=== PATIENT | male | born 1955 | race Caucasian/White ===

== ENCOUNTER 2016-11-03 17:45 | Emergency (ER) | payer MEDICARE ==
--- NOTE | 2016-11-03 18:01 | ER Document Report ---
ED Medical Screen (RME) - General Stated Complaint: JOINT PAIN Time seen by provider: 17:55 Notes: Patient complains of joint pain mostly confined to the arms and legs for a couple of days. Complains of nausea and headache, denies vomiting or fever. Patient states he had a similar episode to this November 2015, in which he was in acute renal failure. He is followed in [place] for this. He has a history of hypertension, which he states he has been out of his medications for 1 week. I have greeted and performed a rapid initial assessment of this patient. A comprehensive ED assessment and evaluation of the patient, analysis of test results and completion of the medical decision making process will be conducted by additional ED providers. TRAVEL OUTSIDE OF THE [place] IN LAST 30 DAYS: No COUNTRY TRAVELED TO/FROM: [facility] - Related Data Allergies/Adverse Reactions: No Known Allergies Allergy (Verified 11/03/16 17:55) Past Medical History - Past Medical History Cardiac Medical History: Reports: Hx Atrial Fibrillation, Hx Hypercholesterolemia, Hx Hypertension Denies: Hx Congestive Heart Failure, Hx Coronary Artery Disease, Hx Heart Attack, Hx Peripheral Vascular Disease, Hx Heart Murmur Pulmonary Medical History: Reports: Hx COPD, Hx Sleep Apnea - Bi pap at home Denies: Hx Asthma, Hx Bronchitis, Hx Pneumonia, Hx Tuberculosis Neurological Medical History: Denies: Hx Cerebrovascular Accident, Hx Seizures Endocrine Medical History: Denies: Hx Diabetes Mellitus Type 1, Hx Diabetes Mellitus Type 2, Hx Graves' Disease, Hx Hyperthyroidism, Hx Hypothyroidism Renal/ Medical History: Reports: Hx Kidney Stones Malignancy Medical History: Denies Hx Bone Cancer, Denies Hx Brain Cancer, Denies Hx Colorectal Cancer GI Medical History: Reports: Hx Gastroesophageal Reflux Disease. Denies: Hx Cirrhosis, Hx Crohn's Disease, Hx Diverticulitis Musculoskeltal Medical History: Reports Hx Arthritis, Reports Hx Fibromyalgia Skin Medical History: Denies Hx Cellulitis, Denies Hx Eczema, Denies Hx MRSA Psychiatric Medical History: Reports: Hx Bipolar Disorder, Hx Depression Denies: Hx Attention Deficit Hyperactivity Disorder, Hx Borderline Personality Disorder, Hx Obsessive Compulsive Disorder, Hx Personality Disorder , Hx Post Traumatic Stress Disorder, Hx Schizoaffective Disorder Traumatic Medical History: Denies: Hx Gunshot Wound, Hx Liver Laceration, Hx Pneumothorax Past Surgical History: Reports: Hx Cholecystectomy, Hx Orthopedic Surgery. Denies: Hx Pacemaker - Immunizations Hx Diphtheria, Pertussis, Tetanus Vaccination: Yes
[2016-11-03 18:41] LABS: APPEARANCE,URINE SLIGHTLY-CLOUDY; BILIRUBIN,URINE NEGATIVE (NEGATIVE); GLUCOSE, URINE NEGATIVE (NEGATIVE); KETONES,URINE NEGATIVE (NEGATIVE); LEUKOCYTE ESTERASE,URINE NEGATIVE (NEGATIVE); NITRITE,URINE NEGATIVE (NEGATIVE); PROTEIN,URINE 100 mg/dL (NEGATIVE); URINE SPECIFIC GRAVITY 1.009; UROBILINOGEN,URINE NEGATIVE mg/dL (<2.0)
[2016-11-03 19:00] LABS: HEMATOCRIT 34.8 % (37.9-51.0); HEMOGLOBIN 11.6 g/dL (13.5-17.0); MEAN CORPUSCULAR HEMOGLOBIN 26.1 pg (27.0-33.4); MEAN CORPUSCULAR HGB CONC 33.2 g/dL (32.0-36.0); MEAN CORPUSCULAR VOLUME 79 fl (80-97); RED BLOOD COUNT 4.43 10^6/uL (4.35-5.55); RED CELL DISTRIBUTION WIDTH 17.1 % (11.5-14.0); WHITE BLOOD COUNT 14.5 10^3/uL (4.0-10.5)
[2016-11-03 19:11] LABS: ALANINE AMINOTRANSFERASE 16 U/L (21-72); ALBUMIN 3.9 g/dL (3.5-5.0); ALKALINE PHOSPHATASE 103 U/L (38-126); ANION GAP 13 (5-19); ASPARTATE AMINO TRANSFERASE 14 U/L (17-59); BILIRUBIN,TOTAL 0.8 mg/dL (0.2-1.3); BLOOD UREA NITROGEN 19 mg/dL (7-20); CALCIUM 9.2 mg/dL (8.4-10.2); CARBON DIOXIDE 29 mmol/L (22-30); CHLORIDE 98 mmol/L (98-107); CREATININE RESULT 1.35 mg/dL (0.52-1.25); GLUCOSE 91 mg/dL (75-110); POTASSIUM 3.2 mmol/L (3.6-5.0); SODIUM 139.7 mmol/L (137-145); URIC ACID 12.2 mg/dL (3.5-8.5)
[2016-11-03 19:21] LABS: BASOPHILS % (MANUAL) 1 % (0-2); EOSINOPHILS % (MANUAL) 0 % (0-6); LYMPHOCYTES % (MANUAL) 19 % (13-45); TOTAL CELLS COUNTED 100
[2016-11-03 19:22] LABS: ANISOCYTOSIS 1+; HYPOCHROMASIA SLIGHT; MICROCYTOSIS SLIGHT; POLYCHROMASIA SLIGHT
[2016-11-03] MEDS ORDERED: ALLOPURINOL 100 MG TABLET PO ONE (19:34)
[2016-11-03] MEDS ORDERED: POTASSIUM CHLORIDE 10 MEQ TABLET.SA PO ONE (19:34)
[2016-11-03] MEDS ORDERED: HYDROCODONE/ACETAMINOPHEN 5-325 MG 6 TAB/DSPK PO PRN (19:35)
--- NOTE | 2016-11-03 19:42 | ER Document Report ---
ED General Pain - General Chief Complaint: Pain All Over Stated Complaint: JOINT PAIN Notes: Patient says he's here because he has pain in all of his big joints for the past couple of days. He says he can hardly move because the pain. Had very similar symptoms about 9 or 10 months ago when he came to this hospital and was diagnosed as being in kidney failure. He was transferred to [place] where he underwent dialysis as well as some "light" chemotherapy to improve his kidney function. He is still under the care of the kidney doctors at [place], but says he only has 1 more visit scheduled with them. They have had him evaluated for possible kidney transplant. Patient says he's had a bad headache since yesterday and today. No nausea or vomiting or diarrhea. Has not noted any fever. Denies cough or chest congestion. Denies any fever. Patient has gout but is out of medications that he was taking. He says the medicine was [place]??, Which suggested had colchicine and it area patient doesn't have anymore at home. Patient also has had a problem with blood in his urine. He underwent a scope procedure looking at his entire urological system about a month and a half ago and was told that there was nothing abnormal found. TRAVEL OUTSIDE OF THE [place] IN LAST 30 DAYS: No COUNTRY TRAVELED TO/FROM: [facility] - Related Data Allergies/Adverse Reactions: No Known Allergies Allergy (Verified 11/03/16 17:55) Past Medical History - Social History Smoking Status: Current Every Day Smoker Chew tobacco use (# tins/day): No Frequency of alcohol use: None Drug Abuse: None Family History: Reviewed & Not Pertinent Patient has suicidal ideation: No Patient has homicidal ideation: No - Past Medical History Cardiac Medical History: Reports: Hx Atrial Fibrillation, Hx Hypercholesterolemia, Hx Hypertension Pulmonary Medical History: Reports: Hx COPD, Hx Sleep Apnea - Bi pap at home Renal/ Medical History: Reports: Hx Kidney Stones Malignancy Medical History: Denies Hx Bone Cancer, Denies Hx Brain Cancer, Denies Hx Colorectal Cancer GI Medical History: Reports: Hx Gastroesophageal Reflux Disease Musculoskeltal Medical History: Reports Hx Arthritis, Reports Hx Fibromyalgia, Reports Hx Gout Psychiatric Medical History: Reports: Hx Bipolar Disorder, Hx Depression Past Surgical History: Reports: Hx Cholecystectomy, Hx Orthopedic Surgery - Immunizations Hx Diphtheria, Pertussis, Tetanus Vaccination: Yes Hx Pneumococcal Vaccination: 09/30/11 Review of Systems - Review of Systems Notes: REVIEW OF SYSTEMS: CONSTITUTIONAL : Denies fever. EENT: Denies eye, ear, nose or mouth or throat pain or other symptoms. CARDIOVASCULAR: Denies chest pain. RESPIRATORY: Denies cough, chest congestion, or shortness of breath. GASTROINTESTINAL: Denies abdominal pain or nausea, vomiting, or diarrhea. GENITOURINARY: Denies difficulty or painful urinating, urinary frequency, blood in urine. MUSCULOSKELETAL: Denies back or neck pain. Complains of pain in all the big joints of his body. SKIN: Denies rash or skin lesions. NEUROLOGICAL: Denies LOC or altered mental status. Denies headache. Denies sensory loss or motor deficits. PSYCHIATRIC: Denies anxiety or stress. Denies depression. ALL OTHER SYSTEMS REVIEWED AND NEGATIVE. Physical Exam - Vital signs Vitals: Temp Pulse Resp BP Pulse Ox 98.7 F 87 20 126/79 H 96 11/03/16 17:58 11/03/16 17:58 11/03/16 17:58 11/03/16 17:58 11/03/16 17:58 Interpretation: Normal - Notes Notes: PHYSICAL EXAMINATION: GENERAL: Well-appearing, in no acute distress. HEAD: Atraumatic, normocephalic. EYES: Pupils equal round and reactive to light, extraocular movements intact. ENT: oropharynx clear without exudates. Moist mucous membranes. NECK: Normal range of motion, supple. LUNGS: Breath sounds clear and equal bilaterally. HEART: Regular rate and rhythm without murmurs. ABDOMEN: Soft, nontender. No guarding or rebound. No masses. No bruits. BACK: No tenderness throughout entire back. EXTREMITIES: Patient says all of his major, large joints are painful. However, there is no significant swelling, erythema, increased warmth, or even pain with movement of all of his big joints. NEUROLOGICAL: Normal speech, basically normal gait. Normal sensory, motor, and reflex exams. Awake, alert, and oriented x3. Cranial nerves normal. PSYCH: Normal mood, normal affect. SKIN: Warm, dry, no rashes. Course - Re-evaluation Re-evalutation: 11/03/16 20:57 WBC is 14,000, which could be elevated secondary to inflammatory process and his joints. He had a similar white count in January of last year. His chemistry showed his kidney function to be quite good with a normal BUN and a creatinine of only 1.35. Potassium was 3.2 and he was given 40 mEq of KCl here. His uric acids 12.5. Patient is being started on allopurinol twice a day for the next week. Pain medications are being given. Urged patient to follow-up with his primary care doctor, Dr. Moore, this coming week and to call his kidney doctors in [place] Saturday to find that it's safe for him to take the allopurinol that I prescribed. - Vital Signs Vital signs: Temp Pulse Resp BP Pulse Ox 98.8 F 81 18 122/81 93 11/03/16 19:58 11/03/16 19:58 11/03/16 19:58 11/03/16 19:58 11/03/16 19:58 - Laboratory Result Diagrams: 11/03/16 18:41 11/03/16 18:41 Laboratory results interpreted by me: 11/03/16 11/03/16 11/03/16 18:17 18:41 18:41 WBC 14.5 H Hgb 11.6 L Hct 34.8 L MCV 79 L MCH 26.1 L RDW 17.1 H Abs Neuts (Manual) 10.2 H Abs Monocytes (Manual) 1.5 H ESR 81 H Potassium 3.2 L Creatinine 1.35 H Est GFR (Non-Af Amer) 54 L Uric Acid 12.2 H AST 14 L ALT 16 L Urine Protein 100 H Urine Blood LARGE H Discharge - Discharge Clinical Impression: Renal insufficiency, mild, Hypokalemia Gout Qualifiers: Gout site: multiple sites Gout etiology: unspecified cause Chronicity: acute Qualified Code(s): M10.9 - Gout, unspecified Condition: Stable Disposition: HOME, SELF-CARE Additional Instructions: Arthralgia Arthralgia is pain in the joints. We use the word arthralgia to describe joint pain where there's no history of injury, no known joint disease, and the joints are normal to examination. Arthralgia can be a symptom of an acute illness, such as influenza, hepatitis, or serum sickness. Sometimes the joint pain comes before any other symptoms. Arthralgia can also be an early symptom of joint disease, such as rheumatoid arthritis or lupus. If arthralgia is accompanied by an acute illness that explains the joint pain, such as mononucleosis, no further testing needs to be done. When there's no clear reason for the pain, tests may be done to see if there's an inflammatory disease of the joints. The usual treatment is anti-inflammatory medication, such as ibuprofen. Joint aches can be soothed with a heating pad or hot compress. If joints remain painful more than a few days, you'll need testing and followup. Return if a joint becomes swollen, red, or severely painful. Arthritis Your symptoms are due to arthritis. Arthritis is an inflammation of the joints. There are many types -- osteoarthritis (due to "wear and tear"), auto- immmune arthritis (such as rheumatoid, lupus, Lul's, and others), and crystal -induced arthritis (such as gout and pseudogout). The physician's examination, combined with laboratory tests, will determine the cause of your arthritis. All types of arthritis are treated with antiinflammatory medications. Other medication may be required for special types of arthritis, or if your problem does not respond to the antiinflammatory medicine. Local warmth may be helpful. Move the involved joints through the full range of motion daily. Mild exercise is usually still possible for most persons with arthritis (ask your physician). Swimming provides good exercise without damaging the joints. Contact the physician if you are worsening in any way. Gout You have been diagnosed as having gout. Gout is a problem caused by an excess of uric acid, a natural chemical found in the body. The cause of this disease is unknown. Gout arthritis occurs when crystals of uric acid form in the joints. The big toe is the most common joint involved, but any joint can become affected. Persons with gout may also form uric acid kidney stones, resulting in flank pain and blood in the urine. Nodules of uric acid may form under the skin. The first step of treatment is to decrease the inflammation in the joint with antiinflammatory medication. Medication to lower the uric acid level in the blood may then be prescribed. This medication should be taken regularly, as any sudden change in dosage may provoke an attack of gout. Some foods, such as red meat, can provoke an attack in some gout sufferers. Call the doctor if new symptoms arise, or if you do not improve. Allopurinol Allopurinol (Zyloprim) is used to prevent gout and uric acid kidney stones. Allopurinol lowers uric acid in your body. It's most effective if taken daily. It's not useful to treat an attack of gout once it begins! There are usually no side effects from allopurinol. If you have any kidney disease, be sure your doctor knows about it before starting allopurinol ( you may need a lower dose). Stop the allopurinol and call your doctor if you develop severe itching, rash, unexplained blisters, unexplained bruises, jaundice (yellow skin), or swelling. Hypokalemia You have an abnormally decreased level of serum potassium. Hypokalemia may cause weakness, fatigue, or heart rhythm abnormalities. Sometimes there are no symptoms at all. Usually, low serum potassium is due to taking diuretics ( water pills). It can also be due to excessive vomiting or diarrhea. If no obvious cause is evident, further evaluation will be necessary. Treatment is usually oral potassium supplements. Take these exactly as prescribed. You may also want to select foods which are naturally high in potassium -- fruits (such as bananas, cantaloupe, grapes, oranges, prunes, tomatoes), fresh vegetables (potatoes, spinach, beans, peas), orange or tomato juice, tomato pasta sauce, milk, fish (halibut, tuna, salmon, flora) A follow-up blood test is usually performed to assure that the potassium is returning to normal. Call the physician if you suffer severe weakness, muscle twitching or cramping, palpitations (pounding or irregular heartbeat), or any other new or alarming symptoms. Oral Narcotic Medication You have been given a prescription for pain control. This medication is a narcotic. It's best taken with food, as nausea can result if taken on an empty stomach. Don't operate machinery or drive within six hours of taking this medication. Do not combine this medicine with alcohol, or with any medication which can cause sedation (such as cold tablets or sleeping pills) unless you get permission from the physician. Narcotics tend to cause constipation. If possible, drink plenty of fluids and eat a diet high in fiber and fruits. FOLLOW-UP CARE: If you have been referred to a physician for follow-up care, call the physician s office for an appointment as you were instructed or within the next two days. If you experience worsening or a significant change in your symptoms, notify the physician immediately or return to the Emergency Department at any time for re-evaluation. Call your kidney doctors in [place] Saturday to let them know you were here and that we gave you medication (Allopurinol) for gout and medication for pain and to see that they are agreeable with this treatment plan. Prescriptions: Hydrocodone/Acetaminophen [[place] 5-325 mg Tablet] 1 - 2 tab PO Q6HP PRN #15 tablet PRN Reason: Allopurinol [Zyloprim 100 mg Tablet] 100 mg PO BID #12 tablet Referrals: SHANIA MOORE MD [Primary Care Provider] - Follow up as needed
[2016-11-03 19:45] LABS: ERYTHROCYTE SEDIMENTATION RATE 81 mm/hr (0-20)
[2016-11-03] MEDS ORDERED: ALLOPURINOL 100 MG TABLET ONE (19:48)
[2016-11-03 20:03] VITALS: BP 122/81
== END 2016-11-03 20:03 | disposition home or self-care (01) ==
LOC: ER 17:45
DX: M10.9 Gout, unspecified (principal); E87.6 Hypokalemia; N28.9 Disorder of kidney and ureter, unspecified; R51 Headache; R31.9 Hematuria, unspecified; D72.829 Elevated white blood cell count, unspecified; I10 Essential (primary) hypertension; J44.9 Chronic obstructive pulmonary disease, unspecified; F17.200 Nicotine dependence, unspecified, uncomplicated; Z98.890 Other specified postprocedural states
CPT/HCPCS: 99283; 36415; 84550; 85025; 85652; 80053; 81001; A9270 ×3

== ENCOUNTER 2016-11-05 21:30 | Emergency (ER) | payer MEDICARE ==
--- NOTE | 2016-11-05 23:09 | ER Document Report ---
ED Medical Screen (RME) - General Chief Complaint: Swelling Stated Complaint: HANDS PAIN Information source: Patient Notes: Patient complains of gout flareup affecting multiple joints. No fever. Patient was seen here 2 days ago for the same complaint but states symptoms are worse despite medication. hx: Hypertension, gout I have greeted and performed a rapid initial assessment of this patient. A comprehensive ED assessment and evaluation of the patient, analysis of test results and completion of the medical decision making process will be conducted by additional ED providers. TRAVEL OUTSIDE OF THE [place] IN LAST 30 DAYS: No - Related Data Allergies/Adverse Reactions: No Known Allergies Allergy (Verified 11/03/16 17:55) Past Medical History - Past Medical History Cardiac Medical History: Reports: Hx Atrial Fibrillation, Hx Hypercholesterolemia, Hx Hypertension Denies: Hx Congestive Heart Failure, Hx Coronary Artery Disease, Hx Heart Attack, Hx Peripheral Vascular Disease, Hx Heart Murmur Pulmonary Medical History: Reports: Hx COPD, Hx Sleep Apnea - Bi pap at home Denies: Hx Asthma, Hx Bronchitis, Hx Pneumonia, Hx Tuberculosis Neurological Medical History: Denies: Hx Cerebrovascular Accident, Hx Seizures Endocrine Medical History: Denies: Hx Diabetes Mellitus Type 1, Hx Diabetes Mellitus Type 2, Hx Graves' Disease, Hx Hyperthyroidism, Hx Hypothyroidism Renal/ Medical History: Reports: Hx Kidney Stones. Denies: Hx Peritoneal Dialysis Malignancy Medical History: Denies Hx Bone Cancer, Denies Hx Brain Cancer, Denies Hx Colorectal Cancer GI Medical History: Reports: Hx Gastroesophageal Reflux Disease. Denies: Hx Cirrhosis, Hx Crohn's Disease, Hx Diverticulitis Musculoskeltal Medical History: Reports Hx Arthritis, Reports Hx Fibromyalgia, Reports Hx Gout Skin Medical History: Denies Hx Cellulitis, Denies Hx Eczema, Denies Hx MRSA Psychiatric Medical History: Reports: Hx Bipolar Disorder, Hx Depression Denies: Hx Attention Deficit Hyperactivity Disorder, Hx Borderline Personality Disorder, Hx Obsessive Compulsive Disorder, Hx Personality Disorder , Hx Post Traumatic Stress Disorder, Hx Schizoaffective Disorder Traumatic Medical History: Denies: Hx Gunshot Wound, Hx Liver Laceration, Hx Pneumothorax Past Surgical History: Reports: Hx Cholecystectomy, Hx Orthopedic Surgery. Denies: Hx Pacemaker - Immunizations Hx Diphtheria, Pertussis, Tetanus Vaccination: Yes Physical Exam - Vital signs Vitals: Temp Pulse Resp BP Pulse Ox 98.0 F 80 20 134/68 H 98 11/05/16 22:58 11/05/16 22:58 11/05/16 22:58 11/05/16 22:58 11/05/16 22:58 - Extremities General lower extremity: Tender - Bilateral knee, ankle joints Course - Vital Signs Vital signs: Temp Pulse Resp BP Pulse Ox 98.0 F 80 20 134/68 H 98 11/05/16 22:58 11/05/16 22:58 11/05/16 22:58 11/05/16 22:58 11/05/16 22:58
[2016-11-06 02:31] LABS: ABSOLUTE BASOPHILS # (AUTO) 0.1 10^3/uL (0.0-0.2); ABSOLUTE EOSINOPHILS # (AUTO) 0.1 10^3/uL (0.0-0.6); ABSOLUTE NEUT (AUTO) 9.9 10^3/uL (1.7-8.2); BASOPHILS % (AUTO) 0.6 % (0-2); EOSINOPHILS % (AUTO) 0.6 % (0-6); HEMATOCRIT 34.6 % (37.9-51.0); HEMOGLOBIN 11.6 g/dL (13.5-17.0); HGB HCT DIFFERENCE 0.2; LYMPHOCYTES % (AUTO) 8.7 % (13-45); MEAN CORPUSCULAR HEMOGLOBIN 26.4 pg (27.0-33.4); MEAN CORPUSCULAR HGB CONC 33.5 g/dL (32.0-36.0); MEAN CORPUSCULAR VOLUME 79 fl (80-97); MONOCYTES % (AUTO) 8.1 % (3-13); RED CELL DISTRIBUTION WIDTH 16.8 % (11.5-14.0); WHITE BLOOD COUNT 12.1 10^3/uL (4.0-10.5)
[2016-11-06 02:46] LABS: ALANINE AMINOTRANSFERASE 20 U/L (21-72); ALBUMIN 3.4 g/dL (3.5-5.0); ALKALINE PHOSPHATASE 105 U/L (38-126); ANION GAP 14 (5-19); ASPARTATE AMINO TRANSFERASE 21 U/L (17-59); BILIRUBIN,TOTAL 0.7 mg/dL (0.2-1.3); BLOOD UREA NITROGEN 15 mg/dL (7-20); CALCIUM 8.9 mg/dL (8.4-10.2); CARBON DIOXIDE 27 mmol/L (22-30); CHLORIDE 98 mmol/L (98-107); CREATININE RESULT 1.22 mg/dL (0.52-1.25); GLUCOSE 205 mg/dL (75-110); POTASSIUM 3.1 mmol/L (3.6-5.0); SODIUM 139.3 mmol/L (137-145); TOTAL PROTEIN 7.1 g/dL (6.3-8.2); URIC ACID 9.2 mg/dL (3.5-8.5)
[2016-11-06 03:00] LABS: C-REACTIVE PROTEIN 199.8 mg/L (<10.0)
[2016-11-06 03:03] LABS: ERYTHROCYTE SEDIMENTATION RATE 109 mm/hr (0-20)
[2016-11-06 04:41] LABS: APPEARANCE,URINE SLIGHTLY-CLOUDY; BILIRUBIN,URINE NEGATIVE (NEGATIVE); GLUCOSE, URINE NEGATIVE (NEGATIVE); KETONES,URINE NEGATIVE (NEGATIVE); LEUKOCYTE ESTERASE,URINE NEGATIVE (NEGATIVE); NITRITE,URINE NEGATIVE (NEGATIVE); PROTEIN,URINE 100 mg/dL (NEGATIVE); UROBILINOGEN,URINE NEGATIVE mg/dL (<2.0)
[2016-11-06] MEDS ORDERED: OXYCODONE-ACETAMINOPHEN 5-325 MG TABLET PO ONE (05:13)
--- NOTE | 2016-11-06 06:15 | ER Document Report ---
ED General - General Chief Complaint: Feet Swelling Stated Complaint: HANDS PAIN Time seen by provider: 06:10 Mode of Arrival: Medic Information source: Patient Notes: 61-year-old male presents to ED for pain and swelling in most of his joints last 4-5 days. He states he was seen here 11/03/2016. He states the pain was so bad that he couldn't even drive himself he had to call 911. He states he had this similar symptom symptoms but on her 10 months ago he was on a lot of steroids and he was diagnosed with kidney failure was transferred to [place] underwent dialysis and was able to improve his kidney function. Patient denies any fever but states the medication he's been taking has not helped his pain. TRAVEL OUTSIDE OF THE [place] IN LAST 30 DAYS: No - HPI Onset: Other - For 6 days Onset/Duration: Gradual, Worse Quality of pain: Sharp, Stabbing, Throbbing Severity: Severe Pain Level: 5 Associated symptoms: Other - Redness and swelling at all joints. Exacerbated by: Movement, Walking Relieved by: Denies Similar symptoms previously: Yes Recently seen / treated by doctor: Yes - Related Data Allergies/Adverse Reactions: No Known Allergies Allergy (Verified 11/03/16 17:55) Past Medical History - General Information source: Patient - Social History Smoking Status: Current Every Day Smoker Cigarette use (# per day): Yes - 4-5 cigarettes a day trying to quit Chew tobacco use (# tins/day): Yes - less than a minute Frequency of alcohol use: None Drug Abuse: None Occupation: none Lives with: Alone Family History: Reviewed & Not Pertinent Patient has suicidal ideation: No Patient has homicidal ideation: No - Past Medical History Cardiac Medical History: Reports: Hx Atrial Fibrillation, Hx Hypercholesterolemia, Hx Hypertension Pulmonary Medical History: Reports: Hx COPD, Hx Sleep Apnea - Bi pap at home EENT Medical History: Reports: None Neurological Medical History: Reports: None Endocrine Medical History: Reports: None Renal/ Medical History: Reports: Hx Kidney Stones, Other - Kidney failure about 9 or 10 months ago but his kidney function has improved. Malignancy Medical History: Reports None GI Medical History: Reports: Hx Gastroesophageal Reflux Disease Musculoskeltal Medical History: Reports Hx Arthritis, Reports Hx Fibromyalgia, Reports Hx Gout Skin Medical History: Reports None Psychiatric Medical History: Reports: Hx Bipolar Disorder, Hx Depression Traumatic Medical History: Reports: None Infectious Medical History: Reports: None Past Surgical History: Reports: Hx Cholecystectomy, Hx Orthopedic Surgery - Immunizations Immunizations up to date: Yes Hx Diphtheria, Pertussis, Tetanus Vaccination: Yes Hx Pneumococcal Vaccination: 09/30/11 Review of Systems - Review of Systems Constitutional: No symptoms reported EENT: No symptoms reported Cardiovascular: No symptoms reported Respiratory: No symptoms reported Gastrointestinal: No symptoms reported Genitourinary: No symptoms reported Male Genitourinary: No symptoms reported Musculoskeletal: Gout, Joint pain, Joint swelling, Other - Redness to every joint Skin: Change in color Hematologic/Lymphatic: No symptoms reported Neurological/Psychological: No symptoms reported -: Yes All other systems reviewed and negative Physical Exam - Vital signs Vitals: Temp Pulse Resp BP Pulse Ox 98.0 F 80 20 134/68 H 98 11/05/16 22:58 11/05/16 22:58 11/05/16 22:58 11/05/16 22:58 11/05/16 22:58 Interpretation: Normal - General General appearance: Appears well, Alert - HEENT Head: Normocephalic, Atraumatic Eyes: Normal Pupils: PERRL - Respiratory Respiratory status: No respiratory distress Chest status: Nontender Breath sounds: Normal Chest palpation: Normal - Cardiovascular Rhythm: Regular Heart sounds: Normal auscultation Murmur: No - Abdominal Inspection: Normal Distension: No distension Bowel sounds: Normal Tenderness: Nontender Organomegaly: No organomegaly - Back Back: Normal, Nontender - Extremities General upper extremity: Normal temperature General lower extremity: Normal temperature. No: Drake's sign Shoulder: Tender Elbow: Tender, Limited ROM - Due to pain from gout, Other - Erythema Forearm: Tender, Other - Erythema Wrist: Tender, Limited ROM - Due to pain from gout Hand: Tender, Swelling, Other - Erythema Hip: Tender, Pain with ROM - Due to pain from gout, Other - Erythema Knee: Tender, Pain with ROM - Due to pain from gout, Tender joint line Ankle: Tender Foot: Tender - Neurological Neuro grossly intact: Yes Cognition: Normal Orientation: AAOx4 Giles Coma Scale Eye Opening: Spontaneous Giles Coma Scale Verbal: Oriented Rocky Coma Scale Motor: Obeys Commands Rocky Coma Scale Total: 15 Speech: Normal Motor strength normal: LUE, RUE, LLE, RLE Sensory: Normal - Psychological Associated symptoms: Normal affect, Normal mood - Skin Skin Temperature: Warm Skin Moisture: Dry Skin Color: Normal Skin irregularity: Erythema - Most joints Location of irregularity: Extremities Irregularity with: Swelling, Tenderness, Warmth, Inflammation Course - Re-evaluation Re-evalutation: 11/06/16 06:30 Reviewed lab results with patient and written reports given to patient and encouraged to follow up with his primary doctor today or tomorrow as he was instructed. Patient states he missed his appointment on Saturday due to pain because he could not drive himself. Instructed patient to find someone to drive him to the doctor. - Vital Signs Vital signs: Temp Pulse Resp BP Pulse Ox 99.2 F 75 20 118/63 93 11/06/16 06:51 11/06/16 06:51 11/06/16 06:51 11/06/16 06:51 11/06/16 06:51 - Laboratory Result Diagrams: 11/06/16 02:22 11/06/16 02:22 Laboratory results interpreted by me: 11/06/16 11/06/16 11/06/16 02:22 02:22 04:05 WBC 12.1 H Hgb 11.6 L Hct 34.6 L MCV 79 L MCH 26.4 L RDW 16.8 H Seg Neutrophils % 82.0 H Lymphocytes % 8.7 L Absolute Neutrophils 9.9 H ESR 109 H Potassium 3.1 L Glucose 205 H Uric Acid 9.2 H ALT 20 L C-Reactive Protein 199.8 H Albumin 3.4 L Urine Protein 100 H Urine Blood LARGE H Discharge - Discharge Clinical Impression: Gout Qualifiers: Gout site: multiple sites Gout etiology: unspecified cause Chronicity: acute Qualified Code(s): M10.9 - Gout, unspecified Condition: Stable Disposition: HOME, SELF-CARE Additional Instructions: Gout You have been diagnosed as having gout. Gout is a problem caused by an excess of uric acid, a natural chemical found in the body. The cause of this disease is unknown. Gout arthritis occurs when crystals of uric acid form in the joints. The big toe is the most common joint involved, but any joint can become affected. Persons with gout may also form uric acid kidney stones, resulting in flank pain and blood in the urine. Nodules of uric acid may form under the skin. The first step of treatment is to decrease the inflammation in the joint with antiinflammatory medication. Medication to lower the uric acid level in the blood may then be prescribed. This medication should be taken regularly, as any sudden change in dosage may provoke an attack of gout. Some foods, such as red meat, can provoke an attack in some gout sufferers. Call the doctor if new symptoms arise, or if you do not improve. Arthralgia Arthralgia is pain in the joints. We use the word arthralgia to describe joint pain where there's no history of injury, no known joint disease, and the joints are normal to examination. Arthralgia can be a symptom of an acute illness, such as influenza, hepatitis, or serum sickness. Sometimes the joint pain comes before any other symptoms. Arthralgia can also be an early symptom of joint disease, such as rheumatoid arthritis or lupus. If arthralgia is accompanied by an acute illness that explains the joint pain, such as mononucleosis, no further testing needs to be done. When there's no clear reason for the pain, tests may be done to see if there's an inflammatory disease of the joints. The usual treatment is anti-inflammatory medication, such as ibuprofen. Joint aches can be soothed with a heating pad or hot compress. If joints remain painful more than a few days, you'll need testing and followup. Return if a joint becomes swollen, red, or severely painful. STEROID MEDICATION: You have been given a medicine of the cortisone/steroid class. This medication is used to control inflammation or allergy. It is usually only given for a short period of time, until the acute process subsides. There are usually no side effects from short-term use of cortisone-like medications. Some persons feel an increased sense of well-being and are not sleepy at bedtime. Long-term use of cortisone medications is best avoided, unless required for a severe condition. If your condition does not remit, or relapses after the course of corticosteroid medication, you should consult your physician. Oral Narcotic Medication You have been given a prescription for pain control. This medication is a narcotic. It's best taken with food, as nausea can result if taken on an empty stomach. Don't operate machinery or drive within six hours of taking this medication. Do not combine this medicine with alcohol, or with any medication which can cause sedation (such as cold tablets or sleeping pills) unless you get permission from the physician. Narcotics tend to cause constipation. If possible, drink plenty of fluids and eat a diet high in fiber and fruits. FOLLOW-UP CARE: Please call Dr. Moore today schedule a follow-up visit and findings someone to take you to the visit do not cancer genetic counselor the visit due to pain. If you have been referred to a physician for follow-up care, call the physician s office for an appointment as you were instructed or within the next two days. If you experience worsening or a significant change in your symptoms, notify the physician immediately or return to the Emergency Department at any time for re-evaluation. Prescriptions: Prednisone [Deltasone 20 mg Tablet] 3 tab PO DAILY 5 Days Forms: Elevated Blood Pressure, Smoking Cessation Education Referrals: SHANIA MOORE MD [Primary Care Provider] - 11/06/16 (Call Dr. Moore today to schedule an appointment for follow-up for your Gout)
[2016-11-06] MEDS ORDERED: PREDNISONE 20 MG TABLET PO ONE (06:24)
[2016-11-06 06:52] VITALS: BP 118/63
== END 2016-11-06 06:52 | disposition home or self-care (01) ==
LOC: ER 21:30
DX: M10.9 Gout, unspecified (principal); I10 Essential (primary) hypertension; J44.9 Chronic obstructive pulmonary disease, unspecified; F17.210 Nicotine dependence, cigarettes, uncomplicated; Z71.6 Tobacco abuse counseling
CPT/HCPCS: 99283; 36415; 84550; 85025; 85652; 86140; 80053; 81001; A9270 ×2; J7512

== ENCOUNTER 2016-12-20 17:53 | Emergency (ER) | payer MEDICARE ==
[2016-12-20 18:00] VITALS: BP 171/90
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
[2016-12-20] MEDS ORDERED: HYDROCODONE/ACETAMINOPHEN 5-325 MG 6 TAB/DSPK PO PRN (21:28)
== END 2016-12-20 22:08 | disposition home or self-care (01) ==
LOC: ER 17:53
DX: G89.21 Chronic pain due to trauma (principal); M54.89 Other dorsalgia; M89.8X8 Other specified disorders of bone, other site; S22.20XA Unspecified fracture of sternum, initial encounter for closed fracture; S32.009A Unspecified fracture of unspecified lumbar vertebra, initial encounter for closed fracture; V49.9XXA Car occupant (driver) (passenger) injured in unspecified traffic accident, initial encounter; I10 Essential (primary) hypertension; J44.9 Chronic obstructive pulmonary disease, unspecified
CPT/HCPCS: 99283; A9270

== ENCOUNTER 2017-03-13 06:10 | Emergency (ER) | payer MEDICARE ==
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
[2017-03-13 07:26] LABS: ABSOLUTE BASOPHILS # (AUTO) 0.1 10^3/uL (0.0-0.2); ABSOLUTE EOSINOPHILS # (AUTO) 0.3 10^3/uL (0.0-0.6); ABSOLUTE MONOCYTES (AUTO) 1.2 10^3/uL (0.1-1.4); ABSOLUTE NEUT (AUTO) 4.9 10^3/uL (1.7-8.2); BASOPHILS % (AUTO) 0.9 % (0-2); EOSINOPHILS % (AUTO) 3.2 % (0-6); HEMATOCRIT 39.5 % (37.9-51.0); HEMOGLOBIN 13.2 g/dL (13.5-17.0); HGB HCT DIFFERENCE 0.1; LYMPHOCYTES % (AUTO) 23.5 % (13-45); MEAN CORPUSCULAR HEMOGLOBIN 27.9 pg (27.0-33.4); MEAN CORPUSCULAR HGB CONC 33.4 g/dL (32.0-36.0); MEAN CORPUSCULAR VOLUME 84 fl (80-97); RED BLOOD COUNT 4.73 10^6/uL (4.35-5.55); RED CELL DISTRIBUTION WIDTH 17.2 % (11.5-14.0); SEGMENTED NEUTROPHILS % (AUTO) 58.4 % (42-78); WHITE BLOOD COUNT 8.4 10^3/uL (4.0-10.5)
[2017-03-13 07:46] LABS: ALANINE AMINOTRANSFERASE 22 U/L (21-72); ALBUMIN 3.8 g/dL (3.5-5.0); ALKALINE PHOSPHATASE 88 U/L (38-126); ANION GAP 11 (5-19); ASPARTATE AMINO TRANSFERASE 18 U/L (17-59); BILIRUBIN,DIRECT 0.3 mg/dL (0.0-0.4); BILIRUBIN,TOTAL 0.3 mg/dL (0.2-1.3); BLOOD UREA NITROGEN 21 mg/dL (7-20); CARBON DIOXIDE 27 mmol/L (22-30); CHLORIDE 102 mmol/L (98-107); CREATININE RESULT 1.14 mg/dL (0.52-1.25); GLUCOSE 125 mg/dL (75-110); POTASSIUM 3.2 mmol/L (3.6-5.0); TOTAL PROTEIN 6.6 g/dL (6.3-8.2)
[2017-03-13] MEDS ORDERED: TRAMADOL HCL 50 MG TABLET PO ONE (07:49)
[2017-03-13 08:37] VITALS: BP 128/74
== END 2017-03-13 08:36 | disposition home or self-care (01) ==
LOC: ER 06:10
DX: M54.5 Low back pain (principal); M54.9 Dorsalgia, unspecified; Z79.899 Other long term (current) drug therapy
CPT/HCPCS: 99283; 36415; 85025; 80053; A9270

== ENCOUNTER → 2017-04-15 | Outpatient (CLI) | payer MEDICARE ==
[2017-04-15 10:46] LABS: ABSOLUTE BASOPHILS # (AUTO) 0.1 10^3/uL (0.0-0.2); ABSOLUTE EOSINOPHILS # (AUTO) 0.2 10^3/uL (0.0-0.6); ABSOLUTE LYMPHOCYTES (AUTO) 1.6 10^3/uL (0.5-4.7); ABSOLUTE MONOCYTES (AUTO) 0.8 10^3/uL (0.1-1.4); ABSOLUTE NEUT (AUTO) 5.1 10^3/uL (1.7-8.2); BASOPHILS % (AUTO) 0.8 % (0-2); EOSINOPHILS % (AUTO) 2.7 % (0-6); HEMATOCRIT 40.5 % (37.9-51.0); HEMOGLOBIN 13.5 g/dL (13.5-17.0); LYMPHOCYTES % (AUTO) 20.8 % (13-45); MEAN CORPUSCULAR HEMOGLOBIN 28.1 pg (27.0-33.4); MEAN CORPUSCULAR HGB CONC 33.2 g/dL (32.0-36.0); MEAN CORPUSCULAR VOLUME 85 fl (80-97); MONOCYTES % (AUTO) 10.3 % (3-13); RED BLOOD COUNT 4.78 10^6/uL (4.35-5.55); RED CELL DISTRIBUTION WIDTH 14.6 % (11.5-14.0); SEGMENTED NEUTROPHILS % (AUTO) 65.4 % (42-78); WHITE BLOOD COUNT 7.9 10^3/uL (4.0-10.5)
[2017-04-15 12:10] LABS: ALANINE AMINOTRANSFERASE 22 U/L (21-72); ALBUMIN 3.9 g/dL (3.5-5.0); ALKALINE PHOSPHATASE 111 U/L (38-126); ANION GAP 12 (5-19); ASPARTATE AMINO TRANSFERASE 22 U/L (17-59); BILIRUBIN,TOTAL 0.5 mg/dL (0.2-1.3); BLOOD UREA NITROGEN 19 mg/dL (7-20); CALCIUM 9.2 mg/dL (8.4-10.2); CARBON DIOXIDE 27 mmol/L (22-30); CHLORIDE 100 mmol/L (98-107); CREATININE RESULT 1.27 mg/dL (0.52-1.25); GLUCOSE 103 mg/dL (75-110); POTASSIUM 3.8 mmol/L (3.6-5.0); TOTAL PROTEIN 7.1 g/dL (6.3-8.2)
[2017-04-15 12:11] LABS: ANION GAP 13 (5-19); BLOOD UREA NITROGEN 19 mg/dL (7-20); CALCIUM 9.5 mg/dL (8.4-10.2); CARBON DIOXIDE 26 mmol/L (22-30); CHLORIDE 104 mmol/L (98-107); GLUCOSE 107 mg/dL (75-110); PHOSPHORUS 3.9 mg/dL (2.5-4.5); SODIUM 142.6 mmol/L (137-145)
[2017-04-15 12:23] LABS: URINE BARBITURATES SCREEN NEGATIVE; URINE METHADONE SCREEN NEGATIVE; URINE OPIATES LOW NEGATIVE; URINE PHENCYCLIDINE SCREEN NEGATIVE
[2017-04-15 13:10] LABS: BILIRUBIN,DIRECT 0.3 mg/dL (0.0-0.4)
[2017-04-15 19:10] LABS: CHOLESTEROL 120.97 mg/dL (0-200); Direct HDL 34 mg/dL (>40); TRIGLYCERIDES 184 mg/dL (<150)
[2017-04-15 19:21] LABS: DIRECT LDL 60 mg/dL (<100)
[2017-04-15 19:23] LABS: VLDL CHOLESTEROL 36.8 mg/dL (10-31)
== END ==
LOC: OD 09:40
PROVIDERS: ATTEND Physician Assistant
DX: I12.9 Hypertensive chronic kidney disease with stage 1 through stage 4 chronic kidney disease, or unspecified chronic kidney disease (principal); N18.9 Chronic kidney disease, unspecified; E55.9 Vitamin D deficiency, unspecified; N40.0 Benign prostatic hyperplasia without lower urinary tract symptoms; Z79.891 Long term (current) use of opiate analgesic
CPT/HCPCS: 36415; 80053; 80061; 80069; 80307; 82306; 84153; 84443; 85025

== ENCOUNTER 2019-06-05 16:24 | Emergency (ER) | payer MEDICARE ==
--- NOTE | 2019-06-05 17:45 | ER Document Report ---
ED Medical Screen (RME) - General Chief Complaint: Productive Cough Stated Complaint: COUGHING UP BLOOD Time Seen by Provider: 06/05/19 17:43 Primary Care Provider: GUILLERMO MO MD [Primary Care Provider] - Follow up as needed Mode of Arrival: Ambulatory Information source: Patient Notes: 64-year-old male presents to ED for waking up coughing mucus and blood this morning he states he started coughing yesterday he has a history of high blood pressure cholesterol pneumonia kidney failure anxiety arthritis and melanoma. He has had multiple orthopedic surgeries to include his right ankle both knees back fusion right shoulder rotator cuff carpal tunnel and finger reconstruction. He states he smokes a pack a day lives alone and is retired. He is alert orie nted respirations regular and unlabored speaking in full sentences walks with a even steady gait. I have greeted and performed a rapid initial assessment of this patient. A comprehensive ED assessment and evaluation of the patient, analysis of test results and completion of medical decision making process will be conducted by an additional ED providers. TRAVEL OUTSIDE OF THE [place] IN LAST 30 DAYS: No - Related Data Allergies/Adverse Reactions: No Known Allergies Allergy (Verified 06/05/19 16:36) Past Medical History - Social History Frequency of alcohol use: None Drug Abuse: None - Past Medical History Cardiac Medical History: Reports: Hx Atrial Fibrillation, Hx Hypercholesterolemia, Hx Hypertension Denies: Hx Congestive Heart Failure, Hx Coronary Artery Disease, Hx Heart Attack, Hx Peripheral Vascular Disease, Hx Heart Murmur Pulmonary Medical History: Reports: Hx COPD, Hx Sleep Apnea Denies: Hx Asthma, Hx Bronchitis, Hx Pneumonia, Hx Tuberculosis Neurological Medical History: Denies: Hx Cerebrovascular Accident, Hx Seizures Endocrine Medical History: Denies: Hx Diabetes Mellitus Type 1, Hx Diabetes M ellitus Type 2, Hx Graves' Disease, Hx Hyperthyroidism, Hx Hypothyroidism Renal/ Medical History: Reports: Hx Kidney Stones. Denies: Hx Peritoneal Dialysis Malignancy Medical History: Denies Hx Bone Cancer, Denies Hx Brain Cancer, Denies Hx Colorectal Cancer GI Medical History: Reports: Hx Gastroesophageal Reflux Disease. Denies: Hx Cirrhosis, Hx Crohn's Disease, Hx Diverticulitis Musculoskeltal Medical History: Reports Hx Arthritis, Reports Hx Fibromyalgia, Reports Hx Gout, Reports Hx Musculoskeletal Deformity, Reports Hx Musculoskeletal Trauma Skin Medical History: Denies Hx Cellulitis, Denies Hx Eczema, Denies Hx MRSA Psychiatric Medical History: Reports: Hx Bipolar Disorder, Hx Depression Denies: Hx Attention Deficit Hyperactivity Disorder, Hx Borderline Personality Disorder, Hx Obsessive Compulsive Disorder, Hx Personality Disorder, Hx Post Traumatic Stress Disorder, Hx Schizoaffective Disorder Traumatic Medical History: Reports: Hx Fractures, Hx Spine Fracture - L1 and 2. Denies: Hx Gunshot Wound, Hx Liver Laceration, Hx Pneumothorax Past Surgical History: Reports: Hx Cholecystectomy, Hx Orthopedic Surgery. Denies: Hx Pacemaker - Immunizations Immunizations up to date: Yes Hx Diphtheria, Pertussis, Tetanus Vaccination: Yes Physical Exam - Vital signs Vitals: Temp Pulse Resp BP Pulse Ox 98.5 F 62 16 106/63 92 06/05/19 17:11 06/05/19 17:11 06/05/19 17:11 06/05/19 17:11 06/05/19 17:11 Course - Vital Signs Vital signs: Temp Pulse Resp BP Pulse Ox 98.5 F 62 16 106/63 92 06/05/19 17:11 06/05/19 17:11 06/05/19 17:11 06/05/19 17:11 06/05/19 17:11 Doctor's Discharge - Discharge Referrals: GUILLERMO MO MD [Primary Care Provider] - Follow up as needed
[2019-06-05 18:05] LABS: HEMATOCRIT 35.6 % (37.9-51.0); HEMOGLOBIN 12.1 g/dL (13.5-17.0); MEAN CORPUSCULAR HEMOGLOBIN 28.8 pg (27.0-33.4); MEAN CORPUSCULAR HGB CONC 34.1 g/dL (32.0-36.0); MEAN CORPUSCULAR VOLUME 85 fl (80-97); PLATELET COUNT 185 10^3/uL (150-450); RED CELL DISTRIBUTION WIDTH 15.9 % (11.5-14.0); WHITE BLOOD COUNT 10.9 10^3/uL (4.0-10.5)
--- NOTE | 2019-06-05 18:27 | RADIOLOGY REPORT (SQ) ---
EXAM DESCRIPTION: CHEST 2 VIEWS COMPLETED DATE/TIME: 06/05/2019 6:11 pm REASON FOR STUDY: Congestion coughing up mucus and blood COMPARISON: 01/09/2016 EXAM PARAMETERS: NUMBER OF VIEWS: two views TECHNIQUE: Digital Frontal and Lateral radiographic views of the chest acquired. RADIATION DOSE: NA LIMITATIONS: none FINDINGS: LUNGS AND PLEURA: No opacities, masses or pneumothorax. No pleural effusion. MEDIASTINUM AND HILAR STRUCTURES: No masses or contour abnormalities. HEART AND VASCULAR STRUCTURES: Heart normal size. No evidence for failure. BONES: No acute findings. HARDWARE: None in the chest. OTHER: No other significant finding. IMPRESSION: NO ACUTE RADIOGRAPHIC FINDING IN THE CHEST. TECHNICAL DOCUMENTATION: JOB ID: [id number] [employer]- All Rights Reserved Reading location - IP/workstation name: [email or web address]
[2019-06-05 18:29] LABS: ANISOCYTOSIS 1+; BASOPHILS % (MANUAL) 0 % (0-2); EOSINOPHILS % (MANUAL) 3 % (0-6); HYPOCHROMASIA SLIGHT; LYMPHOCYTES % (MANUAL) 18 % (13-45); MONOCYTES % (MANUAL) 9 % (3-13); SEGMENTED NEUTROPHILS % (MAN) 70 % (42-78); TOTAL CELLS COUNTED 100
[2019-06-05 18:30] LABS: PLATELET COMMENT ADEQUATE
[2019-06-05 18:31] LABS: ALBUMIN 3.8 g/dL (3.5-5.0); ALKALINE PHOSPHATASE 108 U/L (38-126); ANION GAP 10 (5-19); ASPARTATE AMINO TRANSFERASE 30 U/L (17-59); BILIRUBIN,DIRECT 0.2 mg/dL (0.0-0.4); BILIRUBIN,TOTAL 0.2 mg/dL (0.2-1.3); BLOOD UREA NITROGEN 48 mg/dL (7-20); CALCIUM 9.2 mg/dL (8.4-10.2); CARBON DIOXIDE 29 mmol/L (22-30); CHLORIDE 97 mmol/L (98-107); GLUCOSE 120 mg/dL (75-110); POTASSIUM 5.1 mmol/L (3.6-5.0); TOTAL PROTEIN 6.6 g/dL (6.3-8.2)
[2019-06-05] MEDS ORDERED: NORMAL SALINE 1000 ML 1,000 ML IV ONE ×2 (20:37→22:38)
--- NOTE | 2019-06-05 20:40 | ER Document Report ---
ED General - General Chief Complaint: Productive Cough Stated Complaint: COUGHING UP BLOOD Time Seen by Provider: 06/05/19 17:43 Primary Care Provider: GUILLERMO MO MD [Primary Care Provider] - 06/08/19 Mode of Arrival: Ambulatory Notes: Patient is a 64-year-old male that comes emergency department for chief complaint of cough, weakness, intermittent lightheadedness, intermittent shortn ess of breath. He states he has had a cough since yesterday, he has been coughing up greenish sputum, today he saw some bloody streaks in the sputum as well and became more concerned. He denies fever/chills. He continues to smoke. He states he was seen by primary care and placed on 2 different inhalers that he is using. He denies specific chest pain, he denies vomiting or diarrhea. Past medical history of hypertension, hyperlipidemia, chronic kidney disease, melanoma. TRAVEL OUTSIDE OF THE [place] IN LAST 30 DAYS: No - Related Data Allergies/Adverse Reactions: No Known Allergies Allergy (Verified 06/05/19 16:36) Past Medical History - General Information source: Patient - Social History Smoking Status: Current Every Day Smoker Smoking Education Provided: Yes - <3 min Frequency of alcohol use: None Drug Abuse: None Family History: Reviewed & Not Pertinent Patient has suicidal ideation: No Patient has homicidal ideation: No - Past Medical History Cardiac Medical History: Reports: Hx Atrial Fibrillation, Hx Hyperchol esterolemia, Hx Hypertension Denies: Hx Congestive Heart Failure, Hx Coronary Artery Disease, Hx Heart Attack, Hx Peripheral Vascular Disease, Hx Heart Murmur Pulmonary Medical History: Reports: Hx COPD, Hx Sleep Apnea Denies: Hx Asthma, Hx Bronchitis, Hx Pneumonia, Hx Tuberculosis Neurological Medical History: Denies: Hx Cerebrovascular Accident, Hx Seizures Endocrine Medical History: Denies: Hx Diabetes Mellitus Type 1, Hx Diabetes Mellitus Type 2, Hx Graves' Disease, Hx Hyperthyroidism, Hx Hypothyroidism Renal/ Medical History: Reports: Hx Kidney Stones. Denies: Hx Peritoneal Dialysis Malignancy Medical History: Denies Hx Bone Cancer, Denies Hx Brain Cancer, Denies Hx Colorectal Cancer GI Medical History: Reports: Hx Gastroesophageal Reflux Disease. Denies: Hx Cirrhosis, Hx Crohn's Disease, Hx Diverticulitis Musculoskeletal Medical History: Reports Hx Arthritis, Reports Hx Fibromyalgia, Reports Hx Gout, Reports Hx Musculoskeletal Deformity, Reports Hx Musculoskeletal Trauma Skin Medical History: Denies Hx Cellulitis, Denies Hx Eczema, Denies Hx MRSA Psychiatric Medical History: Reports: Hx Bipolar Disorder, Hx Depression Denies: Hx Attention Deficit Hyperactivity Disorder, Hx Borderline Personality Disorder, Hx Obsessive Compulsive Disorder, Hx Personality Disorder, Hx Post Traumatic Stress Disorder, Hx Schizoaffective Disorder Traumatic Medical History: Reports: Hx Fractures, Hx Spine Fracture - L1 and 2. Denies: Hx Gunshot Wound, Hx Liver Laceration, Hx Pneumothorax Past Surgical History: Reports: Hx Cholecystectomy, Hx Orthopedic Surgery. Denies: Hx Pacemaker - Immunizations Immunizations up to date: Yes Hx Diphtheria, Pertussis, Tetanus Vaccination: Yes Hx Pneumococcal Vaccination: 09/30/11 Review of Systems - Review of Systems Constitutional: No symptoms reported EENT: No symptoms reported Cardiovascular: No symptoms reported Respiratory: See HPI Gastrointestinal: No symptoms reported Genitourinary: No symptoms reported Male Genitourinary: No symptoms reported Musculoskeletal: No symptoms reported Skin: No symptoms reported Hematologic/Lymphatic: No symptoms reported Neurological/Psychological: No symptoms reported Physical Exam - Vital signs Vitals: Temp Pulse Resp BP Pulse Ox 98.5 F 62 16 106/63 92 06/05/19 17:11 06/05/19 17:11 06/05/19 17:11 06/05/19 17:11 06/05/19 17:11 - Notes Notes: GENERAL: Alert, interacts well. No acute distress. HEAD: Normocephalic, atraumatic. EYES: Pupils equal, round, and reactive to light. Extraocular movements intact. ENT: Oral mucosa moist, tongue midline. Oropharynx unremarkable. Airway patent. NECK: Full range of motion. Supple. Trachea midline. LUNGS: Clear to auscultation bilaterally with only a few scattered coarse breath sounds. No wheezing, rales, rhonchi. No tachypnea or signs of labored breathing. Occasional mild cough. HEART: Regular rate and rhythm. No murmur ABDOMEN: Soft, non-tender. Non-distended. EXTREMITIES: Moves all 4 extremities spontaneously. No edema, normal radial and dorsalis pedis pulses bilaterally. No cyanosis. BACK: no cervical, thoracic, lumbar midline tenderness. No saddle anesthesia, normal distal neurovascular exam. Moves all extremities in full range of motion. NEUROLOGICAL: Alert and oriented x3. Normal speech. Cranial nerves II through XI I grossly intact. PSYCH: Normal affect, normal mood. SKIN: Warm, dry, normal turgor. No rashes or lesions noted. Course - Re-evaluation Re-evalutation: CBC shows borderline leukocytosis, borderline anemia, nonspecific. Chemistry sh ows concerning worse renal functioning from previously with elevated BUN as well. Creatinine is 3.5. I did review previous records and patient does have a very large range of varying renal functions with occasional full failure, however it has recently been better. Patient was given IV fluids, he has been here a while, renal functioning will be repeated. Troponin negative, chest x-ray unremarkable, BNP is not elevated. Patient not complaining of any chest pain or any current symptoms. I do not appreciate any difficulty breathing, patient has a few scattered coarse breath sounds and occas ional tight cough. Patient still smokes. Appears to be bronchitis or very mild COPD exacerbation. I did discuss with patient, I do not have a high suspicion of pulmonary embolism, he has no lower semi-swelling, tachycardia, hypoxia, complains of shortness of breath, recent travel or surgery, or history of pulmonary embolism. Repeat renal functioning is significantly improved. Patient is requesting to leave. He states he already feels much better. He states he will follow-up on Saturday to have his renal function rechecked. He will be provided with prednisone, discussed smoking cessation, discussed return precautions. Patient states understanding and agreement with plan. Stable at time of discharge. - Vital Signs Vital signs: Temp Pulse Resp BP Pulse Ox 97.9 F 58 L 16 145/72 H 96 06/06/19 02:00 06/06/19 02:00 06/06/19 02:00 06/06/19 02:00 06/06/19 02:00 - Laboratory Result Diagrams: 06/05/19 17:47 06/05/19 23:51 Laboratory results interpreted by me: 06/05/19 06/05/19 06/05/19 17:47 17:47 22:39 WBC 10.9 H RBC 4.20 L Hgb 12.1 L Hct 35.6 L RDW 15.9 H Sodium 135.5 L Potassium 5.1 H Chloride 97 L BUN 48 H Creatinine 3.52 H Est GFR ( Amer) 21 L Est GFR (MDRD) Non-Af 18 L Glucose 120 H Urine Ascorbic Acid 40 H 06/05/19 23:51 WBC RBC Hgb Hct RDW Sodium 135.0 L Potassium Chloride BUN 45 H Creatinine 2.84 H Est GFR ( Amer) 27 L Est GFR (MDRD) Non-Af 23 L Glucose 149 H Urine Ascorbic Acid Discharge - Discharge Clinical Impression: Productive cough, Blood in sputum, Acute on chronic renal insufficiency Condition: Stable Disposition: HOME, SELF-CARE Additional Instructions: Your work-up in regards to your lungs is reassuring. This appears to be bron chitis. Stop smoking. Take prednisone as prescribed. Continue your to inhalers. Symptoms should gradually improve with time. Your kidney function is concerning the worse today. This did improve on recheck after treatment, however please have this rechecked very closely on Saturday with your primary care provider for possible referral back to nephrology. Come back if you are worse including fever, difficulty breathing, pain in your chest, no urination for 8 hours or more, or any other concerning or worsening symptoms. Prescriptions: Prednisone [Deltasone 20 mg Tablet] 3 tab PO DAILY 5 Days tablet Forms: Smoking Cessation Education Referrals: GUILLERMO MO MD [Primary Care Provider] - 06/08/19
[2019-06-05] MEDS ORDERED: MORPHINE SULFATE 10 MG/ML INJ IV ONE (20:59)
[2019-06-05 23:25] LABS: APPEARANCE,URINE CLEAR; BILIRUBIN,URINE NEGATIVE (NEGATIVE); COLOR,URINE YELLOW; GLUCOSE, URINE NEGATIVE (NEGATIVE); KETONES,URINE NEGATIVE (NEGATIVE); LEUKOCYTE ESTERASE,URINE NEGATIVE (NEGATIVE); NITRITE,URINE NEGATIVE (NEGATIVE); PROTEIN,URINE NEGATIVE (NEGATIVE); UROBILINOGEN,URINE NEGATIVE mg/dL (<2.0)
[2019-06-06 00:18] LABS: ANION GAP 8 (5-19); BLOOD UREA NITROGEN 45 mg/dL (7-20); CALCIUM 8.4 mg/dL (8.4-10.2); CARBON DIOXIDE 27 mmol/L (22-30); CHLORIDE 100 mmol/L (98-107); GLUCOSE 149 mg/dL (75-110); POTASSIUM 4.9 mmol/L (3.6-5.0)
[2019-06-06] MEDS ORDERED: METHYLPREDNISOLONE INJ 125 MG/2 ML SDV IV ONE (00:38)
[2019-06-06 02:04] VITALS: BP 145/72
== END 2019-06-06 02:12 | disposition home or self-care (01) ==
LOC: ER 16:24
DX: R04.2 Hemoptysis (principal); N18.9 Chronic kidney disease, unspecified; I12.9 Hypertensive chronic kidney disease with stage 1 through stage 4 chronic kidney disease, or unspecified chronic kidney disease; F17.200 Nicotine dependence, unspecified, uncomplicated; I48.91 Unspecified atrial fibrillation; E78.00 Pure hypercholesterolemia, unspecified; Z90.49 Acquired absence of other specified parts of digestive tract; Z87.442 Personal history of urinary calculi
CPT/HCPCS: 99283; 96361; 96374; 96375; 36415; 85025; 80053; 81001; 84484; 83880; 71046; J2930; J2270; J7030

== ENCOUNTER 2019-11-14 21:04 | Emergency (ER) | payer MEDICARE, MEDICAID ==
--- NOTE | 2019-11-14 21:20 | ER Document Report ---
ED Medical Screen (RME) - General Stated Complaint: RIGHT TOE PAIN,LOWER BACK PAIN Primary Care Provider: GUILLERMO MO MD [Primary Care Provider] - Follow up as needed Notes: Patient is a 64-year-old white male with a past medical history of "back surgeries" who presents to the emergency department the chief complaint of wound to the great toe and foot as well as pain in the back. States these are unrelated. Reports he has had wounds like this in the past on the opposite foot. Denies history of diabetes. States he saw foot doctor a long time ago but does not see them anymore. He denies any fever nausea vomiting chills or night sweats. I have treated and performed a rapid initial assessment of this patient. A comprehensive ED assessment and evaluation of the patient, analysis of test results and completion of medical decision making process will be conducted by additional ED providers. PHYSICAL EXAMINATION: GENERAL: Well-appearing, well-nourished and in no acute distress. A&Ox4. Answers questions appropriately. TRAVEL OUTSIDE OF THE [place] IN LAST 30 DAYS: No - Related Data Allergies/Adverse Reactions: No Known Allergies Allergy (Verified 06/05/19 16:36) Past Medical History - Past Medical History Cardiac Medical History: Reports: Hx Atrial Fibrillation, Hx Hypercholesterolemia, Hx Hypertension Denies: Hx Congestive Heart Failure, Hx Coronary Artery Disease, Hx Heart Attack, Hx Peripheral Vascular Disease, Hx Heart Murmur Pulmonary Medical History: Reports: Hx COPD, Hx Sleep Apnea Denies: Hx Asthma, Hx Bronchitis, Hx Pneumonia, Hx Tuberculosis Neurological Medical History: Denies: Hx Cerebrovascular Accident, Hx Seizures Endocrine Medical History: Denies: Hx Diabetes Mellitus Type 1, Hx Diabetes Mellitus Type 2, Hx Graves' Disease, Hx Hyperthyroidism, Hx Hypothyroidism Renal/ Medical History: Reports: Hx Kidney Stones. Denies: Hx Peritoneal Dialysis Malignancy Medical History: Denies Hx Bone Cancer, Denies Hx Brain Cancer, Denies Hx Colorectal Cancer GI Medical History: Reports: Hx Gastroesophageal Reflux Disease. Denies: Hx Cirrhosis, Hx Crohn's Disease, Hx Diverticulitis Musculoskeltal Medical History: Reports Hx Arthritis, Reports Hx Fibromyalgia, Reports Hx Gout, Reports Hx Musculoskeletal Deformity, Reports Hx Musculoskeletal Trauma Skin Medical History: Denies Hx Cellulitis, Denies Hx Eczema, Denies Hx MRSA Psychiatric Medical History: Reports: Hx Bipolar Disorder, Hx Depression Denies: Hx Attention Deficit Hyperactivity Disorder, Hx Borderline Personality Disorder, Hx Obsessive Compulsive Disorder, Hx Personality Disorder, Hx Post Traumatic Stress Disorder, Hx Schizoaffective Disorder Traumatic Medical History: Reports: Hx Fractures, Hx Spine Fracture - L1 and 2. Denies: Hx Gunshot Wound, Hx Liver Laceration, Hx Pneumothorax Past Surgical History: Reports: Hx Cholecystectomy, Hx Orthopedic Surgery. Denies: Hx Pacemaker - Immunizations Immunizations up to date: Yes Hx Diphtheria, Pertussis, Tetanus Vaccination: Yes Doctor's Discharge - Discharge Referrals: GUILLERMO MO MD [Primary Care Provider] - Follow up as needed
[2019-11-14 22:17] LABS: ABSOLUTE BASOPHILS # (AUTO) 0.1 10^3/uL (0.0-0.2); ABSOLUTE EOSINOPHILS # (AUTO) 0.2 10^3/uL (0.0-0.6); ABSOLUTE LYMPHOCYTES (AUTO) 1.8 10^3/uL (0.5-4.7); ABSOLUTE MONOCYTES (AUTO) 1.1 10^3/uL (0.1-1.4); ABSOLUTE NEUT (AUTO) 5.2 10^3/uL (1.7-8.2); BASOPHILS % (AUTO) 1.2 % (0-2); EOSINOPHILS % (AUTO) 2.9 % (0-6); HEMATOCRIT 39.9 % (37.9-51.0); HEMOGLOBIN 13.7 g/dL (13.5-17.0); LYMPHOCYTES % (AUTO) 21.3 % (13-45); MEAN CORPUSCULAR HEMOGLOBIN 29.1 pg (27.0-33.4); MEAN CORPUSCULAR HGB CONC 34.4 g/dL (32.0-36.0); MEAN CORPUSCULAR VOLUME 85 fl (80-97); MONOCYTES % (AUTO) 13.2 % (3-13); PLATELET COUNT 158 10^3/uL (150-450); RED BLOOD COUNT 4.71 10^6/uL (4.35-5.55); SEGMENTED NEUTROPHILS % (AUTO) 61.4 % (42-78); TOTAL CELLS COUNTED % (AUTO) 100 %; WHITE BLOOD COUNT 8.5 10^3/uL (4.0-10.5)
[2019-11-14 22:34] LABS: ALBUMIN 3.7 g/dL (3.5-5.0); ALKALINE PHOSPHATASE 132 U/L (38-126); ANION GAP 7 (5-19); ASPARTATE AMINO TRANSFERASE 20 U/L (17-59); BILIRUBIN,TOTAL 0.4 mg/dL (0.2-1.3); BLOOD UREA NITROGEN 46 mg/dL (7-20); CALCIUM 8.8 mg/dL (8.4-10.2); CARBON DIOXIDE 29 mmol/L (22-30); CHLORIDE 100 mmol/L (98-107); GLUCOSE 97 mg/dL (75-110); POTASSIUM 3.6 mmol/L (3.6-5.0); TOTAL PROTEIN 6.7 g/dL (6.3-8.2)
--- NOTE | 2019-11-14 22:55 | RADIOLOGY REPORT (SQ) ---
Lumbar spine five view on 11/14/2019 at 10:33 PM CLINICAL INDICATION: Low back pain COMPARISON: CT from 12/30/2015 FINDINGS: The patient is status post posterior pedicle screw and anastasia fixation from L4 through S1. 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 Lumbar spine is well aligned. Degenerative disc disease is noted in the lumbar spine. There are no acute fractures. Vascular calcifications are noted. IMPRESSION: Degenerative and postsurgical changes with no acute abnormality.
[2019-11-15] MEDS ORDERED: CLINDAMYCIN HCL 150 MG CAPSULE PO ONE (00:11)
[2019-11-15] MEDS ORDERED: PREDNISONE 20 MG TABLET PO ONE (00:12)
[2019-11-15] MEDS ORDERED: BACITRACIN ZINC OINTMENT 15 GM TP ONE (00:16)
[2019-11-15 01:06] VITALS: BP 107/51
--- NOTE | 2019-11-15 05:50 | ER Document Report ---
Entered by PORTER STEIN SCRIBE 11/14/19 0295 Acting as scribe for:CLEM MATHIS IV, MD ED General - General Chief Complaint: Skin Problem Stated Complaint: RIGHT TOE PAIN,LOWER BACK PAIN Time Seen by Provider: 11/14/19 23:53 Primary Care Provider: GUILLERMO MO MD [Primary Care Provider] - 11/16/19 Mode of Arrival: Ambulatory Information source: Patient Notes: This 64 year old male patient presents to the ED today with complaints of right great toe pain that began x2-3 days ago. Patient states that he also experienced some throat and tongue swelling around the same time and thinks it is connected to some medication he is taking for his fibromyalgia. Patient also reports lower back pain on the left side that began x1 week ago due to stepping off a curb and twisting his back. Patient denies any fever, chills, or history of diabetes. TRAVEL OUTSIDE OF THE [place] IN LAST 30 DAYS: No - Related Data Allergies/Adverse Reactions: No Known Allergies Allergy (Verified 06/05/19 16:36) Past Medical History - General Information source: Patient - Social History Smoking Status: Current Every Day Smoker Cigarette use (# per day): Yes Chew tobacco use (# tins/day): No Smoking Education Provided: No Frequency of alcohol use: None Drug Abuse: None Family History: Reviewed & Not Pertinent Patient has suicidal ideation: No Patient has homicidal ideation: No - Past Medical History Cardiac Medical History: Reports: Hx Atrial Fibrillation, Hx Hypercholesterolemia, Hx Hypertension Pulmonary Medical History: Reports: Hx COPD, Hx Sleep Apnea Renal/ Medical History: Reports: Hx Kidney Stones GI Medical History: Reports: Hx Gastroesophageal Reflux Disease Musculoskeletal Medical History: Reports Hx Arthritis, Reports Hx Fibromyalgia, Reports Hx Gout, Reports Hx Musculoskeletal Deformity, Reports Hx Musculoskelet al Trauma Psychiatric Medical History: Reports: Hx Bipolar Disorder, Hx Depression Traumatic Medical History: Reports: Hx Fractures, Hx Spine Fracture - L1 and 2 Past Surgical History: Reports: Hx Cholecystectomy, Hx Orthopedic Surgery - Immunizations Immunizations up to date: Yes Hx Diphtheria, Pertussis, Tetanus Vaccination: Yes Hx Pneumococcal Vaccination: 09/30/11 Review of Systems - Review of Systems Constitutional: See HPI. denies: Chills, Fever EENT: No symptoms reported Cardiovascular: No symptoms reported Respiratory: No symptoms reported Gastrointestinal: No symptoms reported Genitourinary: No symptoms reported Male Genitourinary: No symptoms reported Musculoskeletal: See HPI, Back pain, Other - Right great toe pain Skin: No symptoms reported Hematologic/Lymphatic: No symptoms reported Neurological/Psychological: No symptoms reported -: Yes All other systems reviewed and negative Physical Exam - Vital signs Vitals: Temp Pulse Resp BP Pulse Ox 97.6 F 56 L 16 105/88 H 96 11/14/19 21:11 11/14/19 21:11 11/14/19 21:11 11/14/19 21:11 11/14/19 21:11 - General General appearance: Alert - HEENT Head: Normocephalic, Atraumatic Eyes: Normal Pupils: PERRL - Respiratory Respiratory status: No respiratory distress Chest status: Nontender Breath sounds: Normal Chest palpation: Normal - Cardiovascular Rhythm: Regular Heart sounds: Normal auscultation Murmur: No - Abdominal Inspection: Normal Distension: No distension Bowel sounds: Normal Tenderness: Nontender - Abdomen soft Organomegaly: No organomegaly - Back Back: Normal, Nontender - Extremities General upper extremity: Normal inspection General lower extremity: Other - Positive straight leg raise at 40 degrees on the LLE and 25 degrees on the RLE. - Neurological Neuro grossly intact: Yes - Psychological Associated symptoms: Normal affect, Normal mood - Skin Skin Temperature: Warm Skin Moisture: Dry Skin Color: Normal Skin irregularity: other - Epithelium is denuded over the dorsal surface of the right great toe at approximately 3 cm in circumference. The underlying tissue is erythematous as well as the the surrounding tissue which appears to be consiste nt with cellulitis. Course - Vital Signs Vital signs: Temp Pulse Resp BP Pulse Ox 97.8 F 58 L 14 107/51 L 95 11/15/19 01:05 11/15/19 01:05 11/15/19 01:05 11/15/19 01:05 11/15/19 01:05 - Laboratory Result Diagrams: 11/14/19 22:06 11/14/19 22:06 Laboratory results interpreted by me: 11/14/19 11/14/19 22:06 22:06 RDW 16.0 H Becker % (Auto) 13.2 H Sodium 135.9 L BUN 46 H Creatinine 1.77 H Est GFR ( Amer) 47 L Est GFR (MDRD) Non-Af 39 L Alkaline Phosphatase 132 H Discharge - Discharge Clinical Impression: Cellulitis Qualifiers: Site of cellulitis: other site Qualified Code(s): L03.818 - Cellulitis of other sites Sciatica Qualifiers: Laterality: left Qualified Code(s): M54.32 - Sciatica, left side Condition: Good Disposition: HOME, SELF-CARE Additional Instructions: Return to the Emergency Department without delay if any worse. HOME CARE INSTRUCTIONS & INFORMATION: Thank you for choosing us for your medica l needs. We hope you're satisfied with the care you received. After you leave, you must properly care for your problem and, at the same time, observe its progress. Any condition can change. Some illnesses can change rapidly over hours or days. If your condition worsens, return to the Emergency Department or see your physician promptly. ABOUT YOUR X-RAYS AND EKG'S: If you had an EKG or X-rays taken, they have been read by the Emergency Physician. The X-rays and EKG's will also be read by a Radiologist or Family Practitioner within 24 hours. If discrepancies are noted, you will be notified by telephone. Please be certain the ED has a correct telephone number & address where you can be reached. Also, realize that some fractures or abnormalities do not show up on initial X-rays. If your symptoms continue, see your physician. ABOUT YOUR LABORATORY TEST: If you had laboratory tests, the results have been reviewed by the Emergency Physician. Some test results (for example cultures) may not be available for several days. You will be contacted if any test result shows you need additional treatment. Please be certain the ED has a correct telephone number and address where you can be reached. ABOUT YOUR MEDICATIONS: You will receive instructions on how to take your medicine on the prescription label you receive. Additional information may be provided by the Pharmacy. If you have questions afterwards, call the ED for clarification or further instructions. Some prescribed medications may cause drowsiness. Do not perform tasks such as driving a car or operating machinery without consulting your Pharmacist. If you feel you need a refill of pain medication, your condition will need re-evaluation. Please do not call for a refill of any medication. ABOUT YOUR SIGNATURE: Signature of this document acknowledges to followin. Understanding that you received emergency treatment and that you may be released before al medical problems are known or treated. Please be certain the ED has a correct phone number & address where you can be reached. 2. Acknowledgement that you will arrange for follow-up care as recommended. 3. Authorization for the Emergency Physician to provide information to your follow-up Physician in order to maximize your care. AT ANY TIME, IF YOUR SYMPTOMS CHANGE SIGNIFICANTLY OR WORSEN OR YOU DEVELOP NEW SYMPTOMS, RETURN TO THE EMERGENCY DEPARTMENT IMMEDIATELY FOR RE-EVALUATION. OUR GOAL IS TO PROVIDE EXCELLENT MEDICAL CARE! WE HOPE THAT WE HAVE MET YOUR EXPECTATIONS DURING YOUR EMERGENCY DEPARTMENT VISIT AND THAT YOU FEEL YOU HAVE RECEIVED EXCELLENT CARE! Cellulitis You have an infection of your skin and underlying soft tissues called cellulitis. This is due to bacteria, which can enter through any break in the skin, or even through an irritated hair follicle. Untreated, cellulitis will usually worsen. Antibiotics are required. Usually, warm packs or warm soaks, and elevation of the infected area are recommended. You should start getting better within 24 to 36 hours. Most infections respond quickly to the right medication. Follow-up care is important, however, to check for abscess (boil) formation, unsuspected foreign body, or resistant infection. If you develop fever, chills, or if the area of infection is becoming ra pidly more swollen or painful, call the doctor at once. Sciatica Your symptoms suggest "sciatica." The pain of sciatica typically radiates down the leg. Numbness in the foot or calf may also occur. Sciatica is caused by irritation of the sciatic nerve or its branches. The irritation can be due to a herniated disk in the spine, swelling and inflammation in the muscles surrounding the sciatic nerve, or direct injury of the nerve itself. Most cases of sciatica will resolve with medical treatment. Bed rest is usually recommended initially. Surgery is only necessary when the condition will not improve with rest and antiinflammatory medication. Muscle relaxers are often given if muscle soreness is present. A CAT scan of the back may be performed if a herniated disk is suspected. Re-examination is necessary if you develop increasing numbness, localized weakness in the foot or ankle, or if the pain does not respond to rest. Prescriptions: Clindamycin HCl [Cleocin 150 mg Capsule] 450 mg PO TID 7 Days #63 capsule Prednisone [Deltasone 20 mg Tablet] 3 tab PO DAILY 4 Days tablet Referrals: GUILLERMO MO MD [Primary Care Provider] - 11/16/19 I personally performed the services described in the documentation, reviewed and edited the documentation which was dictated to the scribe in my presence, and it accurately records my words and actions.
== END 2019-11-15 01:06 | disposition home or self-care (01) ==
LOC: ER 21:04
DX: L03.90 Cellulitis, unspecified (principal); M79.7 Fibromyalgia; Z79.899 Other long term (current) drug therapy; M79.674 Pain in right toe(s); M54.42 Lumbago with sciatica, left side; X50.1XXA Overexertion from prolonged static or awkward postures, initial encounter; F17.210 Nicotine dependence, cigarettes, uncomplicated; I10 Essential (primary) hypertension; J44.9 Chronic obstructive pulmonary disease, unspecified
CPT/HCPCS: 99283; 36415; 85025; 80053; 72110; A9270 ×2; J3490; J7512

== ENCOUNTER 2020-01-15 12:05 | Inpatient (IN) | payer MEDICARE, MEDICAID ==
[2020-01-15] MEDS ORDERED: AZTREONAM INJ 1 GM VIAL IV ONE (12:24)
[2020-01-15] MEDS ORDERED: VANCOMYCIN HCL INJ 1000 MG VIAL IV ONE (12:24)
[2020-01-15 12:53] LABS: VENOUS BLOOD BASE EXCESS -1.2 mmol/L; VENOUS BLOOD HCO3 23.2 mmol/L (20-32); VENOUS BLOOD PCO2 37.7 mmHg (35-63); VENOUS BLOOD PH 7.41 (7.30-7.42)
[2020-01-15 13:00] LABS: HEMATOCRIT 36.5 % (37.9-51.0); HEMOGLOBIN 12.8 g/dL (13.5-17.0); MEAN CORPUSCULAR HEMOGLOBIN 28.9 pg (27.0-33.4); MEAN CORPUSCULAR VOLUME 83 fl (80-97); PLATELET COUNT 288 10^3/uL (150-450); RED BLOOD COUNT 4.42 10^6/uL (4.35-5.55); RED CELL DISTRIBUTION WIDTH 15.8 % (11.5-14.0); WHITE BLOOD COUNT 19.6 10^3/uL (4.0-10.5)
[2020-01-15 13:05] LABS: INTERNATIONAL RATION (INR) 1.23; PROTHROMBIN TIME 15.6 SEC (11.4-15.4)
--- NOTE | 2020-01-15 13:08 | ER Document Report ---
ED General - General Stated Complaint: FALL/FOOT INJURY Time Seen by Provider: 01/15/20 12:16 Primary Care Provider: GUILLERMO MO MD [Primary Care Provider] - Follow up as needed Notes: CHIEF COMPLAINT: Multiple complaints HPI: 64-year-old male brought by EMS for evaluation of multiple complaints. Patient with history of acute renal failure, cellulitis hypertension and fibromyalgia. Patient states a week and a half ago he was walking in [facility] and felt his left ankle "pop" and give out. Patient was able to make it home but states that over the last week and a half he has not been able to weight- bear on the left ankle. Patient states that over the last 5 days he has been crawling around on his floor to get around because he could not weight-bear. Patient denies knee or hip discomfort. Denies chest pain shortness of breath, denies abdominal pain nausea vomiting. ROS: See HPI - all other systems were reviewed and are otherwise negative Constitutional: no fever Eyes: no drainage, no blurred vision ENT: no runny nose, no sore throat Cardiovascular: no chest pain Resp: no SOB, no cough GI: no vomiting, no diarrhea, no abdominal pain : no dysuria Integumentary: + rash Allergy: no hives Musculoskeletal: + extremity pain or swelling Neurological: no numbness/tingling, + weakness MEDICATIONS: I agree with the patient medications as charted by the RN. ALLERGIES: I agree with the allergies as charted by the RN. PAST MEDICAL HISTORY/PAST SURGICAL HISTORY: Reviewed and agree as charted by RN. SOCIAL HISTORY: Reviewed and agree as charted by RN. FAMILY HISTORY: No significant familial comorbid conditions directly related to patient complaint EXAM: Reviewed vital signs as charted by RN. CONSTITUTIONAL: Alert and oriented and responds appropriately to questions. Ill-appearing; well-nourished. Patient is covered in feces. Patient is covered in open wounds on the legs HEAD: Normocephalic; atraumatic EYES: PERRL; Conjunctivae clear, sclerae non-icteric ENT: normal nose; no rhinorrhea; moist mucous membranes; pharynx without lesions noted, no uvula edema or deviation, no tonsillar hypertrophy, phonation normal NECK: Supple without meningismus; non-tender; no cervical lymphadenopathy, no masses CARD: RRR; no murmurs, no clicks, no rubs, no gallops; symmetric distal pulses RESP: Normal chest excursion without splinting or tachypnea; breath sounds clear and equal bilaterally; no wheezes, no rhonchi, no rales, pulse oximetry 98% on room air not hypoxic ABD/GI: Obese, normal bowel sounds; non-distended; soft, non-tender, no rebound, no guarding; no palpable organomegaly or masses. BACK: The back appears normal and is non-tender to palpation, there is no CVA tenderness EXT: The left ankle is very swollen and completely lacks, suspect trimalleolar fracture. Dorsalis pedis and posterior tibial pulses are present in the left foot and ankle. Sensation is intact in the toes with capillary refill less than 3 seconds. There is no tenderness in the proximal fibular region of the left lower extremity no tenderness in the hip on palpation or range of motion SKIN: Normal color for age and race; warm; dry; good turgor; mild lower panniculitis is noted. There is erythema through the groin region. There are multiple open wounds on the bilateral lower extremities. There are scabs over t he knees, a draining wound with some eschar noted over the lateral malleolus of the left ankle. There is erythema and cellulitis to both lower extremities more significant in the left lower extremity extending from the foot up past the knee. There is a small scabbed lesion on the underside of the right gluteal region NEURO: sensory function intact PSYCH: The patient's mood and manner are appropriate. Grooming and personal hygiene are appropriate. MDM: 64-year-old male presenting a week and a half after an injury to the ankle I suspect a trimalleolar fracture. He has multiple wounds to the lower extremities from likely crawling around his house for 5 days. He has cellulitis to both lower extremities, he is covered in feces as he has been unable to lift himself to get on the toilet. Patient lactic acid was 3.1 per EMS. Have placed patient in sepsis protocol given the visible cellulitis, will give fluids, antibiotics, screening labs. Will attempt to get x-ray to evaluate ankle f racture. We will plan to dress and stabilize fracture as soon as possible. He does have good intact pulses at this time. Patient will likely need admission TRAVEL OUTSIDE OF THE [place] IN LAST 30 DAYS: No - Related Data Allergies/Adverse Reactions: No Known Allergies Allergy (Verified 01/15/20 12:18) Past Medical History - Social History Smoking Status: Unknown if Ever Smoked Family History: Reviewed & Not Pertinent - Past Medical History Cardiac Medical History: Reports: Hx Atrial Fibrillation, Hx Hypercholesterolemia, Hx Hypertension Denies: Hx Congestive Heart Failure, Hx Coronary Artery Disease, Hx Heart Attack, Hx Peripheral Vascular Disease, Hx Heart Murmur Pulmonary Medical History: Reports: Hx COPD, Hx Sleep Apnea Denies: Hx Asthma, Hx Bronchitis, Hx Pneumonia, Hx Tuberculosis Neurological Medical History: Denies: Hx Cerebrovascular Accident, Hx Seizures Endocrine Medical History: Denies: Hx Diabetes Mellitus Type 1, Hx Diabetes Mellitus Type 2, Hx Graves' Disease, Hx Hyperthyroidism, Hx Hypothyroidism Renal/ Medical History: Reports: Hx Kidney Stones. Denies: Hx Peritoneal Dialysis Malignancy Medical History: Denies Hx Bone Cancer, Denies Hx Brain Cancer, Denies Hx Colorectal Cancer GI Medical History: Reports: Hx Gastroesophageal Reflux Disease. Denies: Hx Cirrhosis, Hx Crohn's Disease, Hx Diverticulitis Musculoskeletal Medical History: Reports Hx Arthritis, Reports Hx Fibromyalgia, Reports Hx Gout, Reports Hx Musculoskeletal Deformity, Reports Hx Musculoskeletal Trauma Skin Medical History: Denies Hx Cellulitis, Denies Hx Eczema, Denies Hx MRSA Psychiatric Medical History: Reports: Hx Bipolar Disorder, Hx Depression Denies: Hx Attention Deficit Hyperactivity Disorder, Hx Borderline Personality Disorder, Hx Obsessive Compulsive Disorder, Hx Personality Disorder, Hx Post Traumatic Stress Disorder, Hx Schizoaffective Disorder Traumatic Medical History: Reports: Hx Fractures, Hx Spine Fracture - L1 and 2. Denies: Hx Gunshot Wound, Hx Liver Laceration, Hx Pneumothorax Past Surgical History: Reports: Hx Cholecystectomy, Hx Orthopedic Surgery. Denies: Hx Pacemaker - Immunizations Immunizations up to date: Yes Hx Diphtheria, Pertussis, Tetanus Vaccination: Yes Hx Pneumococcal Vaccination: 09/30/11 Physical Exam - Vital signs Vitals: Temp Pulse Resp BP Pulse Ox 98.2 F 81 18 133/61 H 99 01/15/20 12:05 01/15/20 12:05 01/15/20 12:05 01/15/20 12:05 01/15/20 12:05 Course - Re-evaluation Re-evalutation: 01/15/20 13:36 Patient appears to have a trimalleolar fracture. I have a call out to the orthopedist at this time Dr. Durán. We will attempt reduction 01/15/20 13:[address] Durán the orthopedist, he states he can do the repair initially but patient will likely need a second surgery to finalize the distal tibial fracture. I spoke with the patient he would prefer to be admitted here if possible he is aware that he will likely need a second surgery on this ankle. I spoke with Dr. Valdez the hospitalist for admission he will come see the patient 01/15/20 14:31 Attempted reduction and splinting of the left ankle. Patient tolerated well with only IV morphine. Will obtain x-ray to evaluate post reduction 01/15/20 14:54 On review of the post reduction film it does not appear that the fracture dislo cation has significantly moved despite manual manipulation and holding with the splint until it was firm. Patient does have capillary refill less than 3 seconds now with intact dorsal pedal pulse 01/15/20 14:55 01/15/20 15:18 I discussed the post reduction with Dr. Durán the orthopedic he is aware that the ankle is not reduced, capillary refill less than 3 seconds. He states the only way to really fix this is to take patient to surgery to fix it. Does not wishes to attempt further reduction at this time - Vital Signs Vital signs: Temp Pulse Resp BP Pulse Ox 98.2 F 81 15 107/58 L 98 01/15/20 12:05 01/15/20 12:05 01/15/20 14:07 01/15/20 14:07 01/15/20 14:07 - Laboratory Result Diagrams: 01/15/20 12:34 01/15/20 12:34 Laboratory results interpreted by me: 01/15/20 01/15/20 01/15/20 12:34 12:34 12:34 WBC 19.6 H Hgb 12.8 L Hct 36.5 L RDW 15.8 H Seg Neuts % (Manual) 82 H Band Neutrophils % 1 L Lymphocytes % (Manual) 2 L Monocytes % (Manual) 15 H Abs Neuts (Manual) 16.3 H Abs Lymphs (Manual) 0.4 L Abs Monocytes (Manual) 2.9 H PT 15.6 H Sodium 135.6 L Potassium 3.5 L BUN 95 H Creatinine 1.53 H Est GFR ( Amer) 56 L Est GFR (MDRD) Non-Af 46 L Glucose 125 H AST 196 H ALT 75 H Alkaline Phosphatase 208 H Creatine Kinase 2896 H NT-Pro-B Natriuret Pep Albumin 3.4 L Urine Protein Urine Ketones Urine Blood 01/15/20 01/15/20 12:34 13:06 WBC Hgb Hct RDW Seg Neuts % (Manual) Band Neutrophils % Lymphocytes % (Manual) Monocytes % (Manual) Abs Neuts (Manual) Abs Lymphs (Manual) Abs Monocytes (Manual) PT Sodium Potassium BUN Creatinine Est GFR ( Amer) Est GFR (MDRD) Non-Af Glucose AST ALT Alkaline Phosphatase Creatine Kinase NT-Pro-B Natriuret Pep 409 H Albumin Urine Protein 30 H Urine Ketones TRACE H Urine Blood LARGE H Procedures - Immobilization Left Lower Ankle Time completed: 14:39 Pre-Proc Neuro Vasc Exam: Normal Immobilizer type: Sugar tong, Short Leg Posterior Performed by: Provider Post-Proc Neuro Vasc Exam: Normal, Unchanged from pre-exam Alignment checked and good: Yes - Joint Reduction/Fracture Care Left Lower Ankle Time completed: 14:38 Consent obtained: Yes - Verbal Conscious sedation: No Pre-procedure NV exam: Yes Fracture: Closed Manipulation comment: Manual reduction with traction countertraction Post-procedure NV exam: Yes - Intact Post-reduction x-ray: Joint not reduced Reduction attempts: 1 Complications: No Discharge - Discharge Clinical Impression: Cellulitis of leg, left, Acute kidney injury Fracture of ankle, left, closed Qualifiers: Encounter type: initial encounter Qualified Code(s): S82.892A - Other fracture of left lower leg, initial encounter for closed fracture Rhabdomyolysis Qualifiers: Rhabdomyolysis type: traumatic Encounter type: initial encounter Qualified Code(s): T79.6XXA - Traumatic ischemia of muscle, initial encounter Condition: Stable Disposition: ADMITTED INPATIENT Admitting Provider: José Miguel (Hospitalist) Unit Admitted: Medical Floor Referrals: GUILLERMO MO MD [Primary Care Provider] - Follow up as needed
[2020-01-15 13:13] LABS: ALBUMIN 3.4 g/dL (3.5-5.0); ALKALINE PHOSPHATASE 208 U/L (38-126); ANION GAP 13 (5-19); ASPARTATE AMINO TRANSFERASE 196 U/L (17-59); BILIRUBIN,DIRECT 0.3 mg/dL (0.0-0.4); BILIRUBIN,TOTAL 1.1 mg/dL (0.2-1.3); BLOOD UREA NITROGEN 95 mg/dL (7-20); CALCIUM 8.5 mg/dL (8.4-10.2); CARBON DIOXIDE 24 mmol/L (22-30); CHLORIDE 99 mmol/L (98-107); GLUCOSE 125 mg/dL (75-110); POTASSIUM 3.5 mmol/L (3.6-5.0); TOTAL PROTEIN 6.7 g/dL (6.3-8.2)
[2020-01-15 13:26] LABS: CREATINE KINASE 2896 U/L (55-170)
[2020-01-15 13:31] LABS: APPEARANCE,URINE SLIGHTLY-CLOUDY; BILIRUBIN,URINE NEGATIVE (NEGATIVE); COLOR,URINE YELLOW; GLUCOSE, URINE NEGATIVE (NEGATIVE); KETONES,URINE TRACE mg/dL (NEGATIVE); PROTEIN,URINE 30 mg/dL (NEGATIVE); URIC ACID CRYSTALS,URINE RARE /HPF; URINE SPECIFIC GRAVITY 1.011; UROBILINOGEN,URINE NEGATIVE mg/dL (<2.0)
[2020-01-15 13:34] LABS: ABSOLUTE LYMPHOCYTES# (MANUAL) 0.4 10^3/uL (0.5-4.7); ABSOLUTE MONOCYTES # (MANUAL) 2.9 10^3/uL (0.1-1.4); BAND NEUTROPHILS % (MANUAL) 1 % (3-5); BASOPHILS % (MANUAL) 0 % (0-2); EOSINOPHILS % (MANUAL) 0 % (0-6); LYMPHOCYTES % (MANUAL) 2 % (13-45); MONOCYTES % (MANUAL) 15 % (3-13); SEGMENTED NEUTROPHILS % (MAN) 82 % (42-78); TOTAL CELLS COUNTED 100
[2020-01-15 13:36] LABS: ANISOCYTOSIS SLIGHT; PLATELET COMMENT ADEQUATE; POLYCHROMASIA SLIGHT; TEAR DROP CELLS SLIGHT
[2020-01-15] MEDS ORDERED: ONDANSETRON HCL INJ/PF 4 MG/2 ML SDV IV ONE (13:36)
[2020-01-15] MEDS ORDERED: MORPHINE SULFATE 10 MG/ML INJ IV ONE ×2 (13:36→14:25)
[2020-01-15 13:42] LABS: TROPONIN I 0.078 ng/mL
[2020-01-15] MEDS: RINGERS SOLUTION,LACTATED 1,000 ML IV PRN ×3 (13:42→21:44)
--- NOTE | 2020-01-15 13:48 | RADIOLOGY REPORT (SQ) ---
EXAM DESCRIPTION: ANKLE LEFT COMPLETE IMAGES COMPLETED DATE/TIME: 01/15/2020 1:36 pm REASON FOR STUDY: fall COMPARISON: None. NUMBER OF VIEWS: Three views. TECHNIQUE: AP, lateral, and oblique radiographic images acquired of the left ankle. LIMITATIONS: None. FINDINGS: MINERALIZATION: Normal. BONES: Acute displaced fractures of the distal radius and fibula associated with disruption of the an kle mortise and anterior displacement of the proximal radial fragment. The talar dome is intact JOINTS: As above. SOFT TISSUES: No subcutaneous emphysema or radiopaque foreign body. OTHER: No other finding. IMPRESSION: Acute displaced fractures of the distal radius and fibula associated with disruption of the ankle mortise and anterior displacement of the proximal radial fragment. TECHNICAL DOCUMENTATION: JOB ID: [id number] 2010 [employer]- All Rights Reserved Reading location - IP/workstation name: [email or web address]
--- NOTE | 2020-01-15 13:49 | RADIOLOGY REPORT (SQ) ---
EXAM DESCRIPTION: CHEST SINGLE VIEW IMAGES COMPLETED DATE/TIME: 01/15/2020 1:36 pm REASON FOR STUDY: sepsis COMPARISON: PA and lateral views of the chest from 06/05/2019. EXAM PARAMETERS: NUMBER OF VIEWS: One view. TECHNIQUE: An AP view of the chest was obtained. RADIATION DOSE: NA LIMITATIONS: None. FINDINGS: LUNGS AND PLEURA: No consolidation, pleural effusion or pneumothorax. MEDIASTINUM AND HILAR STRUCTURES: No mediastinal or hilar contour abnormality. HEART AND VASCULAR STRUCTURES: The cardiac silhouette and pulmonary vasculature are within normal vaughn its. BONES: No acute findings. HARDWARE: None in the chest. OTHER: No other finding. IMPRESSION: No acute cardiopulmonary process. TECHNICAL DOCUMENTATION: JOB ID: [id number] 2010 [employer]- All Rights Reserved Reading location - IP/workstation name: [email or web address]
[2020-01-15] MEDS ORDERED: ACETAMINOPHEN 325 MG TABLET PO PRN (15:02)
[2020-01-15] MEDS ORDERED: RINGERS SOLUTION,LACTATED 1,000 ML IV PRN (15:02)
--- NOTE | 2020-01-15 15:06 | RADIOLOGY REPORT (SQ) ---
EXAM DESCRIPTION: ANKLE LEFT AP/LATERAL IMAGES COMPLETED DATE/TIME: 01/15/2020 2:51 pm REASON FOR STUDY: post reduction COMPARISON: None. NUMBER OF VIEWS: Three views. TECHNIQUE: AP, lateral, and oblique radiographic images acquired of the left ankle. LIMITATIONS: None. FINDINGS: MINERALIZATION: Normal. BONES: The alignment of the fractures is unchanged post reduction. JOINTS: As above. SOFT TISSUES: Fiberglass cast. OTHER: No other finding. IMPRESSION: Unchanged alignment of the distal radius and fibular fractures postreduction. TECHNICAL DOCUMENTATION: JOB ID: [id number] 2010 [employer]- All Rights Reserved Reading location - IP/workstation name: [email or web address]
--- NOTE | 2020-01-15 15:48 | PDOC H&P ---
History of Present Illness Admission Date/PCP: GUILLERMO MO MD History of Present Illness: BRITANY GERMAIN is a 64 year old male who was found down in his home by his landlord and the maintenance personnel at the apartment where he lives. Apparently he had fallen and broken his left ankle about a week and a half ago but never went to the follow-up appointment he was supposed to attend. He said he had been using crutches at home but felt like he had a hard time getting around with them and so he stopped using them. He fell in the home again a few days ago and said he is been unable to get up out of the floor. He has been crawling around on his hands and knees and he got some rug burn on his knees that is been there for a few days. When he was brought in by EMS he was covered in his own urine and feces. The ED staff spent a long time trying to clean them out. His vital signs were stable, but in addition to the fracture he was noted to have evidence of some cellulitis around the rug see on his knees as well as some dehydration and elevated CPK. He was seen by orthopedics in the emergency department and they plan on doing surgery on him once he is a little bit more medically stable. 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), Sleep Apnea Denies: Asthma, Bronchitis, Pneumonia, Tuberculosis Neurological Medical History: Denies: Seizures Endocrine Medical History: Denies: Diabetes Mellitus Type 1, Diabetes Mellitus Type 2, Hyperthyroidism, Hypothyroidism Malignancy Medical History: Denies: Bone Cancer, Brain Cancer, Colorectal Cancer GI Medical History: Reports: Gastroesophageal Reflux Disease Denies: Cirrhosis, Crohn's Disease, Diverticulitis Musculoskeltal Medical History: Reports: Arthritis, Fibromyalgia, Gout Skin Medical History: Denies: Eczema Psychiatric Medical History: Reports: Bipolar Disorder, Depression Denies: Attention Deficit Hyperactivity Disorder, Personality Disorder, Post Traumatic Stress Disorder, Schizoaffective Disorder Traumatic Medical History: Denies: Gunshot Wound, Pneumothorax Hematology: Denies: Anemia Past Surgical History Past Surgical History: Reports: Cholecystectomy, Orthopedic Surgery Denies: Pacemaker Social History Smoking Status: Unknown if Ever Smoked Electronic Cigarette use?: No Frequency of Alcohol Use: None Hx Recreational Drug Use: Yes - marijuana past Drugs: None Hx Prescription Drug Abuse: No Family History Family History: Reviewed & Not Pertinent Parental Family History Reviewed: Yes Children Family History Reviewed: Yes Sibling(s) Family History Reviewed.: Yes Medication/Allergy Home Medications: Allopurinol [Zyloprim 300 mg Tablet] 300 mg PO DAILY 01/15/20 Carvedilol [Coreg 6.25 mg Tablet] 6.25 mg PO Q12 01/15/20 Colchicine [Colcrys 0.6 mg Tablet] 0.6 mg PO DAILY 01/15/20 Duloxetine HCl 30 mg PO DAILY 01/15/20 Furosemide [Lasix 40 mg Tablet] 40 mg PO QAM 01/15/20 Indomethacin 50 mg PO DAILYP PRN 01/15/20 Lisinopril/Hydrochlorothiazide [Lisinopril-Hctz 20-12.5 mg Tab] 2 tab PO DAILY 01/15/20 Oxycodone HCl/Acetaminophen [Oxycodone-Acetaminophen 10-325] 1 each PO BIDP PRN 01/15/20 Oxycodone Myristate [Xtampza ER] 18 mg PO Q12 01/15/20 Pregabalin [Lyrica Cr] mg PO 01/15/20 Rosuvastatin Calcium 20 mg PO QHS 01/15/20 Trazodone HCl 150 mg PO QHS 01/15/20 Allergies/Adverse Reactions: No Known Allergies Allergy (Verified 01/15/20 12:18) Review of Systems All systems: reviewed and no additional remarkable complaints except as stated - All systems were reviewed and were negative except as noted in the HPI Physical Exam Vital Signs: Temp Pulse Resp BP Pulse Ox 98.2 F 81 22 H 109/58 L 97 01/15/20 12:05 01/15/20 12:05 01/15/20 15:01 01/15/20 15:01 01/15/20 15:01 Intake & Output 01/14/20 01/15/20 01/16/20 06:59 06:59 06:59 Intake Total 783 Balance 783 Weight 136.078 kg General appearance: PRESENT: no acute distress, cooperative, disheveled, morbidly obese, other - Smells of body odor and feces Head exam: PRESENT: atraumatic, normocephalic Eye exam: PRESENT: EOMI, PERRLA. ABSENT: conjunctival injection, nystagmus, scleral icterus Ear exam: PRESENT: normal external ear exam Mouth exam: PRESENT: dry mucosa, neck supple Throat exam: ABSENT: post pharyngeal erythema Neck exam: PRESENT: full ROM. ABSENT: carotid bruit, JVD, lymphadenopathy, meningismus, tenderness, thyromegaly Respiratory exam: PRESENT: clear to auscultation pam, symmetrical, unlabored. ABSENT: accessory muscle use, chest wall tenderness, crackles, retraction, rho nchi, tachypnea, wheezes Cardiovascular exam: PRESENT: RRR, +S1, +S2. ABSENT: systolic murmur Pulses: PRESENT: normal carotid pulses Vascular exam: PRESENT: normal capillary refill GI/Abdominal exam: PRESENT: normal bowel sounds, soft. ABSENT: distended, guarding, rebound, tenderness Extremities exam: ABSENT: clubbing, pedal edema Musculoskeletal exam: PRESENT: deformity - Left lower extremity was in a splint Neurological exam: PRESENT: alert, awake, oriented to person, oriented to place, oriented to situation, CN II-XII grossly intact. ABSENT: motor sensory deficit Psychiatric exam: PRESENT: flat affect Skin exam: PRESENT: other - On both of his knees he has areas of rug burn which have scabbed over, both of which have substantial surrounding erythema. He also has smaller places like this on the toes of both feet Results Laboratory Results: 01/15/20 12:34 01/15/20 12:34 01/15/20 01/15/20 01/15/20 12:34 12:34 12:34 WBC 19.6 H RBC 4.42 Hgb 12.8 L Hct 36.5 L MCV 83 MCH 28.9 MCHC 35.0 RDW 15.8 H Plt Count 288 Seg Neutrophils % Not Reportable VBG pH 7.41 VBG pCO2 37.7 VBG HCO3 23.2 VBG Base Excess -1.2 Sodium 135.6 L Potassium 3.5 L Chloride 99 Carbon Dioxide 24 Anion Gap 13 BUN 95 H Creatinine 1.53 H Est GFR ( Amer) 56 L Glucose 125 H Lactic Acid Calcium 8.5 Total Bilirubin 1.1 AST 196 H Alkaline Phosphatase 208 H Total Protein 6.7 Albumin 3.4 L Urine Color Urine Appearance Urine pH Ur Specific [place] Urine Protein Urine Glucose (UA) Urine Ketones Urine Blood Urine RBC (Auto) 01/15/20 01/15/20 12:34 13:06 WBC RBC Hgb Hct MCV MCH MCHC RDW Plt Count Seg Neutrophils % VBG pH VBG pCO2 VBG HCO3 VBG Base Excess Sodium Potassium Chloride Carbon Dioxide Anion Gap BUN Creatinine Est GFR ( Amer) Glucose Lactic Acid 1.4 Calcium Total Bilirubin AST Alkaline Phosphatase Total Protein Albumin Urine Color YELLOW Urine Appearance SLIGHTLY-CLOUDY Urine pH 5.0 Ur Specific [place] 1.011 Urine Protein 30 H Urine Glucose (UA) NEGATIVE Urine Ketones TRACE H Urine Blood LARGE H Urine RBC (Auto) 2 01/15/20 01/15/20 12:34 12:34 Creatine Kinase 2896 H Troponin I 0.078 NT-Pro-B Natriuret Pep 409 H Impressions: Chest X-Ray 01/15/20 12:24 IMPRESSION: No acute cardiopulmonary process. Ankle X-Ray 01/15/20 14:29 IMPRESSION: Unchanged alignment of the distal radius and fibular fractures postreduction. Assessment and Plan - Diagnosis (1) [id number] kidney injury Qualifiers: Chronic kidney disease stage: stage 3 (moderate) Is this a current diagnosis for this admission?: Yes Plan: Creatinine is elevated a bit above baseline, which looks to be around 1.3. BUN is also substantially elevated. We will give him some IV fluids and monitor his urine output. (2) Dehydration Is this a current diagnosis for this admission?: Yes Plan: IV fluids, encourage p.o. intake (3) Cellulitis of both lower extremities Is this a current diagnosis for this admission?: Yes Plan: This is in the areas surrounding the scabbed places on both knees. We will start him empirically on Ancef. (4) Fracture of ankle, left, closed Qualifiers: Encounter type: initial encounter Qualified Code(s): S82.892A - Other fracture of left lower leg, initial encounter for closed fracture Is this a current diagnosis for this admission?: Yes Plan: He is be seen in consultation by orthopedics. He will likely have surgery once he is medically a little bit more stable. (5) Rhabdomyolysis Qualifiers: Rhabdomyolysis type: traumatic Encounter type: initial encounter Qualified Code(s): T79.6XXA - Traumatic ischemia of muscle, initial encounter Is this a current diagnosis for this admission?: Yes Plan: Low risk of heme pigment induced kidney injury as his CPK is below 5000, will give him some IV fluids nonetheless (6) Obesity (BMI 30-39.9) Is this a current diagnosis for this admission?: Yes Plan: Once all of this is done we will get a physical therapy evaluation, and will encourage lifestyle modification because he was too weak to get up off the floor - Time Time Spent with patient: 35 or more minutes - Inpatient Certification Based on my medical assessment, after consideration of the patient's comorbidities, presenting symptoms, or acuity I expect that the services needed warrant INPATIENT care.: Yes I certify that my determination is in accordance with my understanding of Medicare's requirements for reasonable and necessary INPATIENT services [42 CFR 412.3e].: Yes Medical Necessity: Need Close Monitoring Due to Risk of Patient Decompensation, Need For IV Fluids, Need For Continuous Telemetry Monitoring, Need for Pain Control, Need for IV Antibiotics, Need for Surgery
[2020-01-15] MEDS: OXYCODONE-ACETAMINOPHEN 5-325 MG TABLET PO PRN ×2 (17:07→21:41)
[2020-01-15] MEDS ORDERED: CEFAZOLIN 2 GM/D5W RTU 2 GM/50 ML RTUPB IV SCH (18:00)
[2020-01-15] MEDS: CEFAZOLIN SODIUM 2 GM in DEXTROSE 5%-WATER 100 ML IV SCH (18:33)
[2020-01-15] MEDS ORDERED: NORMAL SALINE 1000 ML 1,000 ML IV ONE (19:41)
[2020-01-15] MEDS: MORPHINE SULFATE 10 MG/ML INJ IV PRN (20:39)
[2020-01-15] MEDS: HEPARIN SOD (PORCINE) 5,000 UNIT/ML 1 ML VIAL SUBCUT SCH (21:40)
[2020-01-15] MEDS ORDERED: GLUCAGON,HUMAN RECOMB 1 MG INJ SUBCUT PRN (22:25)
[2020-01-15] MEDS ORDERED: DEXTROSE 40% GEL 15 GM TUBE PO PRN ×2 (22:25)
[2020-01-15] MEDS ORDERED: DEXTROSE 50%-WATER 25 GM/50 ML DISP.SYRIN IV PRN ×2 (22:25)
[2020-01-16] MEDS: CEFAZOLIN SODIUM 2 GM in DEXTROSE 5%-WATER 100 ML IV SCH ×5 (01:59→23:08)
[2020-01-16] MEDS: RINGERS SOLUTION,LACTATED 1,000 ML IV PRN ×3 (04:52→23:12)
[2020-01-16] MEDS: MORPHINE SULFATE 10 MG/ML INJ IV PRN ×4 (04:52→23:11)
[2020-01-16 06:00] LABS: HEMATOCRIT 33.1 % (37.9-51.0); HEMOGLOBIN 11.5 g/dL (13.5-17.0); MEAN CORPUSCULAR HEMOGLOBIN 28.5 pg (27.0-33.4); MEAN CORPUSCULAR HGB CONC 34.6 g/dL (32.0-36.0); MEAN CORPUSCULAR VOLUME 82 fl (80-97); PLATELET COUNT 236 10^3/uL (150-450); RED BLOOD COUNT 4.01 10^6/uL (4.35-5.55); RED CELL DISTRIBUTION WIDTH 15.8 % (11.5-14.0); WHITE BLOOD COUNT 14.8 10^3/uL (4.0-10.5)
[2020-01-16] MEDS: HEPARIN SOD (PORCINE) 5,000 UNIT/ML 1 ML VIAL SUBCUT SCH ×3 (06:12→21:03)
[2020-01-16] MEDS: OXYCODONE-ACETAMINOPHEN 5-325 MG TABLET PO PRN ×2 (06:13→15:21)
[2020-01-16 06:16] LABS: ANION GAP 5 (5-19); CALCIUM 8.1 mg/dL (8.4-10.2); CARBON DIOXIDE 26 mmol/L (22-30); CHLORIDE 102 mmol/L (98-107); CREATINE KINASE 1371 U/L (55-170); GLUCOSE 114 mg/dL (75-110); POTASSIUM 3.2 mmol/L (3.6-5.0)
[2020-01-16 06:45] LABS: BLOOD UREA NITROGEN 71 mg/dL (7-20)
[2020-01-16] MEDS ORDERED: LIDOCAINE 2% INJ-PF (20 MG/ML) 10 ML AMPUL ONE (07:33)
[2020-01-16] MEDS ORDERED: PROPOFOL INJ 200 MG/20 ML VIAL IV ONE ×2 (07:34→10:13)
[2020-01-16] MEDS ORDERED: MIDAZOLAM 2 MG/2 ML INJ ONE (07:34)
[2020-01-16] MEDS ORDERED: FENTANYL CITRATE INJ/PF 100 MCG/2 ML AMPUL ONE (07:34)
[2020-01-16] MEDS ORDERED: ONDANSETRON HCL INJ/PF 4 MG/2 ML SDV ONE (07:34)
--- NOTE | 2020-01-16 08:00 | PDOC CONSULTATION ---
Consultation Consult Date: 01/16/20 Attending physician:: BETSEY HAYS Provider Consulted: KILLIAN HARDY Consult reason:: Displaced left distal tibia articular fracture History of Present Illness Admission Date/PCP: 01/15/20 15:23 GUILLERMO MO MD Patient complains of: 1. Left ankle pain. 2. Bilateral leg cellulitis History of Present Illness: BRITANY GERMAIN is a 64 year old male admitted to the medical service with bilateral leg cellulitis, rhabdomyolysis, and acute renal failure. The patient reports falling approximately 2 weeks ago resulting in a displaced articular fracture of the distal tibia. The patient has been home alone crawling on his hands and knees. He was found his apartment covered in feces and urine with bilateral leg cellulitis. Radiographic examination demonstrated a displaced articular fracture of the left distal tibia. 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: Chronic Obstructive Pulmonary Disease (COPD), Sleep Apnea Denies: Asthma, Bronchitis, Pneumonia, Tuberculosis Neurological Medical History: Denies: Seizures Endocrine Medical History: Denies: Diabetes Mellitus Type 1, Diabetes Mellitus Type 2, Hyperthyroidism, Hypothyroidism Malignancy Medical History: Denies: Bone Cancer, Brain Cancer, Colorectal Cancer GI Medical History: Reports: Gastroesophageal Reflux Disease Denies: Cirrhosis, Crohn's Disease, Diverticulitis Musculoskeltal Medical History: Reports: Arthritis, Fibromyalgia, Gout Skin Medical History: Denies: Eczema Psychiatric Medical History: Reports: Bipolar Disorder, Depression Denies: Attention Deficit Hyperactivity Disorder, Personality Disorder, Post Traumatic Stress Disorder, Schizoaffective Disorder Traumatic Medical History: Denies: Gunshot Wound, Pneumothorax Hematology: Denies: Anemia Past Surgical History Past Surgical History: Reports: Cholecystectomy, Orthopedic Surgery Denies: Pacemaker Social History Smoking Status: Former Smoker Electronic Cigarette use?: No Frequency of Alcohol Use: None Hx Recreational Drug Use: Yes - marijuana past Drugs: None Hx Prescription Drug Abuse: No Family History Family History: Reviewed & Not Pertinent Parental Family History Reviewed: Yes Children Family History Reviewed: Unknown Sibling(s) Family History Reviewed.: Unknown Medication/Allergy Home Medications: Allopurinol [Zyloprim 300 mg Tablet] 300 mg PO DAILY 01/15/20 Carvedilol [Coreg 6.25 mg Tablet] 6.25 mg PO Q12 01/15/20 Colchicine [Colcrys 0.6 mg Tablet] 0.6 mg PO DAILY 01/15/20 Duloxetine HCl 30 mg PO DAILY 01/15/20 Furosemide [Lasix 40 mg Tablet] 40 mg PO QAM 01/15/20 Indomethacin 50 mg PO DAILYP PRN 01/15/20 Lisinopril/Hydrochlorothiazide [Lisinopril-Hctz 20-12.5 mg Tab] 2 tab PO DAILY 01/15/20 Oxycodone HCl/Acetaminophen [Oxycodone-Acetaminophen 10-325] 1 each PO Q12HP PRN 01/15/20 Oxycodone Myristate [Xtampza ER] 18 mg PO Q12 01/15/20 Pregabalin [Lyrica Cr] 660 mg PO QHS 01/15/20 Rosuvastatin Calcium 20 mg PO QHS 01/15/20 Trazodone HCl 150 mg PO QHS 01/15/20 Allergies/Adverse Reactions: No Known Allergies Allergy (Verified 01/15/20 12:18) Review of Systems All systems: reviewed and no additional remarkable complaints except as stated - as mentioned in HPI Physical Exam Vital Signs: Temp Pulse Resp BP Pulse Ox 98.3 F 69 18 140/55 H 100 01/16/20 04:34 01/16/20 07:00 01/16/20 04:34 01/16/20 04:34 01/16/20 04:34 Intake & Output 01/15/20 01/16/20 01/17/20 06:59 06:59 06:59 Intake Total 3683 Output Total 2095 Balance 1588 Weight 136 kg General appearance: PRESENT: no acute distress, cooperative, obese Head exam: PRESENT: atraumatic, normocephalic Eye exam: PRESENT: conjunctiva pink, EOMI, PERRLA. ABSENT: scleral icterus Mouth exam: PRESENT: moist, tongue midline Neck exam: PRESENT: full ROM Respiratory exam: PRESENT: clear to auscultation pam. ABSENT: rales, rhonchi, wheezes Cardiovascular exam: PRESENT: RRR. ABSENT: diastolic murmur, rubs, systolic murmur Pulses: PRESENT: +2 pedal pulses bilateral GI/Abdominal exam: PRESENT: normal bowel sounds, soft. ABSENT: distended, guarding, mass, organolmegaly, rebound, tenderness Rectal exam: PRESENT: deferred Musculoskeletal exam: PRESENT: other - There is a displaced articular fracture of the distal tibia with posterior translation of the talus. The patient is able to move all his toes. Sensation is intact to touch. 2+ DP and PT pulses are present. Neurological exam: PRESENT: alert, awake, oriented to person, oriented to place, oriented to time, oriented to situation, CN II-XII grossly intact. ABSENT: motor sensory deficit Psychiatric exam: PRESENT: appropriate affect, normal mood. ABSENT: homicidal ideation, suicidal ideation Skin exam: PRESENT: erythema - There are abrasions overlying the patella of both knees. There is cellulitis in both regions. There is also cellulitis of the right foot. There are abrasions as well as cellulitis of the left ankle. Results Laboratory Results: 01/16/20 05:48 01/16/20 05:48 01/15/20 01/15/20 01/15/20 12:34 12:34 12:34 WBC 19.6 H RBC 4.42 Hgb 12.8 L Hct 36.5 L MCV 83 MCH 28.9 MCHC 35.0 RDW 15.8 H Plt Count 288 Seg Neutrophils % Not Reportable VBG pH 7.41 VBG pCO2 37.7 VBG HCO3 23.2 VBG Base Excess -1.2 Sodium 135.6 L Potassium 3.5 L Chloride 99 Carbon Dioxide 24 Anion Gap 13 BUN 95 H Creatinine 1.53 H Est GFR ( Amer) 56 L Glucose 125 H Lactic Acid Calcium 8.5 Total Bilirubin 1.1 AST 196 H Alkaline Phosphatase 208 H Total Protein 6.7 Albumin 3.4 L Urine Color Urine Appearance Urine pH Ur Specific [place] Urine Protein Urine Glucose (UA) Urine Ketones Urine Blood Urine RBC (Auto) 01/15/20 01/15/20 01/15/20 12:34 13:06 15:40 WBC RBC Hgb Hct MCV MCH MCHC RDW Plt Count Seg Neutrophils % VBG pH VBG pCO2 VBG HCO3 VBG Base Excess Sodium Potassium Chloride Carbon Dioxide Anion Gap BUN Creatinine Est GFR ( Amer) Glucose Lactic Acid 1.4 1.6 Calcium Total Bilirubin AST Alkaline Phosphatase Total Protein Albumin Urine Color YELLOW Urine Appearance SLIGHTLY-CLOUDY Urine pH 5.0 Ur Specific [place] 1.011 Urine Protein 30 H Urine Glucose (UA) NEGATIVE Urine Ketones TRACE H Urine Blood LARGE H Urine RBC (Auto) 2 01/15/20 01/16/20 01/16/20 18:30 05:48 05:48 WBC 14.8 H RBC 4.01 L Hgb 11.5 L Hct 33.1 L MCV 82 MCH 28.5 MCHC 34.6 RDW 15.8 H Plt Count 236 Seg Neutrophils % VBG pH VBG pCO2 VBG HCO3 VBG Base Excess Sodium 133.3 L Potassium 3.2 L Chloride 102 Carbon Dioxide 26 Anion Gap 5 BUN 71 H D Creatinine 1.20 Est GFR ( Amer) > 60 Glucose 114 H Lactic Acid 2.3 H Calcium 8.1 L Total Bilirubin AST Alkaline Phosphatase Total Protein Albumin Urine Color Urine Appearance Urine pH Ur Specific [place] Urine Protein Urine Glucose (UA) Urine Ketones Urine Blood Urine RBC (Auto) 01/15/20 01/15/20 01/16/20 12:34 12:34 05:48 Creatine Kinase 2896 H 1371 H Troponin I 0.078 NT-Pro-B Natriuret Pep 409 H Impressions: Chest X-Ray 01/15/20 12:24 IMPRESSION: No acute cardiopulmonary process. Ankle X-Ray 01/15/20 14:29 IMPRESSION: Unchanged alignment of the distal radius and fibular fractures postreduction. Status: Image reviewed by me - Radiographs of the left ankle demonstrate a displaced articular fracture of the distal tibia as well as fracture of the fibula. The talus is dislocated posteriorly and laterally. Assessment & Plan - Diagnosis (1) Closed intra-articular fracture of distal end of tibia Qualifiers: Encounter type: initial encounter Laterality: left Qualified Code(s): S82.392A - Other fracture of lower end of left tibia, initial encounter for closed fracture Is this a current diagnosis for this admission?: Yes (2) Cellulitis of both lower extremities Is this a current diagnosis for this admission?: Yes - Time Time Spent: 30 to 50 Minutes Medications reviewed and adjusted accordingly: Yes Within: within 48 hours - Plan Summary Plan Summary: I have discussed with the patient's the clinical and radiographic findings of the distal tibia articular fracture of his left leg. Per the patient's history that this fracture occurred approximately 2 weeks ago. The talus has been dislocated from the distal tibia over these past 2 weeks. I had relayed to the emergency room physician and the patient verbalizes that he understood that he will need to be transferred for definitive fracture care. Due to the bilateral lower extremity cellulitis, the patient is unable to undergo formal open redu ction with internal fixation of his left distal tibia. I have recommended manipulative reduction of the distal tibia fracture with application of a bridging external fixator. When the patient's medical condition improves including the rhabdomyolysis, acute renal failure, and cellulitis, he will re quire transfer to a tertiary facility for definitive fracture care. Risks, benefits, and alternatives of the manipulative reduction and external fixation were discussed with the patient. Risks include the risk of with anesthesia, the risk of pin tract infection, the risk of injury to nerves and vessels with fixator pin placement, the possibility of persistent articular malreduction, as well as the need for additional definitive fracture fixation. An opportunity for questions was provided. All questions were answered to the patient's satisfaction. The patient expressed understanding and wishes to proceed with the surgical procedure.
--- NOTE | 2020-01-16 08:49 | EKG REPORT ---
SEVERITY:- ABNORMAL ECG - SINUS RHYTHM PROLONGED QT INTERVAL : Confirmed by: Per Law MD 16-Jan-2020 08:48:30
[2020-01-16] MEDS ORDERED: KETAMINE HCL INJ 500 MG/10 ML VIAL ONE (09:03)
[2020-01-16] MEDS ORDERED: DEXMEDETOMIDINE INJ 80 MCG/20 ML VIAL IV ONE (09:03)
[2020-01-16] MEDS ORDERED: PROMETHAZINE HCL INJ 25 MG/1 ML VIAL IV PRN ×2 (09:17)
[2020-01-16] MEDS ORDERED: MEPERIDINE HCL/PF INJ 25 MG/1 ML DISP.SYRIN IV PRN (09:17)
[2020-01-16] MEDS ORDERED: FENTANYL CITRATE INJ/PF 100 MCG/2 ML AMPUL IV PRN ×3 (09:17)
[2020-01-16] MEDS ORDERED: DIPHENHYDRAMINE HCL 50 MG/ML VIAL IV PRN (09:17)
[2020-01-16] MEDS ORDERED: ONDANSETRON HCL INJ/PF 4 MG/2 ML SDV IV PRN (09:17)
[2020-01-16] MEDS ORDERED: OXYCODONE-ACETAMINOPHEN 5-325 MG TABLET PO PRN ×2 (09:17)
--- NOTE | 2020-01-16 10:20 | Operative Report ---
Operative Report DATE OF SURGERY: 01/16/20 PREOPERATIVE DIAGNOSIS: Displaced articular fracture left distal tibia POSTOPERATIVE DIAGNOSIS: Displaced articular fracture left distal tibia OPERATION: 1. Closed treatment displaced left distal tibia articular fracture with manipulation. 2. Application spanning external fixator SURGEON: KILLIAN HARDY ANESTHESIA: Spinal COMPLICATIONS: None ESTIMATED BLOOD LOSS: Minimal INTRAOPERATIVE FINDINGS: Same PROCEDURE: Indications for procedure: Mr. Cronin is a 64-year-old man who reports having sustained a fall 2 weeks ago resulting in a displaced articular fracture of the left distal tibia. The patient has remained at home without treatment. He reports that initially he was able to walk on his ankle. Symptoms gradually became worse and when he was unable to bear weight on his ankle he would crawl around his apartment on all fours. He was found in his apartment yesterday with bilateral leg cellulitis, rhabdomyolysis, and acute renal failure. Radiographic examination demonstrated an unstable, displaced fracture of the left distal tibia. Description of procedure: The risks, benefits, and alternatives of the procedure were discussed with the patient. The patient was brought to the operating room. A spinal anesthetic was induced. The left lower extremity was sterilely prepped and draped in the usual fashion. Tourniquet was not used. A delta spanning frame of the left leg was placed. 2 pins were placed in the mid tibial shaft. Care was taken to keep the pin alignment in line with the shaft as the articular fracture caused posterior talar dislocation. A transfixion pin was placed from medial to lateral in the midportion of the calcaneus. Traction was placed to restore length and general alignment. Pin to bar clamps were placed and tightened to maintain the reduction. Image intensification demonstrated improved and acceptable alignment with reduction of the posterior dislocation. Tension was also removed from the soft tissues. Of note there was the beginning of skin erosion on the lateral aspect of the ankle due to the deformity. Additional pin was placed across the cuneiform bones to maintain the foot in a plantigrade position. Pin-to-bar clamp attached this to the remainder of the frame. The patient tolerated the procedure well without complication he was brought to recovery room in stable condition. The patient will be continued on antibiotics for his cellulitis. When the patient's overall medical condition improves including the cellulitis, rhabdomyolysis, and acute renal failure, the patient will require transfer to a tertiary facility for definitive treatment by a foot and ankle or trauma surgeon.
--- NOTE | 2020-01-16 11:10 | RADIOLOGY REPORT (SQ) ---
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 FLUOROSCOPY TIME: 0.5 minutes 5 images saved to PACS. TECHNIQUE: Intra-operative images acquired during surgical procedure to evaluate progress. NUMBER OF IMAGES: 5 LIMITATIONS: None. FINDINGS: Imaging shows external fixation applied to the ankle fractures. Please correlate with ope rative note. IMPRESSION: IMAGE(S) OBTAINED DURING PROCEDURE. COMMENT: Quality ID 145: Final reports for procedures using fluoroscopy that document radiation exp osure indices, or exposure time and number of fluorographic images (if radiation exposure indices are not available) Please consult full operative report of the attending physician for description of the procedure. TECHNICAL DOCUMENTATION: JOB ID: [id number] 2010 [employer]- All Rights Reserved Reading location - IP/workstation name: [email or web address]
--- NOTE | 2020-01-16 11:10 | RADIOLOGY REPORT (SQ) ---
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 FLUOROSCOPY TIME: 0.5 minutes 5 images saved to PACS. TECHNIQUE: Intra-operative images acquired during surgical procedure to evaluate progress. NUMBER OF IMAGES: 5 LIMITATIONS: None. FINDINGS: Imaging shows external fixation applied to the ankle fractures. Please correlate with ope rative note. IMPRESSION: IMAGE(S) OBTAINED DURING PROCEDURE. COMMENT: Quality ID [id number]: Final reports for procedures using fluoroscopy that document radiation exp osure indices, or exposure time and number of fluorographic images (if radiation exposure indices are not available) Please consult full operative report of the attending physician for description of the procedure. TECHNICAL DOCUMENTATION: JOB ID: [id number] 2010 [email or web address]- All Rights Reserved Reading location - IP/workstation name: [email or web address]
[2020-01-16] MEDS ORDERED: POTASSIUM CHLORIDE 10 MEQ TABLET.ER PO ONE ×2 (12:09→15:17)
--- NOTE | 2020-01-16 12:13 | PDOC PROGRESS REPORT ---
Subjective Progress Note for:: 01/16/20 Subjective:: Patient is just returned from surgery. An external fixation device was applied to his left ankle. He is still in pain. Reason For Visit: RHABDOMYOLYSIS,ACUTE ON CHRONIC KIDNEY INJURY, Physical Exam Vital Signs: Temp Pulse Resp BP Pulse Ox 98.2 F 75 16 135/95 H 95 01/16/20 11:30 01/16/20 11:30 01/16/20 11:30 01/16/20 11:30 01/16/20 11:30 Intake & Output 01/15/20 01/16/20 01/17/20 06:59 06:59 06:59 Intake Total 3683 1600 Output Total 2095 485 Balance 1588 1115 Weight 136 kg General appearance: PRESENT: cooperative, mild distress, morbidly obese Head exam: PRESENT: atraumatic, normocephalic Eye exam: PRESENT: conjunctiva pink. ABSENT: scleral icterus Ear exam: PRESENT: normal external ear exam. ABSENT: bleeding, drainage Mouth exam: PRESENT: dry mucosa, tongue midline Respiratory exam: PRESENT: clear to auscultation pam, symmetrical, unlabored. ABSENT: accessory muscle use, prolonged expiratory phas, rales, rhonchi, tachypnea, wheezes Cardiovascular exam: PRESENT: RRR, +S1, +S2. ABSENT: bradycardia, irregular rhythm, tachycardia GI/Abdominal exam: PRESENT: hypoactive bowel sounds, soft. ABSENT: distended, guarding, tenderness Rectal exam: PRESENT: deferred Gentrourinary exam: ABSENT: indwelling catheter Extremities exam: PRESENT: other - Swelling left ankle. External fixation device in place. Musculoskeletal exam: PRESENT: deformity - As above. ABSENT: normal inspection Neurological exam: PRESENT: alert, awake, oriented to person, oriented to place, oriented to time, oriented to situation, CN II-XII grossly intact. ABSENT: altered Psychiatric exam: PRESENT: flat affect. ABSENT: agitated, anxious Focused psych exam: ABSENT: delusional, paranoid, restlessness Skin exam: PRESENT: other - Dried scabs on both knees. Results Laboratory Results: 01/16/20 05:48 01/16/20 05:48 01/15/20 01/15/20 01/15/20 12:34 12:34 12:34 WBC 19.6 H RBC 4.42 Hgb 12.8 L Hct 36.5 L MCV 83 MCH 28.9 MCHC 35.0 RDW 15.8 H Plt Count 288 Seg Neutrophils % Not Reportable VBG pH 7.41 VBG pCO2 37.7 VBG HCO3 23.2 VBG Base Excess -1.2 Sodium 135.6 L Potassium 3.5 L Chloride 99 Carbon Dioxide 24 Anion Gap 13 BUN 95 H Creatinine 1.53 H Est GFR ( Amer) 56 L Glucose 125 H Lactic Acid Calcium 8.5 Total Bilirubin 1.1 AST 196 H Alkaline Phosphatase 208 H Total Protein 6.7 Albumin 3.4 L Urine Color Urine Appearance Urine pH Ur Specific [place] Urine Protein Urine Glucose (UA) Urine Ketones Urine Blood Urine RBC (Auto) 01/15/20 01/15/20 01/15/20 12:34 13:06 15:40 WBC RBC Hgb Hct MCV MCH MCHC RDW Plt Count Seg Neutrophils % VBG pH VBG pCO2 VBG HCO3 VBG Base Excess Sodium Potassium Chloride Carbon Dioxide Anion Gap BUN Creatinine Est GFR ( Amer) Glucose Lactic Acid 1.4 1.6 Calcium Total Bilirubin AST Alkaline Phosphatase Total Protein Albumin Urine Color YELLOW Urine Appearance SLIGHTLY-CLOUDY Urine pH 5.0 Ur Specific [place] 1.011 Urine Protein 30 H Urine Glucose (UA) NEGATIVE Urine Ketones TRACE H Urine Blood LARGE H Urine RBC (Auto) 2 01/15/20 01/16/20 01/16/20 18:30 05:48 05:48 WBC 14.8 H RBC 4.01 L Hgb 11.5 L Hct 33.1 L MCV 82 MCH 28.5 MCHC 34.6 RDW 15.8 H Plt Count 236 Seg Neutrophils % VBG pH VBG pCO2 VBG HCO3 VBG Base Excess Sodium 133.3 L Potassium 3.2 L Chloride 102 Carbon Dioxide 26 Anion Gap 5 BUN 71 H D Creatinine 1.20 Est GFR ( Amer) > 60 Glucose 114 H Lactic Acid 2.3 H Calcium 8.1 L Total Bilirubin AST Alkaline Phosphatase Total Protein Albumin Urine Color Urine Appearance Urine pH Ur Specific [place] Urine Protein Urine Glucose (UA) Urine Ketones Urine Blood Urine RBC (Auto) 01/15/20 01/15/20 01/16/20 12:34 12:34 05:48 Creatine Kinase 2896 H 1371 H Troponin I 0.078 NT-Pro-B Natriuret Pep 409 H Impressions: Chest X-Ray 01/15/20 12:24 IMPRESSION: No acute cardiopulmonary process. Ankle X-Ray 01/16/20 00:00 IMPRESSION: IMAGE(S) OBTAINED DURING PROCEDURE. Fluoroscopy 01/16/20 00:00 IMPRESSION: IMAGE(S) OBTAINED DURING PROCEDURE. Assessment and Plan - Diagnosis (1) Closed intra-articular fracture of distal end of tibia Qualifiers: Encounter type: initial encounter Laterality: left Qualified Code(s): S82.392A - Other fracture of lower end of left tibia, initial encounter for closed fracture Is this a current diagnosis for this admission?: Yes Plan: 01/16/[address] Durán. Because the fracture is into the ankle joint he put an external fixation device in place today. When the patient is stable from a medical standpoint we will transfer him to [facility] for surgical intervention as this is not a procedure done at this facility. The patient will keep the external fixator in place at this time. Analgesia for pain. (2) Rhabdomyolysis Qualifiers: Rhabdomyolysis type: traumatic Encounter type: initial encounter Qualified Code(s): T79.6XXA - Traumatic ischemia of muscle, initial encounter Is this a current diagnosis for this admission?: Yes Plan: 01/16/2020 Unfortunately the patient suffered the ankle fracture but did not comply with utilizing crutches and a boot. He likely significantly worsen the fracture. He fell at home and was unable to mobilize. He developed rhabdo as well as multiple abrasions on his legs. The creatinine kinase is decreasing. Continue to monitor by laboratory studies. This is most likely contributing to the acute kidney injury. (3) [id number] kidney injury Qualifiers: Chronic kidney disease stage: stage 3 (moderate) Is this a current diagnosis for this admission?: Yes Plan: 01/16/2020 The serum creatinine is actually back to normal but the BUN is still very high. His GFR in fact is normal. This is the best his kidneys have looked over the last several years which makes me wonder about compliance issues. We will continue fluids for the rhabdo and continue to monitor serum chemistries. We are also following intake and output. (4) Dehydration Is this a current diagnosis for this admission?: Yes Plan: 01/16/2020 When the patient was stuck on the floor he did not have much input. We will administer IV fluids and now that he has had a surgery he has begun an oral diet. (5) Hypokalemia Is this a current diagnosis for this admission?: Yes Plan: 01/16/2020 Possibly related to fluid shifts. Will provide oral potassium supplement and monitor serum chemistries (6) Hyponatremia Is this a current diagnosis for this admission?: Yes Plan: 01/16/2020 The serum sodium is only slightly below the normal range. I will monitor serum chemistries. It will likely correct by the next blood test. (7) Cellulitis of leg, left Is this a current diagnosis for this admission?: Yes Plan: 01/16/2020 The cellulitis likely started when the patient was crawling around on the floor and sustained multiple abrasions. Continue antibiotic therapy. The left leg is swollen but this is more likely due to the fracture and surgery. (8) Abrasion of knee, bilateral Is this a current diagnosis for this admission?: Yes Plan: 01/16/2020 Abrasions on both knees because the patient was forced to crawl around after he fell at home. Conservative local care. (9) Morbid obesity with BMI of 40.0-44.9, adult Is this a current diagnosis for this admission?: Yes Plan: BMI is 43.0. At that weight he certainly worsened his fracture. He is also at risk for multiple comorbidities. We will try and encourage weight loss. - Time Time Spent with patient: 15-24 minutes Medications reviewed and adjusted accordingly: Yes Anticipated discharge: Artur Gonzalez - When medically stable
[2020-01-16] MEDS ORDERED: PHARMACY COMMUNICATION ORDER MC NR (12:15)
[2020-01-16 19:08] LABS: CHLORIDE 103 mmol/L (98-107); CREATINE KINASE 753 U/L (55-170); GLUCOSE 177 mg/dL (75-110); POTASSIUM 3.3 mmol/L (3.6-5.0)
[2020-01-16 19:24] LABS: CARBON DIOXIDE 26 mmol/L (22-30)
[2020-01-16 19:25] LABS: BLOOD UREA NITROGEN 49 mg/dL (7-20)
[2020-01-16 19:27] LABS: ANION GAP 5 (5-19)
[2020-01-16] MEDS: OXYCODONE HCL SR 10 MG TABLET PO SCH (21:03)
[2020-01-16] MEDS: CARVEDILOL 6.25 MG TABLET PO SCH (21:03)
[2020-01-16] MEDS: ATORVASTATIN CALCIUM 40 MG TABLET PO SCH (21:03)
[2020-01-16] MEDS: TRAZODONE HCL 50 MG TABLET PO SCH (21:03)
[2020-01-16] MEDS ORDERED: (PENDING PHARMACY ID) (Rosuvastatin Calcium [Rosuvastatin Calcium] 20 MG) PO SCH (22:00)
[2020-01-16] MEDS ORDERED: (PENDING PHARMACY ID) (Oxycodone Myristate [Xtampza Er] 18 MG) PO SCH (22:00)
[2020-01-16] MEDS ORDERED: PREGABALIN PO SCH ×2 (22:00)
--- NOTE | 2020-01-17 02:36 | RADIOLOGY REPORT (SQ) ---
CT of the left ankle: 01/17/2020 1:31 AM CDT TECHNIQUE: Multiple axial contiguous images were obtained through the left ankle without intravenous contrast administered. Coronal and sagittal reconstructed images were also obtained and examined. This exam was performed according to our departmental dose-optimization program, which includes automated exposure control, adjustment of the mA and/or KV according to the patient's size and/or use of iterative reconstruction technique. COMPARISON: None available HISTORY: 54-year old patient with left ankle pain and known fractures. FINDINGS: There is abnormal widening of the tibiotalar joint, most pronounced posteriorly. There are fractures through the distal fibula extending to the level the mortise joint which appear to be comminuted. There is a fracture of the posterior aspect of the tibia. The tibia is slightly anteriorly subluxed over the talus laterally by approximately half a shaft width. There are acute, comminuted fractures also extending to the medial malleolus. There are traction screws extending through the calcaneus. There is evidence of a fracture deformity at the base of the fifth metatarsal. There are traction pins extending across the cuneiforms. There is also suggestion of fractures through the bases of the second through fourth metatarsals. These appear well-corticated and could also be due to remote trauma. There are degenerative changes seen over the dorsal aspect of the foot. An incidental calcaneal heel spur is seen. There is diffuse soft tissue swelling seen about the ankle. A few bony fragments are seen within the tibiotalar joint region. The mortise joint is abnormally widened measuring at least 6 mm both laterally and superiorly. There is suggestion of a small chip fracture at the anterior aspect of the tibia. There is a trace adjacent joint effusion. IMPRESSION: There is abnormal widening of the tibiotalar joint with evidence of a trimalleolar fracture. There is subluxation of the tibia over the talus anteriorly and laterally.
[2020-01-17] MEDS: MORPHINE SULFATE 10 MG/ML INJ IV PRN ×3 (04:08→20:08)
[2020-01-17 04:37] LABS: HEMATOCRIT 33.4 % (37.9-51.0); HEMOGLOBIN 11.5 g/dL (13.5-17.0); MEAN CORPUSCULAR HEMOGLOBIN 28.2 pg (27.0-33.4); MEAN CORPUSCULAR HGB CONC 34.4 g/dL (32.0-36.0); MEAN CORPUSCULAR VOLUME 82 fl (80-97); PLATELET COUNT 218 10^3/uL (150-450); RED BLOOD COUNT 4.09 10^6/uL (4.35-5.55); RED CELL DISTRIBUTION WIDTH 15.8 % (11.5-14.0); WHITE BLOOD COUNT 13.5 10^3/uL (4.0-10.5)
[2020-01-17 04:55] LABS: ANION GAP 7 (5-19); BLOOD UREA NITROGEN 39 mg/dL (7-20); CALCIUM 8.1 mg/dL (8.4-10.2); CARBON DIOXIDE 25 mmol/L (22-30); CHLORIDE 105 mmol/L (98-107); CREATINE KINASE 495 U/L (55-170); GLUCOSE 111 mg/dL (75-110); POTASSIUM 3.6 mmol/L (3.6-5.0)
[2020-01-17] MEDS: RINGERS SOLUTION,LACTATED 1,000 ML IV PRN ×2 (05:42→12:54)
[2020-01-17] MEDS: HEPARIN SOD (PORCINE) 5,000 UNIT/ML 1 ML VIAL SUBCUT SCH ×3 (05:42→21:49)
[2020-01-17] MEDS: CEFAZOLIN SODIUM 2 GM in DEXTROSE 5%-WATER 100 ML IV SCH ×4 (05:42→22:59)
[2020-01-17] MEDS: OXYCODONE HCL SR 10 MG TABLET PO SCH ×2 (09:53→21:50)
[2020-01-17] MEDS: ALLOPURINOL 300 MG TABLET PO SCH (09:53)
[2020-01-17] MEDS: POTASSIUM CHLORIDE 10 MEQ TABLET.ER PO SCH (09:54)
[2020-01-17] MEDS: DULOXETINE HCL 30 MG CAPSULE.DR PO SCH (09:54)
[2020-01-17] MEDS: CARVEDILOL 6.25 MG TABLET PO SCH ×2 (09:54→21:52)
[2020-01-17] MEDS: HYDROCHLOROTHIAZIDE 25 MG TABLET PO SCH (09:55)
[2020-01-17] MEDS: LISINOPRIL 10 MG TABLET PO SCH (09:55)
[2020-01-17] MEDS ORDERED: (PENDING PHARMACY ID) (Lisinopril/Hydrochlorothiazide [Lisinopril-Hctz 20-12.5 Mg Tab] 2 T PO SCH (10:00)
[2020-01-17] MEDS: COLCHICINE 0.6 MG TABLET PO SCH (10:06)
--- NOTE | 2020-01-17 11:20 | PDOC PROGRESS REPORT ---
Subjective Progress Note for:: 01/17/20 Subjective:: Patient is still having discomfort. He has hardly eaten any breakfast. Still with edema in the left leg. External fixator in place. Reason For Visit: RHABDOMYOLYSIS,ACUTE ON CHRONIC KIDNEY INJURY, Physical Exam Vital Signs: Temp Pulse Resp BP Pulse Ox 97.7 F 89 20 144/53 H 96 01/17/20 07:00 01/17/20 07:00 01/17/20 07:00 01/17/20 07:00 01/17/20 07:00 Intake & Output 01/16/20 01/17/20 01/18/20 06:59 06:59 06:59 Intake Total 3683 5726 Output Total 5785 7310 Balance 1588 2406 Weight 136 kg 136 kg General appearance: PRESENT: cooperative, mild distress - Mild to moderate distress, morbidly obese, well-developed Head exam: PRESENT: atraumatic, normocephalic Eye exam: PRESENT: conjunctiva pink, EOMI. ABSENT: scleral icterus Ear exam: PRESENT: normal external ear exam. ABSENT: bleeding, drainage Respiratory exam: PRESENT: clear to auscultation pam - Anteriorly, symmetrical, unlabored. ABSENT: rales, rhonchi, tachypnea, wheezes Cardiovascular exam: PRESENT: RRR, +S1, +S2 GI/Abdominal exam: PRESENT: normal bowel sounds, soft. ABSENT: distended, guarding, tenderness Rectal exam: PRESENT: deferred Gentrourinary exam: ABSENT: indwelling catheter Extremities exam: PRESENT: +2 edema - Left leg Musculoskeletal exam: PRESENT: deformity - External fixator over left lower leg Neurological exam: PRESENT: alert, awake, oriented to person, oriented to place, oriented to time, oriented to situation, CN II-XII grossly intact. ABSENT: altered, motor sensory deficit Psychiatric exam: PRESENT: flat affect. ABSENT: agitated, anxious Focused psych exam: ABSENT: delusional, paranoid, restlessness Skin exam: PRESENT: abrasion - Bilateral knees, dry, warm, other - There is a large scab on each knee. The left is greater than the right. There is evidence of drainage from under the left scab. I did gently remove the scab on the left knee and discovered moist discolored superficial tissue. I removed part of the scab on the right knee and the tissue was pink and more healthy. Results Laboratory Results: 01/17/20 03:55 01/17/20 03:55 01/16/20 01/16/20 01/16/20 05:48 18:15 18:15 WBC RBC Hgb Hct MCV MCH MCHC RDW Plt Count Sodium 134.1 L Potassium 3.3 L Chloride 103 Carbon Dioxide 26 Anion Gap 5 BUN 49 H D Creatinine 1.17 Est GFR ( Amer) > 60 Glucose 177 H Lactic Acid 1.4 Calcium 8.0 L Magnesium 2.4 H 2.1 01/17/20 01/17/20 03:55 03:55 WBC 13.5 H RBC 4.09 L Hgb 11.5 L Hct 33.4 L MCV 82 MCH 28.2 MCHC 34.4 RDW 15.8 H Plt Count 218 Sodium 137.0 Potassium 3.6 Chloride 105 Carbon Dioxide 25 Anion Gap 7 BUN 39 H Creatinine 1.00 Est GFR ( Amer) > 60 Glucose 111 H Lactic Acid Calcium 8.1 L Magnesium 01/15/20 13:04 Ankle - Cellulitis Gram Stain - Final 01/15/20 01/15/20 01/16/20 12:34 12:34 05:48 Creatine Kinase 2896 H 1371 H Troponin I 0.078 NT-Pro-B Natriuret Pep 409 H 01/16/20 01/17/20 18:15 03:55 Creatine Kinase 753 H 495 H Troponin I NT-Pro-B Natriuret Pep Impressions: Chest X-Ray 01/15/20 12:24 IMPRESSION: No acute cardiopulmonary process. Ankle X-Ray 01/16/20 00:00 IMPRESSION: IMAGE(S) OBTAINED DURING PROCEDURE. Fluoroscopy 01/16/20 00:00 IMPRESSION: IMAGE(S) OBTAINED DURING PROCEDURE. Lower Extremity CT 01/16/20 11:40 IMPRESSION: There is abnormal widening of the tibiotalar joint with evidence of a trimalleolar fracture. There is subluxation of the tibia over the talus anteriorly and laterally. Assessment and Plan - Diagnosis (1) Closed intra-articular fracture of distal end of tibia Qualifiers: Encounter type: initial encounter Laterality: left Qualified Code(s): S82.392A - Other fracture of lower end of left tibia, initial encounter for closed fracture Is this a current diagnosis for this admission?: Yes Plan: 01/16/[address] Durán. Because the fracture is into the ankle joint he put an external fixation device in place today. When the patient is stable from a medical standpoint we will transfer him to [facility] [place] for surgical intervention as this is not a procedure done at this facility. The patient will keep the external fixator in place at this time. Analgesia for pain. 01/17/[address] Durán's note as well The patient will need definitive internal fixation surgery when stable. His renal function is normalizing and his creatinine kinase is down significantly from admission. He does have the external fixator in place. From his kidney failure and rhabdomyolysis standpoint he is stable however in reviewing Dr. Durán's notes it appears that he will need decrease swelling and to complete a course of antibiotic therapy to minimize the chances of any postop infection at the site. I will continue to monitor his laboratory studies. (2) Rhabdomyolysis Qualifiers: Rhabdomyolysis type: traumatic Encounter type: initial encounter Qualified Code(s): T79.6XXA - Traumatic ischemia of muscle, initial encounter Is this a current diagnosis for this admission?: Yes Plan: 01/16/2020 Unfortunately the patient suffered the ankle fracture but did not comply with utilizing crutches and a boot. He likely significantly worsen the fracture. He fell at home and was unable to mobilize. He developed rhabdo as well as multiple abrasions on his legs. The creatinine kinase is decreasing. Continue to monitor by laboratory studies. This is most likely contributing to the acute kidney injury. 01/17/2020 The creatinine kinase level is now under 500. This is down from 2800 at the time of admission. Continue current management and recheck creatinine kinase levels tomorrow. (3) Kepjl-ax-yrtmeyv kidney injury Qualifiers: Chronic kidney disease stage: stage 3 (moderate) Is this a current diagnosis for this admission?: Yes Plan: 01/16/2020 The serum creatinine is actually back to normal but the BUN is still very high. His GFR in fact is normal. This is the best his kidneys have looked over the last several years which makes me wonder about compliance issues. We will continue fluids for the rhabdo and continue to monitor serum chemistries. We are also following intake and output. 01/17/2020 GFR is now greater than 60. Serum creatinine is down to 1.0. The BUN is still 37 but improving daily. Continue current regimen. Acute kidney injury is close to being completely resolved. (4) Dehydration Is this a current diagnosis for this admission?: Yes Plan: 01/16/2020 When the patient was stuck on the floor he did not have much input. We will administer IV fluids and now that he has had a surgery he has begun an oral diet. 01/17/2020 Resolved (5) Hypokalemia Is this a current diagnosis for this admission?: Yes Plan: 01/16/2020 Possibly related to fluid shifts. Will provide oral potassium supplement and monitor serum chemistries 01/17/2020 Resolved with supplementation. Continue daily potassium supplements and monitor potassium levels. (6) Hyponatremia Is this a current diagnosis for this admission?: Yes Plan: 01/16/2020 The serum sodium is only slightly below the normal range. I will monitor serum chemistries. It will likely correct by the next blood test. 01/17/2020 Resolved. Serum sodium is normal. Continue to monitor. (7) Cellulitis of leg, left Is this a current diagnosis for this admission?: Yes Plan: 01/16/2020 The cellulitis likely started when the patient was crawling around on the floor and sustained multiple abrasions. Continue antibiotic therapy. The left leg is swollen but this is more likely due to the fracture and surgery. 01/17/2020 Continue current antibiotic regimen. Await final results of cultures. Will likely need to continue his current antibiotic for 7-10 more days. (8) Abrasion of knee, bilateral Is this a current diagnosis for this admission?: Yes Plan: 01/16/2020 Abrasions on both knees because the patient was forced to crawl around after he fell at home. Conservative local care. 01/17/2020 As noted above there was macerated tissue under the abrasions. Now that the irritated tissue is exposed we will apply Xeroform dressings and change twice a day to avoid sticking. Once cleaned up the patient may benefit from hydrocolloid dressings. (9) Morbid obesity with BMI of 40.0-44.9, adult Is this a current diagnosis for this admission?: Yes Plan: 01/16/2020 BMI is 43.0. At that weight he certainly worsened his fracture. He is also at risk for multiple comorbidities. We will try and encourage weight loss. 01/17/2020 We will continue to monitor. The inability to exercise is at this point puts the onus on diet for weight management. Once his ankle fracture is repaired and he returns to full function he should participate in an exercise program along with dieting. (10) Hypocalcemia Is this a current diagnosis for this admission?: Yes Plan: 01/17/2020 Serum calcium is mildly decreased. In light of the fracture and perceived needs I have started a calcium with vitamin D supplement. - Time Time Spent with patient: 15-24 minutes Medications reviewed and adjusted accordingly: Yes Anticipated [facility] For definitive internal fixation of intra-articular fracture
--- NOTE | 2020-01-17 12:40 | PDOC PROGRESS REPORT ---
Subjective Progress Note for:: 01/17/20 Subjective:: Symptoms improving. Continues to complain of pain in left leg post external fixation. Reason For Visit: RHABDOMYOLYSIS,ACUTE ON CHRONIC KIDNEY INJURY, Physical Exam Vital Signs: Temp Pulse Resp BP Pulse Ox 98.9 F 85 20 158/72 H 98 01/17/20 11:24 01/17/20 11:24 01/17/20 11:24 01/17/20 11:24 01/17/20 11:24 Intake & Output 01/16/20 01/17/20 01/18/20 06:59 06:59 06:59 Intake Total 3683 5726 Output Total 4383 8880 Balance 1588 2406 Weight 136 kg 136 kg General appearance: PRESENT: no acute distress, well-developed, well-nourished Musculoskeletal exam: PRESENT: other - Bilateral anterior leg cellulitis is resolving. External fixator in place on left leg. Results Laboratory Results: 01/17/20 03:55 01/17/20 03:55 01/16/20 01/16/20 01/16/20 05:48 18:15 18:15 WBC RBC Hgb Hct MCV MCH MCHC RDW Plt Count Sodium 134.1 L Potassium 3.3 L Chloride 103 Carbon Dioxide 26 Anion Gap 5 BUN 49 H D Creatinine 1.17 Est GFR ( Amer) > 60 Glucose 177 H Lactic Acid 1.4 Calcium 8.0 L Magnesium 2.4 H 2.1 01/17/20 01/17/20 03:55 03:55 WBC 13.5 H RBC 4.09 L Hgb 11.5 L Hct 33.4 L MCV 82 MCH 28.2 MCHC 34.4 RDW 15.8 H Plt Count 218 Sodium 137.0 Potassium 3.6 Chloride 105 Carbon Dioxide 25 Anion Gap 7 BUN 39 H Creatinine 1.00 Est GFR ( Amer) > 60 Glucose 111 H Lactic Acid Calcium 8.1 L Magnesium 01/15/20 13:04 Ankle - Cellulitis Gram Stain - Final 01/15/20 01/15/20 01/16/20 12:34 12:34 05:48 Creatine Kinase 2896 H 1371 H Troponin I 0.078 NT-Pro-B Natriuret Pep 409 H 01/16/20 01/17/20 18:15 03:55 Creatine Kinase 753 H 495 H Troponin I NT-Pro-B Natriuret Pep Impressions: Chest X-Ray 01/15/20 12:24 IMPRESSION: No acute cardiopulmonary process. Ankle X-Ray 01/16/20 00:00 IMPRESSION: IMAGE(S) OBTAINED DURING PROCEDURE. Fluoroscopy 01/16/20 00:00 IMPRESSION: IMAGE(S) OBTAINED DURING PROCEDURE. Lower Extremity CT 01/16/20 11:40 IMPRESSION: There is abnormal widening of the tibiotalar joint with evidence of a trimalleolar fracture. There is subluxation of the tibia over the talus anteriorly and laterally. Status: Image reviewed by wa - CT scan with reconstruction of left ankle demonstrates a comminuted fracture of the distal tibia. Alignment improved following application of external fixator. Assessment & Plan - Diagnosis (1) Closed intra-articular fracture of distal end of tibia Qualifiers: Encounter type: initial encounter Laterality: left Qualified Code(s): S82.392A - Other fracture of lower end of left tibia, initial encounter for closed fracture Is this a current diagnosis for this admission?: Yes (2) Cellulitis of both lower extremities Is this a current diagnosis for this admission?: Yes - Plan Summary Plan Summary: I have discussed with the patient and medical staff that the patient will require transfer to a tertiary center for definitive internal fixation of the distal tibia fracture. The fracture has been stabilized with the external fixator. Patient is not currently stable for internal fixation due to ongoing cellulitis of bilateral lower extremities. Definitive surgery will likely also require delay due to the condition of the soft tissues over the lateral malleolus caused by the patient WB on the ankle for two weeks following his injury. I will be happy to help facilitate transfer once the patient is medically stable.
[2020-01-17] MEDS: OXYCODONE-ACETAMINOPHEN 5-325 MG TABLET PO PRN ×2 (17:39→22:51)
[2020-01-17] MEDS: ATORVASTATIN CALCIUM 40 MG TABLET PO SCH (21:51)
[2020-01-17] MEDS: TRAZODONE HCL 50 MG TABLET PO SCH (21:51)
[2020-01-18 05:40] LABS: HEMATOCRIT 34.8 % (37.9-51.0); HEMOGLOBIN 11.8 g/dL (13.5-17.0); MEAN CORPUSCULAR HEMOGLOBIN 28.4 pg (27.0-33.4); MEAN CORPUSCULAR VOLUME 84 fl (80-97); PLATELET COUNT 244 10^3/uL (150-450); RED BLOOD COUNT 4.17 10^6/uL (4.35-5.55); RED CELL DISTRIBUTION WIDTH 16.2 % (11.5-14.0); WHITE BLOOD COUNT 16.5 10^3/uL (4.0-10.5)
[2020-01-18 05:44] LABS: ANION GAP 5 (5-19); BLOOD UREA NITROGEN 21 mg/dL (7-20); CALCIUM 8.2 mg/dL (8.4-10.2); CARBON DIOXIDE 28 mmol/L (22-30); CHLORIDE 105 mmol/L (98-107); CREATINE KINASE 116 U/L (55-170); GLUCOSE 122 mg/dL (75-110); POTASSIUM 3.8 mmol/L (3.6-5.0)
[2020-01-18] MEDS: MORPHINE SULFATE 10 MG/ML INJ IV PRN ×3 (06:05→23:08)
[2020-01-18] MEDS: CEFAZOLIN SODIUM 2 GM in DEXTROSE 5%-WATER 100 ML IV SCH (06:05)
[2020-01-18] MEDS: HEPARIN SOD (PORCINE) 5,000 UNIT/ML 1 ML VIAL SUBCUT SCH ×4 (06:05→22:00)
[2020-01-18] MEDS: OXYCODONE-ACETAMINOPHEN 5-325 MG TABLET PO PRN ×2 (06:59→16:01)
[2020-01-18] MEDS: RINGERS SOLUTION,LACTATED 1,000 ML IV PRN ×2 (09:21→22:02)
[2020-01-18] MEDS: OXYCODONE HCL SR 10 MG TABLET PO SCH ×2 (09:22→22:01)
[2020-01-18] MEDS: POTASSIUM CHLORIDE 10 MEQ TABLET.ER PO SCH (09:23)
[2020-01-18] MEDS: CARVEDILOL 6.25 MG TABLET PO SCH ×2 (09:24→22:01)
[2020-01-18] MEDS: DULOXETINE HCL 30 MG CAPSULE.DR PO SCH (09:24)
[2020-01-18] MEDS: COLCHICINE 0.6 MG TABLET PO SCH (09:24)
[2020-01-18] MEDS: ALLOPURINOL 300 MG TABLET PO SCH (09:24)
[2020-01-18] MEDS: LISINOPRIL 10 MG TABLET PO SCH (09:25)
[2020-01-18] MEDS: HYDROCHLOROTHIAZIDE 25 MG TABLET PO SCH (09:25)
[2020-01-18] MEDS ORDERED: CALCIUM CARBONATE 600 MG/VITAMIN D3 400 UNIT TABLET PO SCH (10:00)
--- NOTE | 2020-01-18 11:36 | PDOC PROGRESS REPORT ---
Subjective Progress Note for:: 01/18/20 Subjective:: Patient is resting comfortably in bed. He reports that his knees feel somewhat better with the new dressings. The swelling in the left leg appears to be improving. External fixator in place left lower leg. Reason For Visit: RHABDOMYOLYSIS,ACUTE ON CHRONIC KIDNEY INJURY, Physical Exam Vital Signs: Temp Pulse Resp BP Pulse Ox 99.1 F 76 24 H 109/54 L 93 01/18/20 07:41 01/18/20 07:41 01/18/20 07:41 01/18/20 07:41 01/18/20 07:41 Intake & Output 01/17/20 01/18/20 01/19/20 06:59 06:59 06:59 Intake Total 5726 3840 100 Output Total 3320 2700 Balance 2406 1140 100 Weight 136 kg 139.5 kg General appearance: PRESENT: cooperative, morbidly obese, well-developed, well- nourished Head exam: PRESENT: atraumatic, normocephalic Eye exam: PRESENT: conjunctiva pink. ABSENT: scleral icterus Ear exam: PRESENT: normal external ear exam. ABSENT: bleeding, drainage Mouth exam: PRESENT: moist, tongue midline Neck exam: ABSENT: JVD, lymphadenopathy, tenderness, tracheostomy Respiratory exam: PRESENT: clear to auscultation pam, symmetrical, unlabored. ABSENT: accessory muscle use, rales, rhonchi, tachypnea, wheezes Cardiovascular exam: PRESENT: RRR, +S1, +S2, other - Did not listen in the peristernal areas due to the abscess GI/Abdominal exam: PRESENT: normal bowel sounds, soft, other - Pendulous abdomen. ABSENT: guarding, tenderness Rectal exam: PRESENT: deferred Gentrourinary exam: ABSENT: indwelling catheter Extremities exam: PRESENT: pedal edema Musculoskeletal exam: ABSENT: ambulatory, normal inspection - External fixator in place left leg Neurological exam: PRESENT: alert, awake, oriented to person, oriented to place, oriented to time, oriented to situation, CN II-XII grossly intact. ABSENT: altered Psychiatric exam: PRESENT: flat affect. ABSENT: agitated, anxious Focused psych exam: ABSENT: delusional, paranoid, restlessness Skin exam: PRESENT: dry, warm, other - Dressings on bilateral knees Results Laboratory Results: 01/18/20 05:05 01/18/20 05:05 01/18/20 01/18/20 05:05 05:05 WBC 16.5 H RBC 4.17 L Hgb 11.8 L Hct 34.8 L MCV 84 MCH 28.4 MCHC 34.0 RDW 16.2 H Plt Count 244 Sodium 138.0 Potassium 3.8 Chloride 105 Carbon Dioxide 28 Anion Gap 5 BUN 21 H Creatinine 0.83 Est GFR ( Amer) > 60 Glucose 122 H Calcium 8.2 L 01/15/20 13:04 Ankle - Cellulitis Gram Stain - Final 01/15/20 01/15/20 01/16/20 12:34 12:34 05:48 Creatine Kinase 2896 H 1371 H Troponin I 0.078 NT-Pro-B Natriuret Pep 409 H 01/16/20 01/17/20 01/18/20 18:15 03:55 05:05 Creatine Kinase 753 H 495 H 116 Troponin I NT-Pro-B Natriuret Pep Impressions: Chest X-Ray 01/15/20 12:24 IMPRESSION: No acute cardiopulmonary process. Ankle X-Ray 01/16/20 00:00 IMPRESSION: IMAGE(S) OBTAINED DURING PROCEDURE. Fluoroscopy 01/16/20 00:00 IMPRESSION: IMAGE(S) OBTAINED DURING PROCEDURE. Lower Extremity CT 01/16/20 11:40 IMPRESSION: There is abnormal widening of the tibiotalar joint with evidence of a trimalleolar fracture. There is subluxation of the tibia over the talus anteriorly and laterally. Assessment and Plan - Diagnosis (1) Closed intra-articular fracture of distal end of tibia Qualifiers: Encounter type: initial encounter Laterality: left Qualified Code(s): S82.392A - Other fracture of lower end of left tibia, initial encounter for c losed fracture Is this a current diagnosis for this admission?: Yes Plan: 01/16/[address] Durán. Because the fracture is into the ankle joint he put an external fixation device in place today. When the patient is stable from a medi liz standpoint we will transfer him to [facility] for surgical intervention as this is not a procedure done at this facility. The patient will keep the external fixator in place at this time. Analgesia for pain. 01/17/[address] Durán's note as well The patient will need definitive internal fixation surgery when stable. His renal function is normalizing and his creatinine kinase is down significantly from admission. He does have the external fixator in place. From his kidney failure and rhabdomyolysis standpoint he is stable however in reviewing Dr. Durán's notes it appears that he will need decrease swelling and to complete a course of antibiotic therapy to minimize the chances of any postop infection at the site. I will continue to monitor his laboratory studies. 01/18/2020 It is likely that the patient will need at least 7 to 10 days of IV antibiotics prior to surgical intervention. I will review with Dr. Durán. It may be appropriate for the patient to enter a half-way facility for the duration of antibiotics and then transition to [facility] for further surgical intervention. (2) Rhabdomyolysis Qualifiers: Rhabdomyolysis type: traumatic Encounter type: initial encounter Qualified Code(s): T79.6XXA - Traumatic ischemia of muscle, initial encounter Is this a current diagnosis for this admission?: Yes Plan: 01/16/2020 Unfortunately the patient suffered the ankle fracture but did not comply with utilizing crutches and a boot. He likely significantly worsen the fracture. He fell at home and was unable to mobilize. He developed rhabdo as well as multiple abrasions on his legs. The creatinine kinase is decreasing. Continue to monitor by laboratory studies. This is most likely contributing to the acute kidney injury. 01/17/2020 The creatinine kinase level is now under 500. This is down from 2800 at the time of admission. Continue current management and recheck creatinine kinase levels tomorrow. 01/18/2020 Creatinine kinase is normal. No need to test further. Rhabdo is resolved. (3) Fjiul-ov-ancafmv kidney injury Qualifiers: Chronic kidney disease stage: stage 3 (moderate) Is this a current diagnosis for this admission?: Yes Plan: 01/16/2020 The serum creatinine is actually back to normal but the BUN is still very high. His GFR in fact is normal. This is the best his kidneys have looked over the last several years which makes me wonder about compliance issues. We will continue fluids for the rhabdo and continue to monitor serum chemistries. We ar e also following intake and output. 01/17/2020 GFR is now greater than 60. Serum creatinine is down to 1.0. The BUN is still 37 but improving daily. Continue current regimen. Acute kidney injury is close to being completely resolved. 01/18/2020 The patient's renal function in fact is normal. Hopefully with better compliance and ongoing care his renal function may remain normal. (4) Dehydration Is this a current diagnosis for this admission?: Yes Plan: 01/16/2020 When the patient was stuck on the floor he did not have much input. We will administer IV fluids and now that he has had a surgery he has begun an oral diet. 01/17/2020 Resolved (5) Hypokalemia Is this a current diagnosis for this admission?: Yes Plan: 01/16/2020 Possibly related to fluid shifts. Will provide oral potassium supplement and monitor serum chemistries 01/17/2020 Resolved with supplementation. Continue daily potassium supplements and monitor potassium levels. (6) Hyponatremia Is this a current diagnosis for this admission?: Yes Plan: 01/16/2020 The serum sodium is only slightly below the normal range. I will monitor serum chemistries. It will likely correct by the next blood test. 01/17/2020 Resolved. Serum sodium is normal. Continue to monitor. (7) Cellulitis of leg, left Is this a current diagnosis for this admission?: Yes Plan: 01/16/2020 The cellulitis likely started when the patient was crawling around on the floor and sustained multiple abrasions. Continue antibiotic therapy. The left leg is swollen but this is more likely due to the fracture and surgery. 01/17/2020 Continue current antibiotic regimen. Await final results of cultures. Will likely need to continue his current antibiotic for 7-10 more days. 01/18/2020 The patient's white blood cell count did increase. I changed his antibiotic to Unasyn as this will have coverage for staph and strep, gram-negative bacilli as well as some anaerobes. (8) Abrasion of knee, bilateral Is this a current diagnosis for this admission?: Yes Plan: 01/16/2020 Abrasions on both knees because the patient was forced to crawl around after he fell at home. Conservative local care. 01/17/2020 As noted above there was macerated tissue under the abrasions. Now that the irritated tissue is exposed we will apply Xeroform dressings and change twice a day to avoid sticking. Once cleaned up the patient may benefit from hydrocolloid dressings. 01/18/2020 Patient reports that his knees do feel better. Continue current dressing changes. (9) Morbid obesity with BMI of 40.0-44.9, adult Is this a current diagnosis for this admission?: Yes Plan: 01/16/2020 BMI is 43.0. At that weight he certainly worsened his fracture. He is also at risk for multiple comorbidities. We will try and encourage weight loss. 01/17/2020 We will continue to monitor. The inability to exercise is at this point puts the onus on diet for weight management. Once his ankle fracture is repaired and he returns to full function he should participate in an exercise program along with dieting. (10) Hypocalcemia Is this a current diagnosis for this admission?: Yes Plan: 01/17/2020 Serum calcium is mildly decreased. In light of the fracture and perceived needs I have started a calcium with vitamin D supplement. 01/18/2020 Continue calcium and vitamin D supplement - Time Time Spent with patient: 15-24 minutes Medications reviewed and adjusted accordingly: Yes
[2020-01-18] MEDS: AMPICILLIN SODIUM/SULBACTAM NA 1.5 GM in NORMAL SALINE 50 ML IV SCH ×3 (12:34→23:08)
[2020-01-18] MEDS: ATORVASTATIN CALCIUM 40 MG TABLET PO SCH (22:00)
[2020-01-18] MEDS: TRAZODONE HCL 50 MG TABLET PO SCH (22:01)
[2020-01-19] MEDS: MORPHINE SULFATE 10 MG/ML INJ IV PRN ×2 (05:48→14:50)
[2020-01-19] MEDS: AMPICILLIN SODIUM/SULBACTAM NA 1.5 GM in NORMAL SALINE 50 ML IV SCH (05:49)
[2020-01-19] MEDS: OXYCODONE-ACETAMINOPHEN 5-325 MG TABLET PO PRN ×2 (05:49→15:21)
[2020-01-19] MEDS: HEPARIN SOD (PORCINE) 5,000 UNIT/ML 1 ML VIAL SUBCUT SCH ×2 (05:51→13:57)
[2020-01-19 06:31] LABS: HEMATOCRIT 32.7 % (37.9-51.0); HEMOGLOBIN 11.3 g/dL (13.5-17.0); MEAN CORPUSCULAR HEMOGLOBIN 28.9 pg (27.0-33.4); MEAN CORPUSCULAR HGB CONC 34.5 g/dL (32.0-36.0); MEAN CORPUSCULAR VOLUME 84 fl (80-97); PLATELET COUNT 233 10^3/uL (150-450); WHITE BLOOD COUNT 16.2 10^3/uL (4.0-10.5)
[2020-01-19 07:00] LABS: ABSOLUTE LYMPHOCYTES# (MANUAL) 2.3 10^3/uL (0.5-4.7); ABSOLUTE MONOCYTES # (MANUAL) 0.5 10^3/uL (0.1-1.4); BAND NEUTROPHILS % (MANUAL) 4 % (3-5); BASOPHILS % (MANUAL) 0 % (0-2); EOSINOPHILS % (MANUAL) 3 % (0-6); LYMPHOCYTES % (MANUAL) 14 % (13-45); MONOCYTES % (MANUAL) 3 % (3-13); SEGMENTED NEUTROPHILS % (MAN) 76 % (42-78); TOTAL CELLS COUNTED 100
[2020-01-19 07:02] LABS: ANISOCYTOSIS 1+
[2020-01-19 07:03] LABS: PLATELET COMMENT ADEQUATE; TOXIC GRANULATION SLIGHT
[2020-01-19 07:04] LABS: RBC MORPHOLOGY COMMENT NORMO-CYTIC/CHROMIC
[2020-01-19] MEDS ORDERED: CALCIUM CARBONATE 600 MG/VITAMIN D3 400 UNIT TABLET PO SCH (08:00)
[2020-01-19] MEDS ORDERED: CEFEPIME 1 GM/D5W RTU 1 GM/50 ML RTUPB IV SCH (10:00)
[2020-01-19] MEDS: HYDROCHLOROTHIAZIDE 25 MG TABLET PO SCH (10:05)
[2020-01-19] MEDS: OXYCODONE HCL SR 10 MG TABLET PO SCH (10:05)
[2020-01-19] MEDS: CARVEDILOL 6.25 MG TABLET PO SCH (10:05)
[2020-01-19] MEDS: ALLOPURINOL 300 MG TABLET PO SCH (10:06)
[2020-01-19] MEDS: DULOXETINE HCL 30 MG CAPSULE.DR PO SCH (10:06)
[2020-01-19] MEDS: LISINOPRIL 10 MG TABLET PO SCH (10:06)
[2020-01-19] MEDS: COLCHICINE 0.6 MG TABLET PO SCH (10:06)
[2020-01-19] MEDS: POTASSIUM CHLORIDE 10 MEQ TABLET.ER PO SCH (10:06)
[2020-01-19] MEDS ORDERED: METRONIDAZOLE 500 MG TABLET PO SCH (14:00)
[2020-01-19] MEDS: RINGERS SOLUTION,LACTATED 1,000 ML IV PRN (14:04)
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
[2020-01-19] MEDS ORDERED: MAG HYDROX/AL HYDROX/SIMETH SUSP 30 ML UDCUP PO ONE (15:22)
[2020-01-19 16:15] VITALS: BP 139/61
== END 2020-01-19 16:00 | disposition short-term general hospital (02) | DRG 982 ==
LOC: ER 12:05 → EH 15:23 → 4S 16:27
PROVIDERS: ADMIT Family Medicine; ATTEND Registered Nurse
PROC: 0QSH35Z Reposition Left Tibia with External Fixation Device, Percutaneous Approach (ICD-10-PCS; principal; 2020-01-16 08:00)
DX: L03.116 Cellulitis of left lower limb (principal); N17.9 Acute kidney failure, unspecified; E87.1 Hypo-osmolality and hyponatremia; Z68.41 Body mass index [BMI] 40.0-44.9, adult; S82.392A Other fracture of lower end of left tibia, initial encounter for closed fracture; Z16.11 Resistance to penicillins; L03.115 Cellulitis of right lower limb; E83.51 Hypocalcemia; T79.6XXA Traumatic ischemia of muscle, initial encounter; E86.0 Dehydration; E87.6 Hypokalemia; S80.212A Abrasion, left knee, initial encounter; S80.211A Abrasion, right knee, initial encounter; E66.01 Morbid (severe) obesity due to excess calories; Z71.3 Dietary counseling and surveillance; B95.2 Enterococcus as the cause of diseases classified elsewhere; W18.30XA Fall on same level, unspecified, initial encounter; Y92.89 Other specified places as the place of occurrence of the external cause; I10 Essential (primary) hypertension; E78.5 Hyperlipidemia, unspecified; I48.91 Unspecified atrial fibrillation; J44.9 Chronic obstructive pulmonary disease, unspecified; M19.90 Unspecified osteoarthritis, unspecified site; F31.9 Bipolar disorder, unspecified
CPT/HCPCS: 01462; 36415; 71045; 80048; 80053; 81001; 82550; 82803; 83605; 83735; 83880; 84484; 85025; 85027; 85610; 87040; 87070; 87075; 87077; 87186; 87205; 93005; 93010; 96365; 96367; 96375; 96376; 99285; C1713; J0295; J0690; J0692; J1644; J2250; J2270; J2405; J2704; J3010; J3370; J3490; J7030; J7060; J7120

== ENCOUNTER 2020-02-19 10:12 | Emergency (ER) | payer MEDICARE, MEDICAID ==
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
--- NOTE | 2020-02-19 11:17 | RADIOLOGY REPORT (SQ) ---
EXAM DESCRIPTION: CHEST 2 VIEWS IMAGES COMPLETED DATE/TIME: 02/19/2020 11:08 am REASON FOR STUDY: 13; leg swelling COMPARISON: 01/15/2020 EXAM PARAMETERS: NUMBER OF VIEWS: two views TECHNIQUE: Digital Frontal and Lateral radiographic views of the chest acquired. RADIATION DOSE: NA LIMITATIONS: none FINDINGS: LUNGS AND PLEURA: No opacities, masses or pneumothorax. No pleural effusion. MEDIASTINUM AND HILAR STRUCTURES: No masses or contour abnormalities. HEART AND VASCULAR STRUCTURES: Heart normal size. No evidence for failure. BONES: No acute findings. HARDWARE: None in the chest. OTHER: No other significant finding. IMPRESSION: NO ACUTE RADIOGRAPHIC FINDING IN THE CHEST. TECHNICAL DOCUMENTATION: JOB ID: [id number] 2010 [employer]- All Rights Reserved Reading location - IP/workstation name: [email or web address]
[2020-02-19] MEDS ORDERED: VANCOMYCIN HCL INJ 1000 MG VIAL IV ONE (11:23)
[2020-02-19 11:42] LABS: ABSOLUTE BASOPHILS # (AUTO) 0.1 10^3/uL (0.0-0.2); ABSOLUTE EOSINOPHILS # (AUTO) 0.5 10^3/uL (0.0-0.6); ABSOLUTE LYMPHOCYTES (AUTO) 1.5 10^3/uL (0.5-4.7); ABSOLUTE MONOCYTES (AUTO) 1.3 10^3/uL (0.1-1.4); ABSOLUTE NEUT (AUTO) 4.6 10^3/uL (1.7-8.2); BASOPHILS % (AUTO) 0.8 % (0-2); EOSINOPHILS % (AUTO) 5.9 % (0-6); HEMATOCRIT 31.1 % (37.9-51.0); HEMOGLOBIN 10.1 g/dL (13.5-17.0); LYMPHOCYTES % (AUTO) 18.4 % (13-45); MEAN CORPUSCULAR HEMOGLOBIN 26.4 pg (27.0-33.4); MEAN CORPUSCULAR HGB CONC 32.6 g/dL (32.0-36.0); MEAN CORPUSCULAR VOLUME 81 fl (80-97); MONOCYTES % (AUTO) 16.2 % (3-13); PLATELET COUNT 292 10^3/uL (150-450); RED BLOOD COUNT 3.85 10^6/uL (4.35-5.55); SEGMENTED NEUTROPHILS % (AUTO) 58.7 % (42-78); TOTAL CELLS COUNTED % (AUTO) 100 %; WHITE BLOOD COUNT 7.9 10^3/uL (4.0-10.5)
[2020-02-19 11:57] LABS: ANION GAP 7 (5-19); BLOOD UREA NITROGEN 33 mg/dL (7-20); CALCIUM 8.5 mg/dL (8.4-10.2); CARBON DIOXIDE 33 mmol/L (22-30); CHLORIDE 96 mmol/L (98-107); GLUCOSE 120 mg/dL (75-110); POTASSIUM 3.5 mmol/L (3.6-5.0)
[2020-02-19 12:08] LABS: NT PRO BNP 251 pg/mL (<125)
[2020-02-19 12:15] LABS: TROPONIN I < 0.012 ng/mL
--- NOTE | 2020-02-19 14:21 | RADIOLOGY REPORT (SQ) ---
EXAM DESCRIPTION: VENOUS BILATERAL LOWER IMAGES COMPLETED DATE/TIME: 02/19/2020 2:06 pm REASON FOR STUDY: BLE PAIN AND SWELLING COMPARISON: None. TECHNIQUE: Dynamic and static gonzalez scale and color images acquired of both lower extremity venous sy stems. Selected spectral images acquired with additional compression and augmentation maneuvers. Imag es stored on PACS. LIMITATIONS: None. FINDINGS: RIGHT LEG COMMON FEMORAL AND FEMORAL: Normal phasicity, compression and augmentation. No visualized echogenic m aterial on gonzalez scale. No defects on color images. POPLITEAL: Normal compression and augmentation. No visualized echogenic material on gonzalez scale. No de fects on color images. CALF VESSELS: Normal compression and augmentation. No visualized echogenic material on gonzalez scale. No defects on color image. GSV AND SSV: Normal compression. No visualized echogenic material on gonzalez scale. No defects on color images. ANY DEEP VENOUS INSUFFICIENCY: Not evaluated. ANY EVIDENCE OF POPLITEAL CYST: No. OTHER: No other significant finding. LEFT LEG COMMON FEMORAL AND FEMORAL: Normal phasicity, compression and augmentation. No visualized echogenic m aterial on gonzalez scale. No defects on color images. POPLITEAL: Normal compression and augmentation. No visualized echogenic material on gonzalez scale. No de fects on color images. CALF VESSELS: Normal compression and augmentation. No visualized echogenic material on gonzalez scale. No defects on color images. GSV AND SSV: Normal compression. No visualized echogenic material on gonzalez scale. No defects on color images. ANY DEEP VENOUS INSUFFICIENCY: Not evaluated. ANY EVIDENCE POPLITEAL CYST: No. OTHER: No other significant finding. IMPRESSION: NO EVIDENCE DVT OR SVT IN EITHER LEG. TECHNICAL DOCUMENTATION: JOB ID: [id number] 2010 [employer]- All Rights Reserved Reading location - IP/workstation name: [email or web address]
--- NOTE | 2020-02-19 15:41 | PDOC CONSULTATION ---
Consultation Consult Date: 02/19/20 Attending physician:: [facility] Provider Consulted: NNAMDI MEI Consult reason:: Left leg cellulitis History of Present Illness Admission Date/PCP: 02/19/20 13:57 GUILLERMO MO MD Patient complains of: Redness and swelling of his left leg History of Present Illness: BRITANY GERMAIN is a 64 year old male with a history of recent ORIF to the left distal tibia, GLADYS, hypertension, morbid obesity, who presents to the hospital with complaints of progressive erythema swelling of his left leg. He also endorses swelling of both legs. Patient states that his left leg has particularly become increasingly erythematous over the past 1 week. Admits to pain. Denies any fever but admits to chills. He has not tried any antibiotic treatment for this in the outpatient setting. Patient states that he recently had a fall with subsequent fracture of his distal left tibia and presented to this hospital from which she was transferred to [facility] where he underwent ORIF to his left lower extremity about a month and a half ago. After being discharged to rehab, patient has been having hard time ambulating. He has been using his wheelchair and noticed increased swelling in both legs. However his left leg remains the wound has become with the mashes and warm. Past Medical History Cardiac Medical History: Reports: Hypertension Denies: Coronary Artery Disease, Myocardial Infarction, Peripheral Vascular Disease, Heart Murmur Pulmonary Medical History: Reports: Sleep Apnea Denies: Asthma, Bronchitis, Pneumonia, Tuberculosis Neurological Medical History: Denies: Seizures Endocrine Medical History: Denies: Diabetes Mellitus Type 1, Diabetes Mellitus Type 2, Hyperthyroidism, Hypothyroidism Malignancy Medical History: Denies: Bone Cancer, Brain Cancer, Colorectal Cancer GI Medical History: Reports: Gastroesophageal Reflux Disease Denies: Cirrhosis, Crohn's Disease, Diverticulitis Musculoskeltal Medical History: Reports: Arthritis, Fibromyalgia, Gout Skin Medical History: Denies: Eczema Psychiatric Medical History: Reports: Depression Denies: Attention Deficit Hyperactivity Disorder, Personality Disorder, Post Traumatic Stress Disorder, Schizoaffective Disorder Traumatic Medical History: Denies: Gunshot Wound, Pneumothorax Hematology: Denies: Anemia Past Surgical History Past Surgical History: Reports: Cholecystectomy, Orthopedic Surgery Denies: Pacemaker Social History Smoking Status: Former Smoker Frequency of Alcohol Use: None Hx Recreational Drug Use: Yes - marijuana past Drugs: None Hx Prescription Drug Abuse: No - Advance Directive Resuscitation Status: Full Code Family History Family History: Hypertension Parental Family History Reviewed: Yes Children Family History Reviewed: Unknown Sibling(s) Family History Reviewed.: Unknown Medication/Allergy Home Medications: Allopurinol [Zyloprim 300 mg Tablet] 300 mg PO DAILY 01/15/20 Carvedilol [Coreg 6.25 mg Tablet] 6.25 mg PO Q12 01/15/20 Colchicine [Colcrys 0.6 mg Tablet] 0.6 mg PO DAILY 01/15/20 Duloxetine HCl 30 mg PO DAILY 01/15/20 Furosemide [Lasix 40 mg Tablet] 40 mg PO QAM 01/15/20 Lisinopril/Hydrochlorothiazide [Lisinopril-Hctz 20-12.5 mg Tab] 2 tab PO DAILY 01/15/20 Oxycodone HCl/Acetaminophen [Oxycodone-Acetaminophen 10-325] 1 each PO Q12HP PRN 01/15/20 Oxycodone Myristate [Xtampza ER] 18 mg PO Q12 01/15/20 Pregabalin [Lyrica Cr] 660 mg PO QHS 01/15/20 Rosuvastatin Calcium 20 mg PO QHS 01/15/20 Trazodone HCl 150 mg PO QHS 01/15/20 Baclofen [Baclofen 10 mg Tablet] 10 mg PO TIDP PRN 02/19/20 Vitamin B Complex 1 each PO DAILY 02/19/20 Allergies/Adverse Reactions: No Known Allergies Allergy (Verified 01/15/20 12:18) Review of Systems Constitutional: PRESENT: chills. ABSENT: fever(s) Eyes: ABSENT: visual disturbances Nose, Mouth, and Throat: ABSENT: headache(s) Cardiovascular: ABSENT: chest pain Respiratory: ABSENT: dyspnea Gastrointestinal: ABSENT: abdominal pain, nausea Genitourinary: ABSENT: difficulty urinating Integumentary: PRESENT: erythema. ABSENT: diaphoresis Neurological: PRESENT: dizziness - Occasionally. ABSENT: confusion Psychiatric: PRESENT: depression - History Endocrine: ABSENT: polyuria Allergic/Immunologic: PRESENT: other - Blisters on right brown Physical Exam Vital Signs: Temp Pulse Resp BP Pulse Ox 97.8 F 70 20 115/81 94 02/19/20 14:48 02/19/20 14:48 02/19/20 10:23 02/19/20 14:48 02/19/20 14:48 Intake & Output 02/18/20 02/19/20 02/20/20 06:59 06:59 06:59 Weight 139.5 kg General appearance: PRESENT: no acute distress, cooperative, morbidly obese, well-nourished Mouth exam: PRESENT: neck supple Neck exam: ABSENT: JVD Respiratory exam: PRESENT: clear to auscultation pam, unlabored. ABSENT: tachypnea, wheezes Cardiovascular exam: PRESENT: RRR, +S1, +S2. ABSENT: tachycardia GI/Abdominal exam: PRESENT: soft. ABSENT: rebound, rigid, tenderness Extremities exam: PRESENT: other - Notably has about 1+ edema in his right lower extremity. About 3 bullae with clear fluid with negative Nikolsky sign on right brown. Wound on right brown just below the right knee. Left leg shows significant erythema from his ankle tracking down towards the left groin with induration around the left calf. Puncture holes noted from recent ORIF. Neurological exam: PRESENT: alert, awake, oriented to person, oriented to place, oriented to time Psychiatric exam: PRESENT: appropriate affect. ABSENT: agitated, anxious Skin exam: ABSENT: jaundice Results Laboratory Results: 02/19/20 11:12 02/19/20 11:12 02/19/20 02/19/20 11:12 11:12 WBC 7.9 RBC 3.85 L Hgb 10.1 L Hct 31.1 L MCV 81 MCH 26.4 L MCHC 32.6 RDW 16.0 H Plt Count 292 Seg Neutrophils % 58.7 Sodium 135.6 L Potassium 3.5 L Chloride 96 L Carbon Dioxide 33 H Anion Gap 7 BUN 33 H Creatinine 1.61 H Est GFR ( Amer) 53 L Glucose 120 H Calcium 8.5 02/19/20 11:12 Troponin I < 0.012 NT-Pro-B Natriuret Pep 251 H Impressions: Chest X-Ray 02/19/20 10:45 IMPRESSION: NO ACUTE RADIOGRAPHIC FINDING IN THE CHEST. Venous Doppler Study 02/19/20 10:46 IMPRESSION: NO EVIDENCE DVT OR SVT IN EITHER LEG. Assessment and Plan - Diagnosis (1) Cellulitis of leg, left Is this a current diagnosis for this admission?: Yes (2) Bilateral lower extremity edema Is this a current diagnosis for this admission?: Yes (3) Acute kidney injury Is this a current diagnosis for this admission?: Yes (4) GLADYS (obstructive sleep apnea) Is this a current diagnosis for this admission?: Yes (5) Morbid obesity with BMI of 40.0-44.9, adult Is this a current diagnosis for this admission?: Yes - Plan Summary Summary: Bilateral lower extremity swelling is likely secondary to chronic venous insufficiency which may have been aggravated by patient's immobile state following his recent surgical procedure venous Doppler shows no evidence of DVT or SVT. Regarding patient's left lower extremity cellulitis which tracks all the way up towards his groin, patient has significant induration over the left brown and this is likely a complication from his recent ORIF done 1.5 months ago at [facility]. There is possibility of prosthesis infection. Vancomycin has been administered. Will need blood cultures VEL. I consulted orthopedics and was informed by Dr. Durán, who is familiar with the patient's recent surgical history, and requests that [facility] given that he just had a recent surgical procedure there and his new findings may very well be related to this. I have informed the ER provider about this and would hold off on admitting patient as such. - Time Time Spent with patient: 35 or more minutes
--- NOTE | 2020-02-19 18:51 | EKG REPORT ---
SEVERITY:- ABNORMAL ECG - SINUS RHYTHM PROLONGED QT INTERVAL : Confirmed by: Cora Og MD 19-Feb-2020 18:50:51
[2020-02-19 20:11] VITALS: BP 154/73
== END 2020-02-19 20:17 | disposition short-term general hospital (02) ==
LOC: ER 10:12 → EH 13:57 → UNDOADMOB 13:57 → EH 20:17
DX: L03.116 Cellulitis of left lower limb (principal); R60.0 Localized edema; N17.9 Acute kidney failure, unspecified; E66.01 Morbid (severe) obesity due to excess calories; Z68.41 Body mass index [BMI] 40.0-44.9, adult; I48.91 Unspecified atrial fibrillation; I50.9 Heart failure, unspecified; E78.00 Pure hypercholesterolemia, unspecified; I11.0 Hypertensive heart disease with heart failure; J44.9 Chronic obstructive pulmonary disease, unspecified; Z87.442 Personal history of urinary calculi; Z90.49 Acquired absence of other specified parts of digestive tract; G47.33 Obstructive sleep apnea (adult) (pediatric)
CPT/HCPCS: 93005; 99285; 96365; 96366; 36415; 85025; 80048; 84484; 83880; 93970; 71046; 93010; J3370

== ENCOUNTER 2020-03-29 16:35 | Emergency (ER) | payer MEDICARE, MEDICAID ==
[2020-03-29 17:13] LABS: HEMATOCRIT 28.8 % (37.9-51.0); HEMOGLOBIN 9.2 g/dL (13.5-17.0); MEAN CORPUSCULAR HEMOGLOBIN 24.6 pg (27.0-33.4); MEAN CORPUSCULAR HGB CONC 31.9 g/dL (32.0-36.0); MEAN CORPUSCULAR VOLUME 77 fl (80-97); PLATELET COUNT 452 10^3/uL (150-450); RED BLOOD COUNT 3.74 10^6/uL (4.35-5.55); RED CELL DISTRIBUTION WIDTH 18.6 % (11.5-14.0); WHITE BLOOD COUNT 14.1 10^3/uL (4.0-10.5)
[2020-03-29 17:26] LABS: INTERNATIONAL RATION (INR) 1.26; PROTHROMBIN TIME 15.9 SEC (11.4-15.4)
[2020-03-29 17:29] LABS: ABSOLUTE LYMPHOCYTES# (MANUAL) 2.7 10^3/uL (0.5-4.7); BASOPHILS % (MANUAL) 0 % (0-2); EOSINOPHILS % (MANUAL) 3 % (0-6); LYMPHOCYTES % (MANUAL) 18 % (13-45); MONOCYTES % (MANUAL) 7 % (3-13); SEGMENTED NEUTROPHILS % (MAN) 71 % (42-78); TOTAL CELLS COUNTED 100
[2020-03-29 17:30] LABS: ANISOCYTOSIS 1+
[2020-03-29 17:31] LABS: PLATELET COMMENT INCREASED
[2020-03-29 17:38] LABS: ALBUMIN 3.7 g/dL (3.5-5.0); ALKALINE PHOSPHATASE 197 U/L (38-126); ANION GAP 12 (5-19); ASPARTATE AMINO TRANSFERASE 46 U/L (17-59); BILIRUBIN,DIRECT 0.2 mg/dL (0.0-0.4); BILIRUBIN,TOTAL 0.5 mg/dL (0.2-1.3); BLOOD UREA NITROGEN 53 mg/dL (7-20); CARBON DIOXIDE 25 mmol/L (22-30); CHLORIDE 97 mmol/L (98-107); GLUCOSE 114 mg/dL (75-110); POTASSIUM 4.2 mmol/L (3.6-5.0); TOTAL PROTEIN 7.6 g/dL (6.3-8.2)
[2020-03-29] MEDS ORDERED: NALOXONE HCL INJ/PF 0.4 MG/1 ML SDV IV ONE (17:39)
[2020-03-29] MEDS ORDERED: VANCOMYCIN HCL INJ 1000 MG VIAL IV ONE (17:39)
[2020-03-29] MEDS ORDERED: RINGERS LACTATED IV ONE (17:39)
[2020-03-29] MEDS ORDERED: PIPERACILLIN/TAZOBACTAM 4.5 GM VIAL IV ONE (17:39)
[2020-03-29 17:44] LABS: VENOUS BLOOD BASE EXCESS -1.5 mmol/L; VENOUS BLOOD HCO3 25.1 mmol/L (20-32); VENOUS BLOOD PCO2 51.2 mmHg (35-63); VENOUS BLOOD PH 7.31 (7.30-7.42)
--- NOTE | 2020-03-29 18:25 | RADIOLOGY REPORT (SQ) ---
EXAM DESCRIPTION: FOOT LEFT COMPLETE IMAGES COMPLETED DATE/TIME: 03/29/2020 6:03 pm REASON FOR STUDY: wound/pain COMPARISON: 01/15/2020 NUMBER OF VIEWS: Three views. TECHNIQUE: AP, lateral radiographic images acquired of the left foot. LIMITATIONS: None. FINDINGS: MINERALIZATION: Osteopenia. BONES: The appearance of the left ankle and foot has significantly changed since the prior examinati on dated 01/15/2020. Marked severe soft tissue swelling. Fragmentation at the hindfoot. Fracture di stal tibia and fibula suggested with dislocation of the distal fracture fragments posteriorly. Fragmentation mid calcaneal bone fracture suggest with osseous fragments overlying the calcaneus. Contour deformity, slight fragmentation and joint space narrowing at the first, second and third meta tarsophalangeal joints. Lucency at the head of the second metatarsal bone and subchondral cystic tiffanie nges head of the first metatarsal bone. Degenerative changes at the mid and hind foot. Degenerative changes at the distal interphalangeal joint of the great toe. These constellation of findings may b e on the basis of neuropathic foot with osteomyelitis not entirely excluded. JOINTS: No effusions. SOFT TISSUES: See above. Surgical becky in the posteromedial distal lower extremity with associat ed soft tissue injury. OTHER: No other significant finding. IMPRESSION: 1. Since the prior study dated 01/15/2020, significant interval change in the appearance of the left ankle and foot with disassociation, fragment dictation, displace fractures of the distal tibia/fibula and mid calcaneus, osteopenia and marked severe soft tissue swelling. Considerations f or these findings include neuropathic foot, with osteomyelitis not entirely excluded. 2. Surgical metallic clips posteromedial distal lower extremity. Soft tissue injury suggested. TECHNICAL DOCUMENTATION: JOB ID: [id number] [employer]- All Rights Reserved Reading location - IP/workstation name: [email or web address]
--- NOTE | 2020-03-29 19:09 | ER Document Report ---
ED General - General Chief Complaint: Low Blood Pressure Stated Complaint: CONFUSION Time Seen by Provider: 03/29/20 17:06 Primary Care Provider: HELEN DOWNS MD [Primary Care Provider] - Follow up as needed Mode of Arrival: Medic Information source: Patient TRAVEL OUTSIDE OF THE [place] IN LAST 30 DAYS: No - HPI Notes: Patient presents from home with complaints of left foot pain. This pain is been constant and moderate. It is worse with movement or bearing weight and better without. He states he has had a chronic wound there due to several recent surgeries with poor healing. He states he lives alone and when the home health nurse came to visit today she called the ambulance due to the appearance of his wound and feeling that he was confused. Patient states his pain does radiate up his left leg. It is a sharp pain. Patient denies any nausea or vomiting. He states he is not taking pain medication. No fevers. He states that he does not care or dressed the wound but that a home health nurse come and does this for him. He states the discomfort in the foot has been constant. - Related Data Allergies/Adverse Reactions: No Known Allergies Allergy (Verified 01/15/20 12:18) Past Medical History - General Information source: Patient - Social History Smoking Status: Former Smoker Frequency of alcohol use: None Drug Abuse: None Family History: Hypertension Patient has homicidal ideation: No - Past Medical History Cardiac Medical History: Reports: Hx Atrial Fibrillation, Hx Congestive Heart Failure, Hx Hypercholesterolemia, Hx Hypertension Denies: Hx Coronary Artery Disease, Hx Heart Attack, Hx Peripheral Vascular Disease, Hx Heart Murmur Pulmonary Medical History: Reports: Hx COPD, Hx Sleep Apnea Denies: Hx Asthma, Hx Bronchitis, Hx Pneumonia, Hx Tuberculosis Neurological Medical History: Denies: Hx Cerebrovascular Accident, Hx Seizures Endocrine Medical History: Denies: Hx Diabetes Mellitus Type 1, Hx Diabetes Mellitus Type 2, Hx Graves' Disease, Hx Hyperthyroidism, Hx Hypothyroidism Renal/ Medical History: Reports: Hx Kidney Stones. Denies: Hx Peritoneal Dialysis Malignancy Medical History: Denies Hx Bone Cancer, Denies Hx Brain Cancer, Denies Hx Colorectal Cancer GI Medical History: Reports: Hx Gastroesophageal Reflux Disease. Denies: Hx Cirrhosis, Hx Crohn's Disease, Hx Diverticulitis Musculoskeletal Medical History: Reports Hx Arthritis, Reports Hx Fibromyalgia, Reports Hx Gout, Reports Hx Musculoskeletal Deformity, Reports Hx Musculoskeletal Trauma Skin Medical History: Denies Hx Cellulitis, Denies Hx Eczema, Denies Hx MRSA Psychiatric Medical History: Reports: Hx Bipolar Disorder, Hx Depression Denies: Hx Attention Deficit Hyperactivity Disorder, Hx Borderline Personality Disorder, Hx Obsessive Compulsive Disorder, Hx Personality Disorder, Hx Post Traumatic Stress Disorder, Hx Schizoaffective Disorder Traumatic Medical History: Reports: Hx Fractures, Hx Spine Fracture - L1 and 2. Denies: Hx Gunshot Wound, Hx Liver Laceration, Hx Pneumothorax Past Surgical History: Reports: Hx Cholecystectomy, Hx Orthopedic Surgery. Denies: Hx Pacemaker - Immunizations Immunizations up to date: Yes Hx Diphtheria, Pertussis, Tetanus Vaccination: Yes Hx Pneumococcal Vaccination: 09/30/11 Review of Systems - Review of Systems Constitutional: Malaise. denies: Chills Cardiovascular: denies: Chest pain, Palpitations Respiratory: denies: Cough, Short of breath -: Yes All other systems reviewed and negative Physical Exam - Vital signs Vitals: Temp 100.1 F 03/29/20 16:54 Interpretation: Hypotensive, Hypoxic, Febrile - General General appearance: Alert In distress: None - HEENT Head: Normocephalic, Atraumatic Eyes: Normal Pupils: PERRL - Respiratory Respiratory status: No respiratory distress Chest status: Nontender Breath sounds: Normal Chest palpation: Normal - Cardiovascular Rhythm: Regular Heart sounds: Normal auscultation Murmur: No - Abdominal Inspection: Normal Distension: No distension Bowel sounds: Normal Tenderness: Nontender Organomegaly: No organomegaly - Back Back: Normal, Nontender - Extremities General upper extremity: Normal inspection, Nontender, Normal color, Normal ROM, Normal temperature General lower extremity: Other - Left lower extremity has a boot on with a dressing in place. When this is removed a large lateral ulcer can be seen with foul-smelling discharge. The left foot and ankle are erythematous and indurated with increased temperature. They are tender to palpation. Exam is consistent with infected wound and cellulitis.. No: Drake's sign - Neurological Cognition: Confused Orientation: Disoriented to time Giles Coma Scale Eye Opening: Spontaneous Giles Coma Scale Verbal: Confused Giles Coma Scale Motor: Obeys Commands Giles Coma Scale Total: 14 Speech: Normal - Psychological Associated symptoms: Normal affect, Normal mood - Skin Skin Temperature: Warm Skin Moisture: Dry Skin Color: Normal Course - Re-evaluation Re-evalutation: 03/29/20 19:07 Patient presented with apparent sepsis due to the infected wound. His blood p ressure was low but did respond to fluids. He has been covered with antibiotics at this time. I have discussed the care of the patient with the orthopedic surgeon and with the hospitalist at [facility]. Patient has been accepted in transfer. Patient's pulse has been stable. Blood pressure is now stable and improving. Patient is receiving 500 mL boluses of fluid. Creatinine is noticed to be elevated and patient has an increased white blood cell count. However lactic acid at this time is normal. I am going off duty but I am going to turn the patient over to Dr. lu. He will monitor the patient until patient can be transferred. - Vital Signs Vital signs: Temp Pulse Resp BP Pulse Ox 100.1 F 83 16 80/55 L 96 03/29/20 17:01 03/29/20 17:01 03/29/20 17:01 03/29/20 17:01 03/29/20 17:03 - Laboratory Result Diagrams: 03/29/20 16:25 03/29/20 16:25 Laboratory results interpreted by me: 03/29/20 03/29/20 03/29/20 16:25 16:25 16:25 WBC 14.1 H RBC 3.74 L Hgb 9.2 L Hct 28.8 L MCV 77 L MCH 24.6 L MCHC 31.9 L RDW 18.6 H Plt Count 452 H Abs Neuts (Manual) 10.0 H PT 15.9 H Sodium 134.3 L Chloride 97 L BUN 53 H Creatinine 3.72 H Est GFR ( Amer) 20 L Est GFR (MDRD) Non-Af 17 L Glucose 114 H POC Glucose ALT 62 H Alkaline Phosphatase 197 H 03/29/20 17:18 WBC RBC Hgb Hct MCV MCH MCHC RDW Plt Count Abs Neuts (Manual) PT Sodium Chloride BUN Creatinine Est GFR ( Amer) Est GFR (MDRD) Non-Af Glucose POC Glucose 113 H ALT Alkaline Phosphatase - Diagnostic Test Radiology reviewed: Image reviewed, Reports reviewed - EKG Interpretation by Me EKG shows normal: Sinus rhythm Rate: Normal - 81 Rhythm: NSR [place]/QRS: No: Right axis deviation, Left axis deviation Critical Care Note - Critical Care Note Total time excluding time spent on procedures (mins): 50 Comments: Approximately 50 minutes of critical care time were spent taking care of this septic, hypotensive, hypoxic patient. This time was spent doing multiple reassessments. It was spent talking with multiple consultants. It was spent reviewing old records. I spent reviewing imaging and laboratory values. Discharge - Discharge Clinical Impression: Obesity (BMI 30-39.9) Sepsis Qualifiers: Sepsis type: sepsis due to unspecified organism Sepsis acute organ dysfunction status: with acute organ dysfunction Severe sepsis acute organ dysfunction type: encephalopathy Severe sepsis shock status: with septic shock Qualified Code(s): A41.9 - Sepsis, unspecified organism; R65.21 - Severe sepsis with septic shock; G93.40 - Encephalopathy, unspecified Condition: Serious Disposition: [facility] Referrals: HELEN DOWNS MD [Primary Care Provider] - Follow up as needed
[2020-03-29 20:36] VITALS: BP 105/63
--- NOTE | 2020-03-30 02:28 | EKG REPORT ---
SEVERITY:- BORDERLINE ECG - SINUS RHYTHM BORDERLINE PROLONGED QT INTERVAL : Confirmed by: Cora Og MD 30-Mar-2020 02:26:53
== END 2020-03-29 21:04 | disposition short-term general hospital (02) ==
LOC: ER 16:35
DX: A41.9 Sepsis, unspecified organism (principal); R65.21 Severe sepsis with septic shock; G93.40 Encephalopathy, unspecified; L97.929 Non-pressure chronic ulcer of unspecified part of left lower leg with unspecified severity; M79.672 Pain in left foot; R41.0 Disorientation, unspecified; E66.9 Obesity, unspecified; I10 Essential (primary) hypertension; J44.9 Chronic obstructive pulmonary disease, unspecified; R53.81 Other malaise; Z98.890 Other specified postprocedural states; Z87.891 Personal history of nicotine dependence
CPT/HCPCS: 93005; 99291; 96365; 96367; 36415; 87040; 82962; 83605; 85025; 85610; 80053; 82803; 73630; 93010; J7120; J3370; J2543

== ENCOUNTER 2020-05-11 18:19 | Inpatient (IN) | payer MEDICARE, MEDICAID ==
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
[2020-05-11] MEDS ORDERED: NORMAL SALINE 1000 ML 1,000 ML IV ONE (18:36)
[2020-05-11 19:41] LABS: ABSOLUTE BASOPHILS # (AUTO) 0.1 10^3/uL (0.0-0.2); ABSOLUTE MONOCYTES (AUTO) 1.2 10^3/uL (0.1-1.4); ABSOLUTE NEUT (AUTO) 13.3 10^3/uL (1.7-8.2); BASOPHILS % (AUTO) 0.5 % (0-2); EOSINOPHILS % (AUTO) 0.2 % (0-6); HEMATOCRIT 36.3 % (37.9-51.0); HEMOGLOBIN 11.5 g/dL (13.5-17.0); LYMPHOCYTES % (AUTO) 6.7 % (13-45); MEAN CORPUSCULAR HGB CONC 31.6 g/dL (32.0-36.0); MEAN CORPUSCULAR VOLUME 73 fl (80-97); MONOCYTES % (AUTO) 7.5 % (3-13); PLATELET COUNT 227 10^3/uL (150-450); RED BLOOD COUNT 4.99 10^6/uL (4.35-5.55); RED CELL DISTRIBUTION WIDTH 20.5 % (11.5-14.0); SEGMENTED NEUTROPHILS % (AUTO) 85.1 % (42-78); TOTAL CELLS COUNTED % (AUTO) 100 %; WHITE BLOOD COUNT 15.6 10^3/uL (4.0-10.5)
[2020-05-11 19:49] LABS: ALBUMIN 4.1 g/dL (3.5-5.0); ALKALINE PHOSPHATASE 170 U/L (38-126); ANION GAP 10 (5-19); ASPARTATE AMINO TRANSFERASE 96 U/L (17-59); BILIRUBIN,DIRECT 0.2 mg/dL (0.0-0.4); BILIRUBIN,TOTAL 0.9 mg/dL (0.2-1.3); BLOOD UREA NITROGEN 25 mg/dL (7-20); CALCIUM 9.8 mg/dL (8.4-10.2); CARBON DIOXIDE 29 mmol/L (22-30); CHLORIDE 103 mmol/L (98-107); GLUCOSE 112 mg/dL (75-110); POTASSIUM 3.7 mmol/L (3.6-5.0); TOTAL PROTEIN 8.9 g/dL (6.3-8.2)
[2020-05-11 19:59] LABS: CREATINE KINASE 2771 U/L (55-170)
[2020-05-11 20:01] LABS: TROPONIN I 0.012 ng/mL
--- NOTE | 2020-05-11 20:38 | RADIOLOGY REPORT (SQ) ---
EXAM DESCRIPTION: XR HIP 2 OR MORE VIEWS COMPLETED DATE/TME: 05/11/2020 18:56 CLINICAL HISTORY: 65 years, Male, pain COMPARISON: None. TECHNIQUE: Three views of the pelvis and right hip. FINDINGS: Previous fusion and laminectomy in the lower lumbar spine. Both hip joints demonstrate mild narrowing in the superior portion of the joint. Changes. No evidence for fracture dislocation. Bony pelvis is unremarkable. IMPRESSION: Minimal symmetrical degenerative changes in both hips.
[2020-05-11] MEDS ORDERED: RINGERS SOLUTION,LACTATED 1,000 ML IV PRN (21:06)
--- NOTE | 2020-05-11 21:15 | PDOC H&P ---
History of Present Illness Admission Date/PCP: 05/11/20 20:48 GUILLERMO MO MD History of Present Illness: BRITANY GERMAIN is a 65 year old male with a left below the knee amputation about 3 months ago who normally gets around with use of a walker because he does not have a prosthetic yet. He suffered a mechanical fall in his bathroom at home 2 days ago and was unable to get himself off the floor. His son called to check on him and when the patient did not answer the phone and the son went over to the house to see if he was okay. He found him in the floor and called EMS. He did not have any real substantial lab abnormalities but did have an elevated CK from where he had been in the floor for couple of days. His renal function was intact. X-rays of the hip and pelvis did not reveal any fracture. He said he was hoping to get a bedside commode at home because it was easier to get in and out of it. Past Medical History Cardiac Medical History: Reports: Atrial Fibrillation, Congestive Heart Failure, Hyperlipidema, Hypertension Denies: Coronary Artery Disease, Myocardial Infarction, Peripheral Vascular Disease, Heart Murmur Pulmonary Medical History: Reports: Chronic Obstructive Pulmonary Disease (COPD), Sleep Apnea Denies: Asthma, Bronchitis, Pneumonia, Tuberculosis Neurological Medical History: Denies: Seizures Endocrine Medical History: Denies: Diabetes Mellitus Type 1, Diabetes Mellitus Type 2, Hyperthyroidism, Hypothyroidism Malignancy Medical History: Denies: Bone Cancer, Brain Cancer, Colorectal Cancer GI Medical History: Reports: Gastroesophageal Reflux Disease Denies: Cirrhosis, Crohn's Disease, Diverticulitis Musculoskeltal Medical History: Reports: Arthritis, Fibromyalgia, Gout Skin Medical History: Denies: Eczema Psychiatric Medical History: Reports: Bipolar Disorder, Depression Denies: Attention Deficit Hyperactivity Disorder, Personality Disorder, Post Traumatic Stress Disorder, Schizoaffective Disorder Traumatic Medical History: Denies: Gunshot Wound, Pneumothorax Hematology: Denies: Anemia Past Surgical History Past Surgical History: Reports: Cholecystectomy, Orthopedic Surgery Denies: Pacemaker Social History Smoking Status: Unknown if Ever Smoked Frequency of Alcohol Use: None Hx Recreational Drug Use: Yes - marijuana past Drugs: None Hx Prescription Drug Abuse: No Family History Family History: Hypertension Parental Family History Reviewed: Yes Children Family History Reviewed: Yes Sibling(s) Family History Reviewed.: Yes Medication/Allergy Home Medications: Allopurinol [Zyloprim 300 mg Tablet] 300 mg PO DAILY 01/15/20 Carvedilol [Coreg 6.25 mg Tablet] 6.25 mg PO Q12 01/15/20 Colchicine [Colcrys 0.6 mg Tablet] 0.6 mg PO DAILY 01/15/20 Duloxetine HCl 30 mg PO DAILY 01/15/20 Furosemide [Lasix 40 mg Tablet] 40 mg PO QAM 01/15/20 Lisinopril/Hydrochlorothiazide [Lisinopril-Hctz 20-12.5 mg Tab] 2 tab PO DAILY 01/15/20 Oxycodone HCl/Acetaminophen [Oxycodone-Acetaminophen 10-325] 1 each PO Q12HP PRN 01/15/20 Oxycodone Myristate [Xtampza ER] 18 mg PO Q12 01/15/20 Pregabalin [Lyrica Cr] 660 mg PO QHS 01/15/20 Rosuvastatin Calcium 20 mg PO QHS 01/15/20 Trazodone HCl 150 mg PO QHS 01/15/20 Baclofen [Baclofen 10 mg Tablet] 10 mg PO TIDP PRN 02/19/20 Vitamin B Complex 1 each PO DAILY 02/19/20 Allergies/Adverse Reactions: No Known Allergies Allergy (Verified 05/11/20 19:32) Review of Systems All systems: reviewed and no additional remarkable complaints except as stated - All systems were reviewed and were negative except as noted in the HPI Physical Exam Vital Signs: Temp Pulse Resp BP Pulse Ox 98.1 F 72 19 157/79 H 100 05/11/20 19:25 05/11/20 19:27 05/11/20 20:21 05/11/20 20:21 05/11/20 20:21 Intake & Output 05/10/20 05/11/20 05/12/20 06:59 06:59 06:59 Weight 125 kg General appearance: PRESENT: no acute distress, cooperative, disheveled, morbi dly obese Head exam: PRESENT: atraumatic, normocephalic Eye exam: PRESENT: EOMI, PERRLA. ABSENT: conjunctival injection, nystagmus, scleral icterus Ear exam: PRESENT: normal external ear exam Mouth exam: PRESENT: dry mucosa, neck supple Throat exam: ABSENT: post pharyngeal erythema Neck exam: PRESENT: full ROM. ABSENT: carotid bruit, JVD, lymphadenopathy, meningismus, tenderness, thyromegaly Respiratory exam: PRESENT: clear to auscultation pam, symmetrical, unlabored. ABSENT: accessory muscle use, chest wall tenderness, crackles, prolonged expiratory phas, rhonchi, tachypnea, wheezes Cardiovascular exam: PRESENT: RRR, +S1, +S2 Pulses: PRESENT: normal carotid pulses Vascular exam: PRESENT: normal capillary refill GI/Abdominal exam: PRESENT: normal bowel sounds, soft, other - Pendulous abdominal pannus. ABSENT: distended, guarding, rebound, tenderness Extremities exam: PRESENT: pedal edema - Trace, other - Minor excoriations on toes of right foot. ABSENT: clubbing Musculoskeletal exam: PRESENT: deformity - Left BKA Neurological exam: PRESENT: alert, awake, oriented to person, oriented to place, oriented to situation, CN II-XII grossly intact. ABSENT: motor sensory deficit Psychiatric exam: PRESENT: appropriate affect, normal mood Skin exam: PRESENT: dry, warm Results Laboratory Results: 05/11/20 19:09 05/11/20 19:09 05/11/20 05/11/20 05/11/20 19:09 19:09 19:09 WBC 15.6 H RBC 4.99 Hgb 11.5 L Hct 36.3 L MCV 73 L MCH 23.0 L MCHC 31.6 L RDW 20.5 H Plt Count 227 Seg Neutrophils % 85.1 H Sodium 141.5 Potassium 3.7 Chloride 103 Carbon Dioxide 29 Anion Gap 10 BUN 25 H Creatinine 1.01 Est GFR ( Amer) > 60 Glucose 112 H Lactic Acid 1.7 Calcium 9.8 Total Bilirubin 0.9 AST 96 H Alkaline Phosphatase 170 H Total Protein 8.9 H Albumin 4.1 05/11/20 05/11/20 19:09 19:09 Creatine Kinase 2771 H Troponin I 0.012 NT-Pro-B Natriuret Pep 904 H Impressions: Hip/Pelvis X-Ray 05/11/20 18:56 IMPRESSION: Minimal symmetrical degenerative changes in both hips. Assessment and Plan - Diagnosis (1) Rhabdomyolysis Qualifiers: Rhabdomyolysis type: traumatic Encounter type: initial encounter Qualifi ed Code(s): T79.6XXA - Traumatic ischemia of muscle, initial encounter Is this a current diagnosis for this admission?: Yes Plan: This is very mild and below the threshold at which you would expect to see any sort of renal injury, and his renal function is intact. Were going to give him some IV fluids and get him back on his typical medications which he has not had in a couple of days. We will order a physical therapy consult. We will have case management see him to try to get him a bedside commode at home. - Time Time Spent with patient: 35 or more minutes Anticipated Discharge Disposition: Home with Home Health Anticipated Discharge Timeframe: within 72 hours - Inpatient Certification Based on my medical assessment, after consideration of the patient's comorbidities, presenting symptoms, or acuity I expect that the services needed warrant INPATIENT care.: Yes I certify that my determination is in accordance with my understanding of Medicare's requirements for reasonable and necessary INPATIENT services [42 CFR 412.3e].: Yes Medical Necessity: Significant Comorbidiites Make Outpatient Treatment Too Risky, Need Close Monitoring Due to Risk of Patient Decompensation, Need For IV Fluids, Risk of Complication if Not Cared For in Hospital
[2020-05-12] MEDS: HEPARIN SOD (PORCINE) 5,000 UNIT/ML 1 ML VIAL SUBCUT SCH ×4 (00:08→21:43)
[2020-05-12 03:24] LABS: APPEARANCE,URINE CLEAR; BILIRUBIN,URINE NEGATIVE (NEGATIVE); COLOR,URINE YELLOW; GLUCOSE, URINE NEGATIVE (NEGATIVE); KETONES,URINE NEGATIVE (NEGATIVE); PROTEIN,URINE 100 mg/dL (NEGATIVE); URINE SPECIFIC GRAVITY 1.015; UROBILINOGEN,URINE NEGATIVE mg/dL (<2.0)
[2020-05-12 06:58] LABS: HEMATOCRIT 31.4 % (37.9-51.0); HEMOGLOBIN 10.1 g/dL (13.5-17.0); MEAN CORPUSCULAR HEMOGLOBIN 23.1 pg (27.0-33.4); MEAN CORPUSCULAR HGB CONC 32.2 g/dL (32.0-36.0); MEAN CORPUSCULAR VOLUME 72 fl (80-97); PLATELET COUNT 184 10^3/uL (150-450); RED BLOOD COUNT 4.38 10^6/uL (4.35-5.55)
[2020-05-12 07:14] LABS: ANION GAP 6 (5-19); BLOOD UREA NITROGEN 22 mg/dL (7-20); CALCIUM 8.9 mg/dL (8.4-10.2); CARBON DIOXIDE 27 mmol/L (22-30); CHLORIDE 107 mmol/L (98-107); CREATINE KINASE 1406 U/L (55-170); GLUCOSE 114 mg/dL (75-110); POTASSIUM 3.3 mmol/L (3.6-5.0)
[2020-05-12] MEDS ORDERED: HYDRALAZINE HCL INJ/PF 20 MG/1 ML SDV IV PRN (10:04)
[2020-05-12] MEDS ORDERED: (PENDING PHARMACY ID) (Oxycodone Hcl/Acetaminophen [Oxycodone-Acetaminophen 10-325] 1 EACH PO PRN (10:56)
--- NOTE | 2020-05-12 11:04 | PDOC PROGRESS REPORT ---
Subjective Progress Note for:: 05/12/20 Subjective:: 65 year old male with a left below the knee amputation about 3 months ago who normally gets around with use of a walker because he does not have a prosthetic yet. He suffered a mechanical fall in his bathroom at home 2 days ago and was unable to get himself off the floor. His son called to check on him and when the patient did not answer the phone and the son went over to the house to see if he was okay. He found him in the floor and called EMS. He did not have any real substantial lab abnormalities but did have an elevated CK from where he had been in the floor for couple of days. His renal function was intact. X-rays of the hip and pelvis did not reveal any fracture. He said he was hoping to get a bedside commode at home because it was easier to get in and out of it. 05/12/2020-patient is working with the physical therapy team at the time of my examination. Alert awake oriented communicating well. Blood pressures are running high this morning plan is to restart his home medications and to discontinue his IV fluids. CK is 2700 at the time of admission improved to 1400 today. Reason For Visit: RHABDOMYOLYSIS Physical Exam Vital Signs: Temp Pulse Resp BP Pulse Ox 98.0 F 73 18 183/89 H 99 05/12/20 08:20 05/12/20 08:20 05/12/20 08:20 05/12/20 08:20 05/12/20 08:20 Intake & Output 05/11/20 05/12/20 05/13/20 06:59 06:59 06:59 Intake Total 1000 800 Output Total 400 Balance 600 800 Weight 125 kg General appearance: PRESENT: no acute distress, obese Head exam: PRESENT: atraumatic Eye exam: PRESENT: PERRLA Ear exam: PRESENT: normal external ear exam Neck exam: ABSENT: carotid bruit, JVD, lymphadenopathy, thyromegaly Respiratory exam: PRESENT: decreased breath sounds Cardiovascular exam: PRESENT: RRR. ABSENT: diastolic murmur, rubs, systolic murmur GI/Abdominal exam: PRESENT: normal bowel sounds, soft. ABSENT: distended, guarding, mass, organolmegaly, rebound, tenderness Rectal exam: PRESENT: deferred Extremities exam: PRESENT: other - Patient has a left BKA. Neurological exam: PRESENT: alert, awake, oriented to person, oriented to place, oriented to time, oriented to situation, CN II-XII grossly intact. ABSENT: motor sensory deficit Psychiatric exam: PRESENT: appropriate affect, normal mood. ABSENT: homicidal ideation, suicidal ideation Results Laboratory Results: 05/12/20 06:22 05/12/20 06:22 05/11/20 05/11/20 05/11/20 19:09 19:09 19:09 WBC 15.6 H RBC 4.99 Hgb 11.5 L Hct 36.3 L MCV 73 L MCH 23.0 L MCHC 31.6 L RDW 20.5 H Plt Count 227 Seg Neutrophils % 85.1 H Sodium 141.5 Potassium 3.7 Chloride 103 Carbon Dioxide 29 Anion Gap 10 BUN 25 H Creatinine 1.01 Est GFR ( Amer) > 60 Glucose 112 H Lactic Acid 1.7 Calcium 9.8 Total Bilirubin 0.9 AST 96 H Alkaline Phosphatase 170 H Total Protein 8.9 H Albumin 4.1 Urine Color Urine Appearance Urine pH Ur Specific [place] Urine Protein Urine Glucose (UA) Urine Ketones Urine Blood Urine RBC (Auto) 05/12/20 05/12/20 05/12/20 02:15 06:22 06:22 WBC 9.0 RBC 4.38 Hgb 10.1 L Hct 31.4 L MCV 72 L MCH 23.1 L MCHC 32.2 RDW 20.0 H Plt Count 184 Seg Neutrophils % Sodium 139.7 Potassium 3.3 L Chloride 107 Carbon Dioxide 27 Anion Gap 6 BUN 22 H Creatinine 0.98 Est GFR ( Amer) > 60 Glucose 114 H Lactic Acid Calcium 8.9 Total Bilirubin AST Alkaline Phosphatase Total Protein Albumin Urine Color YELLOW Urine Appearance CLEAR Urine pH 5.0 Ur Specific [place] 1.015 Urine Protein 100 H Urine Glucose (UA) NEGATIVE Urine Ketones NEGATIVE Urine Blood SMALL H Urine RBC (Auto) 1 05/11/20 05/11/20 05/12/20 19:09 19:09 06:22 Creatine Kinase 2771 H 1406 H Troponin I 0.012 NT-Pro-B Natriuret Pep 904 H Impressions: Hip/Pelvis X-Ray 05/11/20 18:56 IMPRESSION: Minimal symmetrical degenerative changes in both hips. Assessment and Plan - Diagnosis (1) Rhabdomyolysis Qualifiers: Rhabdomyolysis type: traumatic Encounter type: initial encounter Qualified Code(s): T79.6XXA - Traumatic ischemia of muscle, initial encounter Is this a current diagnosis for this admission?: Yes Plan: This is very mild and below the threshold at which you would expect to see any sort of renal injury, and his renal function is intact. Were going to give him some IV fluids and get him back on his typical medications which he has not had in a couple of days. We will order a physical therapy consult. We will have case management see him to try to get him a bedside commode at home. 05/12/2020-patient admitted after history of fall found to have rhabdomyolysis on admission CK is 2770 improved to 1400 today with IV fluids. Plan is to closely monitor the CK levels at this time. Physical therapy consult was requested. (2) Obesity (BMI 30-39.9) Is this a current diagnosis for this admission?: No Plan: 05/12/2020-patient BMI is 39.5 morbid obesity may be secondary to high calorie intake. Diet exercise weight loss lifestyle modifications discussed with the patient. (3) HTN (hypertension) Is this a current diagnosis for this admission?: No Plan: 05/12/2020-patient has history of essential hypertension blood pressure this morning is 180/90. Plan is to restart his home medications that his lisinopril/hydrochlorothiazide and Coreg and he was also started on IV hydralazine 10 mg every 6 hours as needed for systolic blood pressure more than 170. Patient is on furosemide 40 mg p.o. daily at home plan is to restart the medication at this time. (4) Gout Is this a current diagnosis for this admission?: No Plan: 05/12/2020-patient has history of chronic gout on allopurinol and colchicine at home plan is to continue the medication during the hospital stay. - Time Anticipated Discharge Disposition: Alf Facility Anticipated Discharge Timeframe: within 72 hours
--- NOTE | 2020-05-12 15:25 | EKG REPORT ---
SEVERITY:- BORDERLINE ECG - SINUS RHYTHM BORDERLINE PROLONGED QT INTERVAL : Confirmed by: Buster Cordova MD 12-May-2020 15:25:29
[2020-05-12] MEDS: OXYCODONE HCL IR 5 MG TABLET PO PRN (15:37)
[2020-05-12] MEDS: OXYCODONE-ACETAMINOPHEN 5-325 MG TABLET PO PRN (15:38)
[2020-05-12] MEDS: CARVEDILOL 6.25 MG TABLET PO SCH (21:42)
[2020-05-12] MEDS: ATORVASTATIN CALCIUM 40 MG TABLET PO SCH (21:43)
[2020-05-12] MEDS: TRAZODONE HCL 50 MG TABLET PO SCH (21:43)
[2020-05-12] MEDS ORDERED: (PENDING PHARMACY ID) (Rosuvastatin Calcium [Rosuvastatin Calcium] 20 MG) PO SCH (22:00)
[2020-05-12] MEDS ORDERED: (PENDING PHARMACY ID) (Oxycodone Myristate [Xtampza Er] 18 MG) PO SCH (22:00)
[2020-05-12] MEDS: BACLOFEN 10 MG TABLET PO PRN (23:19)
[2020-05-13] MEDS: OXYCODONE HCL IR 5 MG TABLET PO PRN ×2 (03:42→15:49)
[2020-05-13] MEDS: OXYCODONE-ACETAMINOPHEN 5-325 MG TABLET PO PRN ×2 (03:42→15:49)
[2020-05-13 04:47] LABS: ABSOLUTE BASOPHILS # (AUTO) 0.1 10^3/uL (0.0-0.2); ABSOLUTE EOSINOPHILS # (AUTO) 0.4 10^3/uL (0.0-0.6); ABSOLUTE LYMPHOCYTES (AUTO) 1.2 10^3/uL (0.5-4.7); ABSOLUTE MONOCYTES (AUTO) 0.9 10^3/uL (0.1-1.4); ABSOLUTE NEUT (AUTO) 5.6 10^3/uL (1.7-8.2); BASOPHILS % (AUTO) 0.8 % (0-2); EOSINOPHILS % (AUTO) 5.1 % (0-6); HEMATOCRIT 31.6 % (37.9-51.0); LYMPHOCYTES % (AUTO) 14.9 % (13-45); MEAN CORPUSCULAR HGB CONC 31.7 g/dL (32.0-36.0); MEAN CORPUSCULAR VOLUME 73 fl (80-97); PLATELET COUNT 185 10^3/uL (150-450); RED BLOOD COUNT 4.35 10^6/uL (4.35-5.55); RED CELL DISTRIBUTION WIDTH 20.2 % (11.5-14.0); SEGMENTED NEUTROPHILS % (AUTO) 68.2 % (42-78); TOTAL CELLS COUNTED % (AUTO) 100 %; WHITE BLOOD COUNT 8.2 10^3/uL (4.0-10.5)
[2020-05-13 05:03] LABS: ALBUMIN 3.2 g/dL (3.5-5.0); ALKALINE PHOSPHATASE 127 U/L (38-126); ANION GAP 9 (5-19); ASPARTATE AMINO TRANSFERASE 54 U/L (17-59); BILIRUBIN,TOTAL 0.4 mg/dL (0.2-1.3); BLOOD UREA NITROGEN 18 mg/dL (7-20); CALCIUM 8.8 mg/dL (8.4-10.2); CARBON DIOXIDE 24 mmol/L (22-30); CHLORIDE 107 mmol/L (98-107); CREATINE KINASE 594 U/L (55-170); GLUCOSE 112 mg/dL (75-110); POTASSIUM 3.1 mmol/L (3.6-5.0); TOTAL PROTEIN 7.4 g/dL (6.3-8.2)
[2020-05-13] MEDS: HEPARIN SOD (PORCINE) 5,000 UNIT/ML 1 ML VIAL SUBCUT SCH ×3 (06:20→21:32)
[2020-05-13] MEDS: BACLOFEN 10 MG TABLET PO PRN (08:29)
[2020-05-13] MEDS ORDERED: POTASSIUM CHLORIDE 10 MEQ TABLET.ER PO ONE (08:30)
[2020-05-13] MEDS: HYDROCHLOROTHIAZIDE 12.5 MG TABLET PO SCH (09:59)
[2020-05-13] MEDS: VITAMIN B COMPLEX TABLET PO SCH (09:59)
[2020-05-13] MEDS: FUROSEMIDE 40 MG TABLET PO SCH (09:59)
[2020-05-13] MEDS: CARVEDILOL 6.25 MG TABLET PO SCH ×2 (09:59→21:31)
[2020-05-13] MEDS ORDERED: (PENDING PHARMACY ID) (Vitamin B Complex [Vitamin B Complex] 1 EACH) PO SCH (10:00)
[2020-05-13] MEDS ORDERED: (PENDING PHARMACY ID) (Lisinopril/Hydrochlorothiazide [Lisinopril-Hctz 20-12.5 Mg Tab] 1 T PO SCH (10:00)
[2020-05-13] MEDS: COLCHICINE 0.6 MG TABLET PO SCH (10:00)
[2020-05-13] MEDS: DULOXETINE HCL 30 MG CAPSULE.DR PO SCH (10:00)
[2020-05-13] MEDS: LISINOPRIL 10 MG TABLET PO SCH (10:00)
[2020-05-13] MEDS: ALLOPURINOL 300 MG TABLET PO SCH (10:01)
--- NOTE | 2020-05-13 11:32 | PDOC PROGRESS REPORT ---
Subjective Progress Note for:: 05/13/20 Subjective:: 65 year old male with a left below the knee amputation about 3 months ago who normally gets around with use of a walker because he does not have a prosthetic yet. He suffered a mechanical fall in his bathroom at home 2 days ago and was unable to get himself off the floor. His son called to check on him and when the patient did not answer the phone and the son went over to the house to see if he was okay. He found him in the floor and called EMS. He did not have any real substantial lab abnormalities but did have an elevated CK from where he had been in the floor for couple of days. His renal function was intact. X-rays of the hip and pelvis did not reveal any fracture. He said he was hoping to get a bedside commode at home because it was easier to get in and out of it. 05/12/2020-patient is working with the physical therapy team at the time of my examination. Alert awake oriented communicating well. Blood pressures are running high this morning plan is to restart his home medications and to discontinue his IV fluids. CK is 2700 at the time of admission improved to 1400 today. 05/13/2031-74-oonn-old male with left BKA admitted for falls. Found to have a rhabdomyolysis. CK came down to 594 today. Doing well. Physical therapy is working with the patient. Reason For Visit: RHABDOMYOLYSIS Physical Exam Vital Signs: Temp Pulse Resp BP Pulse Ox 98.0 F 66 16 156/67 H 96 05/13/20 11:03 05/13/20 11:03 05/13/20 11:03 05/13/20 11:03 05/13/20 11:03 Intake & Output 05/12/20 05/13/20 05/14/20 06:59 06:59 06:59 Intake Total 1000 2270 Output Total 400 600 Balance 600 1670 Weight 125 kg 125.3 kg General appearance: PRESENT: no acute distress, morbidly obese Head exam: PRESENT: atraumatic Eye exam: PRESENT: PERRLA Mouth exam: PRESENT: moist, tongue midline Teeth exam: PRESENT: poor dentation Respiratory exam: PRESENT: decreased breath sounds Cardiovascular exam: PRESENT: RRR. ABSENT: diastolic murmur, rubs, systolic murmur GI/Abdominal exam: PRESENT: normal bowel sounds, soft. ABSENT: distended, guarding, mass, organolmegaly, rebound, tenderness Rectal exam: PRESENT: deferred Extremities exam: PRESENT: other - Patient has a left BKA Neurological exam: PRESENT: alert, awake, oriented to person, oriented to place, oriented to time, oriented to situation, CN II-XII grossly intact. ABSENT: motor sensory deficit Psychiatric exam: PRESENT: appropriate affect, normal mood. ABSENT: homicidal ideation, suicidal ideation Results Laboratory Results: 05/13/20 04:32 05/13/20 04:32 05/13/20 05/13/20 04:32 04:32 WBC 8.2 RBC 4.35 Hgb 10.0 L Hct 31.6 L MCV 73 L MCH 23.0 L MCHC 31.7 L RDW 20.2 H Plt Count 185 Seg Neutrophils % 68.2 Sodium 139.8 Potassium 3.1 L Chloride 107 Carbon Dioxide 24 Anion Gap 9 BUN 18 Creatinine 0.99 Est GFR ( Amer) > 60 Glucose 112 H Calcium 8.8 Total Bilirubin 0.4 AST 54 Alkaline Phosphatase 127 H Total Protein 7.4 Albumin 3.2 L 05/11/20 05/11/20 05/12/20 19:09 19:09 06:22 Creatine Kinase 2771 H 1406 H Troponin I 0.012 NT-Pro-B Natriuret Pep 904 H 05/13/20 04:32 Creatine Kinase 594 H Troponin I NT-Pro-B Natriuret Pep Impressions: Hip/Pelvis X-Ray 05/11/20 18:56 IMPRESSION: Minimal symmetrical degenerative changes in both hips. Assessment and Plan - Diagnosis (1) Rhabdomyolysis Qualifiers: Rhabdomyolysis type: traumatic Encounter type: initial encounter Qualified Code(s): T79.6XXA - Traumatic ischemia of muscle, initial encounter Is this a current diagnosis for this admission?: Yes Plan: This is very mild and below the threshold at which you would expect to see any sort of renal injury, and his renal function is intact. Were going to give him some IV fluids and get him back on his typical medications which he has not had in a couple of days. We will order a physical therapy consult. We will have case management see him to try to get him a bedside commode at home. 05/12/2020-patient admitted after history of fall found to have rhabdomyolysis on admission CK is 2770 improved to 1400 today with IV fluids. Plan is to closely monitor the CK levels at this time. Physical therapy consult was requested. 05/13/2020-patient admitted with fall he was on the floor for 48 hours. Admitted with rhabdomyolysis with IV fluids CK level improved to 594. Rhabdomyolysis resolving. (2) Obesity (BMI 30-39.9) Is this a current diagnosis for this admission?: No Plan: 05/12/2020-patient BMI is 39.5 morbid obesity may be secondary to high calorie intake. Diet exercise weight loss lifestyle modifications discussed with the patient. (3) HTN (hypertension) Is this a current diagnosis for this admission?: No Plan: 05/12/2020-patient has history of essential hypertension blood pressure this morning is 180/90. Plan is to restart his home medications that his lisino pril/hydrochlorothiazide and Coreg and he was also started on IV hydralazine 10 mg every 6 hours as needed for systolic blood pressure more than 170. Patient is on furosemide 40 mg p.o. daily at home plan is to restart the medication at this time. 05/13/2020-blood pressure is 166/77. Stable. Plan is to continue the present management at this time. (4) Gout Is this a current diagnosis for this admission?: No - Time Anticipated Discharge Disposition: Jail Facility Anticipated Discharge Timeframe: within 48 hours
[2020-05-13] MEDS: ATORVASTATIN CALCIUM 40 MG TABLET PO SCH (21:31)
[2020-05-13] MEDS: TRAZODONE HCL 50 MG TABLET PO SCH (21:32)
[2020-05-14] MEDS: HEPARIN SOD (PORCINE) 5,000 UNIT/ML 1 ML VIAL SUBCUT SCH ×3 (05:42→21:10)
[2020-05-14 06:12] LABS: ABSOLUTE BASOPHILS # (AUTO) 0.1 10^3/uL (0.0-0.2); ABSOLUTE EOSINOPHILS # (AUTO) 0.5 10^3/uL (0.0-0.6); ABSOLUTE LYMPHOCYTES (AUTO) 1.3 10^3/uL (0.5-4.7); ABSOLUTE NEUT (AUTO) 6.6 10^3/uL (1.7-8.2); BASOPHILS % (AUTO) 0.6 % (0-2); EOSINOPHILS % (AUTO) 5.4 % (0-6); HEMATOCRIT 33.8 % (37.9-51.0); HEMOGLOBIN 11.1 g/dL (13.5-17.0); LYMPHOCYTES % (AUTO) 13.4 % (13-45); MEAN CORPUSCULAR HEMOGLOBIN 23.2 pg (27.0-33.4); MEAN CORPUSCULAR HGB CONC 32.7 g/dL (32.0-36.0); MEAN CORPUSCULAR VOLUME 71 fl (80-97); MONOCYTES % (AUTO) 10.6 % (3-13); PLATELET COUNT 214 10^3/uL (150-450); RED BLOOD COUNT 4.76 10^6/uL (4.35-5.55); RED CELL DISTRIBUTION WIDTH 20.1 % (11.5-14.0); TOTAL CELLS COUNTED % (AUTO) 100 %; WHITE BLOOD COUNT 9.4 10^3/uL (4.0-10.5)
[2020-05-14 06:32] LABS: ALBUMIN 3.7 g/dL (3.5-5.0); ALKALINE PHOSPHATASE 148 U/L (38-126); ANION GAP 12 (5-19); ASPARTATE AMINO TRANSFERASE 50 U/L (17-59); BILIRUBIN,DIRECT 0.1 mg/dL (0.0-0.4); BILIRUBIN,TOTAL 0.6 mg/dL (0.2-1.3); BLOOD UREA NITROGEN 18 mg/dL (7-20); CALCIUM 9.4 mg/dL (8.4-10.2); CARBON DIOXIDE 24 mmol/L (22-30); CHLORIDE 104 mmol/L (98-107); GLUCOSE 118 mg/dL (75-110); POTASSIUM 3.6 mmol/L (3.6-5.0)
[2020-05-14] MEDS: LISINOPRIL 10 MG TABLET PO SCH (09:26)
[2020-05-14] MEDS: FUROSEMIDE 40 MG TABLET PO SCH (09:26)
[2020-05-14] MEDS: HYDROCHLOROTHIAZIDE 12.5 MG TABLET PO SCH (09:26)
[2020-05-14] MEDS: VITAMIN B COMPLEX TABLET PO SCH (09:26)
[2020-05-14] MEDS: CARVEDILOL 6.25 MG TABLET PO SCH ×2 (09:26→21:09)
[2020-05-14] MEDS: DULOXETINE HCL 30 MG CAPSULE.DR PO SCH (09:26)
[2020-05-14] MEDS: ALLOPURINOL 300 MG TABLET PO SCH (09:26)
[2020-05-14] MEDS: COLCHICINE 0.6 MG TABLET PO SCH (09:26)
[2020-05-14] MEDS: OXYCODONE HCL IR 5 MG TABLET PO PRN ×2 (09:29→21:30)
[2020-05-14] MEDS: OXYCODONE-ACETAMINOPHEN 5-325 MG TABLET PO PRN ×2 (09:29→21:30)
--- NOTE | 2020-05-14 11:54 | PDOC PROGRESS REPORT ---
Subjective Progress Note for:: 05/14/20 Subjective:: 65 year old male with a left below the knee amputation about 3 months ago who normally gets around with use of a walker because he does not have a prosthetic yet. He suffered a mechanical fall in his bathroom at home 2 days ago and was unable to get himself off the floor. His son called to check on him and when the patient did not answer the phone and the son went over to the house to see if he was okay. He found him in the floor and called EMS. He did not have any real substantial lab abnormalities but did have an elevated CK from where he had been in the floor for couple of days. His renal function was intact. X-rays of the hip and pelvis did not reveal any fracture. He said he was hoping to get a bedside commode at home because it was easier to get in and out of it. 05/12/2020-patient is working with the physical therapy team at the time of my examination. Alert awake oriented communicating well. Blood pressures are running high this morning plan is to restart his home medications and to discontinue his IV fluids. CK is 2700 at the time of admission improved to 1400 today. 05/13/2087-35-nasq-old male with left BKA admitted for falls. Found to have a rhabdomyolysis. CK came down to 594 today. Doing well. Physical therapy is working with the patient. 05/14/2020-patient with history of left BKA admitted for multiple falls. Rhabdomyolysis resolving. Waiting for placement. No acute events in the last 24 hours. Afebrile. Reason For Visit: RHABDOMYOLYSIS Physical Exam Vital Signs: Temp Pulse Resp BP Pulse Ox 98.9 F 75 16 157/75 H 96 05/14/20 07:25 05/14/20 07:25 05/14/20 07:25 05/14/20 07:25 05/14/20 07:25 Intake & Output 05/13/20 05/14/20 05/15/20 06:59 06:59 06:59 Intake Total 2270 Output Total 600 1550 Balance 1670 -1550 Weight 125.3 kg 109.2 kg General appearance: PRESENT: no acute distress, morbidly obese Head exam: PRESENT: atraumatic Eye exam: PRESENT: PERRLA Ear exam: PRESENT: normal external ear exam Mouth exam: PRESENT: neck supple Teeth exam: PRESENT: poor dentation Neck exam: ABSENT: carotid bruit, JVD, lymphadenopathy, thyromegaly Respiratory exam: PRESENT: decreased breath sounds Cardiovascular exam: PRESENT: RRR. ABSENT: diastolic murmur, rubs, systolic murmur GI/Abdominal exam: PRESENT: normal bowel sounds, soft. ABSENT: distended, guarding, mass, organolmegaly, rebound, tenderness Rectal exam: PRESENT: deferred Extremities exam: PRESENT: other - Left BKA present. Neurological exam: PRESENT: alert, awake, oriented to person, oriented to place, oriented to time, oriented to situation, CN II-XII grossly intact. ABSENT: motor sensory deficit Psychiatric exam: PRESENT: appropriate affect, normal mood. ABSENT: homicidal ideation, suicidal ideation Results Laboratory Results: 05/14/20 05:31 05/14/20 05:31 05/14/20 05/14/20 05:31 05:31 WBC 9.4 RBC 4.76 Hgb 11.1 L Hct 33.8 L MCV 71 L MCH 23.2 L MCHC 32.7 RDW 20.1 H Plt Count 214 Seg Neutrophils % 70.0 Sodium 140.0 Potassium 3.6 Chloride 104 Carbon Dioxide 24 Anion Gap 12 BUN 18 Creatinine 1.00 Est GFR ( Amer) > 60 Glucose 118 H Calcium 9.4 Magnesium 1.7 Total Bilirubin 0.6 AST 50 Alkaline Phosphatase 148 H Total Protein 8.0 Albumin 3.7 05/11/20 05/11/20 05/12/20 19:09 19:09 06:22 Creatine Kinase 2771 H 1406 H Troponin I 0.012 NT-Pro-B Natriuret Pep 904 H 05/13/20 04:32 Creatine Kinase 594 H Troponin I NT-Pro-B Natriuret Pep Impressions: Hip/Pelvis X-Ray 05/11/20 18:56 IMPRESSION: Minimal symmetrical degenerative changes in both hips. Assessment and Plan - Diagnosis (1) Rhabdomyolysis Qualifiers: Rhabdomyolysis type: traumatic Encounter type: initial encounter Qualified Code(s): T79.6XXA - Traumatic ischemia of muscle, initial encounter Is this a current diagnosis for this admission?: Yes Plan: This is very mild and below the threshold at which you would expect to see any sort of renal injury, and his renal function is intact. Were going to give him some IV fluids and get him back on his typical medications which he has not had in a couple of days. We will order a physical therapy consult. We will have case management see him to try to get him a bedside commode at home. 05/12/2020-patient admitted after history of fall found to have rhabdomyolysis on admission CK is 2770 improved to 1400 today with IV fluids. Plan is to closely monitor the CK levels at this time. Physical therapy consult was requested. 05/13/2020-patient admitted with fall he was on the floor for 48 hours. Admitted with rhabdomyolysis with IV fluids CK level improved to 594. Rhabdomyolysis resolving. 05/14/20-patient admitted with rhabdomyolysis resolved. IV fluids are discontinued. Plan is to repeat the CK level today. (2) Obesity (BMI 30-39.9) Is this a current diagnosis for this admission?: No Plan: 05/12/2020-patient BMI is 39.5 morbid obesity may be secondary to high calorie intake. Diet exercise weight loss lifestyle modifications discussed with the patient. (3) HTN (hypertension) Is this a current diagnosis for this admission?: No Plan: 05/12/2020-patient has history of essential hypertension blood pressure this morning is 180/90. Plan is to restart his home medications that his lisinopril/hydrochlorothiazide and Coreg and he was also started on IV hydralazine 10 mg every 6 hours as needed for systolic blood pressure more than 170. Patient is on furosemide 40 mg p.o. daily at home plan is to restart the medication at this time. 05/13/2020-blood pressure is 166/77. Stable. Plan is to continue the present management at this time. 05/14/2020-patient blood pressure is 130/60. Stable. Plan is to closely monitor the blood pressures at this time. (4) Gout Is this a current diagnosis for this admission?: No Plan: 05/12/2020-patient has history of chronic gout on allopurinol and colchicine at home plan is to continue the medication during the hospital stay. - Time Anticipated Discharge Disposition: [facility] Facility Anticipated Discharge Timeframe: within 72 hours
[2020-05-14] MEDS: TRAZODONE HCL 50 MG TABLET PO SCH (21:09)
[2020-05-14] MEDS: ATORVASTATIN CALCIUM 40 MG TABLET PO SCH (21:09)
[2020-05-15] MEDS: HEPARIN SOD (PORCINE) 5,000 UNIT/ML 1 ML VIAL SUBCUT SCH ×3 (05:47→21:31)
[2020-05-15] MEDS: COLCHICINE 0.6 MG TABLET PO SCH (09:12)
[2020-05-15] MEDS: ALLOPURINOL 300 MG TABLET PO SCH (09:12)
[2020-05-15] MEDS: HYDROCHLOROTHIAZIDE 12.5 MG TABLET PO SCH (09:12)
[2020-05-15] MEDS: VITAMIN B COMPLEX TABLET PO SCH (09:12)
[2020-05-15] MEDS: DULOXETINE HCL 30 MG CAPSULE.DR PO SCH (09:12)
[2020-05-15] MEDS: FUROSEMIDE 40 MG TABLET PO SCH (09:13)
[2020-05-15] MEDS: CARVEDILOL 6.25 MG TABLET PO SCH ×2 (09:13→21:31)
[2020-05-15] MEDS: LISINOPRIL 10 MG TABLET PO SCH (09:13)
[2020-05-15] MEDS: OXYCODONE HCL IR 5 MG TABLET PO PRN ×2 (09:30→21:30)
[2020-05-15] MEDS: OXYCODONE-ACETAMINOPHEN 5-325 MG TABLET PO PRN ×2 (09:31→21:30)
--- NOTE | 2020-05-15 10:07 | PDOC PROGRESS REPORT ---
Subjective Progress Note for:: 05/15/20 Subjective:: 65 year old male with a left below the knee amputation about 3 months ago who normally gets around with use of a walker because he does not have a prosthetic yet. He suffered a mechanical fall in his bathroom at home 2 days ago and was unable to get himself off the floor. His son called to check on him and when the patient did not answer the phone and the son went over to the house to see if he was okay. He found him in the floor and called EMS. He did not have any real substantial lab abnormalities but did have an elevated CK from where he had been in the floor for couple of days. His renal function was intact. X-rays of the hip and pelvis did not reveal any fracture. He said he was hoping to get a bedside commode at home because it was easier to get in and out of it. 05/12/2020-patient is working with the physical therapy team at the time of my examination. Alert awake oriented communicating well. Blood pressures are running high this morning plan is to restart his home medications and to discontinue his IV fluids. CK is 2700 at the time of admission improved to 1400 today. 05/13/2078-42-tzvl-old male with left BKA admitted for falls. Found to have a rhabdomyolysis. CK came down to 594 today. Doing well. Physical therapy is working with the patient. 05/14/2020-patient with history of left BKA admitted for multiple falls. Rhabdomyolysis resolving. Waiting for placement. No acute events in the last 24 hours. Afebrile. 05/15/20-patient admitted with multiple falls and rhabdomyolysis. Physical therapy working with the patient. Patient wants to go to [facility]. Rhabdomyolysis is resolved. Reason For Visit: RHABDOMYOLYSIS Physical Exam Vital Signs: Temp Pulse Resp BP Pulse Ox 98.7 F 77 17 177/95 H 99 05/15/20 07:37 05/15/20 07:37 05/15/20 07:37 05/15/20 07:37 05/15/20 07:37 Intake & Output 05/14/20 05/15/20 05/16/20 06:59 06:59 06:59 Intake Total 1196 Output Total 1550 2500 Balance -1550 -1304 Weight 109.2 kg 109.2 kg General appearance: PRESENT: no acute distress, morbidly obese Head exam: PRESENT: atraumatic Eye exam: PRESENT: PERRLA Mouth exam: PRESENT: moist, tongue midline Teeth exam: PRESENT: poor dentation Respiratory exam: PRESENT: clear to auscultation pam. ABSENT: rales, rhonchi, wheezes Cardiovascular exam: PRESENT: RRR. ABSENT: diastolic murmur, rubs, systolic murmur GI/Abdominal exam: PRESENT: normal bowel sounds, soft. ABSENT: distended, gu arding, mass, organolmegaly, rebound, tenderness Rectal exam: PRESENT: deferred Extremities exam: PRESENT: other - Patient has a left BKA and stump is without any signs of infection. Musculoskeletal exam: PRESENT: other Neurological exam: PRESENT: alert, awake, oriented to person, oriented to place, oriented to time, oriented to situation, CN II-XII grossly intact. ABSENT: motor sensory deficit Psychiatric exam: PRESENT: appropriate affect, normal mood. ABSENT: homicidal ideation, suicidal ideation Results Laboratory Results: 05/14/20 05:31 05/14/20 05:31 05/11/20 05/11/20 05/12/20 19:09 19:09 06:22 Creatine Kinase 2771 H 1406 H Troponin I 0.012 NT-Pro-B Natriuret Pep 904 H 05/13/20 05/14/20 04:32 05:31 Creatine Kinase 594 H 173 H Troponin I NT-Pro-B Natriuret Pep Impressions: Hip/Pelvis X-Ray 05/11/20 18:56 IMPRESSION: Minimal symmetrical degenerative changes in both hips. Assessment and Plan - Diagnosis (1) Rhabdomyolysis Qualifiers: Rhabdomyolysis type: traumatic Encounter type: initial encounter Qualified Code(s): T79.6XXA - Traumatic ischemia of muscle, initial encounter Is this a current diagnosis for this admission?: Yes Plan: This is very mild and below the threshold at which you would expect to see any sort of renal injury, and his renal function is intact. Were going to give him some IV fluids and get him back on his typical medications which he has not had in a couple of days. We will order a physical therapy consult. We will have case management see him to try to get him a bedside commode at home. 05/12/2020-patient admitted after history of fall found to have rhabdomyolysis on admission CK is 2770 improved to 1400 today with IV fluids. Plan is to closely monitor the CK levels at this time. Physical therapy consult was requested. 05/13/2020-patient admitted with fall he was on the floor for 48 hours. Admitted with rhabdomyolysis with IV fluids CK level improved to 594. Rhabdomyolysis resolving. 05/14/20-patient admitted with rhabdomyolysis resolved. IV fluids are discontinued. Plan is to repeat the CK level today. 05/15/2020-patient admitted with rhabdomyolysis which was resolved. (2) Obesity (BMI 30-39.9) Is this a current diagnosis for this admission?: No Plan: 05/12/2020-patient BMI is 39.5 morbid obesity may be secondary to high calorie intake. Diet exercise weight loss lifestyle modifications discussed with the patient. (3) HTN (hypertension) Is this a current diagnosis for this admission?: No Plan: 05/12/2020-patient has history of essential hypertension blood pressure this morning is 180/90. Plan is to restart his home medications that his lisino pril/hydrochlorothiazide and Coreg and he was also started on IV hydralazine 10 mg every 6 hours as needed for systolic blood pressure more than 170. Patient is on furosemide 40 mg p.o. daily at home plan is to restart the medication at this time. 05/13/2020-blood pressure is 166/77. Stable. Plan is to continue the present management at this time. 05/14/2020-patient blood pressure is 130/60. Stable. Plan is to closely monitor the blood pressures at this time. 05/15/2020-blood pressure today's 137/77. Stable. Plan is to continue with present management. (4) Gout Is this a current diagnosis for this admission?: No Plan: 05/12/2020-patient has history of chronic gout on allopurinol and colchicine at home plan is to continue the medication during the hospital stay. - Time Anticipated Discharge Disposition: [facility] Facility Anticipated Discharge Timeframe: within 48 hours
[2020-05-15] MEDS: ATORVASTATIN CALCIUM 40 MG TABLET PO SCH (21:30)
[2020-05-15] MEDS: TRAZODONE HCL 50 MG TABLET PO SCH (21:31)
[2020-05-15] MEDS: BACLOFEN 10 MG TABLET PO PRN (21:37)
[2020-05-16] MEDS: HEPARIN SOD (PORCINE) 5,000 UNIT/ML 1 ML VIAL SUBCUT SCH ×3 (05:04→21:05)
[2020-05-16] MEDS: CARVEDILOL 6.25 MG TABLET PO SCH ×2 (09:12→21:07)
[2020-05-16] MEDS: VITAMIN B COMPLEX TABLET PO SCH (09:12)
[2020-05-16] MEDS: HYDROCHLOROTHIAZIDE 12.5 MG TABLET PO SCH (09:12)
[2020-05-16] MEDS: OXYCODONE HCL IR 5 MG TABLET PO PRN ×2 (09:13→21:07)
[2020-05-16] MEDS: OXYCODONE-ACETAMINOPHEN 5-325 MG TABLET PO PRN ×2 (09:13→21:06)
[2020-05-16] MEDS: LISINOPRIL 10 MG TABLET PO SCH (09:14)
[2020-05-16] MEDS: FUROSEMIDE 40 MG TABLET PO SCH (09:14)
[2020-05-16] MEDS: DULOXETINE HCL 30 MG CAPSULE.DR PO SCH (09:14)
[2020-05-16] MEDS: COLCHICINE 0.6 MG TABLET PO SCH (09:14)
[2020-05-16] MEDS: ALLOPURINOL 300 MG TABLET PO SCH (09:14)
--- NOTE | 2020-05-16 15:27 | PDOC PROGRESS REPORT ---
Subjective Progress Note for:: 05/16/20 Subjective:: Patient is status post below-knee amputation 3 months ago. He was admitted with rhabdomyolysis. He apparently he is feeling better. He is currently awaiting transfer to a rehabilitation facility. Patient denies any new symptoms today. He does have a history of multiple falls. CPK is down to 173 and a high of 2771 Reason For Visit: RHABDOMYOLYSIS Physical Exam Vital Signs: Temp Pulse Resp BP Pulse Ox 97.6 F 89 18 106/66 98 05/16/20 10:56 05/16/20 10:56 05/16/20 10:56 05/16/20 10:56 05/16/20 10:56 Intake & Output 05/15/20 05/16/20 05/17/20 06:59 06:59 06:59 Intake Total 1196 776 Output Total 2500 2100 Balance -1304 -1324 Weight 109.2 kg 107.5 kg General appearance: PRESENT: no acute distress, obese Head exam: PRESENT: atraumatic Neck exam: PRESENT: full ROM Respiratory exam: PRESENT: clear to auscultation pam Cardiovascular exam: PRESENT: RRR, +S1, +S2 GI/Abdominal exam: PRESENT: normal bowel sounds Musculoskeletal exam: PRESENT: other - L BKA Neurological exam: PRESENT: alert, awake, oriented to person, oriented to place Results Laboratory Results: 05/14/20 05:31 05/14/20 05:31 05/11/20 05/11/20 05/12/20 19:09 19:09 06:22 Creatine Kinase 2771 H 1406 H Troponin I 0.012 NT-Pro-B Natriuret Pep 904 H 05/13/20 05/14/20 04:32 05:31 Creatine Kinase 594 H 173 H Troponin I NT-Pro-B Natriuret Pep Impressions: Hip/Pelvis X-Ray 05/11/20 18:56 IMPRESSION: Minimal symmetrical degenerative changes in both hips. Assessment and Plan - Diagnosis (1) Rhabdomyolysis Qualifiers: Rhabdomyolysis type: traumatic Encounter type: initial encounter Qualified Code(s): T79.6XXA - Traumatic ischemia of muscle, initial encounter Is this a current diagnosis for this admission?: Yes Plan: This is very mild and below the threshold at which you would expect to see any sort of renal injury, and his renal function is intact. Were going to give him some IV fluids and get him back on his typical medications which he has not had in a couple of days. We will order a physical therapy consult. We will have case management see him to try to get him a bedside commode at home. 05/12/2020-patient admitted after history of fall found to have rhabdomyolysis on admission CK is 2770 improved to 1400 today with IV fluids. Plan is to closely monitor the CK levels at this time. Physical therapy consult was requested. 05/13/2020-patient admitted with fall he was on the floor for 48 hours. Admitted with rhabdomyolysis with IV fluids CK level improved to 594. Rhabdomyolysis resolving. 05/14/20-patient admitted with rhabdomyolysis resolved. IV fluids are discontinued. Plan is to repeat the CK level today. 05/15/2020-patient admitted with rhabdomyolysis which was resolved. (2) Obesity (BMI 30-39.9) Is this a current diagnosis for this admission?: Yes (3) Below-knee amputation of left lower extremity Is this a current diagnosis for this admission?: Yes Plan: Awaiting Rehab (4) HTN (hypertension) Is this a current diagnosis for this admission?: No Plan: 05/12/2020-patient has history of essential hypertension blood pressure this morning is 180/90. Plan is to restart his home medications that his lisinopril/hydrochlorothiazide and Coreg and he was also started on IV hydralazine 10 mg every 6 hours as needed for systolic blood pressure more than 170. Patient is on furosemide 40 mg p.o. daily at home plan is to restart the medication at this time. 05/13/2020-blood pressure is 166/77. Stable. Plan is to continue the present management at this time. 05/14/2020-patient blood pressure is 130/60. Stable. Plan is to closely monitor the blood pressures at this time. 05/15/2020-blood pressure today's 137/77. Stable. Plan is to continue with present management. - Time Time Spent with patient: 15-24 minutes Anticipated Discharge Disposition: Longterm Facility Anticipated Discharge Timeframe: within 48 hours
[2020-05-16] MEDS: BACLOFEN 10 MG TABLET PO PRN (18:29)
[2020-05-16] MEDS: ATORVASTATIN CALCIUM 40 MG TABLET PO SCH (21:06)
[2020-05-16] MEDS: TRAZODONE HCL 50 MG TABLET PO SCH (21:07)
[2020-05-17] MEDS: HEPARIN SOD (PORCINE) 5,000 UNIT/ML 1 ML VIAL SUBCUT SCH ×3 (05:17→21:59)
[2020-05-17] MEDS: DULOXETINE HCL 30 MG CAPSULE.DR PO SCH (09:44)
[2020-05-17] MEDS: VITAMIN B COMPLEX TABLET PO SCH (09:44)
[2020-05-17] MEDS: FUROSEMIDE 40 MG TABLET PO SCH (09:45)
[2020-05-17] MEDS: OXYCODONE-ACETAMINOPHEN 5-325 MG TABLET PO PRN ×2 (09:45→22:01)
[2020-05-17] MEDS: OXYCODONE HCL IR 5 MG TABLET PO PRN ×2 (09:45→22:00)
[2020-05-17] MEDS: HYDROCHLOROTHIAZIDE 12.5 MG TABLET PO SCH (09:46)
[2020-05-17] MEDS: COLCHICINE 0.6 MG TABLET PO SCH (09:48)
[2020-05-17] MEDS: ALLOPURINOL 300 MG TABLET PO SCH (09:49)
[2020-05-17] MEDS: LISINOPRIL 10 MG TABLET PO SCH (13:06)
[2020-05-17] MEDS: CARVEDILOL 6.25 MG TABLET PO SCH ×2 (13:06→22:01)
[2020-05-17] MEDS: PREGABALIN 100 MG CAPSULE PO SCH ×2 (15:00→22:01)
[2020-05-17] MEDS: ATORVASTATIN CALCIUM 40 MG TABLET PO SCH (21:52)
[2020-05-17] MEDS: TRAZODONE HCL 50 MG TABLET PO SCH (21:52)
[2020-05-17] MEDS ORDERED: PREGABALIN PO SCH (22:00)
[2020-05-17] MEDS: BACLOFEN 10 MG TABLET PO PRN (22:01)
[2020-05-18] MEDS: HEPARIN SOD (PORCINE) 5,000 UNIT/ML 1 ML VIAL SUBCUT SCH ×2 (05:17→18:07)
[2020-05-18] MEDS: PREGABALIN 100 MG CAPSULE PO SCH ×2 (05:17→17:33)
[2020-05-18] MEDS: CARVEDILOL 6.25 MG TABLET PO SCH (09:21)
[2020-05-18] MEDS: DULOXETINE HCL 30 MG CAPSULE.DR PO SCH (09:22)
[2020-05-18] MEDS: HYDROCHLOROTHIAZIDE 12.5 MG TABLET PO SCH (09:22)
[2020-05-18] MEDS: FUROSEMIDE 40 MG TABLET PO SCH (09:23)
[2020-05-18] MEDS: LISINOPRIL 10 MG TABLET PO SCH (09:23)
[2020-05-18] MEDS: VITAMIN B COMPLEX TABLET PO SCH (09:23)
[2020-05-18] MEDS: COLCHICINE 0.6 MG TABLET PO SCH (09:24)
[2020-05-18] MEDS: ALLOPURINOL 300 MG TABLET PO SCH (09:24)
[2020-05-18] MEDS: OXYCODONE-ACETAMINOPHEN 5-325 MG TABLET PO PRN (11:43)
[2020-05-18] MEDS: OXYCODONE HCL IR 5 MG TABLET PO PRN (11:44)
[2020-05-18] MEDS: BACLOFEN 10 MG TABLET PO PRN ×2 (11:44→17:34)
--- NOTE | 2020-05-18 13:16 | PDOC TRANSFER SUMMARY ---
Impression - Admit/DC Date/PCP Admission Date/Primary Care Provider: 05/13/20 13:13 GUILLERMO MO MD Discharge Date: 05/18/20 - Discharge Diagnosis (1) Rhabdomyolysis Is this a current diagnosis for this admission?: Yes (2) Obesity (BMI 30-39.9) Is this a current diagnosis for this admission?: Yes (3) Below-knee amputation of left lower extremity Is this a current diagnosis for this admission?: Yes (4) HTN (hypertension) Is this a current diagnosis for this admission?: No (5) Chronic pain disorder Is this a current diagnosis for this admission?: Yes - Additional Information Resuscitation Status: Full Code Discharge Diet: Cardiac Discharge Activity: Activity As Tolerated Referrals: HELEN DOWNS MD [ACTIVE STAFF] - Follow up as needed Prescriptions: Oxycodone HCl/Acetaminophen [Oxycodone-Acetaminophen 10-325] 1 each PO Q12HP PRN #20 PRN Reason: For Pain Pregabalin [Lyrica 100 mg Capsule] 200 mg PO Q8 #100 capsule Oxycodone Myristate [Xtampza ER] 18 mg PO Q12 #14 Home Medications: Allopurinol [Zyloprim 300 mg Tablet] 300 mg PO DAILY 01/15/20 Carvedilol [Coreg 6.25 mg Tablet] 6.25 mg PO Q12 01/15/20 Colchicine [Colcrys 0.6 mg Tablet] 0.6 mg PO DAILY 01/15/20 Duloxetine HCl 30 mg PO DAILY 01/15/20 Furosemide [Lasix 40 mg Tablet] 40 mg PO DAILY 01/15/20 Lisinopril/Hydrochlorothiazide [Lisinopril-Hctz 20-12.5 mg Tab] 1 tab PO DAILY 01/15/20 Rosuvastatin Calcium 20 mg PO QHS 01/15/20 Trazodone HCl 150 mg PO QHS 01/15/20 Baclofen [Baclofen 10 mg Tablet] 10 mg PO TIDP PRN 02/19/20 Vitamin B Complex 1 each PO DAILY 02/19/20 Oxycodone HCl/Acetaminophen [Oxycodone-Acetaminophen 10-325] 1 each PO Q12HP PRN #20 05/18/20 Oxycodone Myristate [Xtampza ER] 18 mg PO Q12 #14 05/18/20 Pregabalin [Lyrica 100 mg Capsule] 200 mg PO Q8 #100 capsule 05/18/20 History of Present Illiness History of Present Illness: BRITANY GERMAIN is a 65 year old male Patient was admitted after a fall. He was unable to get up after falling. He was found to have rhabdomyolysis likely from his mechanical fall. He had no fractures identified on imaging studies. Patient has otherwise been hemodynamically stable while in hospital he however will benefit from rehabilitation stay has been discharged for short-term rehab Hospital Course Hospital Course: Initial CPK was 2770 and this has declined down to normal. He also had a leukocytosis likely reactive as there was no sign of acute infection. He was monitored in the hospital. He was hydrated and patient has remained hemodynamically stable. Because he has been having multiple falls it is felt that patient will benefit from rehabilitation since been discharged for rehabilitation Physical Exam Vital Signs: Temp Pulse Resp BP Pulse Ox 97.4 F 81 18 115/69 100 05/18/20 10:47 05/18/20 10:47 05/18/20 10:47 05/18/20 10:47 05/18/20 10:47 Intake & Output 05/17/20 05/18/20 05/19/20 06:59 06:59 06:59 Intake Total 420 1440 Output Total 1101 2050 Balance -681 -610 Weight 107.5 kg 107.5 kg General appearance: PRESENT: no acute distress, well-developed, well-nourished Head exam: PRESENT: atraumatic, normocephalic Eye exam: PRESENT: conjunctiva pink, EOMI, PERRLA. ABSENT: scleral icterus Ear exam: PRESENT: normal external ear exam Mouth exam: PRESENT: moist, tongue midline Neck exam: ABSENT: carotid bruit, JVD, lymphadenopathy, thyromegaly Respiratory exam: PRESENT: clear to auscultation pam. ABSENT: rales, rhonchi, wheezes Cardiovascular exam: PRESENT: RRR, +S1, +S2. ABSENT: diastolic murmur, rubs, systolic murmur Pulses: PRESENT: normal dorsalis pedis pul Vascular exam: PRESENT: normal capillary refill GI/Abdominal exam: PRESENT: normal bowel sounds, soft. ABSENT: distended, guarding, mass, organolmegaly, rebound, tenderness Rectal exam: PRESENT: deferred Extremities exam: PRESENT: other - Left below-knee amputation with few scattered abrasions on stump. ABSENT: calf tenderness, clubbing, pedal edema Neurological exam: PRESENT: alert, awake, oriented to person, oriented to place, oriented to time, oriented to situation, CN II-XII grossly intact. ABSENT: motor sensory deficit Psychiatric exam: PRESENT: appropriate affect, normal mood. ABSENT: homicidal ideation, suicidal ideation Skin exam: PRESENT: dry, intact, warm. ABSENT: cyanosis, rash Results Laboratory Results: WBC 9.4 10^3/uL (4.0-10.5) 05/14/20 05:31 RBC 4.76 10^6/uL (4.35-5.55) 05/14/20 05:31 Hgb 11.1 g/dL (13.5-17.0) L 05/14/20 05:31 Hct 33.8 % (37.9-51.0) L 05/14/20 05:31 MCV 71 fl (80-97) L 05/14/20 05:31 MCH 23.2 pg (27.0-33.4) L 05/14/20 05:31 MCHC 32.7 g/dL (32.0-36.0) 05/14/20 05:31 RDW 20.1 % (11.5-14.0) H 05/14/20 05:31 Plt Count 214 10^3/uL (150-450) 05/14/20 05:31 Lymph % (Auto) 13.4 % (13-45) 05/14/20 05:31 Travis % (Auto) 10.6 % (3-13) 05/14/20 05:31 Eos % (Auto) 5.4 % (0-6) 05/14/20 05:31 Baso % (Auto) 0.6 % (0-2) 05/14/20 05:31 Absolute Neuts (auto) 6.6 10^3/uL (1.7-8.2) 05/14/20 05:31 Absolute Lymphs (auto) 1.3 10^3/uL (0.5-4.7) 05/14/20 05:31 Absolute Monos (auto) 1.0 10^3/uL (0.1-1.4) 05/14/20 05:31 Absolute Eos (auto) 0.5 10^3/uL (0.0-0.6) 05/14/20 05:31 Absolute Basos (auto) 0.1 10^3/uL (0.0-0.2) 05/14/20 05:31 Seg Neutrophils % 70.0 % (42-78) 05/14/20 05:31 Sodium 140.0 mmol/L (137-145) 05/14/20 05:31 Potassium 3.6 mmol/L (3.6-5.0) 05/14/20 05:31 Chloride 104 mmol/L (98-107) 05/14/20 05:31 Carbon Dioxide 24 mmol/L (22-30) 05/14/20 05:31 Anion Gap 12 (5-19) 05/14/20 05:31 BUN 18 mg/dL (7-20) 05/14/20 05:31 Creatinine 1.00 mg/dL (0.52-1.25) 05/14/20 05:31 Est GFR ( Amer) > 60 (>60) 05/14/20 05:31 Est GFR (MDRD) Non-Af > 60 (>60) 05/14/20 05:31 Glucose 118 mg/dL (75-110) H 05/14/20 05:31 Lactic Acid 1.7 mmol/L (0.7-2.1) 05/11/20 19:09 Calcium 9.4 mg/dL (8.4-10.2) 05/14/20 05:31 Magnesium 1.7 mg/dL (1.6-2.3) 05/14/20 05:31 Total Bilirubin 0.6 mg/dL (0.2-1.3) 05/14/20 05:31 Direct Bilirubin 0.1 mg/dL (0.0-0.4) 05/14/20 05:31 Neonat Total Bilirubin Not Reportable 05/14/20 05:31 Neonat Direct Bilirubin Not Reportable 05/14/20 05:31 Neonat Indirect Bili Not Reportable 05/14/20 05:31 AST 50 U/L (17-59) 05/14/20 05:31 ALT 28 U/L (<50) 05/14/20 05:31 Alkaline Phosphatase 148 U/L (38-126) H 08/15/20 05:31 Creatine Kinase 173 U/L (55-170) H 05/14/20 05:31 Troponin I 0.012 ng/mL 05/11/20 19:09 NT-Pro-B Natriuret Pep 904 pg/mL (<125) H 05/11/20 19:09 Total Protein 8.0 g/dL (6.3-8.2) 05/14/20 05:31 Albumin 3.7 g/dL (3.5-5.0) 05/14/20 05:31 Urine Color YELLOW 05/12/20 02:15 Urine Appearance CLEAR 05/12/20 02:15 Urine pH 5.0 (5.0-9.0) 05/12/20 02:15 Ur Specific [place] 1.015 05/12/20 02:15 Urine Protein 100 mg/dL (NEGATIVE) H 05/12/20 02:15 Urine Glucose (UA) NEGATIVE mg/dL (NEGATIVE) 05/12/20 02:15 Urine Ketones NEGATIVE mg/dL (NEGATIVE) 05/12/20 02:15 Urine Blood SMALL (NEGATIVE) H 05/12/20 02:15 Urine Nitrite (Reflex) NEGATIVE (NEGATIVE) 05/12/20 02:15 Urine Bilirubin NEGATIVE (NEGATIVE) 05/12/20 02:15 Urine Urobilinogen NEGATIVE mg/dL (<2.0) 05/12/20 02:15 Leukocyte Esterase Rfl NEGATIVE (NEGATIVE) 05/12/20 02:15 Urine RBC (Auto) 1 /HPF 05/12/20 02:15 U Hyaline Cast (Auto) 1 /LPF 05/12/20 02:15 Urine WBC (Reflex) 1 /HPF 05/12/20 02:15 Squamous Epi Cells Auto <1 /HPF 05/12/20 02:15 Urine Mucus (Auto) RARE /LPF 05/12/20 02:15 Urine Ascorbic Acid NEGATIVE (NEGATIVE) 05/12/20 02:15 COVID-19 Source NASOPHARYNGEAL 05/13/20 17:00 COVID-19 (SHARIFA) NOT DETECTED 05/13/20 17:00 05/11/20 19:09 Troponin I 0.012 NT-Pro-B Natriuret Pep 904 H Impressions: Hip/Pelvis X-Ray 05/11/20 18:56 IMPRESSION: Minimal symmetrical degenerative changes in both hips. Plan Health Concerns: Patient has chronic pain disorder and is on chronic narcotics Time Spent: Greater than 30 Minutes Stroke Is this a Stroke Patient?: No Acute Heart Failure - Is this a Heart Failure Patient?: No
--- NOTE | 2020-05-18 13:19 | PDOC PROGRESS REPORT ---
Subjective Progress Note for:: 05/17/20 Subjective:: Patient is status post below-knee amputation 3 months ago. He was admitted with rhabdomyolysis. He apparently he is feeling better. He is currently awaiting transfer to a rehabilitation facility. Patient denies any new symptoms today. He does have a history of multiple falls. CPK is down to 173 and a high of 2771 Reason For Visit: RHABDOMYOLYSIS Physical Exam Vital Signs: Temp Pulse Resp BP Pulse Ox 97.4 F 81 18 115/69 100 05/18/20 10:47 05/18/20 10:47 05/18/20 10:47 05/18/20 10:47 05/18/20 10:47 Intake & Output 05/17/20 05/18/20 05/19/20 06:59 06:59 06:59 Intake Total 420 1440 Output Total 1101 2050 Balance -681 -610 Weight 107.5 kg 107.5 kg General appearance: PRESENT: no acute distress, well-developed, well-nourished Head exam: PRESENT: atraumatic, normocephalic Eye exam: PRESENT: conjunctiva pink, EOMI, PERRLA. ABSENT: scleral icterus Ear exam: PRESENT: normal external ear exam Mouth exam: PRESENT: moist, tongue midline Neck exam: ABSENT: carotid bruit, JVD, lymphadenopathy, thyromegaly Respiratory exam: PRESENT: clear to auscultation pam. ABSENT: rales, rhonchi, wheezes Cardiovascular exam: PRESENT: RRR. ABSENT: diastolic murmur, rubs, systolic murmur Pulses: PRESENT: normal dorsalis pedis pul Vascular exam: PRESENT: normal capillary refill GI/Abdominal exam: PRESENT: normal bowel sounds, soft. ABSENT: distended, g uarding, mass, organolmegaly, rebound, tenderness Rectal exam: PRESENT: deferred Extremities exam: PRESENT: full ROM, other - L BKA. ABSENT: calf tenderness, clubbing, pedal edema Neurological exam: PRESENT: alert, awake, oriented to person, oriented to place, oriented to time, oriented to situation, CN II-XII grossly intact. ABSENT: motor sensory deficit Psychiatric exam: PRESENT: appropriate affect, normal mood. ABSENT: homicidal ideation, suicidal ideation Skin exam: PRESENT: dry, intact, warm. ABSENT: cyanosis, rash Results Laboratory Results: 05/14/20 05:31 05/14/20 05:31 05/11/20 05/11/20 05/12/20 19:09 19:09 06:22 Creatine Kinase 2771 H 1406 H Troponin I 0.012 NT-Pro-B Natriuret Pep 904 H 05/13/20 05/14/20 04:32 05:31 Creatine Kinase 594 H 173 H Troponin I NT-Pro-B Natriuret Pep Impressions: Hip/Pelvis X-Ray 05/11/20 18:56 IMPRESSION: Minimal symmetrical degenerative changes in both hips. Assessment and Plan - Diagnosis (1) Rhabdomyolysis Qualifiers: Rhabdomyolysis type: traumatic Encounter type: initial encounter Qualified Code(s): T79.6XXA - Traumatic ischemia of muscle, initial encounter Is this a current diagnosis for this admission?: Yes (2) Obesity (BMI 30-39.9) Is this a current diagnosis for this admission?: Yes (3) Below-knee amputation of left lower extremity Is this a current diagnosis for this admission?: Yes (4) HTN (hypertension) Is this a current diagnosis for this admission?: No (5) Chronic pain disorder Is this a current diagnosis for this admission?: Yes - Plan Summary Summary: Awaiting transfer to rehab once bed is available - Time Time Spent with patient: 15-24 minutes Anticipated Discharge Disposition: Intermediate Facility Anticipated Discharge Timeframe: when bed available
[2020-05-18 16:25] VITALS: BP 125/60
== END 2020-05-18 18:08 | DRG 565 ==
LOC: ER 18:19 → EH 20:48 → INTOOBSV 20:48 → 4S 22:13 → OBSVTOIN 05-13 13:13
PROVIDERS: ADMIT Internal Medicine; ATTEND Internal Medicine
DX: T79.6XXA Traumatic ischemia of muscle, initial encounter (principal); I50.22 Chronic systolic (congestive) heart failure; E66.9 Obesity, unspecified; M1A.9XX0 Chronic gout, unspecified, without tophus (tophi); W01.0XXA Fall on same level from slipping, tripping and stumbling without subsequent striking against object, initial encounter; G89.4 Chronic pain syndrome; M79.7 Fibromyalgia; Y92.002 Bathroom of unspecified non-institutional (private) residence as the place of occurrence of the external cause; I48.91 Unspecified atrial fibrillation; F31.9 Bipolar disorder, unspecified; I11.0 Hypertensive heart disease with heart failure; J44.9 Chronic obstructive pulmonary disease, unspecified; M19.90 Unspecified osteoarthritis, unspecified site; Z89.512 Acquired absence of left leg below knee; Z90.49 Acquired absence of other specified parts of digestive tract; Z82.49 Family history of ischemic heart disease and other diseases of the circulatory system; Z79.899 Other long term (current) drug therapy; Z68.39 Body mass index [BMI] 39.0-39.9, adult; Z79.891 Long term (current) use of opiate analgesic
CPT/HCPCS: 36415; 80048; 80053; 81001; 82550; 83605; 83735; 83880; 84484; 85025; 85027; 87635; 93005; 93010; 99285; C9803; J0360; J1644; J3490; J7030; J7120

== ENCOUNTER 2020-07-21 16:36 | Observation (INO) | payer MEDICARE, MEDICAID ==
--- NOTE | 2020-07-21 18:01 | ER Document Report ---
ED Medical Screen (RME) - General Chief Complaint: General Weakness Stated Complaint: HIP AND SHOULDER PAIN Time Seen by Provider: 07/21/20 17:46 Primary Care Provider: TIM SINCLAIR MD [Primary Care Provider] - Follow up as needed TRAVEL OUTSIDE OF THE [place] IN LAST 30 DAYS: No - HPI Notes: 07/21/20 17:59 65-year-old male with past medical history for left leg below-knee amputation, hypertension, obesity to the emergency department with multiple complaints. Initially he states that he has been having left shoulder and right hip pain. He states that it is chronic. He states however he woke up this morning and had significantly worsening pain in both these areas. He then states that the right hip is new and its pain today. He also states that he has been feeling short of breath today. He states he does not have chest pain, diaphoresis, nausea, vomiting. He states that he has also noticed that his right lower leg is swollen and red. He states that the leg redness started this morning. He states that he recently lost his left leg in January after he had hardware get infected. He lives in a two-story apartment building and has not been able to utilize the upstairs in there since he had his leg amputated. He states that he has home health but he is not really had a lot of help at home. He is in chronic pain management. He takes OxyContin 15 mg and oxycodone 10 mg. I performed a brief medical screening exam on the patient determined that the patient needs further evaluation and management by main side provider. I have placed initial orders to help expedite care. - Related Data Allergies/Adverse Reactions: No Known Allergies Allergy (Verified 05/11/20 19:32) Home Medications: allopurinol, carvedilol, cymbalta, duloxetine, furosemide, lisinopril, lyrica, oxycodone, rosuvastatin, trazodone, vancomycin Past Medical History - Past Medical History Cardiac Medical History: Reports: Hx Atrial Fibrillation, Hx Congestive Heart Failure, Hx Hypercholesterolemia, Hx Hypertension Denies: Hx Coronary Artery Disease, Hx Heart Attack, Hx Peripheral Vascular Disease, Hx Heart Murmur Pulmonary Medical History: Reports: Hx COPD, Hx Sleep Apnea Denies: Hx Asthma, Hx Bronchitis, Hx Pneumonia, Hx Tuberculosis Neurological Medical History: Denies: Hx Cerebrovascular Accident, Hx Seizures Endocrine Medical History: Denies: Hx Diabetes Mellitus Type 1, Hx Diabetes Mellitus Type 2, Hx Graves' Disease, Hx Hyperthyroidism, Hx Hypothyroidism Renal/ Medical History: Reports: Hx Kidney Stones. Denies: Hx Peritoneal D ialysis Malignancy Medical History: Denies Hx Bone Cancer, Denies Hx Brain Cancer, Denies Hx Colorectal Cancer GI Medical History: Reports: Hx Gastroesophageal Reflux Disease. Denies: Hx Cirrhosis, Hx Crohn's Disease, Hx Diverticulitis Musculoskeltal Medical History: Reports Hx Arthritis, Reports Hx Fibromyalgia, Reports Hx Gout, Reports Hx Musculoskeletal Deformity, Reports Hx Musculoskeletal Trauma Skin Medical History: Denies Hx Cellulitis, Denies Hx Eczema, Denies Hx MRSA Psychiatric Medical History: Reports: Hx Bipolar Disorder, Hx Depression Denies: Hx Attention Deficit Hyperactivity Disorder, Hx Borderline Personality Disorder, Hx Obsessive Compulsive Disorder, Hx Personality Disorder, Hx Post Traumatic Stress Disorder, Hx Schizoaffective Disorder Traumatic Medical History: Reports: Hx Fractures, Hx Spine Fracture - L1 and 2. Denies: Hx Gunshot Wound, Hx Liver Laceration, Hx Pneumothorax Past Surgical History: Reports: Hx Cholecystectomy, Hx Orthopedic Surgery. Denies: Hx Pacemaker - Immunizations Immunizations up to date: Yes Hx Diphtheria, Pertussis, Tetanus Vaccination: Yes Physical Exam - Vital signs Vitals: Temp Pulse Resp BP Pulse Ox 99.0 F 93 22 H 139/78 H 95 07/21/20 17:07 07/21/20 17:07 07/21/20 17:07 07/21/20 17:07 07/21/20 17:07 Course - Vital Signs Vital signs: Temp Pulse Resp BP Pulse Ox 99.0 F 93 22 H 139/78 H 95 07/21/20 17:07 07/21/20 17:07 07/21/20 17:07 07/21/20 17:07 07/21/20 17:07 Doctor's Discharge - Discharge Referrals: TIM SINCLAIR MD [Primary Care Provider] - Follow up as needed
--- NOTE | 2020-07-21 18:32 | RADIOLOGY REPORT (SQ) ---
EXAM DESCRIPTION: CHEST SINGLE VIEW IMAGES COMPLETED DATE/TIME: 07/21/2020 6:22 pm REASON FOR STUDY: SOB COMPARISON: 02/19/2020 EXAM PARAMETERS: NUMBER OF VIEWS: One view. TECHNIQUE: Single frontal radiographic view of the chest acquired. RADIATION DOSE: NA LIMITATIONS: None. FINDINGS: LUNGS AND PLEURA: No opacities, masses or pneumothorax. No pleural effusion. MEDIASTINUM AND HILAR STRUCTURES: Prominence of the right peritracheal region not seen previously. Q uestion mass. HEART AND VASCULAR STRUCTURES: Heart normal in size. Normal vasculature. BONES: No acute findings. HARDWARE: None in the chest. OTHER: No other significant finding. IMPRESSION: Question right paratracheal mass. No acute parenchymal opacities. TECHNICAL DOCUMENTATION: JOB ID: [id number] 2010 [employer]- All Rights Reserved Reading location - IP/workstation name: [email or web address]
--- NOTE | 2020-07-21 18:43 | RADIOLOGY REPORT (SQ) ---
EXAM DESCRIPTION: HIP RIGHT AP/LATERAL IMAGES COMPLETED DATE/TIME: 07/21/2020 6:22 pm REASON FOR STUDY: right hip pain COMPARISON: None. NUMBER OF VIEWS: Two views. TECHNIQUE: AP pelvis and additional frog legview of the right hip. LIMITATIONS: None. FINDINGS: MINERALIZATION: Normal. RIGHT HIP: No fracture or dislocation. No worrisome bone lesions. LEFT HIP: No fracture or dislocation. No worrisome bone lesions. Limited views. PUBIS AND ISCHIUM: No fracture. PELVIS: No fracture. SACRUM: No fracture or dislocation. No worrisome bone lesions. LOWER LUMBAR SPINE: Surgical changes SOFT TISSUES: Hernia coils OTHER: No other significant finding. IMPRESSION: NEGATIVE STUDY OF THE RIGHT HIP. NO RADIOGRAPHIC EVIDENCE OF ACUTE INJURY. TECHNICAL DOCUMENTATION: JOB ID: [id number] 2010 [employer]- All Rights Reserved Reading location - IP/workstation name: [email or web address]
[2020-07-21 19:04] LABS: ABSOLUTE BASOPHILS # (AUTO) 0.1 10^3/uL (0.0-0.2); ABSOLUTE EOSINOPHILS # (AUTO) 0.4 10^3/uL (0.0-0.6); ABSOLUTE LYMPHOCYTES (AUTO) 1.3 10^3/uL (0.5-4.7); ABSOLUTE MONOCYTES (AUTO) 1.3 10^3/uL (0.1-1.4); ABSOLUTE NEUT (AUTO) 7.7 10^3/uL (1.7-8.2); BASOPHILS % (AUTO) 0.8 % (0-2); EOSINOPHILS % (AUTO) 3.4 % (0-6); HEMATOCRIT 34.4 % (37.9-51.0); HEMOGLOBIN 11.6 g/dL (13.5-17.0); LYMPHOCYTES % (AUTO) 12.3 % (13-45); MEAN CORPUSCULAR HEMOGLOBIN 24.8 pg (27.0-33.4); MEAN CORPUSCULAR HGB CONC 33.7 g/dL (32.0-36.0); MEAN CORPUSCULAR VOLUME 74 fl (80-97); MONOCYTES % (AUTO) 12.3 % (3-13); PLATELET COUNT 166 10^3/uL (150-450); RED BLOOD COUNT 4.67 10^6/uL (4.35-5.55); SEGMENTED NEUTROPHILS % (AUTO) 71.2 % (42-78); TOTAL CELLS COUNTED % (AUTO) 100 %; WHITE BLOOD COUNT 10.8 10^3/uL (4.0-10.5)
[2020-07-21 19:14] LABS: APPEARANCE,URINE CLOUDY; BILIRUBIN,URINE NEGATIVE (NEGATIVE); COLOR,URINE YELLOW; GLUCOSE, URINE NEGATIVE (NEGATIVE); KETONES,URINE NEGATIVE (NEGATIVE); LEUKOCYTE ESTERASE,URINE LARGE (NEGATIVE); NITRITE,URINE NEGATIVE (NEGATIVE); PROTEIN,URINE NEGATIVE (NEGATIVE); URINE SPECIFIC GRAVITY 1.009; UROBILINOGEN,URINE NEGATIVE mg/dL (<2.0)
[2020-07-21 19:20] LABS: ALKALINE PHOSPHATASE 108 U/L (38-126); ANION GAP 9 (5-19); ASPARTATE AMINO TRANSFERASE 26 U/L (17-59); BILIRUBIN,DIRECT 0.4 mg/dL (0.0-0.4); BILIRUBIN,TOTAL 0.4 mg/dL (0.2-1.3); BLOOD UREA NITROGEN 42 mg/dL (7-20); CALCIUM 9.3 mg/dL (8.4-10.2); CARBON DIOXIDE 29 mmol/L (22-30); CHLORIDE 102 mmol/L (98-107); GLUCOSE 167 mg/dL (75-110); POTASSIUM 3.9 mmol/L (3.6-5.0); TOTAL PROTEIN 7.8 g/dL (6.3-8.2)
--- NOTE | 2020-07-21 19:44 | RADIOLOGY REPORT (SQ) ---
EXAM DESCRIPTION: VENOUS UNILATERAL LOWER IMAGES COMPLETED DATE/TIME: 07/21/2020 7:36 pm REASON FOR STUDY: right leg redness, swelling COMPARISON: None. TECHNIQUE: Dynamic and static gonzalez scale and color images acquired of the right leg venous system. S elected spectral images acquired with additional compression and augmentation maneuvers. The contrala teral common femoral vein and saphenofemoral junction were also imaged. Images stored on PACS. LIMITATIONS: None. FINDINGS: COMMON FEMORAL: Normal phasicity, compression and augmentation. No visualized echogenic ma terial on gonzalez scale. No defects on color images. FEMORAL: Normal compression and augmentation. No visualized echogenic material on gonzalez scale. No defe cts on color images. POPLITEAL: Normal compression, augmentation. No visualized echogenic material on gonzalez scale. No defec ts on color images. CALF VESSELS: Normal compression, augmentation. No visualized echogenic material on gonzalez scale. No de fects on color images. GSV and SSV: Normal compression, augmentation. No visualized echogenic material on gonzalez scale. No def ects on color images. ANY DEEP VENOUS INSUFFICIENCY: Not evaluated. ANY EVIDENCE OF POPLITEAL CYST: No. OTHER: No other significant finding. CONTRALATERAL COMMON FEMORAL VEIN AND SAPHENOFEMORAL JUNCTION: Normal phasicity, compression and augmentation. No visualized echogenic material on gonzalez scale. No de fects on color images. IMPRESSION: NO EVIDENCE DVT OR SVT IN THE RIGHT LEG. TECHNICAL DOCUMENTATION: JOB ID: [id number] 2010 [employer]- All Rights Reserved Reading location - IP/workstation name: [email or web address]
[2020-07-21] MEDS ORDERED: CEFTRIAXONE 1 GM/D5W RTU 1 GM/50 ML RTUPB IV ONE (21:06)
[2020-07-21] MEDS ORDERED: NORMAL SALINE 1000 ML 1,000 ML IV ONE (21:07)
--- NOTE | 2020-07-21 22:00 | ER Document Report ---
Entered by ROSETTE YOU SCRIBE 07/21/202048 Acting as scribe for:KRISTI WALLACE DO ED General - General Chief Complaint: General Weakness Stated Complaint: HIP AND SHOULDER PAIN Time Seen by Provider: 07/21/20 17:46 Information source: Patient Notes: This 65 year old male patient presents to the emergency department today with general weakness. Patient reports history of HTN, HLD, and a left BKA this year. Patient states he lives at home and has home health, with a nurse who visits x3 times a week. Patient reports chronic right hip pain and has been having more trouble getting into his wheelchair or moving around. Patient states his nurse called for EMS because it was difficult for him to answer the door. Denies pain with urination. Patient states his right lower extremity is more erythematous than usual. TRAVEL OUTSIDE OF THE [place] IN LAST 30 DAYS: No - Related Data Allergies/Adverse Reactions: No Known Allergies Allergy (Verified 05/11/20 19:32) Home Medications: allopurinol, carvedilol, cymbalta, duloxetine, furosemide, lisinopril, lyrica, oxycodone, rosuvastatin, trazodone, vancomycin Past Medical History - General Information source: Patient - Social History Smoking Status: Never Smoker Cigarette use (# per day): No Lives with: Alone Family History: Hypertension - Past Medical History Cardiac Medical History: Reports: Hx Atrial Fibrillation, Hx Congestive Heart Failure, Hx Hypercholesterolemia, Hx Hypertension Pulmonary Medical History: Reports: Hx COPD, Hx Sleep Apnea Renal/ Medical History: Reports: Hx Kidney Stones GI Medical History: Reports: Hx Gastroesophageal Reflux Disease Musculoskeletal Medical History: Reports Hx Arthritis, Reports Hx Fibromyalgia, Reports Hx Gout, Reports Hx Musculoskeletal Deformity, Reports Hx Musculoskelet al Trauma Psychiatric Medical History: Reports: Hx Bipolar Disorder, Hx Depression Traumatic Medical History: Reports: Hx Fractures, Hx Spine Fracture - L1 and 2 Past Surgical History: Reports: Hx Cholecystectomy, Hx Orthopedic Surgery - Left BKA - Immunizations Immunizations up to date: Yes Hx Diphtheria, Pertussis, Tetanus Vaccination: Yes Hx Pneumococcal Vaccination: 09/30/11 Review of Systems - Review of Systems Constitutional: No symptoms reported EENT: No symptoms reported Cardiovascular: No symptoms reported Respiratory: No symptoms reported Gastrointestinal: No symptoms reported Genitourinary: See HPI. denies: Pain Male Genitourinary: No symptoms reported Musculoskeletal: See HPI, Other - R hip pain Skin: See HPI, Change in color - RLE erythema Hematologic/Lymphatic: No symptoms reported Neurological/Psychological: See HPI, Weakness -: Yes All other systems reviewed and negative Physical Exam - Vital signs Vitals: Temp Pulse Resp BP Pulse Ox 99.0 F 93 22 H 139/78 H 95 07/21/20 17:07 07/21/20 17:07 07/21/20 17:07 07/21/20 17:07 07/21/20 17:07 - General General appearance: Appears well, Alert - HEENT Head: Normocephalic, Atraumatic Eyes: Normal Pupils: PERRL Mucous membranes: Dry - Respiratory Respiratory status: No respiratory distress Chest status: Nontender Breath sounds: Normal Chest palpation: Normal - Cardiovascular Rhythm: Regular Heart sounds: Normal auscultation Murmur: No - Abdominal Inspection: Obese Distension: No distension Bowel sounds: Normal Tenderness: Nontender - Extremities General upper extremity: Normal inspection, Normal ROM Notes: Erythema from the right anterior ankle to the proximal tibia region. No streaking. Bandages to the first and third toes on the right foot. Erythema to the anterior surface of the right foot. Left lower extremity below the knee amputation. - Neurological Neuro grossly intact: Yes Cognition: Normal Orientation: AAOx4 [place] Coma Scale Eye Opening: Spontaneous [place] Coma Scale Verbal: Oriented [place] Coma Scale Motor: Obeys Commands [place] Coma Scale Total: 15 Speech: Normal Sensory: Normal - Psychological Associated symptoms: Normal affect, Normal mood - Skin Skin Temperature: Warm Skin Moisture: Dry Skin irregularity: Erythema - RLE Course - Vital Signs Vital signs: Temp Pulse Resp BP Pulse Ox 98.6 F 80 20 126/60 H 95 07/21/20 19:57 07/21/20 19:57 07/21/20 19:57 07/21/20 19:57 07/21/20 19:57 - Laboratory Result Diagrams: 07/21/20 18:28 07/21/20 18:28 Laboratory results interpreted by me: 07/21/20 07/21/20 07/21/20 18:28 18:28 18:28 WBC 10.8 H Hgb 11.6 L Hct 34.4 L MCV 74 L MCH 24.8 L RDW 22.0 H Lymph % (Auto) 12.3 L BUN 42 H Creatinine 1.52 H Est GFR ( Amer) 56 L Est GFR (MDRD) Non-Af 47 L Glucose 167 H Ur Leukocyte Esterase LARGE H Discharge - Discharge Clinical Impression: Cellulitis Qualifiers: Site of cellulitis: extremity Site of cellulitis of extremity: lower extremity Laterality: right Qualified Code(s): L03.115 - Cellulitis of right lower limb UTI (urinary tract infection) Qualifiers: Urinary tract infection type: site unspecified Hematuria presence: with hematuria Qualified Code(s): N39.0 - Urinary tract infection, site not specified; R31.9 - Hematuria, unspecified Condition: Stable Disposition: ADMITTED OBSERVATION Admitting Provider: Davy Unit Admitted: Medical Floor I personally performed the services described in the documentation, reviewed and edited the documentation which was dictated to the scribe in my presence, and it accurately records my words and actions.
[2020-07-21] MEDS ORDERED: OXYCODONE-ACETAMINOPHEN 5-325 MG TABLET PO PRN (22:59)
[2020-07-21] MEDS ORDERED: VANCOMYCIN HCL 0 MG in DEXTROSE 5%-WATER 250 ML IV NR (23:15)
--- NOTE | 2020-07-21 23:20 | PDOC H&P ---
History of Present Illness Admission Date/PCP: 07/21/20 22:08 GUILLERMO MO MD Patient complains of: Frequent falls, right hip pain, right lower extremity swelling and redness History of Present Illness: BRITANY GERMAIN is a 65 year old male with a history of hypertension, hyperlipidemia, obesity and heart failure who presents to ER complaining of generalized weakness and frequent falls. Patient had left below-knee amputation in November of this year after he had an infected ankle fracture with prosthesis. Following the amputation he states that he had balance issues and has been falling frequently. He has been in and out of rehab in the past few months since having the procedure but he states that he has not been able to gain his strength and balance. The past few weeks he has been having left shoulder and right hip pain. He also reports increased frequency of urination but denies any dysuria, urgency, fever, chills or suprapubic pain. He also has been having a right lower extremity swelling, redness and discomfort for the past few weeks. Patient also reports that he has decreased appetite. He currently lives on the second floor of two-story apartment and has been having difficulty of doing his daily routine. Patient denies any dizziness, lightheadedness, loss of consciousness, head injury. Past Medical History Cardiac Medical History: Reports: Atrial Fibrillation, Congestive Heart Failure, Hyperlipidema, Hypertension Denies: Coronary Artery Disease, Myocardial Infarction, Peripheral Vascular Disease, Heart Murmur Pulmonary Medical History: Reports: Chronic Obstructive Pulmonary Disease (COPD), Sleep Apnea Denies: Asthma, Bronchitis, Pneumonia, Tuberculosis Neurological Medical History: Denies: Seizures Endocrine Medical History: Denies: Diabetes Mellitus Type 1, Diabetes Mellitus Type 2, Hyperthyroidism, Hypothyroidism Malignancy Medical History: Denies: Bone Cancer, Brain Cancer, Colorectal Cancer GI Medical History: Reports: Gastroesophageal Reflux Disease Denies: Cirrhosis, Crohn's Disease, Diverticulitis Musculoskeltal Medical History: Reports: Arthritis, Fibromyalgia, Gout Skin Medical History: Denies: Eczema Psychiatric Medical History: Reports: Bipolar Disorder, Depression Denies: Attention Deficit Hyperactivity Disorder, Personality Disorder, Post Traumatic Stress Disorder, Schizoaffective Disorder Traumatic Medical History: Denies: Gunshot Wound, Pneumothorax Hematology: Denies: Anemia Past Surgical History Past Surgical History: Reports: Cholecystectomy, Orthopedic Surgery - Left BKA Denies: Pacemaker Social History Information Source: Patient Lives with: Alone Smoking Status: Never Smoker Frequency of Alcohol Use: None Hx Recreational Drug Use: No Drugs: None Hx Prescription Drug Abuse: No - Advance Directive Resuscitation Status: Full Code Family History Family History: Hypertension Parental Family History Reviewed: Yes Children Family History Reviewed: Yes Sibling(s) Family History Reviewed.: Yes Medication/Allergy Home Medications: Allopurinol [Zyloprim 300 mg Tablet] 300 mg PO DAILY 01/15/20 Carvedilol [Coreg 6.25 mg Tablet] 6.25 mg PO Q12 01/15/20 Colchicine [Colcrys 0.6 mg Tablet] 0.6 mg PO DAILY 01/15/20 Duloxetine HCl 30 mg PO DAILY 01/15/20 Furosemide [Lasix 40 mg Tablet] 40 mg PO DAILY 01/15/20 Lisinopril/Hydrochlorothiazide [Lisinopril-Hctz 20-12.5 mg Tab] 1 tab PO DAILY 01/15/20 Rosuvastatin Calcium 20 mg PO QHS 01/15/20 Trazodone HCl 150 mg PO QHS 01/15/20 Baclofen [Baclofen 10 mg Tablet] 10 mg PO TIDP PRN 02/19/20 Vitamin B Complex 1 each PO DAILY 02/19/20 Oxycodone HCl/Acetaminophen [Oxycodone-Acetaminophen 10-325] 1 each PO Q12HP PRN #20 05/18/20 Oxycodone Myristate [Xtampza ER] 18 mg PO Q12 #14 05/18/20 Pregabalin [Lyrica 100 mg Capsule] 200 mg PO Q8 #100 capsule 05/18/20 Allergies/Adverse Reactions: No Known Allergies Allergy (Verified 05/11/20 19:32) Review of Systems Constitutional: PRESENT: fatigue, weakness. ABSENT: chills, fever(s), headache(s), weight gain, weight loss Eyes: ABSENT: visual disturbances Ears: ABSENT: hearing changes Nose, Mouth, and Throat: PRESENT: as per HPI. ABSENT: headache(s), mouth pain, sore throat, vertigo, other Cardiovascular: PRESENT: edema. ABSENT: chest pain, dyspnea on exertion, ort hropnea, palpitations Respiratory: ABSENT: cough, hemoptysis Gastrointestinal: ABSENT: abdominal pain, constipation, diarrhea, hematemesis, hematochezia, nausea, vomiting Genitourinary: PRESENT: as per HPI Musculoskeletal: PRESENT: as per HPI Integumentary: PRESENT: as per HPI Neurological: PRESENT: frequent falls Psychiatric: ABSENT: anxiety, depression, homidical ideation, suicidal ideation Hematologic/Lymphatic: ABSENT: easy bleeding, easy bruising Physical Exam Vital Signs: Temp Pulse Resp BP Pulse Ox 98.6 F 80 20 126/60 H 95 07/21/20 19:57 07/21/20 19:57 07/21/20 19:57 07/21/20 19:57 07/21/20 19:57 Intake & Output 07/20/20 07/21/20 07/22/20 06:59 06:59 06:59 Weight 144.2 kg Additional comments: GENERAL APPEARANCE: in no acute distress. Alert and cooperative. HEENT: Normocephalic and atraumatic. No scleral icterus. PERRLA, EOMs intact, moist oral mucosa n NECK: Supple. Trachea is midline. No evidence of thyroid enlargement. No lymphadenopathy or tenderness. Difficult to appreciate carotid bruits or JVD due to body habitus CHEST: Symmetric. Nontender to palpation. LUNGS: Breath sounds are equal and clear bilaterally. No wheezes, rhonchi, or rales. HEART: Regular rate and rhythm with normal S1 and S2. No murmurs, gallops, or rubs. ABDOMEN: Protuberant, soft, nontender, no CVA tenderness, no organomegaly appreciated EXTREMITIES: Has a well-healed left BKA, right lower extremity is hyperemic below mid brown, is swollen but there is no significant differential warmth or tenderness MUSCULOSKELETAL: Has left BKA, no muscle atrophy or joint deformity noted PSYCHIATRIC: The patient is awake, alert, and oriented x3. Recent and remote memory is intact. Appropriate mood and affect. SKIN: Warm and well perfused. NEUROLOGIC: No focal sensory or motor deficits are noted. Results Laboratory Results: 07/21/20 18:28 07/21/20 18:28 07/21/20 07/21/20 07/21/20 18:28 18:28 18:28 WBC 10.8 H RBC 4.67 Hgb 11.6 L Hct 34.4 L MCV 74 L MCH 24.8 L MCHC 33.7 RDW 22.0 H Plt Count 166 Seg Neutrophils % 71.2 Sodium 139.5 Potassium 3.9 Chloride 102 Carbon Dioxide 29 Anion Gap 9 BUN 42 H Creatinine 1.52 H Est GFR ( Amer) 56 L Glucose 167 H Lactic Acid Calcium 9.3 Total Bilirubin 0.4 AST 26 Alkaline Phosphatase 108 Total Protein 7.8 Albumin 4.0 Urine Color YELLOW Urine Appearance CLOUDY Urine pH 5.0 Ur Specific [place] 1.009 Urine Protein NEGATIVE Urine Glucose (UA) NEGATIVE Urine Ketones NEGATIVE Urine Blood NEGATIVE Urine Nitrite NEGATIVE Ur Leukocyte Esterase LARGE H Urine WBC (Auto) 154 Urine RBC (Auto) 7 07/21/20 21:27 WBC RBC Hgb Hct MCV MCH MCHC RDW Plt Count Seg Neutrophils % Sodium Potassium Chloride Carbon Dioxide Anion Gap BUN Creatinine Est GFR ( Amer) Glucose Lactic Acid 1.1 Calcium Total Bilirubin AST Alkaline Phosphatase Total Protein Albumin Urine Color Urine Appearance Urine pH Ur Specific [place] Urine Protein Urine Glucose (UA) Urine Ketones Urine Blood Urine Nitrite Ur Leukocyte Esterase Urine WBC (Auto) Urine RBC (Auto) 07/21/20 07/21/20 18:28 18:28 Creatine Kinase 91 Troponin I < 0.012 Impressions: Chest X-Ray 07/21/20 17:57 IMPRESSION: Question right paratracheal mass. No acute parenchymal opacities. Hip/Pelvis X-Ray 07/21/20 17:57 IMPRESSION: NEGATIVE STUDY OF THE RIGHT HIP. NO RADIOGRAPHIC EVIDENCE OF ACUTE INJURY. Venous Doppler Study 07/21/20 17:58 IMPRESSION: NO EVIDENCE DVT OR SVT IN THE RIGHT LEG. Assessment and Plan - Diagnosis (1) Cellulitis of right lower extremity Is this a current diagnosis for this admission?: Yes Plan: Patient has hyperemic, swollen right lower extremity Has leukocytosis 10.8k Has no other signs of systemic toxicity Started on vancomycin Will consider wound care consult Follow-up with blood culture (2) UTI (urinary tract infection) Qualifiers: Urinary tract infection type: site unspecified Hematuria presence: without hematuria Qualified Code(s): N39.0 - Urinary tract infection, site not specified Is this a current diagnosis for this admission?: Yes Plan: Patient reports increased frequency of urination UA significant for large leukocyte esterase, WBC of 154/HPF Patient received a dose of Rocephin at the ER Placed him on Levaquin 750 mg p.o. daily Follow-up with urine culture (3) Frequent falls Is this a current diagnosis for this admission?: Yes Plan: Patient has left BKA Has been in and out of rehab 3 times in the past 5 months Denies any dizziness, lightheadedness, or passing out Has a scheduled home health 3 times per week but patient requires more care Patient may need short-term rehab to regain his strength and learn balance Consider physical therapy while inpatient Fall precaution while inpatient (4) CKD (chronic kidney disease), stage III Is this a current diagnosis for this admission?: Yes Plan: BUN/creatinine on this presentation 42/1.52 from a baseline creatinine of 1.5 in April 2020 Renally dose medications, Avoid nephrotoxic's (5) History of left below knee amputation Is this a current diagnosis for this admission?: Yes Plan: Well-healed and no visible wound near the amputation area Physical therapy and education on appropriate use of prosthesis (6) Physical deconditioning Is this a current diagnosis for this admission?: Yes Plan: Patient has been having frequent falls and unable to do daily routines Physical therapy while inpatient (7) CHF (congestive heart failure) Qualifiers: Heart failure type: systolic Heart failure chronicity: acute on chronic Qualified Code(s): I50.23 - Acute on chronic systolic (congestive) heart failure Is this a current diagnosis for this admission?: Yes Plan: Currently appears euvolemic Patient was given IV Lasix ER Held tonight dose of Lasix, lisinopril/HCTZ due to soft blood pressure Continue carvedilol, and will consider restarting diuretic and antihypertensives in the morning (8) Morbid obesity with BMI of 40.0-44.9, adult Is this a current diagnosis for this admission?: Yes Plan: BMI on this presentation was 45 Provided nutritional counseling on dietary habits change - Time Time Spent with patient: 35 or more minutes Total Critical Time (Minutes): 45 Medications reviewed and adjusted accordingly: Yes Anticipated Discharge Disposition: [facility] Facility Anticipated Discharge Timeframe: within 48 hours - Inpatient Certification Based on my medical assessment, after consideration of the patient's comorbidities, presenting symptoms, or acuity I expect that the services needed warrant INPATIENT care.: Yes I certify that my determination is in accordance with my understanding of Medicare's requirements for reasonable and necessary INPATIENT services [42 CFR 412.3e].: Yes Medical Necessity: Significant Comorbidiites Make Outpatient Treatment Too Risky, Need for IV Antibiotics Post Hospital Care: D/C or Transfer Summary
[2020-07-21] MEDS ORDERED: VANCOMYCIN HCL INJ 1000 MG VIAL IV PRN (23:27)
[2020-07-21] MEDS ORDERED: VANCOMYCIN HCL 2,000 MG in DEXTROSE 5%-WATER 500 ML IV ONE (23:30)
[2020-07-21] MEDS ORDERED: CARVEDILOL 6.25 MG TABLET PO ONE (23:30)
[2020-07-21 23:42] LABS: ANION GAP 9 (5-19); BLOOD UREA NITROGEN 40 mg/dL (7-20); CALCIUM 9.3 mg/dL (8.4-10.2); CARBON DIOXIDE 29 mmol/L (22-30); CHLORIDE 100 mmol/L (98-107); GLUCOSE 103 mg/dL (75-110); POTASSIUM 3.8 mmol/L (3.6-5.0)
[2020-07-22 05:55] LABS: ABSOLUTE BASOPHILS # (AUTO) 0.1 10^3/uL (0.0-0.2); ABSOLUTE EOSINOPHILS # (AUTO) 0.3 10^3/uL (0.0-0.6); ABSOLUTE LYMPHOCYTES (AUTO) 1.4 10^3/uL (0.5-4.7); BASOPHILS % (AUTO) 0.7 % (0-2); EOSINOPHILS % (AUTO) 3.7 % (0-6); HEMATOCRIT 32.2 % (37.9-51.0); HEMOGLOBIN 10.6 g/dL (13.5-17.0); LYMPHOCYTES % (AUTO) 17.6 % (13-45); MEAN CORPUSCULAR HEMOGLOBIN 24.4 pg (27.0-33.4); MEAN CORPUSCULAR HGB CONC 32.9 g/dL (32.0-36.0); MEAN CORPUSCULAR VOLUME 74 fl (80-97); PLATELET COUNT 143 10^3/uL (150-450); RED BLOOD COUNT 4.35 10^6/uL (4.35-5.55); TOTAL CELLS COUNTED % (AUTO) 100 %; WHITE BLOOD COUNT 7.8 10^3/uL (4.0-10.5)
[2020-07-22] MEDS: ENOXAPARIN SODIUM INJ 30 MG/0.3 ML DISP.SYRIN SUBCUT SCH (09:17)
[2020-07-22] MEDS: DULOXETINE HCL 30 MG CAPSULE.DR PO SCH (09:18)
[2020-07-22] MEDS: LEVOFLOXACIN 750 MG TABLET PO SCH (09:18)
[2020-07-22] MEDS: CARVEDILOL 6.25 MG TABLET PO SCH ×2 (09:18→21:17)
[2020-07-22] MEDS: VANCOMYCIN HCL 1,000 MG in DEXTROSE 5%-WATER 250 ML IV SCH ×2 (10:57→22:12)
[2020-07-22] MEDS ORDERED: (PENDING PHARMACY ID) (Oxycodone Hcl/Acetaminophen [Oxycodone-Acetaminophen 10-325] 1 EACH PO PRN (11:12)
--- NOTE | 2020-07-22 11:22 | PDOC PROGRESS REPORT ---
Subjective Progress Note for:: 07/22/20 Subjective:: 65 year old male with a history of hypertension, hyperlipidemia, obesity and heart failure who presents to ER complaining of generalized weakness and frequent falls. Patient had left below-knee amputation in November of this year after he had an infected ankle fracture with prosthesis. Following the amputation he states that he had balance issues and has been falling frequently. He has been in and out of rehab in the past few months since having the procedure but he states that he has not been able to gain his strength and balance. The past few weeks he has been having left shoulder and right hip pain. He also reports increased frequency of urination but denies any dysuria, urgency, fever, chills or suprapubic pain. He also has been having a right lower extremity swelling, redness and discomfort for the past few weeks. Patient also reports that he has decreased appetite. He currently lives on the second floor of two-story apartment and has been having difficulty of doing his daily routine. Patient denies any dizziness, lightheadedness, loss of c onsciousness, head injury. 07/22/2020-no acute events in the last 24 hours. Still complains of a lot of pain. Physical therapy is in the room try to work with him. Fusing to go to rehab if needed. Urine shows large leukocyte esterase receiving antibiotics. WBC count is normalized. Afebrile. Reason For Visit: CELLULITIS,ACUTE KIDNEY INJURY,FREQUENT FALLS Physical Exam Vital Signs: Temp Pulse Resp BP Pulse Ox 97.7 F 73 20 143/65 H 95 07/22/20 08:53 07/22/20 08:13 07/22/20 08:13 07/22/20 08:13 07/22/20 08:13 Intake & Output 07/21/20 07/22/20 07/23/20 06:59 06:59 06:59 Intake Total 675 875 Output Total 1050 1050 Balance -375 -175 Weight 142.4 kg General appearance: PRESENT: no acute distress, morbidly obese Head exam: PRESENT: atraumatic Eye exam: PRESENT: PERRLA Mouth exam: PRESENT: moist, tongue midline Teeth exam: PRESENT: poor dentation Neck exam: ABSENT: carotid bruit, JVD, lymphadenopathy, thyromegaly Respiratory exam: PRESENT: clear to auscultation pam. ABSENT: rales, rhonchi, wheezes Cardiovascular exam: PRESENT: RRR. ABSENT: diastolic murmur, rubs, systolic murmur GI/Abdominal exam: PRESENT: normal bowel sounds, soft. ABSENT: distended, guarding, mass, organolmegaly, rebound, tenderness Rectal exam: PRESENT: deferred Extremities exam: PRESENT: other - 1+ pedal edema present in the right lower extremity, left BKA present. Stump is not infected. Neurological exam: PRESENT: alert, awake, oriented to person, oriented to place, oriented to time, oriented to situation, CN II-XII grossly intact. ABSENT: motor sensory deficit Psychiatric exam: PRESENT: appropriate affect, normal mood. ABSENT: homicidal ideation, suicidal ideation Results Laboratory Results: 07/22/20 04:58 07/21/20 23:17 07/21/20 07/21/20 07/21/20 18:28 18:28 18:28 WBC 10.8 H RBC 4.67 Hgb 11.6 L Hct 34.4 L MCV 74 L MCH 24.8 L MCHC 33.7 RDW 22.0 H Plt Count 166 Seg Neutrophils % 71.2 Sodium 139.5 Potassium 3.9 Chloride 102 Carbon Dioxide 29 Anion Gap 9 BUN 42 H Creatinine 1.52 H Est GFR ( Amer) 56 L Glucose 167 H Lactic Acid Calcium 9.3 Total Bilirubin 0.4 AST 26 Alkaline Phosphatase 108 Total Protein 7.8 Albumin 4.0 Urine Color YELLOW Urine Appearance CLOUDY Urine pH 5.0 Ur Specific [place] 1.009 Urine Protein NEGATIVE Urine Glucose (UA) NEGATIVE Urine Ketones NEGATIVE Urine Blood NEGATIVE Urine Nitrite NEGATIVE Ur Leukocyte Esterase LARGE H Urine WBC (Auto) 154 Urine RBC (Auto) 7 07/21/20 07/21/20 07/22/20 21:27 23:17 04:58 WBC 7.8 RBC 4.35 Hgb 10.6 L Hct 32.2 L MCV 74 L MCH 24.4 L MCHC 32.9 RDW 22.0 H Plt Count 143 L Seg Neutrophils % 65.0 Sodium 137.9 Potassium 3.8 Chloride 100 Carbon Dioxide 29 Anion Gap 9 BUN 40 H Creatinine 1.45 H Est GFR ( Amer) 59 L Glucose 103 Lactic Acid 1.1 Calcium 9.3 Total Bilirubin AST Alkaline Phosphatase Total Protein Albumin Urine Color Urine Appearance Urine pH Ur Specific [place] Urine Protein Urine Glucose (UA) Urine Ketones Urine Blood Urine Nitrite Ur Leukocyte Esterase Urine WBC (Auto) Urine RBC (Auto) 07/21/20 07/21/20 18:28 18:28 Creatine Kinase 91 Troponin I < 0.012 Impressions: Chest X-Ray 07/21/20 17:57 IMPRESSION: Question right paratracheal mass. No acute parenchymal opacities. Hip/Pelvis X-Ray 07/21/20 17:57 IMPRESSION: NEGATIVE STUDY OF THE RIGHT HIP. NO RADIOGRAPHIC EVIDENCE OF ACUTE INJURY. Venous Doppler Study 07/21/20 17:58 IMPRESSION: NO EVIDENCE DVT OR SVT IN THE RIGHT LEG. Assessment and Plan - Diagnosis (1) Cellulitis of right lower extremity Is this a current diagnosis for this admission?: Yes Plan: Patient has hyperemic, swollen right lower extremity Has leukocytosis 10.8k Has no other signs of systemic toxicity Started on vancomycin Will consider wound care consult Follow-up with blood culture 07/22/2020-on examination erythema swelling, few blisters present on the right lower extremity. WBC improved to 7800. Presently on levofloxacillin and vancomycin. Blood cultures are pending at this time. (2) UTI (urinary tract infection) Qualifiers: Urinary tract infection type: site unspecified Hematuria presence: without hematuria Qualified Code(s): N39.0 - Urinary tract infection, site not specified Is this a current diagnosis for this admission?: Yes Plan: Patient reports increased frequency of urination UA significant for large leukocyte esterase, WBC of 154/HPF Patient received a dose of Rocephin at the ER Placed him on Levaquin 750 mg p.o. daily Follow-up with urine culture 07/22/20-patient admitted with urinary symptoms on the urinalysis indicates leukocyte esterase positive. Presently on levofloxacin and vancomycin. Urine cultures are pending at this time. (3) Frequent falls Is this a current diagnosis for this admission?: Yes Plan: Patient has left BKA Has been in and out of rehab 3 times in the past 5 months Denies any dizziness, lightheadedness, or passing out Has a scheduled home health 3 times per week but patient requires more care Patient may need short-term rehab to regain his strength and learn balance Consider physical therapy while inpatient Fall precaution while inpatient 07/22/2020-patient admitted with recurrent falls. Physical therapy is working with the patient. Patient is not interested to go to rehab facility at this time. (4) History of left below knee amputation Is this a current diagnosis for this admission?: Yes Plan: Well-healed and no visible wound near the amputation area Physical therapy and education on appropriate use of prosthesis (5) Physical deconditioning Is this a current diagnosis for this admission?: Yes Plan: Patient has been having frequent falls and unable to do daily routines Physical therapy while inpatient (6) CHF (congestive heart failure) Qualifiers: Heart failure type: systolic Heart failure chronicity: acute on chronic Qualified Code(s): I50.23 - Acute on chronic systolic (congestive) heart failure Is this a current diagnosis for this admission?: Yes Plan: Currently appears euvolemic Patient was given IV Lasix ER Held tonight dose of Lasix, lisinopril/HCTZ due to soft blood pressure Continue carvedilol, and will consider restarting diuretic and antihypertensives in the morning 07/22/20-patient has history of congestive heart failure. Receiving Lasix at home. To continue Lasix at this time. Echocardiogram will be requested. - Time Anticipated [facility]charge [facility]position[facility] Anticipated Discharge Timeframe: within 72 hours
[2020-07-22] MEDS: OXYCODONE HCL IR 5 MG TABLET PO PRN (12:14)
[2020-07-22] MEDS: OXYCODONE-ACETAMINOPHEN 5-325 MG TABLET PO PRN (12:14)
[2020-07-22] MEDS ORDERED: MAG HYDROX/AL HYDROX/SIMETH SUSP 30 ML UDCUP PO PRN (12:56)
[2020-07-22] MEDS ORDERED: SIMETHICONE 80 MG TAB.CHEW PO ONE (13:30)
--- NOTE | 2020-07-22 16:11 | EKG REPORT ---
SEVERITY:- ABNORMAL ECG - SINUS RHYTHM PROLONGED QT INTERVAL : Confirmed by: Buster Cordova MD 22-Jul-2020 16:10:32
[2020-07-22] MEDS ORDERED: PREGABALIN PO SCH (18:00)
[2020-07-22] MEDS ORDERED: SIMETHICONE 80 MG TAB.CHEW PO PRN (18:01)
[2020-07-22] MEDS: TRAZODONE HCL 50 MG TABLET PO SCH (21:17)
[2020-07-22] MEDS: ATORVASTATIN CALCIUM 40 MG TABLET PO SCH (21:17)
[2020-07-22] MEDS ORDERED: ATORVASTATIN CALCIUM 40 MG TABLET PO SCH (22:00)
[2020-07-22] MEDS ORDERED: (PENDING PHARMACY ID) (Rosuvastatin Calcium [Rosuvastatin Calcium] 20 MG) PO SCH (22:00)
[2020-07-22] MEDS: PREGABALIN 75 MG CAPSULE PO SCH (22:11)
[2020-07-23] MEDS: OXYCODONE HCL IR 5 MG TABLET PO PRN ×2 (00:45→13:00)
[2020-07-23] MEDS: OXYCODONE-ACETAMINOPHEN 5-325 MG TABLET PO PRN ×2 (00:46→13:00)
[2020-07-23] MEDS: PREGABALIN 75 MG CAPSULE PO SCH ×3 (05:31→21:13)
[2020-07-23 06:14] LABS: ABSOLUTE BASOPHILS # (AUTO) 0.1 10^3/uL (0.0-0.2); ABSOLUTE EOSINOPHILS # (AUTO) 0.2 10^3/uL (0.0-0.6); ABSOLUTE LYMPHOCYTES (AUTO) 1.3 10^3/uL (0.5-4.7); ABSOLUTE MONOCYTES (AUTO) 0.9 10^3/uL (0.1-1.4); ABSOLUTE NEUT (AUTO) 5.1 10^3/uL (1.7-8.2); BASOPHILS % (AUTO) 0.8 % (0-2); EOSINOPHILS % (AUTO) 2.3 % (0-6); HEMATOCRIT 33.5 % (37.9-51.0); HEMOGLOBIN 11.3 g/dL (13.5-17.0); LYMPHOCYTES % (AUTO) 17.3 % (13-45); MEAN CORPUSCULAR HEMOGLOBIN 24.4 pg (27.0-33.4); MEAN CORPUSCULAR HGB CONC 33.6 g/dL (32.0-36.0); MEAN CORPUSCULAR VOLUME 73 fl (80-97); MONOCYTES % (AUTO) 11.6 % (3-13); PLATELET COUNT 146 10^3/uL (150-450); RED BLOOD COUNT 4.62 10^6/uL (4.35-5.55); RED CELL DISTRIBUTION WIDTH 21.8 % (11.5-14.0); TOTAL CELLS COUNTED % (AUTO) 100 %; WHITE BLOOD COUNT 7.6 10^3/uL (4.0-10.5)
[2020-07-23 06:34] LABS: ALBUMIN 3.8 g/dL (3.5-5.0); ALKALINE PHOSPHATASE 112 U/L (38-126); ANION GAP 9 (5-19); ASPARTATE AMINO TRANSFERASE 30 U/L (17-59); BILIRUBIN,DIRECT 0.3 mg/dL (0.0-0.4); BILIRUBIN,TOTAL 0.4 mg/dL (0.2-1.3); BLOOD UREA NITROGEN 28 mg/dL (7-20); CALCIUM 9.8 mg/dL (8.4-10.2); CARBON DIOXIDE 27 mmol/L (22-30); CHLORIDE 106 mmol/L (98-107); GLUCOSE 117 mg/dL (75-110); POTASSIUM 3.9 mmol/L (3.6-5.0); TOTAL PROTEIN 7.6 g/dL (6.3-8.2)
--- NOTE | 2020-07-23 07:23 | XCELERA REPORT ---
[address] [address] Transthoracic Echocardiogram Report Name: BRITANY GERMAIN Age: 65 yrs Gender: Male : 1955 Patient Status: Inpatient Patient Location: [address] [place] [address] Study Date: 07/22/2020 03:22 PM Height: 70 in Weight: 313 lb BSA: 2.5 m2 Procedure: A complete two-dimensional transthoracic echocardiogram was performed (2D, M-mode, spectral and color flow Doppler). The study was technically difficult with many images being suboptimal in quality. Images from the parasternal window were difficult to obtain and are suboptimal in quality. The apical views were difficult to obtain and are suboptimal in quality. Reason For Study: chf Previous Evaluation: No previous studies were available. Ordering Physician: BELINDA LINDQUIST Performed By: Sean Le Interpretation Summary The left ventricle is grossly normal size. Left ventricular systolic function is normal. The Ejection Fraction estimate is 60-65%. Doppler measurements suggest pseudonormalized left ventricular relaxation, which is associated with grade II/IV or mild to moderate diastolic dysfunction. The left ventricular wall motion is normal. Valvular structures were not well visualized. Trace to mild MR, trace TR. Mild aortic stenosis with a peak velocity of 2.7 m/s and mean gradient of 14 mmHg. Mildly elevated pulmonary pressures estimated between 43 and 48 mmHg. IVC mildly dilated with >50% collapse with respiratory cycle. Small, hemodynamically insignificant anteroapical pericardial effusion. No prior studies for comparison. MMode/2D Measurements & Calculations RVDd: 3.0 cm LVIDd: 5.6 cm FS: 37.0 % Ao root diam: 3.1 cm IVSd: 1.3 cm LVIDs: 3.5 cm EDV(Teich): 151.7 ml Ao root area: 7.6 cm2 LVPWd: 1.3 cm ESV(Teich): 51.2 ml LA dimension: 3.8 cm EF(Teich): 66.3 % Doppler Measurements & Calculations MV E max allen: MV P1/2t max allen: Ao V2 max: LV V1 max P.2 cm/sec 129.8 cm/sec 267.1 cm/sec 14.5 mmHg MV A max allen: MV P1/2t: 85.2 msec Ao max PG: LV V1 mean P.5 cm/sec MVA(P1/2t): 2.6 cm2 28.5 mmHg 8.0 mmHg MV E/A: 1.2 MV dec slope: Ao V2 mean: LV V1 max: 171.2 cm/sec 190.6 cm/sec 446.3 cm/sec2 Ao mean PG: LV V1 mean: MV dec time: 0.26 sec 14.0 mmHg 129.0 cm/sec Ao V2 VTI: 56.7 cm LV V1 VTI: 42.6 cm PA V2 max: TR max allen: MV P1/2t-pr_phl: 115.5 cm/sec 308.1 cm/sec 85.2 msec PA max P.3 mmHgTR max P.0 mmHg Left Ventricle The left ventricle is grossly normal size. Left ventricular systolic function is normal. The Ejection Fraction estimate is 60-65%. Doppler measurements suggest pseudonormalized left ventricular relaxation, which is associated with grade II/IV or mild to moderate diastolic dysfunction. The left ventricular wall motion is normal. Right Ventricle The right ventricle is normal in size, thickness and function. The right ventricular systolic function is normal. Atria The right atrium is normal. The left atrial size is normal. The interatrial septum is difficult to see, but appears to be grossly normal. Mitral Valve The mitral valve is not well visualized. There is no evidence of mitral valve prolapse. There is no mitral valve stenosis. There is a trace to mild amount of mitral regurgitation. Aortic Valve The aortic valve is not well visualized secondary to technical limitations. The aortic valve is mildly calcified. There is no aortic valvular vegetation. Mild aortic stenosis with a peak velocity of 2.7 m/s and mean gradient of 14 mmHg. No aortic regurgitation is present. Tricuspid Valve The tricuspid valve is not well visualized, but is grossly normal. The tricuspid valve is not well visualized secondary to technical limitations. There is no tricuspid valve prolapse. There is no tricuspid stenosis. There is a trace or physiologic amount of tricuspid regurgitation. Mildly elevated pulmonary pressures estimated between 43 and 48 mmHg. Pulmonic Valve The pulmonic valve is not well visualized. There is no vegetation on the pulmonic valve. There is no pulmonic valvular stenosis. There is no pulmonic valvular regurgitation. Great Vessels The aortic root is normal size. IVC mildly dilated with >50% collapse with respiratory cycle. Effusions Small, hemodynamically insignificant anteroapical pericardial effusion. There is no pleural effusion. : BELINDA LINDQUIST Antonio
[2020-07-23] MEDS: DULOXETINE HCL 30 MG CAPSULE.DR PO SCH (09:19)
[2020-07-23] MEDS: LISINOPRIL 10 MG TABLET PO SCH (09:19)
[2020-07-23] MEDS: FUROSEMIDE 40 MG TABLET PO SCH (09:19)
[2020-07-23] MEDS: COLCHICINE 0.6 MG TABLET PO SCH (09:20)
[2020-07-23] MEDS: ENOXAPARIN SODIUM INJ 30 MG/0.3 ML DISP.SYRIN SUBCUT SCH (09:20)
[2020-07-23] MEDS: ALLOPURINOL 300 MG TABLET PO SCH (09:20)
[2020-07-23] MEDS: LEVOFLOXACIN 750 MG TABLET PO SCH (09:20)
[2020-07-23] MEDS: HYDROCHLOROTHIAZIDE 25 MG TABLET PO SCH (09:20)
[2020-07-23] MEDS: CARVEDILOL 6.25 MG TABLET PO SCH ×2 (09:20→21:13)
[2020-07-23] MEDS ORDERED: (PENDING PHARMACY ID) (Lisinopril/Hydrochlorothiazide [Lisinopril-Hctz 20-12.5 Mg Tab] 2 T PO SCH (10:00)
--- NOTE | 2020-07-23 13:12 | PDOC PROGRESS REPORT ---
Subjective Progress Note for:: 07/23/20 Subjective:: 65 year old male with a history of hypertension, hyperlipidemia, obesity and heart failure who presents to ER complaining of generalized weakness and frequent falls. Patient had left below-knee amputation in November of this year after he had an infected ankle fracture with prosthesis. Following the amputation he states that he had balance issues and has been falling frequently. He has been in and out of rehab in the past few months since having the procedure but he states that he has not been able to gain his strength and balance. The past few weeks he has been having left shoulder and right hip pain. He also reports increased frequency of urination but denies any dysuria, urgency, fever, chills or suprapubic pain. He also has been having a right lower extremity swelling, redness and discomfort for the past few weeks. Patient also reports that he has decreased appetite. He currently lives on the second floor of two-story apartment and has been having difficulty of doing his daily routine. Patient denies any dizziness, lightheadedness, loss of c onsciousness, head injury. 07/22/2020-no acute events in the last 24 hours. Still complains of a lot of pain. Physical therapy is in the room try to work with him. Fusing to go to rehab if needed. Urine shows large leukocyte esterase receiving antibiotics. WBC count is normalized. Afebrile. 07/23/2020-no acute events in the last 24 hours. Afebrile. Blood cultures still pending. WBC count within normal limits. No complaints from the patient. Physical therapy is working with the patient. Reason For Visit: CELLULITIS,ACUTE KIDNEY INJURY,FREQUENT FALLS Physical Exam Vital Signs: Temp Pulse Resp BP Pulse Ox 97.7 F 58 L 16 167/58 H 94 07/23/20 10:00 07/23/20 07:44 07/23/20 07:44 07/23/20 07:44 07/23/20 07:44 Intake & Output 07/22/20 07/23/20 07/24/20 06:59 06:59 06:59 Intake Total 675 1825 Output Total 1050 3450 Balance -375 -1625 Weight 142.4 kg 137.8 kg General appearance: PRESENT: no acute distress, obese Head exam: PRESENT: atraumatic Eye exam: PRESENT: PERRLA Mouth exam: PRESENT: moist, tongue midline Neck exam: ABSENT: carotid bruit, JVD, lymphadenopathy, thyromegaly Respiratory exam: PRESENT: decreased breath sounds Cardiovascular exam: PRESENT: RRR. ABSENT: diastolic murmur, rubs, systolic murmur Pulses: PRESENT: normal dorsalis pedis pul GI/Abdominal exam: PRESENT: normal bowel sounds, soft. ABSENT: distended, guarding, mass, organolmegaly, rebound, tenderness Rectal exam: PRESENT: deferred Extremities exam: PRESENT: other Neurological exam: PRESENT: alert, awake, oriented to person, oriented to place, oriented to time, oriented to situation, CN II-XII grossly intact, other - Has a right BKA. ABSENT: motor sensory deficit Skin exam: PRESENT: dry, intact, warm. ABSENT: cyanosis, rash Results Laboratory Results: 07/23/20 05:27 07/23/20 05:27 07/23/20 07/23/20 05:27 05:27 WBC 7.6 RBC 4.62 Hgb 11.3 L Hct 33.5 L MCV 73 L MCH 24.4 L MCHC 33.6 RDW 21.8 H Plt Count 146 L Seg Neutrophils % 68.0 Sodium 141.8 Potassium 3.9 Chloride 106 Carbon Dioxide 27 Anion Gap 9 BUN 28 H Creatinine 1.06 Est GFR ( Amer) > 60 Glucose 117 H Calcium 9.8 Magnesium 1.7 Total Bilirubin 0.4 AST 30 Alkaline Phosphatase 112 Total Protein 7.6 Albumin 3.8 07/21/20 07/21/20 18:28 18:28 Creatine Kinase 91 Troponin I < 0.012 Impressions: Chest X-Ray 07/21/20 17:57 IMPRESSION: Question right paratracheal mass. No acute parenchymal opacities. Hip/Pelvis X-Ray 07/21/20 17:57 IMPRESSION: NEGATIVE STUDY OF THE RIGHT HIP. NO RADIOGRAPHIC EVIDENCE OF ACUTE INJURY. Venous Doppler Study 07/21/20 17:58 IMPRESSION: NO EVIDENCE DVT OR SVT IN THE RIGHT LEG. Assessment and Plan - Diagnosis (1) Cellulitis of right lower extremity Is this a current diagnosis for this admission?: Yes Plan: Patient has hyperemic, swollen right lower extremity Has leukocytosis 10.8k Has no other signs of systemic toxicity Started on vancomycin Will consider wound care consult Follow-up with blood culture 07/22/2020-on examination erythema swelling, few blisters present on the right lower extremity. WBC improved to 7800. Presently on levofloxacillin and vancomycin. Blood cultures are pending at this time. 07/23/2020-patient admitted with right upper extremity cellulitis blood cultures are negative urine cultures are negative. WBC count normal. Blood pressure stable. Plan is to continue IV antibiotics today probable discharge home tomorrow with p.o. antibiotic therapy. (2) UTI (urinary tract infection) Qualifiers: Urinary tract infection type: site unspecified Hematuria presence: without hematuria Qualified Code(s): N39.0 - Urinary tract infection, site not specified Is this a current diagnosis for this admission?: Yes Plan: Patient reports increased frequency of urination UA significant for large leukocyte esterase, WBC of 154/HPF Patient received a dose of Rocephin at the ER Placed him on Levaquin 750 mg p.o. daily Follow-up with urine culture 07/22/20-patient admitted with urinary symptoms on the urinalysis indicates leukocyte esterase positive. Presently on levofloxacin and vancomycin. Urine cultures are pending at this time. 07/23/2020-came in with abnormal urine. On levofloxacin, vancomycin. Urine cultures are negative so far. (3) Frequent falls Is this a current diagnosis for this admission?: Yes Plan: Patient has left BKA Has been in and out of rehab 3 times in the past 5 months Denies any dizziness, lightheadedness, or passing out Has a scheduled home health 3 times per week but patient requires more care Patient may need short-term rehab to regain his strength and learn balance Consider physical therapy while inpatient Fall precaution while inpatient 07/22/2020-patient admitted with recurrent falls. Physical therapy is working with the patient. Patient is not interested to go to rehab facility at this time. (4) History of left below knee amputation Is this a current diagnosis for this admission?: Yes Plan: Well-healed and no visible wound near the amputation area Physical therapy and education on appropriate use of prosthesis 07/23/2020-patient has a left BKA and physical therapy is working with the patient. (5) Physical deconditioning Is this a current diagnosis for this admission?: Yes Plan: Patient has been having frequent falls and unable to do daily routines Physical therapy while inpatient (6) CHF (congestive heart failure) Qualifiers: Heart failure type: systolic Heart failure chronicity: acute on chronic Qualified Code(s): I50.23 - Acute on chronic systolic (congestive) heart failure Is this a current diagnosis for this admission?: Yes Plan: Currently appears euvolemic Patient was given IV Lasix ER Held tonight dose of Lasix, lisinopril/HCTZ due to soft blood pressure Continue carvedilol, and will consider restarting diuretic and antihypertensives in the morning 07/22/20-patient has history of congestive heart failure. Receiving Lasix at home. To continue Lasix at this time. Echocardiogram will be requested. 07/23/2020-echocardiogram shows EF of 60%. Patient has grade 2/4 diastolic dysfunction. To watch for the fluid overload. (7) Obesity Is this a current diagnosis for this admission?: No Plan: 07/23/2020-patient BMI is more than 43. Diet exercise weight loss lifestyle modifications discussed with the patient. - Time Anticipated Discharge Disposition: Home, Self Care Anticipated Discharge Timeframe: within 48 hours
[2020-07-23] MEDS: ATORVASTATIN CALCIUM 40 MG TABLET PO SCH (21:13)
[2020-07-23] MEDS: TRAZODONE HCL 50 MG TABLET PO SCH (21:13)
[2020-07-24] MEDS: OXYCODONE HCL IR 5 MG TABLET PO PRN ×2 (01:33→13:33)
[2020-07-24] MEDS: OXYCODONE-ACETAMINOPHEN 5-325 MG TABLET PO PRN ×2 (01:34→13:34)
[2020-07-24] MEDS: PREGABALIN 75 MG CAPSULE PO SCH ×2 (05:26→13:31)
[2020-07-24 07:16] LABS: ALKALINE PHOSPHATASE 107 U/L (38-126); ANION GAP 10 (5-19); ASPARTATE AMINO TRANSFERASE 30 U/L (17-59); BILIRUBIN,DIRECT 0.3 mg/dL (0.0-0.4); BILIRUBIN,TOTAL 0.5 mg/dL (0.2-1.3); BLOOD UREA NITROGEN 32 mg/dL (7-20); CALCIUM 9.9 mg/dL (8.4-10.2); CARBON DIOXIDE 28 mmol/L (22-30); CHLORIDE 102 mmol/L (98-107); GLUCOSE 115 mg/dL (75-110); POTASSIUM 3.4 mmol/L (3.6-5.0); TOTAL PROTEIN 7.8 g/dL (6.3-8.2)
[2020-07-24 07:23] LABS: ABSOLUTE EOSINOPHILS # (AUTO) 0.2 10^3/uL (0.0-0.6); ABSOLUTE LYMPHOCYTES (AUTO) 1.5 10^3/uL (0.5-4.7); ABSOLUTE MONOCYTES (AUTO) 0.9 10^3/uL (0.1-1.4); ABSOLUTE NEUT (AUTO) 4.5 10^3/uL (1.7-8.2); BASOPHILS % (AUTO) 0.7 % (0-2); EOSINOPHILS % (AUTO) 2.9 % (0-6); HEMATOCRIT 33.6 % (37.9-51.0); HEMOGLOBIN 11.6 g/dL (13.5-17.0); LYMPHOCYTES % (AUTO) 21.4 % (13-45); MEAN CORPUSCULAR HEMOGLOBIN 24.8 pg (27.0-33.4); MEAN CORPUSCULAR HGB CONC 34.4 g/dL (32.0-36.0); MEAN CORPUSCULAR VOLUME 72 fl (80-97); MONOCYTES % (AUTO) 12.1 % (3-13); PLATELET COUNT 143 10^3/uL (150-450); RED BLOOD COUNT 4.66 10^6/uL (4.35-5.55); RED CELL DISTRIBUTION WIDTH 21.8 % (11.5-14.0); SEGMENTED NEUTROPHILS % (AUTO) 62.9 % (42-78); TOTAL CELLS COUNTED % (AUTO) 100 %; WHITE BLOOD COUNT 7.2 10^3/uL (4.0-10.5)
[2020-07-24] MEDS ORDERED: POTASSIUM CHLORIDE 10 MEQ TABLET.ER PO ONE (07:41)
[2020-07-24] MEDS ORDERED: MAGNESIUM OXIDE 400 MG TABLET PO ONE (07:42)
[2020-07-24] MEDS: CARVEDILOL 6.25 MG TABLET PO SCH (09:04)
[2020-07-24] MEDS: LISINOPRIL 10 MG TABLET PO SCH (09:05)
[2020-07-24] MEDS: DULOXETINE HCL 30 MG CAPSULE.DR PO SCH (09:05)
[2020-07-24] MEDS: HYDROCHLOROTHIAZIDE 25 MG TABLET PO SCH (09:06)
[2020-07-24] MEDS: FUROSEMIDE 40 MG TABLET PO SCH (09:06)
[2020-07-24] MEDS: ENOXAPARIN SODIUM INJ 30 MG/0.3 ML DISP.SYRIN SUBCUT SCH (09:10)
[2020-07-24] MEDS: LEVOFLOXACIN 750 MG TABLET PO SCH (09:10)
[2020-07-24] MEDS: ALLOPURINOL 300 MG TABLET PO SCH (09:10)
[2020-07-24] MEDS: COLCHICINE 0.6 MG TABLET PO SCH (09:10)
--- NOTE | 2020-07-24 09:47 | PDOC DISCHARGE SUMMARY ---
Impression - Admit/DC Date/PCP Admission Date/Primary Care Provider: 07/21/20 22:08 GUILLERMO MO MD Discharge Date: 07/24/20 - Discharge Diagnosis (1) Cellulitis of right lower extremity Is this a current diagnosis for this admission?: Yes (2) UTI (urinary tract infection) Is this a current diagnosis for this admission?: Yes (3) Frequent falls Is this a current diagnosis for this admission?: Yes (4) History of left below knee amputation Is this a current diagnosis for this admission?: Yes (5) Physical deconditioning Is this a current diagnosis for this admission?: Yes (6) CHF (congestive heart failure) Is this a current diagnosis for this admission?: Yes (7) Obesity Is this a current diagnosis for this admission?: No - Assessment Summary: (1) Cellulitis of right lower extremity Is this a current diagnosis for this admission?: Yes Plan: Patient has hyperemic, swollen right lower extremity Has leukocytosis 10.8k Has no other signs of systemic toxicity Started on vancomycin Will consider wound care consult Follow-up with blood culture 07/22/2020-on examination erythema swelling, few blisters present on the right lower extremity. WBC improved to 7800. Presently on levofloxacillin and vancomycin. Blood cultures are pending at this time. 07/23/2020-patient admitted with right upper extremity cellulitis blood cultures are negative urine cultures are negative. WBC count normal. Blood pressure stable. Plan is to continue IV antibiotics today probable discharge home tomorrow with p.o. antibiotic therapy. 07/24/2020-blood cultures are negative. Afebrile. WBC count within normal limits. Going home on livofloxacillin for 5 days. (2) UTI (urinary tract infection) Qualifiers: Urinary tract infection type: site unspecified Hematuria presence: without hematuria Qualified Code(s): N39.0 - Urinary tract infection, site not specified Is this a current diagnosis for this admission?: Yes Plan: Patient reports increased frequency of urination UA significant for large leukocyte esterase, WBC of 154/HPF Patient received a dose of Rocephin at the ER Placed him on Levaquin 750 mg p.o. daily Follow-up with urine culture 07/22/20-patient admitted with urinary symptoms on the urinalysis indicates leukocyte esterase positive. Presently on levofloxacin and vancomycin. Urine cultures are pending at this time. 07/23/2020-came in with abnormal urine. On levofloxacin, vancomycin. Urine cultures are negative so far. 07/24/2020-came in with abdominal urinalysis. Urine culture is negative so far. Afebrile. During the hospital stay received levofloxacin and vancomycin. Plan is to discharge him home on p.o. levofloxacin for 5 days. Patient is advised to follow-up with PCP next week. (3) Frequent falls Is this a current diagnosis for this admission?: Yes Plan: Patient has left BKA Has been in and out of rehab 3 times in the past 5 months Denies any dizziness, lightheadedness, or passing out Has a scheduled home health 3 times per week but patient requires more care Patient may need short-term rehab to regain his strength and learn balance Consider physical therapy while inpatient Fall precaution while inpatient 07/22/2020-patient admitted with recurrent falls. Physical therapy is working with the patient. Patient is not interested to go to rehab facility at this time. 07/24/2020 physical therapy done during the hospital stay. Recommendation is home health versus SNF. Patient prefers to go home with home health. (4) History of left below knee amputation Is this a current diagnosis for this admission?: Yes Plan: Well-healed and no visible wound near the amputation area Physical therapy and education on appropriate use of prosthesis 07/23/2020-patient has a left BKA and [facility] (5) Physical deconditioning Is this a current diagnosis for this admission?: Yes Plan: Patient has been having frequent falls and unable to do daily routines Physical therapy while inpatient 07/24/2020-patient is going home with home health. (6) CHF (congestive heart failure) Qualifiers: Heart failure type: systolic Heart failure chronicity: acute on chronic Qualified Code(s): I50.23 - Acute on chronic systolic (congestive) heart failure Is this a current diagnosis for this admission?: Yes Plan: Currently appears euvolemic Patient was given IV Lasix ER Held tonight dose of Lasix, lisinopril/HCTZ due to soft blood pressure Continue carvedilol, and will consider restarting diuretic and antihypertensives in the morning 07/22/20-patient has history of congestive heart failure. Receiving Lasix at home. To continue Lasix at this time. Echocardiogram will be requested. 07/23/2020-echocardiogram shows EF of 60%. Patient has grade 2/4 diastolic dysfunction. To watch for the fluid overload. (7) Obesity Is this a current diagnosis for this admission?: No Plan: 07/23/2020-patient BMI is more than 43. Diet exercise weight loss lifestyle modifications discussed with the patient. - Additional Information Resuscitation Status: Do Not Resuscitate Discharge Diet: Cardiac, Diabetic Discharge Activity: Activity As Tolerated, Balance Activity w/Rest Referrals: GUILLERMO MO MD [Primary Care Provider] - Prescriptions: Levofloxacin [Levaquin 750 mg Tablet] 750 mg PO DAILY 5 Days #5 tablet Home Medications: Allopurinol [Zyloprim 300 mg Tablet] 300 mg PO DAILY 01/15/20 Carvedilol [Coreg 6.25 mg Tablet] 6.25 mg PO Q12 01/15/20 Colchicine [Colcrys 0.6 mg Tablet] 0.6 mg PO DAILY 01/15/20 Duloxetine HCl 60 mg PO DAILY 01/15/20 Furosemide [Lasix 40 mg Tablet] 40 mg PO DAILY 01/15/20 Rosuvastatin Calcium 20 mg PO QHS 01/15/20 Trazodone HCl 150 mg PO QHS 01/15/20 Oxycodone HCl/Acetaminophen [Oxycodone-Acetaminophen 10-325] 1 each PO Q12HP PRN #20 05/18/20 Oxycodone Myristate [Xtampza ER] 18 mg PO Q12 #14 05/18/20 Oxycodone HCl [Oxy-Ir 5 mg Tablet] 5 mg PO Q4HP PRN 07/22/20 Pregabalin [Lyrica Cr] 660 mg PO QPM 07/22/20 Atorvastatin Calcium [Lipitor 40 mg Tablet] 40 mg PO QHS tablet 07/24/20 Carvedilol [Coreg 6.25 mg Tablet] 6.25 mg PO Q12 tablet 07/24/20 Duloxetine HCl [Cymbalta 30 mg Capsule.] 30 mg PO DAILY capsule. 07/24/20 Levofloxacin [Levaquin 750 mg Tablet] 750 mg PO DAILY 5 Days #5 tablet 07/24/20 History of Present Illiness History of Present Illness: BRITANY Shane GERMAIN is a 65 year old male 65 year old male with a history of hypertension, hyperlipidemia, obesity and heart failure who presents to ER complaining of generalized weakness and frequent falls. Patient had left below-knee amputation in November of this year after he had an infected ankle fracture with prosthesis. Following the amputation he states that he had balance issues and has been falling frequently. He has been in and out of rehab in the past few months since having the procedure but he states that he has not been able to gain his strength and balance. The past few weeks he has been having left shoulder and right hip pain. He also reports increased frequency of urination but denies any dysuria, urgency, fever, chills or suprapubic pain. He also has been having a right lower extremity swelling, redness and discomfort for the past few weeks. Patient also reports that he has decreased appetite. He currently lives on the second floor of two-story apartment and has been having difficulty of doing his daily routine. Patient denies any dizziness, lightheadedness, loss of consciousness, head injury. Physical Exam Vital Signs: Temp Pulse Resp BP Pulse Ox 97.9 F 62 19 139/61 H 95 07/24/20 08:47 07/24/20 09:08 07/24/20 08:00 07/24/20 08:00 07/24/20 08:00 Intake & Output 07/23/20 07/24/20 07/25/20 06:59 06:59 06:59 Intake Total 1825 1156 Output Total 3450 3175 Balance -1624 Weight 137.8 kg 135.7 kg General appearance: PRESENT: no acute distress, cooperative, morbidly obese Head exam: PRESENT: atraumatic Eye exam: PRESENT: PERRLA Ear exam: PRESENT: normal external ear exam Neck exam: ABSENT: carotid bruit, JVD, lymphadenopathy, thyromegaly Respiratory exam: PRESENT: clear to auscultation pam. ABSENT: rales, rhonchi, wheezes Cardiovascular exam: PRESENT: RRR. ABSENT: diastolic murmur, rubs, systolic murmur GI/Abdominal exam: PRESENT: normal bowel sounds, soft. ABSENT: distended, guarding, mass, organolmegaly, rebound, tenderness Rectal exam: PRESENT: deferred Extremities exam: PRESENT: other - Has a left BKA right lower extremity edema improving Neurological exam: PRESENT: alert, awake, oriented to person, oriented to place, oriented to time, oriented to situation, CN II-XII grossly intact. ABSENT: motor sensory deficit Psychiatric exam: PRESENT: appropriate affect, normal mood. ABSENT: homicidal ideation, suicidal ideation Results Laboratory Results: WBC 7.2 10^3/uL (4.0-10.5) 07/24/20 05:57 RBC 4.66 10^6/uL (4.35-5.55) 07/24/20 05:57 Hgb 11.6 g/dL (13.5-17.0) L 07/24/20 05:57 Hct 33.6 % (37.9-51.0) L 07/24/20 05:57 MCV 72 fl (80-97) L 07/24/20 05:57 MCH 24.8 pg (27.0-33.4) L 07/24/20 05:57 MCHC 34.4 g/dL (32.0-36.0) 07/24/20 05:57 RDW 21.8 % (11.5-14.0) H 07/24/20 05:57 Plt Count 143 10^3/uL (150-450) L 07/24/20 05:57 Lymph % (Auto) 21.4 % (13-45) 07/24/20 05:57 [place] % (Auto) 12.1 % (3-13) 07/24/20 05:57 Eos % (Auto) 2.9 % (0-6) 07/24/20 05:57 Baso % (Auto) 0.7 % (0-2) 07/24/20 05:57 Absolute Neuts (auto) 4.5 10^3/uL (1.7-8.2) 07/24/20 05:57 Absolute Lymphs (auto) 1.5 10^3/uL (0.5-4.7) 07/24/20 05:57 Absolute Monos (auto) 0.9 10^3/uL (0.1-1.4) 07/24/20 05:57 Absolute Eos (auto) 0.2 10^3/uL (0.0-0.6) 07/24/20 05:57 Absolute Basos (auto) 0.0 10^3/uL (0.0-0.2) 07/24/20 05:57 Seg Neutrophils % 62.9 % (42-78) 07/24/20 05:57 Sodium 139.6 mmol/L (137-145) 07/24/20 05:57 Potassium 3.4 mmol/L (3.6-5.0) L 07/24/20 05:57 Chloride 102 mmol/L (98-107) 07/24/20 05:57 Carbon Dioxide 28 mmol/L (22-30) 07/24/20 05:57 Anion Gap 10 (5-19) 07/24/20 05:57 BUN 32 mg/dL (7-20) H 07/24/20 05:57 Creatinine 1.22 mg/dL (0.52-1.25) 07/24/20 05:57 Est GFR ( Amer) > 60 (>60) 07/24/20 05:57 Est GFR (MDRD) Non-Af > 60 (>60) 07/24/20 05:57 Glucose 115 mg/dL (75-110) H 07/24/20 05:57 Lactic Acid 1.1 mmol/L (0.7-2.1) 07/21/20 21:27 Calcium 9.9 mg/dL (8.4-10.2) 07/24/20 05:57 Magnesium 1.7 mg/dL (1.6-2.3) 07/24/20 05:57 Total Bilirubin 0.5 mg/dL (0.2-1.3) 07/24/20 05:57 Direct Bilirubin 0.3 mg/dL (0.0-0.4) 07/24/20 05:57 Neonat Total Bilirubin Not Reportable 07/24/20 05:57 Neonat Direct Bilirubin Not Reportable 07/24/20 05:57 Neonat Indirect Bili Not Reportable 07/24/20 05:57 AST 30 U/L (17-59) 07/24/20 05:57 ALT 16 U/L (<50) 07/24/20 05:57 Alkaline Phosphatase 107 U/L (38-126) 07/24/20 05:57 Creatine Kinase 91 U/L (55-170) 07/21/20 18:28 Troponin I < 0.012 ng/mL 07/21/20 18:28 Total Protein 7.8 g/dL (6.3-8.2) 10/25/20 05:57 Albumin 4.0 g/dL (3.5-5.0) 07/24/20 05:57 Urine Color YELLOW 07/21/20 18:28 Urine Appearance CLOUDY 07/21/20 18:28 Urine pH 5.0 (5.0-9.0) 07/21/20 18:28 Ur Specific [place] 1.009 07/21/20 18:28 Urine Protein NEGATIVE mg/dL (NEGATIVE) 07/21/20 18:28 Urine Glucose (UA) NEGATIVE mg/dL (NEGATIVE) 07/21/20 18:28 Urine Ketones NEGATIVE mg/dL (NEGATIVE) 07/21/20 18:28 Urine Blood NEGATIVE (NEGATIVE) 07/21/20 18:28 Urine Nitrite NEGATIVE (NEGATIVE) 07/21/20 18:28 Urine Bilirubin NEGATIVE (NEGATIVE) 07/21/20 18:28 Urine Urobilinogen NEGATIVE mg/dL (<2.0) 07/21/20 18:28 Ur Leukocyte Esterase LARGE (NEGATIVE) H 07/21/20 18:28 Urine WBC (Auto) 154 /HPF 07/21/20 18:28 Urine RBC (Auto) 7 /HPF 07/21/20 18:28 U Hyaline Cast (Auto) 1 /LPF 07/21/20 18:28 Urine Bacteria (Auto) 1+ /HPF 07/21/20 18:28 Urine WBC Clumps MANY /HPF 07/21/20 18:28 Urine Mucus (Auto) RARE /LPF 07/21/20 18:28 Urine Ascorbic Acid NEGATIVE (NEGATIVE) 07/21/20 18:28 07/21/20 18:28 Troponin I < 0.012 Impressions: Chest X-Ray 07/21/20 17:57 IMPRESSION: Question right paratracheal mass. No acute parenchymal opacities. Hip/Pelvis X-Ray 07/21/20 17:57 IMPRESSION: NEGATIVE STUDY OF THE RIGHT HIP. NO RADIOGRAPHIC EVIDENCE OF ACUTE INJURY. Venous Doppler Study 07/21/20 17:58 IMPRESSION: NO EVIDENCE DVT OR SVT IN THE RIGHT LEG. Plan Plan of Treatment: Patient offered home health versus SNF he prefers to go home with home health. Time Spent: Greater than 30 Minutes Stroke Is this a Stroke Patient?: No Acute Heart Failure Is this a Heart Failure Patient?: No
[2020-07-24 13:49] VITALS: BP 140/68
== END 2020-07-24 14:51 | disposition home health service (06) ==
LOC: ER 16:36 → EH 22:08 → 4S 23:59
PROVIDERS: ADMIT Student in an Organized Health Care Education/Training Program; ATTEND Internal Medicine
DX: L03.115 Cellulitis of right lower limb (principal); N39.0 Urinary tract infection, site not specified; R31.9 Hematuria, unspecified; R29.6 Repeated falls; Z89.512 Acquired absence of left leg below knee; I13.0 Hypertensive heart and chronic kidney disease with heart failure and stage 1 through stage 4 chronic kidney disease, or unspecified chronic kidney disease; I50.23 Acute on chronic systolic (congestive) heart failure; N18.30 Chronic kidney disease, stage 3 unspecified; E66.01 Morbid (severe) obesity due to excess calories; S80.821A Blister (nonthermal), right lower leg, initial encounter; M25.512 Pain in left shoulder; G89.29 Other chronic pain; M25.551 Pain in right hip; M19.90 Unspecified osteoarthritis, unspecified site; R63.0 Anorexia; E78.5 Hyperlipidemia, unspecified; I48.91 Unspecified atrial fibrillation; Z66 Do not resuscitate; Z79.899 Other long term (current) drug therapy; Z60.2 Problems related to living alone; Z68.42 Body mass index [BMI] 45.0-49.9, adult; Z87.81 Personal history of (healed) traumatic fracture
CPT/HCPCS: 93005; 99285; 36415 ×4; 87040; 87086; 82550; 83605; 83735 ×2; 85025 ×4; 80053 ×3; 81001; 84484; 93306; 93971; 71045; 73502; 93010; 97530; 97163; G0378 ×4; A9270 ×35; J7060 ×2; J7030; J3370; J0696

== ENCOUNTER 2020-09-05 13:14 | Inpatient (IN) | payer MEDICARE, MEDICAID ==
[2020-09-05] MEDS ORDERED: NORMAL SALINE 500 ML IV ONE (14:51)
--- NOTE | 2020-09-05 16:42 | EKG REPORT ---
SEVERITY:- ABNORMAL ECG - SINUS RHYTHM BORDERLINE T ABNORMALITIES, ANTERIOR LEADS : Confirmed by: Jer Xiao 05-Sep-2020 16:41:44
--- NOTE | 2020-09-05 16:51 | RADIOLOGY REPORT (SQ) ---
EXAM DESCRIPTION: CHEST SINGLE VIEW IMAGES COMPLETED DATE/TIME: 09/05/2020 3:25 pm REASON FOR STUDY: fall COMPARISON: Chest radiograph, 07/21/2020 EXAM PARAMETERS: NUMBER OF VIEWS: One view. TECHNIQUE: Single frontal radiographic view of the chest acquired. RADIATION DOSE: NA LIMITATIONS: None. FINDINGS: LUNGS AND PLEURA: No opacities, masses or pneumothorax. No pleural effusion. MEDIASTINUM AND HILAR STRUCTURES: Prominence of the mediastinum is stable from previous. No mass. HEART AND VASCULAR STRUCTURES: Moderate cardiomegaly. No pulmonary vascular congestion. BONES: No acute findings. HARDWARE: None in the chest. OTHER: No other significant finding. IMPRESSION: No significant interval change. No acute cardiopulmonary disease. TECHNICAL DOCUMENTATION: JOB ID: [id number] 2010 [employer]- All Rights Reserved Reading location - IP/workstation name: [email or web address]
--- NOTE | 2020-09-05 16:53 | RADIOLOGY REPORT (SQ) ---
EXAM DESCRIPTION: PELVIS AP IMAGES COMPLETED DATE/TIME: 09/05/2020 3:25 pm REASON FOR STUDY: fall. COMPARISON: Right hip radiograph, 05/11/2020. Lumbar spine radiograph, 11/14/2019. NUMBER OF VIEWS: One view TECHNIQUE: AP Pelvis LIMITATIONS: None. FINDINGS: MINERALIZATION: Normal. HIPS: No acute fracture or dislocation. No worrisome bone lesions. PELVIS AND SACRUM: No acute fracture or dislocation. No worrisome bone lesions. PUBIS AND ISCHIUM: No acute fracture. LOWER LUMBAR SPINE: Lumbar spine fixation is stable. Fracture of the inferior right sacral fixation screw is stable from previous examinations. No evidence of hardware loosening. SOFT TISSUES: No findings. OTHER: No other significant finding. IMPRESSION: No acute fracture or dislocation of the pelvis. Stable postoperative changes of the lum bar spine partially visualized. COMMENT: Pelvic fractures are often occult on plain radiographs. If strong clinical suspicion for f racture, recommend CT or MR. TECHNICAL DOCUMENTATION: JOB ID: [id number] 2010 [employer]- All Rights Reserved Reading location - IP/workstation name: [email or web address]
[2020-09-05 18:08] LABS: VENOUS BLOOD BASE EXCESS -1.1 mmol/L; VENOUS BLOOD HCO3 24.7 mmol/L (20-32); VENOUS BLOOD PCO2 45.4 mmHg (35-63); VENOUS BLOOD PH 7.35 (7.30-7.42)
[2020-09-05 18:32] LABS: ALBUMIN 3.9 g/dL (3.5-5.0); ALCOHOL < 10 mg/dL (NONE DETECTED); ALKALINE PHOSPHATASE 148 U/L (38-126); ANION GAP 6 (5-19); ASPARTATE AMINO TRANSFERASE 45 U/L (17-59); BILIRUBIN,DIRECT 0.1 mg/dL (0.0-0.4); BILIRUBIN,TOTAL 0.8 mg/dL (0.2-1.3); BLOOD UREA NITROGEN 19 mg/dL (7-20); CALCIUM 9.3 mg/dL (8.4-10.2); CARBON DIOXIDE 28 mmol/L (22-30); CHLORIDE 105 mmol/L (98-107); CREATINE KINASE 136 U/L (55-170); GLUCOSE 116 mg/dL (75-110); POTASSIUM 3.8 mmol/L (3.6-5.0); TOTAL PROTEIN 7.6 g/dL (6.3-8.2)
[2020-09-05 18:39] LABS: ABSOLUTE EOSINOPHILS # (AUTO) 0.2 10^3/uL (0.0-0.6); ABSOLUTE MONOCYTES (AUTO) 0.9 10^3/uL (0.1-1.4); ABSOLUTE NEUT (AUTO) 5.9 10^3/uL (1.7-8.2); BASOPHILS % (AUTO) 0.5 % (0-2); EOSINOPHILS % (AUTO) 2.3 % (0-6); HEMATOCRIT 40.5 % (37.9-51.0); HEMOGLOBIN 13.2 g/dL (13.5-17.0); LYMPHOCYTES % (AUTO) 12.3 % (13-45); MEAN CORPUSCULAR HEMOGLOBIN 24.9 pg (27.0-33.4); MEAN CORPUSCULAR HGB CONC 32.5 g/dL (32.0-36.0); MEAN CORPUSCULAR VOLUME 77 fl (80-97); MONOCYTES % (AUTO) 11.5 % (3-13); PLATELET COUNT 132 10^3/uL (150-450); RED BLOOD COUNT 5.28 10^6/uL (4.35-5.55); RED CELL DISTRIBUTION WIDTH 19.7 % (11.5-14.0); SEGMENTED NEUTROPHILS % (AUTO) 73.4 % (42-78); TOTAL CELLS COUNTED % (AUTO) 100 %
[2020-09-05 20:13] LABS: APPEARANCE,URINE CLEAR; BILIRUBIN,URINE NEGATIVE (NEGATIVE); COLOR,URINE YELLOW; GLUCOSE, URINE NEGATIVE (NEGATIVE); KETONES,URINE NEGATIVE (NEGATIVE); PROTEIN,URINE 100 mg/dL (NEGATIVE); URINE SPECIFIC GRAVITY 1.016; UROBILINOGEN,URINE NEGATIVE mg/dL (<2.0)
[2020-09-05] MEDS ORDERED: ONDANSETRON HCL INJ/PF 4 MG/2 ML SDV IV PRN (20:23)
[2020-09-05] MEDS ORDERED: ACETAMINOPHEN 325 MG TABLET PO PRN (20:23)
[2020-09-05] MEDS ORDERED: OXYCODONE-ACETAMINOPHEN 5-325 MG TABLET PO ONE (20:35)
--- NOTE | 2020-09-05 20:40 | ER Document Report ---
ED General - General Chief Complaint: Fall Stated Complaint: FALL Time Seen by Provider: 09/05/20 13:47 Primary Care Provider: GUILLERMO MO MD [Primary Care Provider] - Follow up as needed TRAVEL OUTSIDE OF THE [place] IN LAST 30 DAYS: No - Related Data Allergies/Adverse Reactions: No Known Allergies Allergy (Verified 09/05/20 13:49) Home Medications: meds at bedside, uncompliant Past Medical History - Social History Smoking Status: Current Some Day Smoker Chew tobacco use (# tins/day): No Frequency of alcohol use: None Drug Abuse: None Family History: Hypertension Patient has homicidal ideation: No - Past Medical History Cardiac Medical History: Reports: Hx Atrial Fibrillation, Hx Congestive Heart Failure, Hx Hypercholesterolemia, Hx Hypertension Denies: Hx Coronary Artery Disease, Hx Heart Attack, Hx Peripheral Vascular Disease, Hx Heart Murmur Pulmonary Medical History: Reports: Hx COPD, Hx Sleep Apnea Denies: Hx Asthma, Hx Bronchitis, Hx Pneumonia, Hx Tuberculosis Neurological Medical History: Denies: Hx Cerebrovascular Accident, Hx Seizures Endocrine Medical History: Denies: Hx Diabetes Mellitus Type 1, Hx Diabetes M ellitus Type 2, Hx Graves' Disease, Hx Hyperthyroidism, Hx Hypothyroidism Renal/ Medical History: Reports: Hx Kidney Stones. Denies: Hx Peritoneal Dialysis Malignancy Medical History: Denies Hx Bone Cancer, Denies Hx Brain Cancer, Denies Hx Colorectal Cancer GI Medical History: Reports: Hx Gastroesophageal Reflux Disease. Denies: Hx Cirrhosis, Hx Crohn's Disease, Hx Diverticulitis Musculoskeletal Medical History: Reports Hx Arthritis, Reports Hx Fibromyalgia, Reports Hx Gout, Reports Hx Musculoskeletal Deformity, Reports Hx Musculoskeletal Trauma Skin Medical History: Denies Hx Cellulitis, Denies Hx Eczema, Denies Hx MRSA Psychiatric Medical History: Reports: Hx Bipolar Disorder, Hx Depression Denies: Hx Attention Deficit Hyperactivity Disorder, Hx Borderline Personality Disorder, Hx Obsessive Compulsive Disorder, Hx Personality Disorder, Hx Post Traumatic Stress Disorder, Hx Schizoaffective Disorder Traumatic Medical History: Reports: Hx Fractures, Hx Spine Fracture - L1 and 2. Denies: Hx Gunshot Wound, Hx Liver Laceration, Hx Pneumothorax Past Surgical History: Reports: Hx Cholecystectomy, Hx Orthopedic Surgery - Left BKA. Denies: Hx Pacemaker - Immunizations Immunizations up to date: Yes Hx Diphtheria, Pertussis, Tetanus Vaccination: Yes Hx Pneumococcal Vaccination: 09/30/11 Physical Exam - Vital signs Vitals: Temp Resp Pulse Ox 98.6 F 12 95 09/05/20 13:39 09/05/20 13:39 09/05/20 13:39 Course - Vital Signs Vital signs: Temp Pulse Resp BP Pulse Ox 98.6 F 17 149/87 H 95 09/05/20 13:39 09/05/20 18:03 09/05/20 18:03 09/05/20 18:03 - Laboratory Result Diagrams: 09/05/20 18:09 09/05/20 17:52 Laboratory results interpreted by me: 09/05/20 09/05/20 09/05/20 17:52 18:09 19:45 Hgb 13.2 L MCV 77 L MCH 24.9 L RDW 19.7 H Plt Count 132 L Lymph % (Auto) 12.3 L Glucose 116 H Alkaline Phosphatase 148 H Urine Protein 100 H Urine Ascorbic Acid 20 H Discharge - Discharge Clinical Impression: Cellulitis of right lower extremity, Chronic pain syndrome Condition: Fair Disposition: ADMITTED INPATIENT Admitting Provider: Dr. Lezama Unit Admitted: Medical Floor Referrals: GUILLERMO MO MD [Primary Care Provider] - Follow up as needed
[2020-09-05] MEDS ORDERED: VANCOMYCIN HCL 0 MG in DEXTROSE 5%-WATER 250 ML IV NR (20:45)
--- NOTE | 2020-09-05 20:46 | PDOC H&P ---
History of Present Illness Admission Date/PCP: GUILLERMO MO MD Patient complains of: Right lower extremity swelling and redness History of Present Illness: BRITANY GERMAIN is a 65 year old male with a history of left below-knee amputation, hypertension, heart failure, obstructive sleep apnea, obesity and peripheral arterial disease now presents with 2 days duration of right lower extremity swelling, pain, erythema. Patient also states that he slipped out of his wheelchair on the day of presentation and he was not able to get up from the floor until his nurse found him few hours later. He denies a history of loss of consciousness, head injury, abnormal body movement, weakness of extremities, urinary or bowel incontinence. He also denies any chest pain, palpitation, dizziness, nausea, vomiting. Patient also denies any history of fever, cough, or any change in his bowel or urinary habits. Past Medical History Cardiac Medical History: Reports: Atrial Fibrillation, Congestive Heart Failure, Hyperlipidema, Hypertension Denies: Coronary Artery Disease, Myocardial Infarction, Peripheral Vascular Disease, Heart Murmur Pulmonary Medical History: Reports: Chronic Obstructive Pulmonary Disease (COPD), Sleep Apnea Denies: Asthma, Bronchitis, Pneumonia, Tuberculosis Neurological Medical History: Denies: Seizures Endocrine Medical History: Denies: Diabetes Mellitus Type 1, Diabetes Mellitus Type 2, Hyperthyroidism, Hypothyroidism Malignancy Medical History: Denies: Bone Cancer, Brain Cancer, Colorectal Cancer GI Medical History: Reports: Gastroesophageal Reflux Disease Denies: Cirrhosis, Crohn's Disease, Diverticulitis Musculoskeltal Medical History: Reports: Arthritis, Fibromyalgia, Gout Skin Medical History: Denies: Eczema Psychiatric Medical History: Reports: Bipolar Disorder, Depression Denies: Attention Deficit Hyperactivity Disorder, Personality Disorder, Post Traumatic Stress Disorder, Schizoaffective Disorder Traumatic Medical History: Denies: Gunshot Wound, Pneumothorax Hematology: Denies: Anemia Past Surgical History Past Surgical History: Reports: Cholecystectomy, Orthopedic Surgery - Left BKA Denies: Pacemaker Social History Information Source: Patient Lives with: Alone Smoking Status: Current Some Day Smoker Electronic Cigarette use?: No Frequency of Alcohol Use: None Hx Recreational Drug Use: No Drugs: None Hx Prescription Drug Abuse: No - Advance Directive Resuscitation Status: Full Code Family History Family History: Reviewed & Not Pertinent, Hypertension Parental Family History Reviewed: Yes Children Family History Reviewed: Yes Sibling(s) Family History Reviewed.: Yes Medication/Allergy Home Medications: Allopurinol [Zyloprim 300 mg Tablet] 300 mg PO DAILY 01/15/20 Carvedilol [Coreg 6.25 mg Tablet] 6.25 mg PO Q12 01/15/20 Colchicine [Colcrys 0.6 mg Tablet] 0.6 mg PO DAILY 01/15/20 Duloxetine HCl 60 mg PO DAILY 01/15/20 Furosemide [Lasix 40 mg Tablet] 40 mg PO DAILY 01/15/20 Rosuvastatin Calcium 20 mg PO DAILY 01/15/20 Trazodone HCl 150 mg PO QHS 01/15/20 Oxycodone HCl/Acetaminophen [Oxycodone-Acetaminophen 10-325] 1 each PO Q12HP PRN #20 05/18/20 Oxycodone Myristate [Xtampza ER] 18 mg PO Q12 #14 05/18/20 Amitriptyline HCl [Elavil 50 Mg Tablet] 50 mg PO DAILY 09/06/20 Baclofen [Baclofen 10 mg Tablet] 10 mg PO TID 09/06/20 Cyclobenzaprine HCl [Flexeril 10 mg Tablet] 10 mg PO DAILY 09/06/20 Pregabalin [Lyrica 100 Mg Capsule] 300 mg PO BID 09/06/20 Vit B Complex 100 Combo No.2 [Balanced B-100] 300 mg PO DAILY 09/06/20 Allergies/Adverse Reactions: No Known Allergies Allergy (Verified 09/05/20 13:49) Review of Systems Constitutional: ABSENT: chills, fever(s), headache(s), weight gain, weight loss Eyes: ABSENT: visual disturbances Cardiovascular: ABSENT: chest pain, dyspnea on exertion, edema, orthropnea, palpitations Respiratory: ABSENT: cough, hemoptysis Gastrointestinal: ABSENT: abdominal pain, constipation, diarrhea, hematemesis, h ematochezia, nausea, vomiting Genitourinary: ABSENT: dysuria, hematuria Musculoskeletal: PRESENT: as per HPI Integumentary: PRESENT: as per HPI Neurological: PRESENT: as per HPI Psychiatric: ABSENT: anxiety, depression, homidical ideation, suicidal ideation Endocrine: ABSENT: cold intolerance, heat intolerance, polydipsia, polyuria Hematologic/Lymphatic: ABSENT: easy bleeding, easy bruising Physical Exam Vital Signs: Temp Pulse Resp BP Pulse Ox 98.6 F 17 149/87 H 95 09/05/20 13:39 09/05/20 18:03 09/05/20 18:03 09/05/20 18:03 Intake & Output 09/04/20 09/05/20 09/06/20 06:59 06:59 06:59 Intake Total 500 Balance 500 Weight 136.078 kg Additional comments: GENERAL APPEARANCE: Alert and oriented x3, in no acute distress HEENT: Normocephalic and atraumatic. No scleral icterus. Moist oral mucosa NECK: Supple. No lymphadenopathy or tenderness. No JVD CHEST: Symmetric. Nontender to palpation. LUNGS: Clear with good air entry bilaterally. No wheezing or crackles HEART: Regular rate and rhythm with normal S1 and S2. No murmurs, gallops, or rubs. ABDOMEN: Flat, soft, active bowel sounds, no direct or rebound tenderness. No organomegaly detected. EXTREMITIES: Has left below-knee amputation. The right lower extremity is swollen, hyperemic, there is 4 x 5 cm boil on anterior mid brown area. There is differential warmth and tenderness. MUSCULOSKELETAL: No deformity, atrophy or swelling noted PSYCHIATRIC: Recent and remote memory is intact. Appropriate mood and affect. SKIN: Warm, dry, and well perfused. No lesions or rashes are noted. NEUROLOGIC: No focal sensory or motor deficits are noted. Results Laboratory Results: 09/05/20 18:09 09/05/20 17:52 09/05/20 09/05/20 09/05/20 17:52 17:52 17:52 WBC RBC Hgb Hct MCV MCH MCHC RDW Plt Count Seg Neutrophils % VBG pH 7.35 VBG pCO2 45.4 VBG HCO3 24.7 VBG Base Excess -1.1 Sodium 139.4 Potassium 3.8 Chloride 105 Carbon Dioxide 28 Anion Gap 6 BUN 19 Creatinine 1.00 Est GFR ( Amer) > 60 Glucose 116 H Lactic Acid 0.9 Calcium 9.3 Magnesium 1.8 Total Bilirubin 0.8 AST 45 Alkaline Phosphatase 148 H Total Protein 7.6 Albumin 3.9 Urine Color Urine Appearance Urine pH Ur Specific [place] Urine Protein Urine Glucose (UA) Urine Ketones Urine Blood Urine RBC (Auto) 09/05/20 09/05/20 18:09 19:45 WBC 8.0 RBC 5.28 Hgb 13.2 L Hct 40.5 MCV 77 L MCH 24.9 L MCHC 32.5 RDW 19.7 H Plt Count 132 L Seg Neutrophils % 73.4 VBG pH VBG pCO2 VBG HCO3 VBG Base Excess Sodium Potassium Chloride Carbon Dioxide Anion Gap BUN Creatinine Est GFR ( Amer) Glucose Lactic Acid Calcium Magnesium Total Bilirubin AST Alkaline Phosphatase Total Protein Albumin Urine Color YELLOW Urine Appearance CLEAR Urine pH 5.0 Ur Specific [place] 1.016 Urine Protein 100 H Urine Glucose (UA) NEGATIVE Urine Ketones NEGATIVE Urine Blood NEGATIVE Urine RBC (Auto) 2 09/05/20 17:52 Creatine Kinase 136 Impressions: Chest X-Ray 09/05/20 14:50 IMPRESSION: No significant interval change. No acute cardiopulmonary disease. Pelvis X-Ray 09/05/20 14:51 IMPRESSION: No acute fracture or dislocation of the pelvis. Stable postoperative changes of the lumbar spine partially visualized. Assessment and Plan - Diagnosis (1) Cellulitis of right lower extremity Is this a current diagnosis for this admission?: Yes Plan: Presents with right lower extremity swelling, pain, hyperemia, differential warmth Has no systemic signs of toxicity No leukocytosis, lactic acid level was normal Started on vancomycin Follow-up with blood culture Wound consult placed (2) Frequent falls Is this a current diagnosis for this admission?: Yes Plan: Due to physical deconditioning and history of amputation Polypharmacy could be a contributing factor Currently has no focal neurologic deficit Placed him on telemetry monitoring to assess for any potential arrhythmia contributing to falls CT head without contrast was negative PT/OT consult placed (3) CHF (congestive heart failure) Qualifiers: Heart failure type: systolic Heart failure chronicity: acute on chronic Qualified Code(s): I50.23 - Acute on chronic systolic (congestive) heart failure Is this a current diagnosis for this admission?: Yes Plan: Currently not in acute exacerbation Continue Lasix I&O's, daily weight and fluid restriction Low-sodium diet (4) HTN (hypertension) Is this a current diagnosis for this admission?: Yes Plan: Blood pressure is within acceptable limits Continue home medications (5) Morbid obesity with BMI of 40.0-44.9, adult Is this a current diagnosis for this admission?: Yes Plan: Counseled and encouraged him on lifestyle modifications including dietary changes and exercise as tolerated (6) GLADYS (obstructive sleep apnea) Is this a current diagnosis for this admission?: Yes Plan: Provide CPAP nightly - Time Time Spent with patient: 35 or more minutes Medications reviewed and adjusted accordingly: Yes Anticipated Discharge Disposition: Home with Home Health Anticipated Discharge Timeframe: within 48 hours - Inpatient Certification Based on my medical assessment, after consideration of the patient's comorbidities, presenting symptoms, or acuity I expect that the services needed warrant INPATIENT care.: Yes I certify that my determination is in accordance with my understanding of Medicare's requirements for reasonable and necessary INPATIENT services [42 CFR 412.3e].: Yes Medical Necessity: Significant Comorbidiites Make Outpatient Treatment Too Risky, Need Close Monitoring Due to Risk of Patient Decompensation, Need for IV Antibiotics, Risk of Complication if Not Cared For in Hospital Post Hospital Care: D/C or Transfer Summary
[2020-09-05] MEDS: FAMOTIDINE 20 MG TABLET PO SCH (21:02)
--- NOTE | 2020-09-05 21:20 | RADIOLOGY REPORT (SQ) ---
EXAM DESCRIPTION: CT HEAD WITHOUT IV CONTRAST COMPLETED DATE/TME: 09/05/2020 21:01 CLINICAL HISTORY: 65 years, Male, Unwitnessed fall and passing out COMPARISON: CT from 03/02/2015. TECHNIQUE: Axial images without IV contrast. Sagittal coronal reconstruction. Images stored on PACS. All CT scanners at this facility use dose modulation, iterative reconstruction, and/or weight based dosing when appropriate to reduce radiation dose to as low as reasonably achievable (ALARA). FINDINGS: [id number] ventriculomegaly. Transverse diameter of the third ventricle is currently 8.5 mm. Measurement was 7.5 mm in 2015. Relative effacement of the cortical sulci in the upper slices of the brain. No suspicious acute intra-axial or extra-axial abnormalities. Atherosclerotic disease is present. Paranasal sinuses, mastoid air cells and bony calvarium are unremarkable. IMPRESSION: 1. No acute intracranial abnormalities. 2. Possibility of mild NPH is raised. TECHNICAL DOCUMENTATION: Quality ID # [id number]: Final reports with documentation of one or more dose reduction techniques (e.g., Automated exposure control, adjustment of the mA and/or kV according to patient size, use of iterative reconstruction technique) copyright 2011 [employer]- All Rights Reserved
[2020-09-05] MEDS ORDERED: VANCOMYCIN HCL INJ 1000 MG VIAL ONE (22:31)
[2020-09-05] MEDS ORDERED: VANCOMYCIN HCL INJ 500 MG VIAL ONE (22:31)
[2020-09-05] MEDS: ENOXAPARIN SODIUM INJ 40 MG/0.4 ML DISP.SYRIN SUBCUT SCH (22:50)
[2020-09-05] MEDS: VANCOMYCIN HCL 1,500 MG in DEXTROSE 5%-WATER 250 ML IV SCH (23:11)
[2020-09-06 06:17] LABS: ABSOLUTE BASOPHILS # (AUTO) 0.1 10^3/uL (0.0-0.2); ABSOLUTE EOSINOPHILS # (AUTO) 0.2 10^3/uL (0.0-0.6); ABSOLUTE LYMPHOCYTES (AUTO) 0.9 10^3/uL (0.5-4.7); ABSOLUTE MONOCYTES (AUTO) 0.6 10^3/uL (0.1-1.4); ABSOLUTE NEUT (AUTO) 3.8 10^3/uL (1.7-8.2); EOSINOPHILS % (AUTO) 3.8 % (0-6); HEMATOCRIT 34.7 % (37.9-51.0); HEMOGLOBIN 11.3 g/dL (13.5-17.0); LYMPHOCYTES % (AUTO) 15.7 % (13-45); MEAN CORPUSCULAR HEMOGLOBIN 24.8 pg (27.0-33.4); MEAN CORPUSCULAR HGB CONC 32.7 g/dL (32.0-36.0); MEAN CORPUSCULAR VOLUME 76 fl (80-97); PLATELET COUNT 112 10^3/uL (150-450); RED BLOOD COUNT 4.57 10^6/uL (4.35-5.55); SEGMENTED NEUTROPHILS % (AUTO) 68.5 % (42-78); TOTAL CELLS COUNTED % (AUTO) 100 %; WHITE BLOOD COUNT 5.5 10^3/uL (4.0-10.5)
[2020-09-06 06:39] LABS: ANION GAP 5 (5-19); BLOOD UREA NITROGEN 15 mg/dL (7-20); CALCIUM 8.9 mg/dL (8.4-10.2); CARBON DIOXIDE 29 mmol/L (22-30); CHLORIDE 106 mmol/L (98-107); GLUCOSE 105 mg/dL (75-110)
[2020-09-06 06:40] LABS: POTASSIUM 3.1 mmol/L (3.6-5.0)
[2020-09-06] MEDS: OXYCODONE-ACETAMINOPHEN 5-325 MG TABLET PO PRN (09:44)
[2020-09-06] MEDS: FAMOTIDINE 20 MG TABLET PO SCH ×2 (09:45→22:16)
[2020-09-06] MEDS: VANCOMYCIN HCL 1,500 MG in DEXTROSE 5%-WATER 250 ML IV SCH ×2 (09:45→22:17)
[2020-09-06] MEDS: FUROSEMIDE 40 MG TABLET PO SCH ×2 (09:45→18:34)
[2020-09-06] MEDS: ENOXAPARIN SODIUM INJ 40 MG/0.4 ML DISP.SYRIN SUBCUT SCH (09:46)
[2020-09-06] MEDS: AMITRIPTYLINE HCL 50 MG TABLET PO SCH (12:59)
[2020-09-06] MEDS: PREGABALIN 100 MG CAPSULE PO SCH ×2 (12:59→18:34)
[2020-09-06] MEDS: DULOXETINE HCL 30 MG CAPSULE.DR PO SCH (12:59)
[2020-09-06] MEDS: CARVEDILOL 6.25 MG TABLET PO SCH ×2 (12:59→22:16)
[2020-09-06] MEDS: BACLOFEN 10 MG TABLET PO SCH ×2 (13:37→18:34)
--- NOTE | 2020-09-06 13:39 | PDOC PROGRESS REPORT ---
Subjective Date:: 09/06/20 Subjective:: Patient is resting in bed. He continues to ask for his Lyrica. His legs are qu ite restless. He seems extremely anxious. Reason For Visit: RIGHT LOWER EXTREMITY CELLULITIS,FALL Physical Exam Vital Signs: Temp Pulse Resp BP Pulse Ox 97.2 F 72 20 148/74 H 96 09/06/20 08:44 09/06/20 07:00 09/06/20 00:23 09/06/20 00:23 09/06/20 00:23 Intake & Output 09/05/20 09/06/20 09/07/20 06:59 06:59 06:59 Intake Total 1800 610 Output Total 1100 500 Balance 700 110 Weight 142.6 kg General appearance: PRESENT: cooperative, mild distress Head exam: PRESENT: atraumatic, normocephalic Ear exam: PRESENT: normal external ear exam. ABSENT: bleeding, drainage Mouth exam: PRESENT: moist, tongue midline Neck exam: ABSENT: carotid bruit, JVD, lymphadenopathy, tracheostomy Respiratory exam: PRESENT: clear to auscultation pam, symmetrical, unlabored. ABSENT: rales, rhonchi, tachypnea, wheezes Cardiovascular exam: PRESENT: RRR, +S1, +S2. ABSENT: bradycardia, diastolic murmur, irregular rhythm, systolic murmur GI/Abdominal exam: PRESENT: normal bowel sounds, soft, other - Protuberant abdomen. ABSENT: distended, guarding, tenderness Rectal exam: PRESENT: deferred Extremities exam: PRESENT: pedal edema, +1 edema Musculoskeletal exam: PRESENT: deformity - Left below-knee amputation. ABSENT: ambulatory Neurological exam: PRESENT: alert, awake, oriented to person, oriented to place, oriented to time, oriented to situation, CN II-XII grossly intact. ABSENT: altered Psychiatric exam: PRESENT: anxious. ABSENT: agitated Focused psych exam: ABSENT: delusional, paranoid, restlessness Skin exam: PRESENT: other - Large bullous lesion right lower leg. Mucoid gel with fluid within the bolus lesion. The lesion was unroofed and the base of the lesion cleaned thoroughly. Multiple other scabs and significant erythema with swelling. Erythema on the left stump as well. Results Laboratory Results: 09/06/20 05:58 09/06/20 05:58 09/05/20 09/05/20 09/05/20 17:52 17:52 17:52 WBC RBC Hgb Hct MCV MCH MCHC RDW Plt Count Seg Neutrophils % VBG pH 7.35 VBG pCO2 45.4 VBG HCO3 24.7 VBG Base Excess -1.1 Sodium 139.4 Potassium 3.8 Chloride 105 Carbon Dioxide 28 Anion Gap 6 BUN 19 Creatinine 1.00 Est GFR ( Amer) > 60 Glucose 116 H Lactic Acid 0.9 Calcium 9.3 Magnesium 1.8 Total Bilirubin 0.8 AST 45 Alkaline Phosphatase 148 H C-Reactive Protein Total Protein 7.6 Albumin 3.9 Urine Color Urine Appearance Urine pH Ur Specific [place] Urine Protein Urine Glucose (UA) Urine Ketones Urine Blood Urine RBC (Auto) 09/05/20 09/05/20 09/05/20 17:52 18:09 19:45 WBC 8.0 RBC 5.28 Hgb 13.2 L Hct 40.5 MCV 77 L MCH 24.9 L MCHC 32.5 RDW 19.7 H Plt Count 132 L Seg Neutrophils % 73.4 VBG pH VBG pCO2 VBG HCO3 VBG Base Excess Sodium Potassium Chloride Carbon Dioxide Anion Gap BUN Creatinine Est GFR ( Amer) Glucose Lactic Acid Calcium Magnesium Total Bilirubin AST Alkaline Phosphatase C-Reactive Protein 34.2 H Total Protein Albumin Urine Color YELLOW Urine Appearance CLEAR Urine pH 5.0 Ur Specific [place] 1.016 Urine Protein 100 H Urine Glucose (UA) NEGATIVE Urine Ketones NEGATIVE Urine Blood NEGATIVE Urine RBC (Auto) 2 09/06/20 09/06/20 05:58 05:58 WBC 5.5 RBC 4.57 Hgb 11.3 L Hct 34.7 L MCV 76 L MCH 24.8 L MCHC 32.7 RDW 20.0 H Plt Count 112 L Seg Neutrophils % 68.5 VBG pH VBG pCO2 VBG HCO3 VBG Base Excess Sodium 140.1 Potassium 3.1 L Chloride 106 Carbon Dioxide 29 Anion Gap 5 BUN 15 Creatinine 0.94 Est GFR ( Amer) > 60 Glucose 105 Lactic Acid Calcium 8.9 Magnesium Total Bilirubin AST Alkaline Phosphatase C-Reactive Protein Total Protein Albumin Urine Color Urine Appearance Urine pH Ur Specific [place] Urine Protein Urine Glucose (UA) Urine Ketones Urine Blood Urine RBC (Auto) 09/05/20 09/05/20 09/05/20 17:52 17:52 17:52 Creatine Kinase 136 Cancelled Troponin I < 0.012 Impressions: Head CT 09/05/20 00:00 IMPRESSION: 1. No acute intracranial abnormalities. 2. Possibility of mild NPH is raised. TECHNICAL DOCUMENTATION: Quality ID # [id number]: Final reports with documentation of one or more dose reduction techniques (e.g., Automated exposure control, adjustment of the mA and/or kV according to patient size, use of iterative reconstruction technique) copyright 2011 [employer]- All Rights Reserved Chest X-Ray 09/05/20 14:50 IMPRESSION: No significant interval change. No acute cardiopulmonary disease. Pelvis X-Ray 09/05/20 14:51 IMPRESSION: No acute fracture or dislocation of the pelvis. Stable postoperative changes of the lumbar spine partially visualized. Assessment and Plan - Diagnosis (1) Cellulitis of right lower extremity Is this a current diagnosis for this admission?: Yes (2) Frequent falls Is this a current diagnosis for this admission?: Yes (3) Below-knee amputation of left lower extremity Is this a current diagnosis for this admission?: Yes (4) CHF (congestive heart failure) Qualifiers: Heart failure type: systolic Heart failure chronicity: acute on chronic Qualified Code(s): I50.23 - Acute on chronic systolic (congestive) heart failure Is this a current diagnosis for this admission?: Yes (5) HTN (hypertension) Is this a current diagnosis for this admission?: Yes (6) Morbid obesity with BMI of 40.0-44.9, adult Is this a current diagnosis for this admission?: Yes (7) GLADYS (obstructive sleep apnea) Is this a current diagnosis for this admission?: Yes - Plan Summary Summary: (1) Cellulitis of right lower extremity Is this a current diagnosis for this admission?: Yes (2) Frequent falls Is this a current diagnosis for this admission?: Yes (3) Below-knee amputation of left lower extremity Is this a current diagnosis for this admission?: Yes (4) CHF (congestive heart failure) Qualifiers: Heart failure type: systolic Heart failure chronicity: acute on chronic Qualified Code(s): I50.23 - Acute on chronic systolic (congestive) heart failure Is this a current diagnosis for this admission?: Yes (5) HTN (hypertension) Is this a current diagnosis for this admission?: Yes (6) Morbid obesity with BMI of 40.0-44.9, adult Is this a current diagnosis for this admission?: Yes (7) GLADYS (obstructive sleep apnea) Is this a current diagnosis for this admission?: Yes 09/06/2020 Continue antibiotics for right lower leg. The loose epidermis and gelatin like fluid was cleaned thoroughly and removed. We will apply Xeroform dressings. The left stump has some erythema and a small scab in antibiotics will cover this as well. Continue current medications for the systolic heart failure and hypertension. Continue to encourage weight loss by aggressive dieting as he would not be able to exercise at this time. CPAP for sleep apnea. The patient's legs were constantly moving. He may have restless leg syndrome. We will discuss further tomorrow and consider medication adjustment. - Time Time Spent with patient: 25-34 minutes Medications reviewed and adjusted accordingly: Yes Anticipated Discharge Disposition: [facility] Anticipated Discharge Timeframe: Unknown
[2020-09-06] MEDS: POTASSIUM CHLORIDE 10 MEQ TABLET.ER PO SCH ×2 (15:53→22:16)
[2020-09-06] MEDS ORDERED: TRAZODONE HCL 150 MG PO SCH (22:00)
[2020-09-06] MEDS: TRAZODONE HCL 50 MG TABLET PO SCH (22:17)
[2020-09-07] MEDS: OXYCODONE-ACETAMINOPHEN 5-325 MG TABLET PO PRN ×2 (01:21→17:33)
[2020-09-07] MEDS ORDERED: VIT B COMPLEX COMBO NO 2 PO SCH (10:00)
[2020-09-07 10:40] LABS: VANCOMYCIN,TROUGH 10.9 ug/mL (5.0-20.0)
[2020-09-07] MEDS: PREGABALIN 100 MG CAPSULE PO SCH ×2 (10:44→17:28)
[2020-09-07] MEDS: POTASSIUM CHLORIDE 10 MEQ TABLET.ER PO SCH ×2 (10:45→22:39)
[2020-09-07] MEDS: VITAMIN B COMPLEX TABLET PO SCH (10:46)
[2020-09-07] MEDS: FUROSEMIDE 40 MG TABLET PO SCH ×2 (10:46→17:28)
[2020-09-07] MEDS: BACLOFEN 10 MG TABLET PO SCH ×3 (10:46→17:28)
[2020-09-07] MEDS: ALLOPURINOL 300 MG TABLET PO SCH (10:46)
[2020-09-07] MEDS: DULOXETINE HCL 30 MG CAPSULE.DR PO SCH (10:47)
[2020-09-07] MEDS: AMITRIPTYLINE HCL 50 MG TABLET PO SCH (10:47)
[2020-09-07] MEDS: CARVEDILOL 6.25 MG TABLET PO SCH ×2 (10:47→22:38)
[2020-09-07] MEDS: FAMOTIDINE 20 MG TABLET PO SCH ×2 (10:47→22:39)
[2020-09-07] MEDS: ENOXAPARIN SODIUM INJ 40 MG/0.4 ML DISP.SYRIN SUBCUT SCH (10:48)
[2020-09-07] MEDS: VANCOMYCIN HCL 1,500 MG in DEXTROSE 5%-WATER 250 ML IV SCH (10:49)
--- NOTE | 2020-09-07 13:24 | PDOC PROGRESS REPORT ---
Subjective Date:: 09/07/20 Subjective:: Enjoying his lunch. Dressing change was done earlier today on the right leg. Jesusita glasgow have lost IV access and it seems that he is reacting to the adhesive on the IV site dressing. Reason For Visit: RIGHT LOWER EXTREMITY CELLULITIS,FALL Physical Exam Vital Signs: Temp Pulse Resp BP Pulse Ox 97.7 F 64 20 145/67 H 96 09/07/20 11:30 09/07/20 11:30 09/07/20 11:30 09/07/20 11:30 09/07/20 11:30 Intake & Output 09/06/20 09/07/20 09/08/20 06:59 06:59 06:59 Intake Total 1800 2356 360 Output Total 1100 4300 600 Balance 700 -1944 -240 Weight 142.6 kg 145.6 kg General appearance: PRESENT: no acute distress, cooperative, morbidly obese Head exam: PRESENT: atraumatic, normocephalic Respiratory exam: PRESENT: clear to auscultation pam, symmetrical, unlabored. ABSENT: prolonged expiratory phas, rales, rhonchi, tachypnea, wheezes Cardiovascular exam: PRESENT: RRR, +S1, +S2. ABSENT: bradycardia, diastolic murmur, irregular rhythm, systolic murmur, tachycardia GI/Abdominal exam: PRESENT: normal bowel sounds, soft, other - Protuberant abdomen. ABSENT: tenderness Extremities exam: PRESENT: pedal edema, +1 edema Musculoskeletal exam: PRESENT: deformity - Left below-knee amputation, tenderness - Right leg. ABSENT: dislocation Neurological exam: PRESENT: alert, awake, oriented to person, oriented to place, oriented to time, oriented to situation, CN II-XII grossly intact. ABSENT: altered Psychiatric exam: PRESENT: appropriate affect. ABSENT: agitated, anxious Focused psych exam: ABSENT: delusional, paranoid, restlessness Skin exam: PRESENT: erythema, warm Results Laboratory Results: 09/06/20 05:58 09/06/20 05:58 09/05/20 09/05/20 09/05/20 17:52 17:52 17:52 Creatine Kinase 136 Cancelled Troponin I < 0.012 Impressions: Head CT 09/05/20 00:00 IMPRESSION: 1. No acute intracranial abnormalities. 2. Possibility of mild NPH is raised. TECHNICAL DOCUMENTATION: Quality ID # 436: Final reports with documentation of one or more dose reduction techniques (e.g., Automated exposure control, adjustment of the mA and/or kV according to patient size, use of iterative reconstruction technique) copyright 2011 [employer]- All Rights Reserved Chest X-Ray 09/05/20 14:50 IMPRESSION: No significant interval change. No acute cardiopulmonary disease. Pelvis X-Ray 09/05/20 14:51 IMPRESSION: No acute fracture or dislocation of the pelvis. Stable postoperative changes of the lumbar spine partially visualized. Assessment and Plan - Diagnosis (1) Cellulitis of right lower extremity Is this a current diagnosis for this admission?: Yes (2) Frequent falls Is this a current diagnosis for this admission?: Yes (3) Below-knee amputation of left lower extremity Is this a current diagnosis for this admission?: Yes (4) CHF (congestive heart failure) Qualifiers: Heart failure type: systolic Heart failure chronicity: acute on chronic Qualified Code(s): I50.23 - Acute on chronic systolic (congestive) heart failure Is this a current diagnosis for this admission?: Yes (5) HTN (hypertension) Is this a current diagnosis for this admission?: Yes (6) Morbid obesity with BMI of 40.0-44.9, adult Is this a current diagnosis for this admission?: Yes (7) GLADYS (obstructive sleep apnea) Is this a current diagnosis for this admission?: Yes (8) Hypokalemia Is this a current diagnosis for this admission?: Yes - Plan Summary Summary: (1) Cellulitis of right lower extremity Is this a current diagnosis for this admission?: Yes (2) Frequent falls Is this a current diagnosis for this admission?: Yes (3) Below-knee amputation of left lower extremity Is this a current diagnosis for this admission?: Yes (4) CHF (congestive heart failure) Qualifiers: Heart failure type: systolic Heart failure chronicity: acute on chronic Qualified Code(s): I50.23 - Acute on chronic systolic (congestive) heart failure Is this a current diagnosis for this admission?: Yes (5) HTN (hypertension) Is this a current diagnosis for this admission?: Yes (6) Morbid obesity with BMI of 40.0-44.9, adult Is this a current diagnosis for this admission?: Yes (7) GLADYS (obstructive sleep apnea) Is this a current diagnosis for this admission?: Yes (8) Hypokalemia 09/06/2020 Continue antibiotics for right lower leg. The loose epidermis and gelatin like fluid was cleaned thoroughly and removed. We will apply Xeroform dressings. The left stump has some erythema and a small scab in antibiotics will cover this as well. Continue current medications for the systolic heart failure and hypertension. Continue to encourage weight loss by aggressive dieting as he would not be able to exercise at this time. CPAP for sleep apnea. The patient's legs were constantly moving. He may have restless leg syndrome. We will discuss further tomorrow and consider medication adjustment. 09/07/2020 Wound dressing changed to single layer of Xeroform. Patient reports that the leg feels better. Continuing IV antibiotics. Serum potassium is low from aggressive diuresis. Maintaining a negative fluid balance for his heart failure. Cellulitis is slowly improving. Reasonable glucose control. Continue physical therapy to improve mobility. - Time Time Spent with patient: 15-24 minutes Medications reviewed and adjusted accordingly: Yes Anticipated Discharge Disposition: [facility] Facility Anticipated Discharge Timeframe: within 72 hours
[2020-09-07] MEDS ORDERED: NORMAL SALINE 10 ML SDV (AFTER EACH USE) IV PRN (15:00)
--- NOTE | 2020-09-07 16:29 | RADIOLOGY REPORT (SQ) ---
EXAM DESCRIPTION: PICC INSERTION IMAGES COMPLETED DATE/TIME: 09/07/2020 4:15 pm REASON FOR STUDY: NO IV ACCESS AVAILABILITY COMPARISON: None. FLUOROSCOPY TIME: 40 seconds of fluoroscopy was used. 3 images saved to PACS. TECHNIQUE: Fluoroscopic and ultrasound guided PICC placement. LIMITATIONS: None. PROCEDURE: After written consent and assessment were obtained, the patient was brought into the fluo roscopy room and placed supine on the table. Ultrasound evaluation of potential access sites were per formed. After successfully identifying a patent left cephalic vein, the left arm was prepped and drap ed in a sterile fashion along with the ultrasound probe. The entry site was anesthetized with 1% lido bernadette. A 21 gauge 7 cm needle was advanced through the skin and into the cephalic vein under live ult rasound guidance. An ultrasound image was saved to PACS confirming access site. A .018 guide wire w as then inserted through the needle and into the venous system. The needle was then removed and an 11 blade scalpel was used to make a 1cm skin incision. A 5 fr peel-away sheath was advanced over the w [place] and into the venous system. A measurement was then made using the existing wire and live fluorosc opic guidance. The wire was then removed and trimmed. The PICC was advanced through the peel-away she ath and into the venous system. The PICC line was secured to the patient's arm with suture. The cath eter was then aspirated and flushed and a sterile bandage was placed over the access site. A fluoros copic spot image was saved to PACS confirming the catheter tip within the superior vena cava. IMPRESSION: SUCCESSFUL PLACEMENT OF A 5 FR DUAL LUMEN 52 CM PICC IN THE LEFT CEPHALIC VEIN. COMMENT: Patient medication list reviewed: Yes- Quality ID# 130:Eligible professional attests to doc umenting in the medical record they obtained, updated, or reviewed the patient's current medications. . Quality ID 145: Final reports for procedures using fluoroscopy that document radiation exposure joce livier, or exposure time and number of fluorographic images (if radiation exposure indices are not avail able) Quality ID #76: The patient was prepped and draped using maximum sterile barrier technique including cap, mask, sterile gown, sterile gloves, a large sterile sheet, hand hygiene, and 2% Chlorhexidine fo r cutaneous antisepsis. When ultrasound is used, sterile ultrasound techniques are followed requiring sterile gel and sterile probes. TECHNICAL DOCUMENTATION: JOB ID: [id number] 2010 [employer]- All Rights Reserved rev-02/14 Reading location - IP/workstation name: [email or web address]
[2020-09-07] MEDS: VANCOMYCIN HCL 1,250 MG in DEXTROSE 5%-WATER 250 ML IV SCH (17:29)
[2020-09-07] MEDS ORDERED: DIPHENHYDRAMINE HCL 25 MG CAPSULE PO PRN (17:44)
[2020-09-07] MEDS: NYSTATIN TOPICAL POWDER 15 GM TP SCH (19:35)
[2020-09-07] MEDS: NORMAL SALINE 10 ML SDV (SCHEDULED) IV SCH (22:37)
[2020-09-07] MEDS: TRAZODONE HCL 50 MG TABLET PO SCH (22:38)
[2020-09-08] MEDS: VANCOMYCIN HCL 1,250 MG in DEXTROSE 5%-WATER 250 ML IV SCH ×3 (01:43→18:45)
[2020-09-08] MEDS: OXYCODONE-ACETAMINOPHEN 5-325 MG TABLET PO PRN ×3 (01:47→23:29)
[2020-09-08] MEDS: PREGABALIN 100 MG CAPSULE PO SCH ×2 (11:29→17:18)
[2020-09-08] MEDS: FUROSEMIDE 40 MG TABLET PO SCH ×2 (11:29→17:18)
[2020-09-08] MEDS: DULOXETINE HCL 30 MG CAPSULE.DR PO SCH (11:29)
[2020-09-08] MEDS: FAMOTIDINE 20 MG TABLET PO SCH ×2 (11:29→22:16)
[2020-09-08] MEDS: ALLOPURINOL 300 MG TABLET PO SCH (11:29)
[2020-09-08] MEDS: BACLOFEN 10 MG TABLET PO SCH ×3 (11:29→18:45)
[2020-09-08] MEDS: VITAMIN B COMPLEX TABLET PO SCH (11:30)
[2020-09-08] MEDS: CARVEDILOL 6.25 MG TABLET PO SCH ×2 (11:30→22:16)
[2020-09-08] MEDS: POTASSIUM CHLORIDE 10 MEQ TABLET.ER PO SCH ×2 (11:30→22:16)
[2020-09-08] MEDS: AMITRIPTYLINE HCL 50 MG TABLET PO SCH (11:30)
[2020-09-08] MEDS: ENOXAPARIN SODIUM INJ 40 MG/0.4 ML DISP.SYRIN SUBCUT SCH (11:31)
[2020-09-08] MEDS: NORMAL SALINE 10 ML SDV (SCHEDULED) IV SCH ×2 (11:32→22:17)
--- NOTE | 2020-09-08 16:49 | PDOC PROGRESS REPORT ---
Subjective Date:: 09/08/20 Subjective:: Patient is resting comfortably in bed Reason For Visit: RIGHT LOWER EXTREMITY CELLULITIS,FALL Physical Exam Vital Signs: Temp Pulse Resp BP Pulse Ox 97.4 F 71 20 131/51 H 97 09/08/20 16:14 09/08/20 16:14 09/08/20 16:14 09/08/20 16:14 09/08/20 16:14 Intake & Output 09/07/20 09/08/20 09/09/20 06:59 06:59 06:59 Intake Total 2356 1210 Output Total 4300 2500 Balance -1944 -1290 Weight 145.6 kg 141.3 kg General appearance: PRESENT: no acute distress, morbidly obese, well-developed, well-nourished Head exam: PRESENT: atraumatic, normocephalic Eye exam: PRESENT: conjunctiva pink. ABSENT: scleral icterus Ear exam: PRESENT: normal external ear exam. ABSENT: bleeding, drainage Mouth exam: PRESENT: moist, tongue midline Respiratory exam: PRESENT: clear to auscultation pam, symmetrical, unlabored. ABSENT: rales, rhonchi, tachypnea, wheezes Cardiovascular exam: PRESENT: RRR, +S1, +S2, systolic murmur GI/Abdominal exam: PRESENT: normal bowel sounds, soft. ABSENT: tenderness Rectal exam: PRESENT: deferred Extremities exam: PRESENT: +1 edema - Edema in the right leg improved Musculoskeletal exam: PRESENT: deformity - Left below-knee amputation Neurological exam: PRESENT: alert, awake, oriented to person, oriented to place, oriented to time, oriented to situation, CN II-XII grossly intact. ABSENT: altered Psychiatric exam: PRESENT: appropriate affect. ABSENT: agitated, anxious Focused psych exam: ABSENT: delusional, paranoid, restlessness Skin exam: PRESENT: erythema - Right leg and left stump Results Laboratory Results: 09/06/20 05:58 09/06/20 05:58 09/05/20 09/05/20 09/05/20 17:52 17:52 17:52 Creatine Kinase 136 Cancelled Troponin I < 0.012 Impressions: Head CT 09/05/20 00:00 IMPRESSION: 1. No acute intracranial abnormalities. 2. Possibility of mild NPH is raised. TECHNICAL DOCUMENTATION: Quality ID # 436: Final reports with documentation of one or more dose reduction techniques (e.g., Automated exposure control, adjustment of the mA and/or kV according to patient size, use of iterative reconstruction technique) copyright 2011 [employer]- All Rights Reserved Chest X-Ray 09/05/20 14:50 IMPRESSION: No significant interval change. No acute cardiopulmonary disease. Pelvis X-Ray 09/05/20 14:51 IMPRESSION: No acute fracture or dislocation of the pelvis. Stable post operative changes of the lumbar spine partially visualized. PICC Line Insertion 09/07/20 00:00 IMPRESSION: SUCCESSFUL PLACEMENT OF A 5 FR DUAL LUMEN 52 CM PICC IN THE LEFT CEPHALIC VEIN. Assessment and Plan - Diagnosis (1) Cellulitis of right lower extremity Is this a current diagnosis for this admission?: Yes (2) Frequent falls Is this a current diagnosis for this admission?: Yes (3) Below-knee amputation of left lower extremity Is this a current diagnosis for this admission?: Yes (4) CHF (congestive heart failure) Qualifiers: Heart failure type: systolic Heart failure chronicity: acute on chronic Qualified Code(s): I50.23 - Acute on chronic systolic (congestive) heart failure Is this a current diagnosis for this admission?: Yes (5) HTN (hypertension) Is this a current diagnosis for this admission?: Yes (6) Morbid obesity with BMI of 40.0-44.9, adult Is this a current diagnosis for this admission?: Yes (7) GLADYS (obstructive sleep apnea) Is this a current diagnosis for this admission?: Yes (8) Hypokalemia Is this a current diagnosis for this admission?: Yes - Plan Summary Summary: (1) Cellulitis of right lower extremity Is this a current diagnosis for this admission?: Yes (2) Frequent falls Is this a current diagnosis for this admission?: Yes (3) Below-knee amputation of left lower extremity Is this a current diagnosis for this admission?: Yes (4) CHF (congestive heart failure) Qualifiers: Heart failure type: systolic Heart failure chronicity: acute on chronic Qualified Code(s): I50.23 - Acute on chronic systolic (congestive) heart failure Is this a current diagnosis for this admission?: Yes (5) HTN (hypertension) Is this a current diagnosis for this admission?: Yes (6) Morbid obesity with BMI of 40.0-44.9, adult Is this a current diagnosis for this admission?: Yes (7) GLADYS (obstructive sleep apnea) Is this a current diagnosis for this admission?: Yes (8) Hypokalemia 09/06/2020 Continue antibiotics for right lower leg. The loose epidermis and gelatin like fluid was cleaned thoroughly and removed. We will apply Xeroform dressings. The left stump has some erythema and a small scab in antibiotics will cover this as well. Continue current medications for the systolic heart failure and hypertension. Continue to encourage weight loss by aggressive dieting as he would not be able to exercise at this time. CPAP for sleep apnea. The patient's legs were constantly moving. He may have restless leg syndrome. We will discuss further tomorrow and consider medication adjustment. 09/07/2020 Wound dressing changed to single layer of Xeroform. Patient reports that the leg feels better. Continuing IV antibiotics. Serum potassium is low from aggressive diuresis. Maintaining a negative fluid balance for his heart failure. Cellulitis is slowly improving. Reasonable glucose control. Continue physical therapy to improve mobility. 09/08/2020 Continue current dressing changes. Laboratory studies ordered for tomorrow to check electrolytes. Continue current regimen for diabetes. Continue to attempt negative fluid balance. The patient would benefit from short-term rehab. They are working on finding a bed. Consider adjusting antibiotic therapy with a disposition to [facility] facility. - Time Time Spent with patient: 15-24 minutes Medications reviewed and adjusted accordingly: Yes Anticipated Discharge Disposition: Shelter Facility Anticipated Discharge Timeframe: when bed available
[2020-09-08] MEDS: NYSTATIN TOPICAL POWDER 15 GM TP SCH ×2 (17:20→19:45)
[2020-09-08] MEDS ORDERED: PREGABALIN 100 MG CAPSULE PO ONE (19:00)
[2020-09-08] MEDS: VANCOMYCIN HCL 1,500 MG in DEXTROSE 5%-WATER 250 ML IV SCH (20:40)
[2020-09-08] MEDS: TRAZODONE HCL 50 MG TABLET PO SCH (22:16)
[2020-09-09] MEDS: VANCOMYCIN HCL 1,250 MG in DEXTROSE 5%-WATER 250 ML IV SCH ×3 (02:59→17:19)
[2020-09-09 05:17] LABS: HEMATOCRIT 34.2 % (37.9-51.0); HEMOGLOBIN 11.2 g/dL (13.5-17.0); MEAN CORPUSCULAR HGB CONC 32.7 g/dL (32.0-36.0); MEAN CORPUSCULAR VOLUME 77 fl (80-97); PLATELET COUNT 153 10^3/uL (150-450); RED BLOOD COUNT 4.47 10^6/uL (4.35-5.55); RED CELL DISTRIBUTION WIDTH 20.1 % (11.5-14.0); WHITE BLOOD COUNT 6.6 10^3/uL (4.0-10.5)
[2020-09-09 05:34] LABS: ALBUMIN 3.3 g/dL (3.5-5.0); ALKALINE PHOSPHATASE 118 U/L (38-126); ANION GAP 6 (5-19); ASPARTATE AMINO TRANSFERASE 21 U/L (17-59); BILIRUBIN,DIRECT 0.1 mg/dL (0.0-0.4); BILIRUBIN,TOTAL 0.4 mg/dL (0.2-1.3); BLOOD UREA NITROGEN 20 mg/dL (7-20); C-REACTIVE PROTEIN 71.9 mg/L (<10.0); CALCIUM 9.1 mg/dL (8.4-10.2); CARBON DIOXIDE 33 mmol/L (22-30); CHLORIDE 99 mmol/L (98-107); GLUCOSE 130 mg/dL (75-110); POTASSIUM 3.5 mmol/L (3.6-5.0); TOTAL PROTEIN 6.6 g/dL (6.3-8.2)
[2020-09-09] MEDS: FAMOTIDINE 20 MG TABLET PO SCH ×2 (09:55→22:23)
[2020-09-09] MEDS: CARVEDILOL 6.25 MG TABLET PO SCH ×2 (09:55→22:25)
[2020-09-09] MEDS: PREGABALIN 100 MG CAPSULE PO SCH ×2 (09:55→17:20)
[2020-09-09] MEDS: BACLOFEN 10 MG TABLET PO SCH ×3 (09:55→17:20)
[2020-09-09] MEDS: AMITRIPTYLINE HCL 50 MG TABLET PO SCH (09:55)
[2020-09-09] MEDS: FUROSEMIDE 40 MG TABLET PO SCH ×2 (09:56→17:20)
[2020-09-09] MEDS: DULOXETINE HCL 30 MG CAPSULE.DR PO SCH (09:56)
[2020-09-09] MEDS: VITAMIN B COMPLEX TABLET PO SCH (09:56)
[2020-09-09] MEDS: POTASSIUM CHLORIDE 10 MEQ TABLET.ER PO SCH ×2 (09:56→22:24)
[2020-09-09] MEDS: ALLOPURINOL 300 MG TABLET PO SCH (09:56)
[2020-09-09] MEDS: ENOXAPARIN SODIUM INJ 40 MG/0.4 ML DISP.SYRIN SUBCUT SCH (09:57)
[2020-09-09] MEDS: NYSTATIN TOPICAL POWDER 15 GM TP SCH ×2 (09:58→17:20)
[2020-09-09] MEDS: NORMAL SALINE 10 ML SDV (SCHEDULED) IV SCH ×2 (09:59→22:23)
[2020-09-09] MEDS ORDERED: GLIMEPIRIDE 4 MG TABLET PO SCH (10:00)
--- NOTE | 2020-09-09 13:00 | PDOC PROGRESS REPORT ---
Subjective Date:: 09/09/20 Subjective:: Patient is resting in bed. He states that his leg still hurts. I told him it w ould take time for the discomfort to go away. He also complains of poor sleep. Reason For Visit: CELLULITIS RIGHT LEG WITH POSSIBLE CELLULITIS LEFT Physical Exam Vital Signs: Temp Pulse Resp BP Pulse Ox 98.1 F 72 18 167/72 H 99 09/09/20 08:48 09/09/20 07:50 09/09/20 07:50 09/09/20 07:50 09/09/20 07:50 Intake & Output 09/08/20 09/09/20 09/10/20 06:59 06:59 06:59 Intake Total 1210 2303 1246 Output Total 3917 2872 1800 Balance -9360 -6592 -774 Weight 141.3 kg 140 kg General appearance: PRESENT: no acute distress, cooperative, morbidly obese, well-developed, well-nourished Head exam: PRESENT: atraumatic, normocephalic Eye exam: PRESENT: conjunctiva pink. ABSENT: scleral icterus Ear exam: PRESENT: normal external ear exam. ABSENT: bleeding, drainage Respiratory exam: PRESENT: rales - Faint rales right base, symmetrical, unlabore d. ABSENT: rhonchi, tachypnea, wheezes Cardiovascular exam: PRESENT: RRR, +S1, +S2. ABSENT: bradycardia, diastolic murmur, irregular rhythm, systolic murmur, tachycardia GI/Abdominal exam: PRESENT: normal bowel sounds, soft, other - Protuberant abd omen. ABSENT: tenderness Rectal exam: PRESENT: deferred Gentrourinary exam: ABSENT: indwelling catheter Extremities exam: PRESENT: +1 edema Neurological exam: PRESENT: alert, awake, oriented to person, oriented to place, oriented to time, oriented to situation, abnormal gait - Left below-knee amput ation, CN II-XII grossly intact. ABSENT: altered Psychiatric exam: PRESENT: appropriate affect. ABSENT: agitated, anxious Focused psych exam: ABSENT: delusional, paranoid, restlessness Skin exam: PRESENT: erythema - Right leg and left stump Results Laboratory Results: 09/09/20 04:55 09/09/20 04:55 09/09/20 09/09/20 04:55 04:55 WBC 6.6 RBC 4.47 Hgb 11.2 L Hct 34.2 L MCV 77 L MCH 25.0 L MCHC 32.7 RDW 20.1 H Plt Count 153 Sodium 137.8 Potassium 3.5 L Chloride 99 Carbon Dioxide 33 H Anion Gap 6 BUN 20 Creatinine 1.12 Est GFR ( Amer) > 60 Glucose 130 H Calcium 9.1 Total Bilirubin 0.4 AST 21 Alkaline Phosphatase 118 C-Reactive Protein 71.9 H Total Protein 6.6 Albumin 3.3 L 09/05/20 09/05/20 09/05/20 17:52 17:52 17:52 Creatine Kinase 136 Cancelled Troponin I < 0.012 Impressions: Head CT 09/05/20 00:00 IMPRESSION: 1. No acute intracranial abnormalities. 2. Possibility of mild NPH is raised. TECHNICAL DOCUMENTATION: Quality ID # 436: Final reports with documentation of one or more dose reduction techniques (e.g., Automated exposure control, adjustment of the mA and/or kV according to patient size, use of iterative reconstruction technique) copyright 2011 [employer]- All Rights Reserved Chest X-Ray 09/05/20 14:50 IMPRESSION: No significant interval change. No acute cardiopulmonary disease. Pelvis X-Ray 09/05/20 14:51 IMPRESSION: No acute fracture or dislocation of the pelvis. Stable postope rative changes of the lumbar spine partially visualized. PICC Line Insertion 09/07/20 00:00 IMPRESSION: SUCCESSFUL PLACEMENT OF A 5 FR DUAL LUMEN 52 CM PICC IN THE LEFT CEPHALIC VEIN. Assessment and Plan - Diagnosis (1) Cellulitis of right lower extremity Is this a current diagnosis for this admission?: Yes (2) Frequent falls Is this a current diagnosis for this admission?: Yes (3) Below-knee amputation of left lower extremity Is this a current diagnosis for this admission?: Yes (4) CHF (congestive heart failure) Qualifiers: Heart failure type: systolic Heart failure chronicity: acute on chronic Qualified Code(s): I50.23 - Acute on chronic systolic (congestive) heart failure Is this a current diagnosis for this admission?: Yes (5) HTN (hypertension) Is this a current diagnosis for this admission?: Yes (6) Morbid obesity with BMI of 40.0-44.9, adult Is this a current diagnosis for this admission?: Yes (7) GLADYS (obstructive sleep apnea) Is this a current diagnosis for this admission?: Yes (8) Hypokalemia Is this a current diagnosis for this admission?: Yes - Plan Summary Summary: (1) Cellulitis of right lower extremity Is this a current diagnosis for this admission?: Yes (2) Frequent falls Is this a current diagnosis for this admission?: Yes (3) Below-knee amputation of left lower extremity Is this a current diagnosis for this admission?: Yes (4) CHF (congestive heart failure) Qualifiers: Heart failure type: systolic Heart failure chronicity: acute on chronic Qualified Code(s): I50.23 - Acute on chronic systolic (congestive) heart failure Is this a current diagnosis for this admission?: Yes (5) HTN (hypertension) Is this a current diagnosis for this admission?: Yes (6) Morbid obesity with BMI of 40.0-44.9, adult Is this a current diagnosis for this admission?: Yes (7) GLADYS (obstructive sleep apnea) Is this a current diagnosis for this admission?: Yes (8) Hypokalemia 09/06/2020 Continue antibiotics for right lower leg. The loose epidermis and gelatin like fluid was cleaned thoroughly and removed. We will apply Xeroform dressings. The left stump has some erythema and a small scab in antibiotics will cover this as well. Continue current medications for the systolic heart failure and hypertension. Continue to encourage weight loss by aggressive dieting as he would not be able to exercise at this time. CPAP for sleep apnea. The patient's legs were constantly moving. He may have restless leg syndrome. We will discuss further tomorrow and consider medication adjustment. 09/07/2020 Wound dressing changed to single layer of Xeroform. Patient reports that the leg feels better. Continuing IV antibiotics. Serum potassium is low from aggressive diuresis. Maintaining a negative fluid balance for his heart failure. Cellulitis is slowly improving. Reasonable glucose control. Continue physical therapy to improve mobility. 09/08/2020 Continue current dressing changes. Laboratory studies ordered for tomorrow to check electrolytes. Continue current regimen for diabetes. Continue to attempt negative fluid balance. The patient would benefit from short-term rehab. They are working on finding a bed. Consider adjusting antibiotic therapy with a disposition to assisted facility. 09/09/2020 Cellulitis-I should have the final microbiology report tomorrow. We will narrow the spectrum of antibiotics. Reassess current dressing change plans. Patient would benefit from compression dressings Laboratory studies showed borderline potassium level. The patient is on oral supplement. Otherwise laboratory studies are stable. Continue current diabetic regimen including diet. Maintaining a good negative fluid balance. Trazodone increased to 200 mg at night. - Time Time Spent with patient: 15-24 minutes Medications reviewed and adjusted accordingly: Yes Anticipated Discharge Disposition: Residential Facility Anticipated Discharge Timeframe: when bed available
[2020-09-09] MEDS: OXYCODONE-ACETAMINOPHEN 5-325 MG TABLET PO PRN (17:20)
[2020-09-09] MEDS: TRAZODONE HCL 50 MG TABLET PO SCH (22:24)
[2020-09-10] MEDS: OXYCODONE-ACETAMINOPHEN 5-325 MG TABLET PO PRN
[2020-09-10] MEDS: VANCOMYCIN HCL 1,250 MG in DEXTROSE 5%-WATER 250 ML IV SCH (03:00)
[2020-09-10 05:42] LABS: HEMATOCRIT 36.9 % (37.9-51.0); HEMOGLOBIN 12.1 g/dL (13.5-17.0); MEAN CORPUSCULAR HEMOGLOBIN 25.4 pg (27.0-33.4); MEAN CORPUSCULAR HGB CONC 32.9 g/dL (32.0-36.0); MEAN CORPUSCULAR VOLUME 77 fl (80-97); PLATELET COUNT 189 10^3/uL (150-450); RED BLOOD COUNT 4.79 10^6/uL (4.35-5.55); WHITE BLOOD COUNT 6.7 10^3/uL (4.0-10.5)
[2020-09-10 06:02] LABS: ANION GAP 7 (5-19); BLOOD UREA NITROGEN 22 mg/dL (7-20); C-REACTIVE PROTEIN 53.6 mg/L (<10.0); CALCIUM 9.3 mg/dL (8.4-10.2); CARBON DIOXIDE 34 mmol/L (22-30); CHLORIDE 98 mmol/L (98-107); GLUCOSE 118 mg/dL (75-110); POTASSIUM 3.9 mmol/L (3.6-5.0)
--- NOTE | 2020-09-10 09:12 | PDOC PROGRESS REPORT ---
Subjective Date:: 09/10/20 Subjective:: Patient is sitting up eating breakfast. He does not appear to be in any distres s. Coban wrap is to his knee providing some needed compression to the right leg. Reason For Visit: CELLULITIS RIGHT LEG WITH POSSIBLE CELLULITIS LEFT Physical Exam Vital Signs: Temp Pulse Resp BP Pulse Ox 97.6 F 64 16 136/70 H 95 09/10/20 03:00 09/10/20 03:00 09/10/20 03:00 09/10/20 03:00 09/10/20 03:00 Intake & Output 09/09/20 09/10/20 09/11/20 06:59 06:59 06:59 Intake Total 2303 3486 Output Total 8801 5460 Balance -9782 -6880 Weight 140 kg 141 kg General appearance: PRESENT: no acute distress, cooperative, morbidly obese, well-developed, other - Sitting on the edge of bed eating breakfast Head exam: PRESENT: atraumatic, normocephalic Eye exam: PRESENT: conjunctiva pale. ABSENT: scleral icterus Ear exam: PRESENT: normal external ear exam. ABSENT: bleeding, drainage Mouth exam: PRESENT: moist, tongue midline Neck exam: ABSENT: carotid bruit, JVD, lymphadenopathy, tracheostomy Respiratory exam: PRESENT: clear to auscultation pam, symmetrical, unlabored. ABSENT: accessory muscle use, prolonged expiratory phas, rales, rhonchi, tachypnea, wheezes Cardiovascular exam: PRESENT: RRR, +S1, +S2. ABSENT: bradycardia, diastolic murmur, irregular rhythm, systolic murmur, tachycardia GI/Abdominal exam: PRESENT: normal bowel sounds, soft, other - Protuberant abdomen. ABSENT: tenderness Rectal exam: PRESENT: deferred Gentrourinary exam: PRESENT: indwelling catheter Extremities exam: PRESENT: +1 edema. ABSENT: calf tenderness Musculoskeletal exam: PRESENT: deformity - Left below-knee amputation. ABSENT: dislocation Neurological exam: PRESENT: alert, awake, oriented to person, oriented to place, oriented to time, oriented to situation, CN II-XII grossly intact. ABSENT: altered Psychiatric exam: PRESENT: appropriate affect. ABSENT: agitated, anxious Focused psych exam: ABSENT: delusional, paranoid, restlessness Skin exam: PRESENT: dry, erythema, warm. ABSENT: rash Results Laboratory Results: 09/10/20 05:10 09/10/20 05:10 09/10/20 09/10/20 05:10 05:10 WBC 6.7 RBC 4.79 Hgb 12.1 L Hct 36.9 L MCV 77 L MCH 25.4 L MCHC 32.9 RDW 20.0 H Plt Count 189 Sodium 139.4 Potassium 3.9 Chloride 98 Carbon Dioxide 34 H Anion Gap 7 BUN 22 H Creatinine 1.11 Est GFR ( Amer) > 60 Glucose 118 H Calcium 9.3 C-Reactive Protein 53.6 H 09/05/20 09/05/20 09/05/20 17:52 17:52 17:52 Creatine Kinase 136 Cancelled Troponin I < 0.012 Impressions: Head CT 09/05/20 00:00 IMPRESSION: 1. No acute intracranial abnormalities. 2. Possibility of mild NPH is raised. TECHNICAL DOCUMENTATION: Quality ID # 436: Final reports with documentation of one or more dose reduction techniques (e.g., Automated exposure control, adjustment of the mA and/or kV according to patient size, use of iterative reconstruction technique) copyright 2011 [employer]- All Rights Reserved Chest X-Ray 09/05/20 14:50 IMPRESSION: No significant interval change. No acute cardiopulmonary disease. Pelvis X-Ray 09/05/20 14:51 IMPRESSION: No acute fracture or dislocation of the pelvis. Stable postoperative changes of the lumbar spine partially visualized. PICC Line Insertion 09/07/20 00:00 IMPRESSION: SUCCESSFUL PLACEMENT OF A 5 FR DUAL LUMEN 52 CM PICC IN THE LEFT CEPHALIC VEIN. Assessment and Plan - Diagnosis (1) Cellulitis of right lower extremity Is this a current diagnosis for this admission?: Yes (2) Frequent falls Is this a current diagnosis for this admission?: Yes (3) Below-knee amputation of left lower extremity Is this a current diagnosis for this admission?: Yes (4) CHF (congestive heart failure) Qualifiers: Heart failure type: systolic Heart failure chronicity: acute on chronic Qualified Code(s): I50.23 - Acute on chronic systolic (congestive) heart failure Is this a current diagnosis for this admission?: Yes (5) HTN (hypertension) Is this a current diagnosis for this admission?: Yes (6) Morbid obesity with BMI of 40.0-44.9, adult Is this a current diagnosis for this admission?: Yes (7) GLADYS (obstructive sleep apnea) Is this a current diagnosis for this admission?: Yes (8) Hypokalemia Is this a current diagnosis for this admission?: Yes (9) Contact dermatitis due to adhesive bandage Is this a current diagnosis for this admission?: Yes - Plan Summary Summary: (1) Cellulitis of right lower extremity Is this a current diagnosis for this admission?: Yes (2) Frequent falls Is this a current diagnosis for this admission?: Yes (3) Below-knee amputation of left lower extremity Is this a current diagnosis for this admission?: Yes (4) CHF (congestive heart failure) Qualifiers: Heart failure type: systolic Heart failure chronicity: acute on chronic Qualified Code(s): I50.23 - Acute on chronic systolic (congestive) heart failure Is this a current diagnosis for this admission?: Yes (5) HTN (hypertension) Is this a current diagnosis for this admission?: Yes (6) Morbid obesity with BMI of 40.0-44.9, adult Is this a current diagnosis for this admission?: Yes (7) GLADYS (obstructive sleep apnea) Is this a current diagnosis for this admission?: Yes (8) Hypokalemia (9) Contact dermatitis adhesive bandage 09/06/2020 Continue antibiotics for right lower leg. The loose epidermis and gelatin like fluid was cleaned thoroughly and removed. We will apply Xeroform dressings. The left stump has some erythema and a small scab in antibiotics will cover this as well. Continue current medications for the systolic heart failure and hypertension. Continue to encourage weight loss by aggressive dieting as he would not be able to exercise at this time. CPAP for sleep apnea. The patient's legs were constantly moving. He may have restless leg syndrome. We will discuss further tomorrow and consider medication adjustment. 09/07/2020 Wound dressing changed to single layer of Xeroform. Patient reports that the leg feels better. Continuing IV antibiotics. Serum potassium is low from aggressive diuresis. Maintaining a negative fluid balance for his heart failure. Cellulitis is slowly improving. Reasonable glucose control. Continue physical therapy to improve mobility. 09/08/2020 Continue current dressing changes. Laboratory studies ordered for tomorrow to check electrolytes. Continue current regimen for diabetes. Continue to attempt negative fluid balance. The patient would benefit from short-term rehab. They are working on finding a bed. Consider adjusting antibiotic therapy with a disposition to [facility]. 09/09/2020 Cellulitis-I should have the final microbiology report tomorrow. We will narrow the spectrum of antibiotics. Reassess current dressing change plans. Patient would benefit from compression dressings Laboratory studies showed borderline potassium level. The patient is on oral supplement. Otherwise laboratory studies are stable. Continue current diabetic regimen including diet. Maintaining a good negative fluid balance. Trazodone increased to 200 mg at night. 09/10/2020 Cellulitis-culture is positive for methicillin-resistant staph aureus. Continue vancomycin for another 7 days. Can switch to Zyvox as an outpatient/rehab patient. With culture positive for MRSA we will add a thin layer of Bactroban to the leg ulcer dressing. Contact dermatitis-under the dressing on the right arm the patient developed erythema and blisters. Benadryl was helpful. There is some scab formation and we will apply Bactroban twice a day until clear. No systemic steroids at this point. Potassium is down to 3.9. Continue trazodone for sleep at 200 mg at bedtime Excellent negative fluid balance. Dressing with Coban on the right leg is applying some compression which is helpful. Unfortunately the [facility] but the [facility] center close to the rehab center was not approved until the patient's transition has been delayed. We will discontinue Sol catheter. Patient likely able to utilize the urinal for intake and output capture - Time Time Spent with patient: 15-24 minutes Medications reviewed and adjusted accordingly: Yes Anticipated Discharge Disposition: [facility] Facility Anticipated Discharge Timeframe: when bed available
[2020-09-10 10:36] LABS: VANCOMYCIN,TROUGH 24.3 ug/mL (5.0-20.0)
[2020-09-10] MEDS: ENOXAPARIN SODIUM INJ 40 MG/0.4 ML DISP.SYRIN SUBCUT SCH (11:58)
[2020-09-10] MEDS: POTASSIUM CHLORIDE 10 MEQ TABLET.ER PO SCH ×2 (11:58→21:08)
[2020-09-10] MEDS: PREGABALIN 100 MG CAPSULE PO SCH ×2 (11:58→18:18)
[2020-09-10] MEDS: FUROSEMIDE 40 MG TABLET PO SCH ×2 (11:59→18:18)
[2020-09-10] MEDS: VITAMIN B COMPLEX TABLET PO SCH (11:59)
[2020-09-10] MEDS: DULOXETINE HCL 30 MG CAPSULE.DR PO SCH (11:59)
[2020-09-10] MEDS: FAMOTIDINE 20 MG TABLET PO SCH ×2 (11:59→21:09)
[2020-09-10] MEDS: CARVEDILOL 6.25 MG TABLET PO SCH ×2 (11:59→21:08)
[2020-09-10] MEDS: BACLOFEN 10 MG TABLET PO SCH ×3 (12:00→18:19)
[2020-09-10] MEDS: AMITRIPTYLINE HCL 50 MG TABLET PO SCH (12:00)
[2020-09-10] MEDS: ALLOPURINOL 300 MG TABLET PO SCH (12:00)
[2020-09-10] MEDS: NYSTATIN TOPICAL POWDER 15 GM TP SCH ×2 (12:01→18:21)
[2020-09-10] MEDS: NORMAL SALINE 10 ML SDV (SCHEDULED) IV SCH ×2 (12:01→21:10)
[2020-09-10] MEDS: GUAIFENESIN 600 MG TABLET.SA PO SCH ×2 (14:02→21:09)
[2020-09-10] MEDS: MUPIROCIN CALCIUM 2% CREAM 15 GM TP SCH ×2 (14:06→18:23)
[2020-09-10] MEDS: TRAZODONE HCL 50 MG TABLET PO SCH (21:09)
[2020-09-11] MEDS: VANCOMYCIN HCL 1,500 MG in DEXTROSE 5%-WATER 250 ML IV SCH ×2 (05:53→17:48)
[2020-09-11] MEDS: FUROSEMIDE 40 MG TABLET PO SCH ×2 (09:21→17:47)
[2020-09-11] MEDS: DULOXETINE HCL 30 MG CAPSULE.DR PO SCH (09:22)
[2020-09-11] MEDS: FAMOTIDINE 20 MG TABLET PO SCH ×2 (09:22→22:27)
[2020-09-11] MEDS: ALLOPURINOL 300 MG TABLET PO SCH (09:22)
[2020-09-11] MEDS: AMITRIPTYLINE HCL 50 MG TABLET PO SCH (09:22)
[2020-09-11] MEDS: CARVEDILOL 6.25 MG TABLET PO SCH ×2 (09:22→22:28)
[2020-09-11] MEDS: BACLOFEN 10 MG TABLET PO SCH ×3 (09:22→17:46)
[2020-09-11] MEDS: GUAIFENESIN 600 MG TABLET.SA PO SCH ×2 (09:23→22:28)
[2020-09-11] MEDS: ENOXAPARIN SODIUM INJ 40 MG/0.4 ML DISP.SYRIN SUBCUT SCH (09:25)
[2020-09-11] MEDS: VITAMIN B COMPLEX TABLET PO SCH (09:27)
[2020-09-11] MEDS: PREGABALIN 100 MG CAPSULE PO SCH ×2 (09:28→17:46)
[2020-09-11] MEDS: POTASSIUM CHLORIDE 10 MEQ TABLET.ER PO SCH ×2 (09:28→22:27)
[2020-09-11] MEDS: MUPIROCIN CALCIUM 2% CREAM 15 GM TP SCH ×2 (09:29→17:50)
[2020-09-11] MEDS: NYSTATIN TOPICAL POWDER 15 GM TP SCH ×2 (10:00→22:34)
--- NOTE | 2020-09-11 10:15 | PDOC PROGRESS REPORT ---
Subjective Date:: 09/11/20 Subjective:: Patient just waking up this morning. Marked improvement in edema in the right l eg. Reason For Visit: CELLULITIS RIGHT LEG WITH POSSIBLE CELLULITIS LEFT MRSA infection Chronic pain Physical Exam Vital Signs: Temp Pulse Resp BP Pulse Ox 97.5 F 68 20 152/70 H 95 09/11/20 08:42 09/11/20 08:42 09/11/20 08:42 09/11/20 08:42 09/11/20 08:42 Intake & Output 09/10/20 09/11/20 09/12/20 06:59 06:59 06:59 Intake Total 3486 1200 Output Total 6600 4250 Balance -3114 -3050 Weight 141 kg 141.2 kg General appearance: PRESENT: cooperative, mild distress, morbidly obese, well- developed Head exam: PRESENT: atraumatic, normocephalic Eye exam: PRESENT: conjunctiva pink. ABSENT: scleral icterus Ear exam: PRESENT: normal external ear exam. ABSENT: bleeding, drainage Mouth exam: PRESENT: moist, tongue midline Neck exam: ABSENT: carotid bruit, JVD, lymphadenopathy, tracheostomy Respiratory exam: PRESENT: clear to auscultation pam, symmetrical, unlabored. ABSENT: accessory muscle use, prolonged expiratory phas, rales, rhonchi, tachypnea, wheezes Cardiovascular exam: PRESENT: RRR, +S1, +S2. ABSENT: bradycardia, diastolic murmur, irregular rhythm, systolic murmur, tachycardia GI/Abdominal exam: PRESENT: normal bowel sounds, soft, other - Protuberant abdomen. ABSENT: tenderness Rectal exam: ABSENT: deferred Gentrourinary exam: ABSENT: indwelling catheter Extremities exam: PRESENT: pedal edema - Right foot greater than left, +1 edema - Big improvement right leg Musculoskeletal exam: PRESENT: ambulatory - Working with PT, deformity - Left below-knee amputation. ABSENT: dislocation, normal inspection Neurological exam: PRESENT: alert, awake, oriented to person, oriented to place, oriented to time, oriented to situation, CN II-XII grossly intact. ABSENT: altered Psychiatric exam: PRESENT: appropriate affect. ABSENT: agitated, anxious Focused psych exam: ABSENT: delusional, paranoid, restlessness Skin exam: PRESENT: dry, erythema - Improving, warm Results Laboratory Results: 09/10/20 05:10 09/10/20 05:10 09/05/20 18:09 Blood Blood Culture - Final NO GROWTH IN 5 DAYS 09/05/20 17:52 Blood Blood Culture - Final NO GROWTH IN 5 DAYS 09/08/20 04:20 Leg - Right Cellulitis Gram Stain - Final 09/08/20 04:20 Leg - Right Cellulitis Wound Culture - Final Mrsa (Meth Resis Staph Aureus) 09/05/20 09/05/20 09/05/20 17:52 17:52 17:52 Creatine Kinase 136 Cancelled Troponin I < 0.012 Impressions: Head CT 09/05/20 00:00 IMPRESSION: 1. No acute intracranial abnormalities. 2. Possibility of mild NPH is raised. TECHNICAL DOCUMENTATION: Quality ID # 436: Final reports with documentation of one or more dose reduction techniques (e.g., Automated exposure control, adjustment of the mA and/or kV according to patient size, use of iterative reconstruction technique) copyright 2011 [employer]- All Rights Reserved Chest X-Ray 09/05/20 14:50 IMPRESSION: No significant interval change. No acute cardiopulmonary disease. Pelvis X-Ray 09/05/20 14:51 IMPRESSION: No acute fracture or dislocation of the pelvis. Stable postoperative changes of the lumbar spine partially visualized. PICC Line Insertion 09/07/20 00:00 IMPRESSION: SUCCESSFUL PLACEMENT OF A 5 FR DUAL LUMEN 52 CM PICC IN THE LEFT CEPHALIC VEIN. Assessment and Plan - Diagnosis (1) Cellulitis of right lower extremity Is this a current diagnosis for this admission?: Yes (2) Frequent falls Is this a current diagnosis for this admission?: Yes (3) Below-knee amputation of left lower extremity Is this a current diagnosis for this admission?: Yes (4) CHF (congestive heart failure) Qualifiers: Heart failure type: systolic Heart failure chronicity: acute on chronic Qualified Code(s): I50.23 - Acute on chronic systolic (congestive) heart failure Is this a current diagnosis for this admission?: Yes (5) HTN (hypertension) Is this a current diagnosis for this admission?: Yes (6) Morbid obesity with BMI of 40.0-44.9, adult Is this a current diagnosis for this admission?: Yes (7) GLADYS (obstructive sleep apnea) Is this a current diagnosis for this admission?: Yes (8) Hypokalemia Is this a current diagnosis for this admission?: Yes (9) Contact dermatitis due to adhesive bandage Is this a current diagnosis for this admission?: Yes - Plan Summary Summary: (1) Cellulitis of right lower extremity Is this a current diagnosis for this admission?: Yes (2) Frequent falls Is this a current diagnosis for this admission?: Yes (3) Below-knee amputation of left lower extremity Is this a current diagnosis for this admission?: Yes (4) CHF (congestive heart failure) Qualifiers: Heart failure type: systolic Heart failure chronicity: acute on chronic Qualified Code(s): I50.23 - Acute on chronic systolic (congestive) heart failure Is this a current diagnosis for this admission?: Yes (5) HTN (hypertension) Is this a current diagnosis for this admission?: Yes (6) Morbid obesity with BMI of 40.0-44.9, adult Is this a current diagnosis for this admission?: Yes (7) GLADYS (obstructive sleep apnea) Is this a current diagnosis for this admission?: Yes (8) Hypokalemia (9) Contact dermatitis adhesive bandage 09/06/2020 Continue antibiotics for right lower leg. The loose epidermis and gelatin like fluid was cleaned thoroughly and removed. We will apply Xeroform dressings. The left stump has some erythema and a small scab in antibiotics will cover this as well. Continue current medications for the systolic heart failure and hypertension. Continue to encourage weight loss by aggressive dieting as he would not be able to exercise at this time. CPAP for sleep apnea. The patient's legs were constantly moving. He may have restless leg syndrome. We will discuss further tomorrow and consider medication adjustment. 09/07/2020 Wound dressing changed to single layer of Xeroform. Patient reports that the leg feels better. Continuing IV antibiotics. Serum potassium is low from aggressive diuresis. Maintaining a negative fluid balance for his heart failure. Cellulitis is slowly improving. Reasonable glucose control. Continue physical therapy to improve mobility. 09/08/2020 Continue current dressing changes. Laboratory studies ordered for tomorrow to check electrolytes. Continue current regimen for diabetes. Continue to attempt negative fluid balance. The patient would benefit from short-term rehab. They are working on finding a bed. Consider adjusting antibiotic therapy with a disposition to [facility] facility. 09/09/2020 Cellulitis-I should have the final microbiology report tomorrow. We will narrow the spectrum of antibiotics. Reassess current dressing change plans. Patient would benefit from compression dressings Laboratory studies showed borderline potassium level. The patient is on oral supplement. Otherwise laboratory studies are stable. Continue current diabetic regimen including diet. Maintaining a good negative fluid balance. Trazodone increased to 200 mg at night. 09/10/2020 Cellulitis-culture is positive for methicillin-resistant staph aureus. Continue vancomycin for another 7 days. Can switch to Zyvox as an outpatient/rehab patient. With culture positive for MRSA we will add a thin layer of Bactroban to the leg ulcer dressing. Contact dermatitis-under the dressing on the right arm the patient developed erythema and blisters. Benadryl was helpful. There is some scab formation and we will apply Bactroban twice a day until clear. No systemic steroids at this point. Potassium is down to 3.9. Continue trazodone for sleep at 200 mg at bedtime Excellent negative fluid balance. Dressing with Coban on the right leg is applying some compression which is helpful. Unfortunately the short-term rehab was approved by the [place] but the outpatient dialysis center close to the rehab center was not approved until the patient's transition has been delayed. We will discontinue Sol catheter. Patient likely able to utilize the urinal for intake and output capture 09/11/2020 Correction-regarding [facility], the patient's renal function is normal. This note was entered on the wrong patient. This is not a dialysis patient. Cellulitis-with mild compression wraps the edema is greatly improved in the right leg. Continue current dressing changes. Bactroban added with each dressing change. Consider changing vancomycin to Zyvox. Need to monitor for interaction with duloxetine. Contact dermatitis-continue Bactroban. Monitor for recurrence. Hypokalemia-continue supplement and monitor electrolytes. Trazodone is up to 200 mg at bedtime. Seems to be sleeping better. Continue current diuretics. The patient has an excellent negative fluid balance. Monitor renal function to avoid overdiuresis. The patient will benefit from short-term rehab and we expect the bed to be available tomorrow 09/12/2020 Doing well with removal of the Sol catheter. - Time Time Spent with patient: 15-24 minutes Anticipated Discharge Disposition: [facility] Facility Anticipated Discharge Timeframe: when bed available
[2020-09-11] MEDS: NORMAL SALINE 10 ML SDV (SCHEDULED) IV SCH ×2 (17:48→22:29)
[2020-09-11] MEDS: TRAZODONE HCL 50 MG TABLET PO SCH (22:28)
[2020-09-11] MEDS: OXYCODONE-ACETAMINOPHEN 5-325 MG TABLET PO PRN (23:50)
[2020-09-12 05:27] LABS: HEMATOCRIT 36.8 % (37.9-51.0); HEMOGLOBIN 12.2 g/dL (13.5-17.0); MEAN CORPUSCULAR HEMOGLOBIN 25.4 pg (27.0-33.4); MEAN CORPUSCULAR VOLUME 77 fl (80-97); PLATELET COUNT 207 10^3/uL (150-450); RED BLOOD COUNT 4.79 10^6/uL (4.35-5.55); RED CELL DISTRIBUTION WIDTH 19.4 % (11.5-14.0)
[2020-09-12 05:43] LABS: ANION GAP 9 (5-19); BLOOD UREA NITROGEN 27 mg/dL (7-20); C-REACTIVE PROTEIN 30.8 mg/L (<10.0); CALCIUM 9.4 mg/dL (8.4-10.2); CARBON DIOXIDE 31 mmol/L (22-30); CHLORIDE 99 mmol/L (98-107); GLUCOSE 176 mg/dL (75-110); POTASSIUM 3.8 mmol/L (3.6-5.0)
[2020-09-12] MEDS: FUROSEMIDE 40 MG TABLET PO SCH ×2 (06:06→17:45)
[2020-09-12] MEDS: VANCOMYCIN HCL 1,500 MG in DEXTROSE 5%-WATER 250 ML IV SCH ×2 (06:06→17:46)
[2020-09-12] MEDS: DULOXETINE HCL 30 MG CAPSULE.DR PO SCH (10:56)
[2020-09-12] MEDS: PREGABALIN 100 MG CAPSULE PO SCH ×2 (10:56→17:45)
[2020-09-12] MEDS: GUAIFENESIN 600 MG TABLET.SA PO SCH ×2 (10:56→21:37)
[2020-09-12] MEDS: CARVEDILOL 6.25 MG TABLET PO SCH ×2 (10:56→21:37)
[2020-09-12] MEDS: AMITRIPTYLINE HCL 50 MG TABLET PO SCH (10:56)
[2020-09-12] MEDS: ALLOPURINOL 300 MG TABLET PO SCH (10:56)
[2020-09-12] MEDS: FAMOTIDINE 20 MG TABLET PO SCH ×2 (10:56→21:37)
[2020-09-12] MEDS: POTASSIUM CHLORIDE 10 MEQ TABLET.ER PO SCH ×2 (10:56→21:37)
[2020-09-12] MEDS: ENOXAPARIN SODIUM INJ 40 MG/0.4 ML DISP.SYRIN SUBCUT SCH (10:57)
[2020-09-12] MEDS: BACLOFEN 10 MG TABLET PO SCH ×3 (10:57→17:45)
[2020-09-12] MEDS: VITAMIN B COMPLEX TABLET PO SCH (10:57)
[2020-09-12] MEDS: MUPIROCIN CALCIUM 2% CREAM 15 GM TP SCH ×2 (10:58→17:48)
[2020-09-12] MEDS: NYSTATIN TOPICAL POWDER 15 GM TP SCH ×2 (10:58→17:47)
[2020-09-12] MEDS: NORMAL SALINE 10 ML SDV (SCHEDULED) IV SCH ×2 (10:59→21:38)
--- NOTE | 2020-09-12 11:32 | PDOC PROGRESS REPORT ---
Subjective Date:: 09/12/20 Subjective:: Patient just waking up. Breakfast tray is at the bedside. He has not started e ating yet. Reason For Visit: CELLULITIS RIGHT LEG WITH POSSIBLE CELLULITIS LEFT Physical Exam Vital Signs: Temp Pulse Resp BP Pulse Ox 97.7 F 63 16 127/66 H 94 09/12/20 10:00 09/12/20 07:00 09/12/20 03:49 09/12/20 03:49 09/12/20 03:49 Intake & Output 09/11/20 09/12/20 09/13/20 06:59 06:59 06:59 Intake Total 1200 2424 250 Output Total 4250 2715 Balance -3050 -291 250 Weight 141.2 kg 138.7 kg 138.7 kg General appearance: PRESENT: no acute distress, cooperative, morbidly obese, well-developed Respiratory exam: PRESENT: clear to auscultation pam, symmetrical, unlabored. ABSENT: rales, rhonchi, tachypnea, wheezes Cardiovascular exam: PRESENT: RRR, +S1, +S2. ABSENT: bradycardia, diastolic murmur, irregular rhythm, systolic murmur, tachycardia GI/Abdominal exam: PRESENT: normal bowel sounds, soft, other - Protuberant abdomen. ABSENT: tenderness Rectal exam: PRESENT: deferred Gentrourinary exam: ABSENT: indwelling catheter Extremities exam: PRESENT: other - Lower extremity edema significantly improved. Left stump with some swelling. Neurological exam: PRESENT: alert, awake, oriented to person, oriented to place, oriented to time, oriented to situation Psychiatric exam: PRESENT: flat affect. ABSENT: agitated, anxious Focused psych exam: ABSENT: delusional, paranoid, restlessness Results Laboratory Results: 09/12/20 04:20 09/12/20 04:20 09/12/20 09/12/20 04:20 04:20 WBC 9.0 RBC 4.79 Hgb 12.2 L Hct 36.8 L MCV 77 L MCH 25.4 L MCHC 33.0 RDW 19.4 H Plt Count 207 Sodium 138.5 Potassium 3.8 Chloride 99 Carbon Dioxide 31 H Anion Gap 9 BUN 27 H Creatinine 1.45 H Est GFR ( Amer) 59 L Glucose 176 H Calcium 9.4 C-Reactive Protein 30.8 H 09/05/20 09/05/20 09/05/20 17:52 17:52 17:52 Creatine Kinase 136 Cancelled Troponin I < 0.012 Impressions: Head CT 09/05/20 00:00 IMPRESSION: 1. No acute intracranial abnormalities. 2. Possibility of mild NPH is raised. TECHNICAL DOCUMENTATION: Quality ID # 436: Final reports with documentation of one or more dose reduction techniques (e.g., Automated exposure control, adjustment of the mA and/or kV according to patient size, use of iterative reconstruction technique) copyright 2011 [employer]- All Rights Reserved Chest X-Ray 09/05/20 14:50 IMPRESSION: No significant interval change. No acute cardiopulmonary disease. Pelvis X-Ray 09/05/20 14:51 IMPRESSION: No acute fracture or dislocation of the pelvis. Stable postoperative changes of the lumbar spine partially visualized. PICC Line Insertion 09/07/20 00:00 IMPRESSION: SUCCESSFUL PLACEMENT OF A 5 FR DUAL LUMEN 52 CM PICC IN THE LEFT CEPHALIC VEIN. Assessment and Plan - Diagnosis (1) Cellulitis of right lower extremity Is this a current diagnosis for this admission?: Yes (2) Frequent falls Is this a current diagnosis for this admission?: Yes (3) Below-knee amputation of left lower extremity Is this a current diagnosis for this admission?: Yes (4) CHF (congestive heart failure) Qualifiers: Heart failure type: systolic Heart failure chronicity: acute on chronic Qualified Code(s): I50.23 - Acute on chronic systolic (congestive) heart failure Is this a current diagnosis for this admission?: Yes (5) HTN (hypertension) Is this a current diagnosis for this admission?: Yes (6) Morbid obesity with BMI of 40.0-44.9, adult Is this a current diagnosis for this admission?: Yes (7) GLADYS (obstructive sleep apnea) Is this a current diagnosis for this admission?: Yes (8) Hypokalemia Is this a current diagnosis for this admission?: Yes (9) Contact dermatitis due to adhesive bandage Is this a current diagnosis for this admission?: Yes - Plan Summary Summary: (1) Cellulitis of right lower extremity Is this a current diagnosis for this admission?: Yes (2) Frequent falls Is this a current diagnosis for this admission?: Yes (3) Below-knee amputation of left lower extremity Is this a current diagnosis for this admission?: Yes (4) CHF (congestive heart failure) Qualifiers: Heart failure type: systolic Heart failure chronicity: acute on chronic Qualified Code(s): I50.23 - Acute on chronic systolic (congestive) heart failure Is this a current diagnosis for this admission?: Yes (5) HTN (hypertension) Is this a current diagnosis for this admission?: Yes (6) Morbid obesity with BMI of 40.0-44.9, adult Is this a current diagnosis for this admission?: Yes (7) GLADYS (obstructive sleep apnea) Is this a current diagnosis for this admission?: Yes (8) Hypokalemia (9) Contact dermatitis adhesive bandage 09/06/2020 Continue antibiotics for right lower leg. The loose epidermis and gelatin like fluid was cleaned thoroughly and removed. We will apply Xeroform dressings. The left stump has some erythema and a small scab in antibiotics will cover this as well. Continue current medications for the systolic heart failure and hypertension. Continue to encourage weight loss by aggressive dieting as he would not be able to exercise at this time. CPAP for sleep apnea. The patient's legs were constantly moving. He may have restless leg syndrome. We will discuss further tomorrow and consider medication adjustment. 09/07/2020 Wound dressing changed to single layer of Xeroform. Patient reports that the leg feels better. Continuing IV antibiotics. Serum potassium is low from aggressive diuresis. Maintaining a negative fluid balance for his heart failure. Cellulitis is slowly improving. Reasonable glucose control. Continue physical therapy to improve mobility. 09/08/2020 Continue current dressing changes. Laboratory studies ordered for tomorrow to check electrolytes. Continue current regimen for diabetes. Continue to attempt negative fluid balance. The patient would benefit from short-term rehab. They are working on finding a bed. Consider adjusting antibiotic therapy with a disposition to halfway facility. 09/09/2020 Cellulitis-I should have the final microbiology report tomorrow. We will narrow the spectrum of antibiotics. Reassess current dressing change plans. Patient would benefit from compression dressings Laboratory studies showed borderline potassium level. The patient is on oral supplement. Otherwise laboratory studies are stable. Continue current diabetic regimen including diet. Maintaining a good negative fluid balance. Trazodone increased to 200 mg at night. 09/10/2020 Cellulitis-culture is positive for methicillin-resistant staph aureus. Continue vancomycin for another 7 days. Can switch to Zyvox as an outpatient/rehab patient. With culture positive for MRSA we will add a thin layer of Bactroban to the leg ulcer dressing. Contact dermatitis-under the dressing on the right arm the patient developed erythema and blisters. Benadryl was helpful. There is some scab formation and we will apply Bactroban twice a day until clear. No systemic steroids at this point. Potassium is down to 3.9. Continue trazodone for sleep at 200 mg at bedtime Excellent negative fluid balance. Dressing with Coban on the right leg is applying some compression which is helpful. Unfortunately the short-term rehab was approved by the [facility] but the outpatient dialysis center close to the rehab center was not approved until the patient's transition has been delayed. We will discontinue Sol catheter. Patient likely able to utilize the urinal for intake and output capture 09/11/2020 Correction[facility], the patient's renal function is normal. This note was entered on the wrong patient. This is not a dialysis patient. Cellulitis-with mild compression wraps the edema is greatly improved in the right leg. Continue current dressing changes. Bactroban added with each dressing change. Consider changing vancomycin to Zyvox. Need to monitor for interaction with duloxetine. Contact dermatitis-continue Bactroban. Monitor for recurrence. Hypokalemia-continue supplement and monitor electrolytes. Trazodone is up to 200 mg at bedtime. Seems to be sleeping better. Continue current diuretics. The patient has an excellent negative fluid balance. Monitor renal function to avoid overdiuresis. The patient will benefit from short-term rehab and we expect the bed to be available tomorrow 09/12/2020 Doing well with removal of the Sol catheter. 09/12/2020 Unfortunately there continues to be a delay in placement. The patient will need 10 days of antibiotic therapy. Continue vancomycin at this time. Continue Bactroban to any scabbed areas on his arm Serum potassium is normal. Continue current supplementation. I will decrease the Lasix to 40 mg once a day as the patient's BUN and creatinine have increased. Encourage p.o. fluids. Serum glucose was elevated today. We will monitor at this time. No specific intervention. Patient seems to be sleeping well with the increased dose of trazodone at night - Time Time Spent with patient: 15-24 minutes Medications reviewed and adjusted accordingly: Yes Anticipated Discharge Disposition: [facility] Facility Anticipated Discharge Timeframe: when bed available
[2020-09-12] MEDS: OXYCODONE-ACETAMINOPHEN 5-325 MG TABLET PO PRN ×2 (14:49→23:41)
[2020-09-12] MEDS ORDERED: PHARMACY COMMUNICATION ORDER MC ONE (17:30)
[2020-09-12 18:03] LABS: VANCOMYCIN,TROUGH 20.3 ug/mL (5.0-20.0)
[2020-09-12] MEDS: TRAZODONE HCL 50 MG TABLET PO SCH (21:37)
[2020-09-12] MEDS ORDERED: MELATONIN 5 MG TABLET PO PRN (23:30)
[2020-09-13] MEDS ORDERED: VANCOMYCIN HCL 1,250 MG in DEXTROSE 5%-WATER 250 ML IV SCH (06:00)
[2020-09-13] MEDS: PREGABALIN 100 MG CAPSULE PO SCH ×2 (09:46→18:18)
[2020-09-13] MEDS: DULOXETINE HCL 30 MG CAPSULE.DR PO SCH (09:46)
[2020-09-13] MEDS: FAMOTIDINE 20 MG TABLET PO SCH ×2 (09:47→22:51)
[2020-09-13] MEDS: ALLOPURINOL 300 MG TABLET PO SCH (09:47)
[2020-09-13] MEDS: POTASSIUM CHLORIDE 10 MEQ TABLET.ER PO SCH ×2 (09:47→22:53)
[2020-09-13] MEDS: CARVEDILOL 6.25 MG TABLET PO SCH ×2 (09:47→22:51)
[2020-09-13] MEDS: GUAIFENESIN 600 MG TABLET.SA PO SCH ×2 (09:47→22:51)
[2020-09-13] MEDS: ENOXAPARIN SODIUM INJ 40 MG/0.4 ML DISP.SYRIN SUBCUT SCH (09:47)
[2020-09-13] MEDS: AMITRIPTYLINE HCL 50 MG TABLET PO SCH (09:47)
[2020-09-13] MEDS: BACLOFEN 10 MG TABLET PO SCH ×3 (09:47→18:18)
[2020-09-13] MEDS: VITAMIN B COMPLEX TABLET PO SCH (09:47)
[2020-09-13] MEDS: NORMAL SALINE 10 ML SDV (SCHEDULED) IV SCH ×2 (09:48→22:54)
[2020-09-13] MEDS: MUPIROCIN CALCIUM 2% CREAM 15 GM TP SCH ×2 (09:49→18:19)
[2020-09-13] MEDS: NYSTATIN TOPICAL POWDER 15 GM TP SCH ×2 (09:49→18:18)
[2020-09-13] MEDS: OXYCODONE-ACETAMINOPHEN 5-325 MG TABLET PO PRN ×2 (09:54→18:18)
[2020-09-13] MEDS ORDERED: FUROSEMIDE 40 MG TABLET PO SCH (10:00)
[2020-09-13 12:57] LABS: ANION GAP 6 (5-19); BLOOD UREA NITROGEN 29 mg/dL (7-20); CALCIUM 9.7 mg/dL (8.4-10.2); CARBON DIOXIDE 32 mmol/L (22-30); CHLORIDE 100 mmol/L (98-107); GLUCOSE 121 mg/dL (75-110); POTASSIUM 4.7 mmol/L (3.6-5.0)
--- NOTE | 2020-09-13 19:03 | PDOC PROGRESS REPORT ---
Subjective Date:: 09/13/20 Subjective:: NAEO Reason For Visit: CELLULITIS RIGHT LEG WITH POSSIBLE CELLULITIS LEFT Physical Exam Vital Signs: Temp Pulse Resp BP Pulse Ox 97.6 F 66 18 153/96 H 82 L 09/13/20 15:36 09/13/20 15:36 09/13/20 15:36 09/13/20 15:36 09/13/20 15:36 Intake & Output 09/12/20 09/13/20 09/14/20 06:59 06:59 06:59 Intake Total 2424 1644 1500 Output Total 2710 4268 2250 Balance -291 306 -750 Weight 138.7 kg 138.6 kg General appearance: PRESENT: no acute distress, cooperative Eye exam: ABSENT: scleral icterus Throat exam: ABSENT: post pharyngeal erythema Neck exam: ABSENT: JVD Respiratory exam: PRESENT: clear to auscultation pam, unlabored Cardiovascular exam: PRESENT: RRR GI/Abdominal exam: PRESENT: distended, normal bowel sounds, soft. ABSENT: tenderness Extremities exam: PRESENT: other - RLE with well healing ulcer and no edema Musculoskeletal exam: PRESENT: other - s/p L BKA Neurological exam: PRESENT: alert, awake, oriented to person, oriented to place, oriented to time, oriented to situation Psychiatric exam: PRESENT: appropriate affect Skin exam: ABSENT: rash Results Laboratory Results: 09/12/20 04:20 09/13/20 11:50 09/13/20 09/13/20 10:08 11:50 Sodium Cancelled 138.1 Potassium Cancelled 4.7 Chloride Cancelled 100 Carbon Dioxide Cancelled 32 H Anion Gap Cancelled 6 BUN Cancelled 29 H Creatinine Cancelled 1.07 Est GFR ( Amer) Cancelled > 60 Est GFR (Non-Af Amer) Cancelled Glucose Cancelled 121 H Calcium Cancelled 9.7 Magnesium Cancelled 2.1 09/05/20 09/05/20 09/05/20 17:52 17:52 17:52 Creatine Kinase 136 Cancelled Troponin I < 0.012 Impressions: Head CT 09/05/20 00:00 IMPRESSION: 1. No acute intracranial abnormalities. 2. Possibility of mild NPH is raised. TECHNICAL DOCUMENTATION: Quality ID # 436: Final reports with documentation of one or more dose reduction techniques (e.g., Automated exposure control, adjustment of the mA and/or kV according to patient size, use of iterative reconstruction technique) copyright 2010 [employer]- All Rights Reserved Chest X-Ray 09/05/20 14:50 IMPRESSION: No significant interval change. No acute cardiopulmonary disease. Pelvis X-Ray 09/05/20 14:51 IMPRESSION: No acute fracture or dislocation of the pelvis. Stable postoperat michael changes of the lumbar spine partially visualized. PICC Line Insertion 09/07/20 00:00 IMPRESSION: SUCCESSFUL PLACEMENT OF A 5 FR DUAL LUMEN 52 CM PICC IN THE LEFT CEPHALIC VEIN. Assessment and Plan - Plan Summary Summary: (1) Cellulitis of right lower extremity (2) Frequent falls (3) Below-knee amputation of left lower extremity (4) CHF (congestive heart failure) (5) HTN (hypertension) (6) Morbid obesity with BMI of 40.0-44.9, adult (7) GLADYS (obstructive sleep apnea) (8) Hypokalemia (9) Contact dermatitis adhesive bandage 09/06/2020 Continue antibiotics for right lower leg. The loose epidermis and gelatin like fluid was cleaned thoroughly and removed. We will apply Xeroform dressings. The left stump has some erythema and a small scab in antibiotics will cover this as well. Continue current medications for the systolic heart failure and hypertension. Continue to encourage weight loss by aggressive dieting as he would not be able to exercise at this time. CPAP for sleep apnea. The patient's legs were constantly moving. He may have restless leg syndrome. We will discuss further tomorrow and consider medication adjustment. 09/07/2020 Wound dressing changed to single layer of Xeroform. Patient reports that the leg feels better. Continuing IV antibiotics. Serum potassium is low from aggressive diuresis. Maintaining a negative fluid balance for his heart failure. Cellulitis is slowly improving. Reasonable glucose control. Continue physical therapy to improve mobility. 09/08/2020 Continue current dressing changes. Laboratory studies ordered for tomorrow to check electrolytes. Continue current regimen for diabetes. Continue to attempt negative fluid balance. The patient would benefit from short-term rehab. They are working on finding a bed. Consider adjusting antibiotic therapy with a disposition to [facility]. 09/09/2020 Cellulitis-I should have the final microbiology report tomorrow. We will narrow the spectrum of antibiotics. Reassess current dressing change plans. Patient would benefit from compression dressings Laboratory studies showed borderline potassium level. The patient is on oral supplement. Otherwise laboratory studies are stable. Continue current diabetic regimen including diet. Maintaining a good negative fluid balance. Trazodone increased to 200 mg at night. 09/10/2020 Cellulitis-culture is positive for methicillin-resistant staph aureus. Continue vancomycin for another 7 days. Can switch to Zyvox as an outpatient/rehab patient. With culture positive for MRSA we will add a thin layer of Bactroban to the leg ulcer dressing. Contact dermatitis-under the dressing on the right arm the patient developed erythema and blisters. Benadryl was helpful. There is some scab formation and we will apply Bactroban twice a day until clear. No systemic steroids at this point. Potassium is down to 3.9. Continue trazodone for sleep at 200 mg at bedtime 09/11/2020 Cellulitis-with mild compression wraps the edema is greatly improved in the right leg. Continue current dressing changes. Bactroban added with each dres sing change. Consider changing vancomycin to Zyvox. Need to monitor for interaction with duloxetine. Contact dermatitis-continue Bactroban. Monitor for recurrence. Hypokalemia-continue supplement and monitor electrolytes. Trazodone is up to 200 mg at bedtime. Seems to be sleeping better. Continue current diuretics. The patient has an excellent negative fluid balance. Monitor renal function to avoid overdiuresis. The patient will benefit from short-term rehab and we expect the bed to be [place] tomorrow 09/12/2020 Doing well with removal of the Sol catheter. 09/12/2020 Unfortunately there continues to be a delay in placement. The patient will need 10 days of antibiotic therapy. Continue vancomycin at this time. Continue Bactroban to any scabbed areas on his arm Serum potassium is normal. Continue current supplementation. I will decrease the Lasix to 40 mg once a day as the patient's BUN and creatinine have increased. Encourage p.o. fluids. Serum glucose was elevated today. We will monitor at this time. No specific intervention. Patient seems to be sleeping well with the increased dose of trazodone at night 09/13/2020 Unfortunately there continues to be a delay in placement. He completed 7 days of vancomycin. Continue Bactroban to any scabbed areas on his arm Serum potassium is normal. Continue current supplementation. I will DC his vanc, lasix and ACEI as his BUN and creatinine have increased. Encourage p.o. fluids. Recheck BMP tomorrow. Patient seems to be sleeping well with the increased dose of trazodone at night - Time Time Spent with patient: 35 or more minutes Anticipated Discharge Disposition: [facility] Anticipated Discharge Timeframe: within 24 hours
[2020-09-13] MEDS: TRAZODONE HCL 50 MG TABLET PO SCH (22:51)
[2020-09-14] MEDS: OXYCODONE-ACETAMINOPHEN 5-325 MG TABLET PO PRN ×4 (00:19→20:00)
[2020-09-14] MEDS: FAMOTIDINE 20 MG TABLET PO SCH ×2 (10:08→22:58)
[2020-09-14] MEDS: PREGABALIN 100 MG CAPSULE PO SCH ×2 (10:08→18:01)
[2020-09-14] MEDS: CARVEDILOL 6.25 MG TABLET PO SCH ×2 (10:09→22:58)
[2020-09-14] MEDS: POTASSIUM CHLORIDE 10 MEQ TABLET.ER PO SCH ×2 (10:09→22:58)
[2020-09-14] MEDS: AMITRIPTYLINE HCL 50 MG TABLET PO SCH (10:09)
[2020-09-14] MEDS: ALLOPURINOL 300 MG TABLET PO SCH (10:09)
[2020-09-14] MEDS: BACLOFEN 10 MG TABLET PO SCH ×3 (10:09→18:01)
[2020-09-14] MEDS: FUROSEMIDE 40 MG TABLET PO SCH (10:09)
[2020-09-14] MEDS: DULOXETINE HCL 30 MG CAPSULE.DR PO SCH (10:09)
[2020-09-14] MEDS: VITAMIN B COMPLEX TABLET PO SCH (10:09)
[2020-09-14] MEDS: GUAIFENESIN 600 MG TABLET.SA PO SCH ×2 (10:09→22:58)
[2020-09-14] MEDS: ENOXAPARIN SODIUM INJ 40 MG/0.4 ML DISP.SYRIN SUBCUT SCH (10:10)
[2020-09-14] MEDS: NORMAL SALINE 10 ML SDV (SCHEDULED) IV SCH ×2 (10:10→22:58)
[2020-09-14] MEDS: NYSTATIN TOPICAL POWDER 15 GM TP SCH ×2 (10:11→18:02)
[2020-09-14] MEDS: MUPIROCIN CALCIUM 2% CREAM 15 GM TP SCH ×2 (10:11→18:02)
--- NOTE | 2020-09-14 15:57 | PDOC PROGRESS REPORT ---
Subjective Date:: 09/14/20 Subjective:: NAEO. Feeling well today. Reason For Visit: CELLULITIS RIGHT LEG WITH POSSIBLE CELLULITIS LEFT Physical Exam Vital Signs: Temp Pulse Resp BP Pulse Ox 98.4 F 74 19 149/66 H 96 09/14/20 11:43 09/14/20 14:00 09/14/20 11:43 09/14/20 11:43 09/14/20 11:43 Intake & Output 09/13/20 09/14/20 09/15/20 06:59 06:59 06:59 Intake Total 1644 1710 1072 Output Total 1950 2500 Balance -306 -790 1072 Weight 138.6 kg 141.5 kg General appearance: PRESENT: no acute distress, cooperative Eye exam: ABSENT: scleral icterus Mouth exam: PRESENT: moist Throat exam: ABSENT: post pharyngeal erythema Neck exam: ABSENT: JVD Respiratory exam: PRESENT: clear to auscultation pam, unlabored Cardiovascular exam: PRESENT: RRR GI/Abdominal exam: PRESENT: normal bowel sounds, soft. ABSENT: tenderness Extremities exam: PRESENT: other - s/p L BKA, R brown healing nicely, no edema Neurological exam: PRESENT: alert, awake, oriented to person, oriented to place, oriented to time, oriented to situation Psychiatric exam: PRESENT: appropriate affect Skin exam: ABSENT: jaundice Results Laboratory Results: 09/12/20 04:20 09/13/20 11:50 09/05/20 09/05/20 09/05/20 17:52 17:52 17:52 Creatine Kinase 136 Cancelled Troponin I < 0.012 Impressions: Head CT 09/05/20 00:00 IMPRESSION: 1. No acute intracranial abnormalities. 2. Possibility of mild NPH is raised. TECHNICAL DOCUMENTATION: Quality ID # 436: Final reports with documentation of one or more dose reduction techniques (e.g., Automated exposure control, adjustment of the mA and/or kV according to patient size, use of iterative reconstruction technique) copyright 2011 [employer]- All Rights Reserved Chest X-Ray 09/05/20 14:50 IMPRESSION: No significant interval change. No acute cardiopulmonary disease. Pelvis X-Ray 09/05/20 14:51 IMPRESSION: No acute fracture or dislocation of the pelvis. Stable postoperative changes of the lumbar spine partially visualized. PICC Line Insertion 09/07/20 00:00 IMPRESSION: SUCCESSFUL PLACEMENT OF A 5 FR DUAL LUMEN 52 CM PICC IN THE LEFT CEPHALIC VEIN. Assessment and Plan - Diagnosis (1) Cellulitis of right lower extremity Is this a current diagnosis for this admission?: Yes (2) Acute kidney injury Is this a current diagnosis for this admission?: Yes (3) Below-knee amputation of left lower extremity Is this a current diagnosis for this admission?: Yes (4) CHF (congestive heart failure) Qualifiers: Heart failure type: systolic Heart failure chronicity: acute on chronic Qualified Code(s): I50.23 - Acute on chronic systolic (congestive) heart failure Is this a current diagnosis for this admission?: Yes (5) CKD (chronic kidney disease), stage III Is this a current diagnosis for this admission?: Yes (6) Frequent falls Is this a current diagnosis for this admission?: Yes (7) HTN (hypertension) Qualifiers: Hypertension type: essential hypertension Qualified Code(s): I10 - Essential (primary) hypertension Is this a current diagnosis for this admission?: Yes (8) Hypochromic microcytic anemia Is this a current diagnosis for this admission?: Yes (9) Hypokalemia Is this a current diagnosis for this admission?: Yes (10) Hyponatremia Is this a current diagnosis for this admission?: Yes (11) Morbid obesity with BMI of 40.0-44.9, adult Is this a current diagnosis for this admission?: Yes (12) GLADYS (obstructive sleep apnea) Is this a current diagnosis for this admission?: Yes (13) Physical deconditioning Is this a current diagnosis for this admission?: Yes - Plan Summary Summary: MRSA Cellulitis of right lower extremity: he has completed 7 days of Vancomycin IV therapy. * Will need continued wound care until completely healed. * He has been getting daily dressing changes. A thin layer of Bactroban ointment is applied after wound is cleaned. Then, apply 2 layers of Xeroform and wrap extremity with Kerlix and coban. Frequent falls: PT consulted and recommended SNF placement on discharge. Fall precautions. s/p below-knee amputation of left lower extremity: he will need outpatient follow up to be fitted for a prosthesis. Acute on Chronic Diastolic CHF Exacerbation: resolved with IV diuretics. Essential Hypertension: BP well controlled on current regimen. GLADYS (obstructive sleep apnea) on CPAP: he has been doing well on CPAP of 10 at night and when napping. He will need outpatient sleep study. Hypokalemia: resolved with oral repletion. Insomnia: Trazodone increased to 200 mg at night with good effect. ROLO: resolved. Cr currently at 1.0. Intertrigo: improving. Continue Nystatin to inguinal folds. Morbid obesity with BMI of 44.8: encourage diet and weight loss. Chronic Productive Cough: he has a long smoking history and has probable undiagnosed chronic bronchitis. He has had a chronic, hacking cough which is productive for several months. He has no evidence of an infection and CXR was clear on admission. He would benefit from outpatient pulmonology follow up for PFTs and screening chest CT. - Time Time Spent with patient: 35 or more minutes Anticipated Discharge Disposition: [facility] Facility Anticipated Discharge Timeframe: within 24 hours
[2020-09-14] MEDS: TRAZODONE HCL 50 MG TABLET PO SCH (22:58)
[2020-09-15] MEDS: OXYCODONE-ACETAMINOPHEN 5-325 MG TABLET PO PRN ×2 (02:39→13:41)
--- NOTE | 2020-09-15 08:26 | PDOC TRANSFER SUMMARY ---
Impression - Admit/DC Date/PCP Admission Date/Primary Care Provider: 09/06/20 21:08 GUILLERMO MO MD Discharge Date: 09/15/20 - Discharge Diagnosis (1) Cellulitis of right lower extremity Is this a current diagnosis for this admission?: Yes (2) Acute kidney injury Is this a current diagnosis for this admission?: Yes (3) Below-knee amputation of left lower extremity Is this a current diagnosis for this admission?: Yes (4) CHF (congestive heart failure) Is this a current diagnosis for this admission?: Yes (5) CKD (chronic kidney disease), stage III Is this a current diagnosis for this admission?: Yes (6) Frequent falls Is this a current diagnosis for this admission?: Yes (7) HTN (hypertension) Is this a current diagnosis for this admission?: Yes (8) Hypochromic microcytic anemia Is this a current diagnosis for this admission?: Yes (9) Hypokalemia Is this a current diagnosis for this admission?: Yes (10) Hyponatremia Is this a current diagnosis for this admission?: Yes (11) Morbid obesity with BMI of 40.0-44.9, adult Is this a current diagnosis for this admission?: Yes (12) GLADYS (obstructive sleep apnea) Is this a current diagnosis for this admission?: Yes (13) Physical deconditioning Is this a current diagnosis for this admission?: Yes - Assessment Summary: MRSA Cellulitis of right lower extremity: he has completed 7 days of Vancomycin IV therapy. * Will need continued wound care until completely healed. * He has been getting daily dressing changes. A thin layer of Bactroban ointment is applied after wound is cleaned. Then, apply 2 layers of Xeroform and wrap extremity with Kerlix and coban. The leg should be wrapped starting from the toes, all the way up to the knee, with some slight compression to prevent edema from building up. Leg should be elevated at all times when not ambulating. Frequent falls: PT consulted and recommended SNF placement on discharge. Fall precautions. s/p below-knee amputation of left lower extremity: he will need outpatient follow up to be fitted for a prosthesis. Acute on Chronic Diastolic CHF Exacerbation: resolved with IV diuretics. Essential Hypertension: BP well controlled on current regimen. GLADYS (obstructive sleep apnea) on CPAP: he has been doing well on CPAP of 10 at night and when napping. He will need outpatient sleep study. Hypokalemia: resolved with oral repletion. Insomnia: Trazodone increased to 200 mg at night with good effect. ROLO: resolved. Cr currently at 1.0. Intertrigo: improving. Continue Nystatin to inguinal folds. Morbid obesity with BMI of 44.8: encourage diet and weight loss. Chronic Productive Cough: he has a long smoking history and has probable undiagnosed chronic bronchitis. He has had a chronic, hacking cough which is productive for several months. He has no evidence of an infection and CXR was clear on admission. He would benefit from outpatient pulmonology follow up for PFTs and screening chest CT. - Additional Information Resuscitation Status: Full Code Discharge Diet: Cardiac Discharge Activity: Activity As Tolerated, Balance Activity w/Rest Referrals: GUILLERMO MO MD [Primary Care Provider] - Follow up as needed Prescriptions: Potassium Chloride [Klor-Con 10 Meq Tablet ER] 20 meq PO DAILY #60 tablet.er Oxycodone HCl/Acetaminophen [Percocet 5-325 mg Tablet] 2 tab PO Q6HP PRN #10 tablet PRN Reason: For Pain Trazodone HCl 200 mg PO QHS #30 tablet Home Medications: Allopurinol [Zyloprim 300 mg Tablet] 300 mg PO DAILY 01/15/20 Carvedilol [Coreg 6.25 mg Tablet] 6.25 mg PO Q12 01/15/20 Duloxetine HCl 60 mg PO DAILY 01/15/20 Furosemide [Lasix 40 mg Tablet] 40 mg PO DAILY 01/15/20 Rosuvastatin Calcium 20 mg PO DAILY 01/15/20 Amitriptyline HCl [Elavil 50 mg Tablet] 50 mg PO DAILY 09/06/20 Baclofen [Baclofen 10 mg Tablet] 10 mg PO TID 09/06/20 Pregabalin [Lyrica 100 mg Capsule] 300 mg PO BID 09/06/20 Vit B Complex 100 Combo No.2 [Balanced B-100] 300 mg PO DAILY 09/06/20 Famotidine [Pepcid 20 mg Tablet] 20 mg PO Q12 tablet 09/15/20 Guaifenesin [Mucinex Sr 600 mg Tablet.sa] 600 mg PO Q12 tablet.sa 09/15/20 Mupirocin Calcium [Bactroban 2% Cream 15 gm] 1 applic TP BID tube 09/15/20 Oxycodone HCl/Acetaminophen [Percocet 5-325 mg Tablet] 2 tab PO Q6HP PRN #10 tablet 09/15/20 Potassium Chloride [Klor-Con 10 Meq Tablet ER] 20 meq PO DAILY #60 tablet.er 09/15/20 Trazodone HCl 200 mg PO QHS #30 tablet 09/15/20 History of Present Illiness History of Present Illness: BRITANY GERMAIN is a 65 year old male Physical Exam Vital Signs: Temp Pulse Resp BP Pulse Ox 97.7 F 61 18 130/47 H 97 09/15/20 03:57 09/15/20 03:57 09/15/20 03:57 09/15/20 03:57 09/15/20 03:57 Intake & Output 09/14/20 09/15/20 09/16/20 06:59 06:59 06:59 Intake Total 1710 1548 Output Total 2500 1150 Balance -790 398 Weight 141.5 kg 140.9 kg Results Laboratory Results: WBC 9.0 10^3/uL (4.0-10.5) 09/12/20 04:20 RBC 4.79 10^6/uL (4.35-5.55) 09/12/20 04:20 Hgb 12.2 g/dL (13.5-17.0) L 09/12/20 04:20 Hct 36.8 % (37.9-51.0) L 09/12/20 04:20 MCV 77 fl (80-97) L 09/12/20 04:20 MCH 25.4 pg (27.0-33.4) L 09/12/20 04:20 MCHC 33.0 g/dL (32.0-36.0) 09/12/20 04:20 RDW 19.4 % (11.5-14.0) H 09/12/20 04:20 Plt Count 207 10^3/uL (150-450) 09/12/20 04:20 Lymph % (Auto) 15.7 % (13-45) 09/06/20 05:58 Webster % (Auto) 11.0 % (3-13) 09/06/20 05:58 Eos % (Auto) 3.8 % (0-6) 09/06/20 05:58 Baso % (Auto) 1.0 % (0-2) 09/06/20 05:58 Absolute Neuts (auto) 3.8 10^3/uL (1.7-8.2) 09/06/20 05:58 Absolute Lymphs (auto) 0.9 10^3/uL (0.5-4.7) 09/06/20 05:58 Absolute Monos (auto) 0.6 10^3/uL (0.1-1.4) 09/06/20 05:58 Absolute Eos (auto) 0.2 10^3/uL (0.0-0.6) 09/06/20 05:58 Absolute Basos (auto) 0.1 10^3/uL (0.0-0.2) 09/06/20 05:58 Seg Neutrophils % 68.5 % (42-78) 09/06/20 05:58 ESR 37 mm/hr (0-20) H 09/05/20 18:09 VBG pH 7.35 (7.30-7.42) 09/05/20 17:52 VBG pCO2 45.4 mmHg (35-63) 09/05/20 17:52 VBG HCO3 24.7 mmol/L (20-32) 09/05/20 17:52 VBG Base Excess -1.1 mmol/L 09/05/20 17:52 Sodium 138.1 mmol/L (137-145) 09/13/20 11:50 Potassium 4.7 mmol/L (3.6-5.0) 09/13/20 11:50 Chloride 100 mmol/L (98-107) 09/13/20 11:50 Carbon Dioxide 32 mmol/L (22-30) H 09/13/20 11:50 Anion Gap 6 (5-19) 09/13/20 11:50 BUN 29 mg/dL (7-20) H 09/13/20 11:50 Creatinine 1.07 mg/dL (0.52-1.25) 09/13/20 11:50 Est GFR ( Amer) > 60 (>60) 09/13/20 11:50 Est GFR (Non-Af Amer) Cancelled 09/13/20 10:08 Est GFR (MDRD) Non-Af > 60 (>60) 09/13/20 11:50 Glucose 121 mg/dL (75-110) H 09/13/20 11:50 POC Glucose 161 mg/dL (70-110) H 09/09/20 11:39 Lactic Acid 0.9 mmol/L (0.7-2.1) 09/05/20 17:52 Calcium 9.7 mg/dL (8.4-10.2) 09/13/20 11:50 Magnesium 2.1 mg/dL (1.6-2.3) 09/13/20 11:50 Total Bilirubin 0.4 mg/dL (0.2-1.3) 09/09/20 04:55 Direct Bilirubin 0.1 mg/dL (0.0-0.4) 09/09/20 04:55 Neonat Total Bilirubin Not Reportable 09/09/20 04:55 Neonat Direct Bilirubin Not Reportable 09/09/20 04:55 Neonat Indirect Bili Not Reportable 09/09/20 04:55 AST 21 U/L (17-59) 09/09/20 04:55 ALT 18 U/L (<50) 09/09/20 04:55 Alkaline Phosphatase 118 U/L (38-126) 09/09/20 04:55 Creatine Kinase 136 U/L (55-170) 09/05/20 17:52 Creatine Kinase Cancelled 09/05/20 17:52 Troponin I < 0.012 ng/mL 09/05/20 17:52 C-Reactive Protein 30.8 mg/L (<10.0) H 09/12/20 04:20 Total Protein 6.6 g/dL (6.3-8.2) 09/09/20 04:55 Albumin 3.3 g/dL (3.5-5.0) L 09/09/20 04:55 EGFR Cancelled 09/13/20 10:08 Urine Color YELLOW 09/05/20 19:45 Urine Appearance CLEAR 09/05/20 19:45 Urine pH 5.0 (5.0-9.0) 09/05/20 19:45 Ur Specific Amorita 1.016 09/05/20 19:45 Urine Protein 100 mg/dL (NEGATIVE) H 09/05/20 19:45 Urine Glucose (UA) NEGATIVE mg/dL (NEGATIVE) 09/05/20 19:45 Urine Ketones NEGATIVE mg/dL (NEGATIVE) 09/05/20 19:45 Urine Blood NEGATIVE (NEGATIVE) 09/05/20 19:45 Urine Nitrite (Reflex) NEGATIVE (NEGATIVE) 09/05/20 19:45 Urine Bilirubin NEGATIVE (NEGATIVE) 09/05/20 19:45 Urine Urobilinogen NEGATIVE mg/dL (<2.0) 09/05/20 19:45 Leukocyte Esterase Rfl NEGATIVE (NEGATIVE) 09/05/20 19:45 Urine RBC (Auto) 2 /HPF 09/05/20 19:45 U Hyaline Cast (Auto) 1 /LPF 09/05/20 19:45 Urine WBC (Reflex) 3 /HPF 09/05/20 19:45 Squamous Epi Cells Auto 1 /HPF 09/05/20 19:45 Urine Mucus (Auto) OCC /LPF 09/05/20 19:45 Urine Ascorbic Acid 20 (NEGATIVE) H 09/05/20 19:45 Time Trough Drawn 1725 09/12/20 17:25 Vancomycin Trough 20.3 ug/mL (5.0-20.0) H 09/12/20 17:25 Serum Alcohol < 10 mg/dL (NONE DETECTED) 09/05/20 17:52 Influenza A (RT-PCR) NEGATIVE (NEGATIVE) 09/09/20 13:00 Influenza B (RT-PCR) NEGATIVE (NEGATIVE) 09/09/20 13:00 RSV (RT-PCR) NEGATIVE (NEGATIVE) 09/09/20 13:00 SARS-CoV-2 Rap RNA(RT-PCR) NEGATIVE (NEGATIVE) 09/09/20 13:00 09/05/20 17:52 Troponin I < 0.012 Impressions: Head CT 09/05/20 00:00 IMPRESSION: 1. No acute intracranial abnormalities. 2. Possibility of mild NPH is raised. TECHNICAL DOCUMENTATION: Quality ID # [id number]: Final reports with documentation of one or more dose reduction techniques (e.g., Automated exposure control, adjustment of the mA and/or kV according to patient size, use of iterative reconstruction technique) copyright 2011 [employer]- All Rights Reserved Chest X-Ray 09/05/20 14:50 IMPRESSION: No significant interval change. No acute cardiopulmonary disease. Pelvis X-Ray 09/05/20 14:51 IMPRESSION: No acute fracture or dislocation of the pelvis. Stable postoperative changes of the lumbar spine partially visualized. PICC Line Insertion 09/07/20 00:00 IMPRESSION: SUCCESSFUL PLACEMENT OF A 5 FR DUAL LUMEN 52 CM PICC IN THE LEFT CEPHALIC VEIN. Stroke Is this a Stroke Patient?: No Acute Heart Failure Is this a Heart Failure Patient?: No
[2020-09-15] MEDS: PREGABALIN 100 MG CAPSULE PO SCH (09:31)
[2020-09-15] MEDS: FUROSEMIDE 40 MG TABLET PO SCH (09:32)
[2020-09-15] MEDS: GUAIFENESIN 600 MG TABLET.SA PO SCH (09:32)
[2020-09-15] MEDS: FAMOTIDINE 20 MG TABLET PO SCH (09:33)
[2020-09-15] MEDS: POTASSIUM CHLORIDE 10 MEQ TABLET.ER PO SCH (09:33)
[2020-09-15] MEDS: ALLOPURINOL 300 MG TABLET PO SCH (09:34)
[2020-09-15] MEDS: VITAMIN B COMPLEX TABLET PO SCH (09:34)
[2020-09-15] MEDS: BACLOFEN 10 MG TABLET PO SCH ×2 (09:34→13:42)
[2020-09-15] MEDS: ENOXAPARIN SODIUM INJ 40 MG/0.4 ML DISP.SYRIN SUBCUT SCH (09:35)
[2020-09-15] MEDS: DULOXETINE HCL 30 MG CAPSULE.DR PO SCH (09:35)
[2020-09-15] MEDS: CARVEDILOL 6.25 MG TABLET PO SCH (09:35)
[2020-09-15] MEDS: NORMAL SALINE 10 ML SDV (SCHEDULED) IV SCH (09:37)
[2020-09-15] MEDS: MUPIROCIN CALCIUM 2% CREAM 15 GM TP SCH (10:23)
[2020-09-15] MEDS: AMITRIPTYLINE HCL 50 MG TABLET PO SCH (10:23)
[2020-09-15 14:19] VITALS: BP 144/73
--- NOTE | 2020-09-17 14:28 | ER Document Report ---
ED General - General Chief Complaint: Fall Stated Complaint: FALL Time Seen by Provider: 09/05/20 13:47 TRAVEL OUTSIDE OF THE [place] IN LAST 30 DAYS: No - HPI Notes: Chief complaint: Right lower extremity swelling and redness History of Present Illness: 65 year old male with a history of left below-knee amputation, hypertension, heart failure, obstructive sleep apnea, obesity and peripheral arterial disease now presents with 2 days duration of right lower extremity swelling, pain, erythema. Patient also states that he slipped out of his wheelchair on the day of presentation and he was not able to get up from the floor until his nurse found him few hours later. He denies a history of loss of consciousness, head injury, abnormal body movement, weakness of extremities, urinary or bowel incontinence. He also denies any chest pain, palpitation, dizziness, nausea, vomiting. Patient also denies any history of fever, cough, or any change in his bowel or urinary habits. Home Medications: Allopurinol [Zyloprim 300 mg Tablet] 300 mg PO DAILY 01/15/20 Carvedilol [Coreg 6.25 mg Tablet] 6.25 mg PO Q12 01/15/20 Colchicine [Colcrys 0.6 mg Tablet] 0.6 mg PO DAILY 01/15/20 Duloxetine HCl 60 mg PO DAILY 01/15/20 Furosemide [Lasix 40 mg Tablet] 40 mg PO DAILY 01/15/20 Rosuvastatin Calcium 20 mg PO DAILY 01/15/20 Trazodone HCl 150 mg PO QHS 01/15/20 Oxycodone HCl/Acetaminophen [Oxycodone-Acetaminophen 10-325] 1 each PO Q12HP PRN #20 05/18/20 Oxycodone Myristate [Xtampza ER] 18 mg PO Q12 #14 05/18/20 Amitriptyline HCl [Elavil 50 Mg Tablet] 50 mg PO DAILY 09/06/20 Baclofen [Baclofen 10 mg Tablet] 10 mg PO TID 09/06/20 Cyclobenzaprine HCl [Flexeril 10 mg Tablet] 10 mg PO DAILY 09/06/20 Pregabalin [Lyrica 100 Mg Capsule] 300 mg PO BID 09/06/20 Vit B Complex 100 Combo No.2 [Balanced B-100] 300 mg PO DAILY 09/06/20 Allergies/Adverse Reactions: No Known Allergies Allergy (Verified 09/05/20 13:49) - Related Data Allergies/Adverse Reactions: No Known Allergies Allergy (Verified 09/05/20 13:49) Home Medications: meds at bedside, uncompliant Past Medical History - General Information source: Patient, [facility] Records - Social History Smoking Status: Current Some Day Smoker Chew tobacco use (# tins/day): No Frequency of alcohol use: None Drug Abuse: None Lives with: Alone Family History: Reviewed & Not Pertinent, Hypertension Patient has homicidal ideation: No - Past Medical History Cardiac Medical History: Reports: Hx Atrial Fibrillation, Hx Congestive Heart Failure, Hx Hypercholesterolemia, Hx Hypertension Denies: Hx Coronary Artery Disease, Hx Heart Attack, Hx Peripheral Vascular Disease, Hx Heart Murmur Pulmonary Medical History: Reports: Hx COPD, Hx Sleep Apnea Denies: Hx Asthma, Hx Bronchitis, Hx Pneumonia, Hx Tuberculosis Neurological Medical History: Denies: Hx Cerebrovascular Accident, Hx Seizures Endocrine Medical History: Denies: Hx Diabetes Mellitus Type 1, Hx Diabetes Mellitus Type 2, Hx Graves' Disease, Hx Hyperthyroidism, Hx Hypothyroidism Renal/ Medical History: Reports: Hx Kidney Stones. Denies: Hx Peritoneal Dialysis Malignancy Medical History: Denies Hx Bone Cancer, Denies Hx Brain Cancer, De nies Hx Colorectal Cancer GI Medical History: Reports: Hx Gastroesophageal Reflux Disease. Denies: Hx Cirrhosis, Hx Crohn's Disease, Hx Diverticulitis Musculoskeletal Medical History: Reports Hx Arthritis, Reports Hx Fibromyalgia, Reports Hx Gout, Reports Hx Musculoskeletal Deformity, Reports Hx Musculoskeletal Trauma Skin Medical History: Denies Hx Cellulitis, Denies Hx Eczema, Denies Hx MRSA Psychiatric Medical History: Reports: Hx Bipolar Disorder, Hx Depression Denies: Hx Attention Deficit Hyperactivity Disorder, Hx Borderline Personality Disorder, Hx Obsessive Compulsive Disorder, Hx Personality Disorder, Hx Post Traumatic Stress Disorder, Hx Schizoaffective Disorder Traumatic Medical History: Reports: Hx Fractures, Hx Spine Fracture - L1 and 2. Denies: Hx Gunshot Wound, Hx Liver Laceration, Hx Pneumothorax Past Surgical History: Reports: Hx Cholecystectomy, Hx Orthopedic Surgery - Left BKA. Denies: Hx Pacemaker - Immunizations Immunizations up to date: Yes Hx Diphtheria, Pertussis, Tetanus Vaccination: Yes Hx Pneumococcal Vaccination: 09/30/11 Review of Systems - Review of Systems Notes: Review of Systems Constitutional: ABSENT: chills, fever(s), headache(s), weight gain, weight loss Eyes: ABSENT: visual disturbances Cardiovascular: ABSENT: chest pain, dyspnea on exertion, edema, orthropnea, palpitations Respiratory: ABSENT: cough, hemoptysis Gastrointestinal: ABSENT: abdominal pain, constipation, diarrhea, hematemesis, hematochezia, nausea, vomiting Genitourinary: ABSENT: dysuria, hematuria Musculoskeletal: PRESENT: as per HPI Integumentary: PRESENT: as per HPI Neurological: PRESENT: as per HPI Psychiatric: ABSENT: anxiety, depression, homidical ideation, suicidal ideation Endocrine: ABSENT: cold intolerance, heat intolerance, polydipsia, polyuria Hematologic/Lymphatic: ABSENT: easy bleeding, easy bruising Physical Exam - Vital signs Vitals: Temp Resp Pulse Ox 98.6 F 12 95 09/05/20 13:39 09/05/20 13:39 09/05/20 13:39 - Notes Notes: GENERAL APPEARANCE: Alert and oriented x3, in no acute distress HEENT: Normocephalic and atraumatic. No scleral icterus. Moist oral mucosa NECK: Supple. No lymphadenopathy or tenderness. No JVD CHEST: Symmetric. Nontender to palpation. LUNGS: Clear with good air entry bilaterally. No wheezing or crackles HEART: Regular rate and rhythm with normal S1 and S2. No murmurs, gallops, or rubs. ABDOMEN: Flat, soft, active bowel sounds, no direct or rebound tenderness. No o rganomegaly detected. EXTREMITIES: Has left below-knee amputation. The right lower extremity is sw ollen, hyperemic, there is 4 x 5 cm boil on anterior mid brown area. There is differential warmth and tenderness. MUSCULOSKELETAL: No deformity, atrophy or swelling noted PSYCHIATRIC: Recent and remote memory is intact. Appropriate mood and affect. SKIN: Warm, dry, and well perfused. No lesions or rashes are noted. NEUROLOGIC: No focal sensory or motor deficits are noted. Course - Vital Signs Vital signs: Temp Pulse Resp BP Pulse Ox 97.4 F 71 19 144/73 H 100 09/15/20 14:16 09/15/20 14:16 09/15/20 14:16 09/15/20 14:16 09/15/20 14:16 - Laboratory Results Result Diagrams: 09/12/20 04:20 09/13/20 11:50 Laboratory Results Interpreted: 09/05/20 09/05/20 09/05/20 17:52 17:52 18:09 Hgb 13.2 L Hct MCV 77 L MCH 24.9 L RDW 19.7 H Plt Count 132 L Lymph % (Auto) 12.3 L ESR Potassium Glucose 116 H Alkaline Phosphatase 148 H C-Reactive Protein 34.2 H Urine Protein Urine Ascorbic Acid 09/05/20 09/05/20 09/06/20 18:09 19:45 05:58 Hgb 11.3 L Hct 34.7 L MCV 76 L MCH 24.8 L RDW 20.0 H Plt Count 112 L Lymph % (Auto) ESR 37 H Potassium Glucose Alkaline Phosphatase C-Reactive Protein Urine Protein 100 H Urine Ascorbic Acid 20 H 09/06/20 05:58 Hgb Hct MCV MCH RDW Plt Count Lymph % (Auto) ESR Potassium 3.1 L Glucose Alkaline Phosphatase C-Reactive Protein Urine Protein Urine Ascorbic Acid Critical Laboratory Results Reviewed: Yes Attending or Supervising Physician who Reviewed Labs: MARINO CARUSO - Radiology Results Radiology Results Interpreted: 09/17/20 14:30 Attila Critical Radiology Results Reviewed: Yes Attending or Supervising Physician who Reviewed Radiology: MARINO CARUSO Discharge - Discharge Clinical Impression: Cellulitis of right lower extremity, Chronic pain syndrome Condition: Fair Disposition: ADMITTED INPATIENT Unit Admitted: Medical Floor
== END 2020-09-15 14:32 | DRG 602 ==
LOC: ER 13:14 → EH 20:48 → OBSVTOIN 20:48 → INTOOBSV 20:48 → UNDOADMOB 20:48 → 5 21:51 → EH 21:51 → OBSVTOIN 09-06 21:08 → 5 09-06 21:08 → EH 09-06 21:08
PROVIDERS: ADMIT Student in an Organized Health Care Education/Training Program; ATTEND Hospitalist
PROC: 02HV33Z Insertion of Infusion Device into Superior Vena Cava, Percutaneous Approach (ICD-10-PCS; principal; 2020-09-07)
DX: L03.115 Cellulitis of right lower limb (principal); I50.43 Acute on chronic combined systolic (congestive) and diastolic (congestive) heart failure; N17.9 Acute kidney failure, unspecified; I13.0 Hypertensive heart and chronic kidney disease with heart failure and stage 1 through stage 4 chronic kidney disease, or unspecified chronic kidney disease; E87.1 Hypo-osmolality and hyponatremia; Z68.41 Body mass index [BMI] 40.0-44.9, adult; I73.9 Peripheral vascular disease, unspecified; D50.9 Iron deficiency anemia, unspecified; E66.01 Morbid (severe) obesity due to excess calories; F17.200 Nicotine dependence, unspecified, uncomplicated; N18.30 Chronic kidney disease, stage 3 unspecified; R29.6 Repeated falls; E87.6 Hypokalemia; G47.33 Obstructive sleep apnea (adult) (pediatric); B95.62 Methicillin resistant Staphylococcus aureus infection as the cause of diseases classified elsewhere; G47.00 Insomnia, unspecified; J42 Unspecified chronic bronchitis; E78.5 Hyperlipidemia, unspecified; I48.91 Unspecified atrial fibrillation; J44.9 Chronic obstructive pulmonary disease, unspecified; K21.9 Gastro-esophageal reflux disease without esophagitis; M19.90 Unspecified osteoarthritis, unspecified site; M79.7 Fibromyalgia; M10.9 Gout, unspecified; F31.9 Bipolar disorder, unspecified; L25.8 Unspecified contact dermatitis due to other agents; L30.4 Erythema intertrigo; W05.0XXA Fall from non-moving wheelchair, initial encounter; Z89.512 Acquired absence of left leg below knee; Z79.899 Other long term (current) drug therapy; Z82.49 Family history of ischemic heart disease and other diseases of the circulatory system; Z11.59 Encounter for screening for other viral diseases
CPT/HCPCS: 36415; 36573; 70450; 71045; 72170; 80048; 80053; 80202; 80307; 81001; 82550; 82803; 82962; 83605; 83735; 84484; 85025; 85027; 85652; 86140; 87040; 87070; 87077; 87186; 87205; 93005; 93010; 96360; 99285; 0241U; C1769; C9803; G0378; J1642; J1650; J3370; J3490; J7040; J7060